=== PATIENT | female | born 1935 | race Two or more races ===

== ENCOUNTER 2017-10-30 02:15 | Inpatient (IN) | payer MEDICARE, OTHER ==
[~2017-10-30] VITALS: Ht 149.9 cm; Wt 63.5 kg
[2017-10-30] VITALS (8 sets, daily range): BP systolic 127–158; BP diastolic 55–90
[2017-10-30] MEDS ORDERED: Sodium Chloride 500ML 500 ML IV ONE (02:25)
[2017-10-30] MEDS ORDERED: Isovue-300 100ml vial INJ PRN (02:30)
[2017-10-30 02:57] LABS: BASOPHILS % (AUTO) 1.1 % (0.0-2.0); EOSINOPHILS % (AUTO) 4.3 % (0.0-3.0); HEMATOCRIT 42.8 % (37.0-47.0); HEMOGLOBIN 13.8 G/DL (12.0-16.0); LYMPHOCYTES % (AUTO) 21.2 % (20.0-45.0); MEAN CORPUSCULAR VOLUME 87 FL (80-99); MONOCYTES % (AUTO) 13.1 % (1.0-10.0); NEUTROPHILS % (AUTO) 60.3 % (45.0-75.0); PLATELET COUNT 312 K/UL (150-450); RED BLOOD COUNT 4.91 M/UL (4.20-5.40); RED CELL DISTRIBUTION WIDTH 14.6 % (11.6-14.8); WHITE BLOOD COUNT 4.4 K/UL (4.8-10.8)
[2017-10-30 03:05] LABS: BILIRUBIN, URINE NEGATIVE (NEGATIVE); COLOR,URINE PALE YELLOW; GLUCOSE, URINE (UA) NEGATIVE (NEGATIVE); KETONES,URINE NEGATIVE (NEGATIVE); LEUKOCYTE ESTERASE ,URINE 3+ (NEGATIVE); NITRITE,URINE POSITIVE (NEGATIVE); PH,URINE 6.5 (4.5-8.0); PROTEIN,URINE 1+ (NEGATIVE); UROBILINOGEN,URINE NORMAL MG/DL (0.0-1.0)
[2017-10-30 03:12] LABS: ANION GAP 9 mmol/L (5-15); BLOOD UREA NITROGEN 6 mg/dL (7-18); CALCIUM 9.4 MG/DL (8.5-10.1); CARBON DIOXIDE 27 MMOL/L (21-32); CHLORIDE 104 MMOL/L (98-107); CREATININE 0.8 MG/DL (0.55-1.30); POTASSIUM 3.1 MMOL/L (3.5-5.1); SODIUM 140 MMOL/L (136-145)
[2017-10-30 03:13] LABS: APPEARANCE,URINE CLOUDY
[2017-10-30 03:16] LABS: ALANINE AMINOTRANSFERASE 16 U/L (12-78); ALBUMIN 3.2 G/DL (3.4-5.0); ALBUMIN/GLOBULIN RATIO 0.8 (1.0-2.7); ALKALINE PHOSPHATASE 107 U/L (46-116); ASPARTATE AMINO TRANSFERASE 20 U/L (15-37); BILIRUBIN,TOTAL 0.4 MG/DL (0.2-1.0)
[2017-10-30] MEDS ORDERED: Pantoprazole Inj IVP ONE (03:45)
--- NOTE | 2017-10-30 03:48 | Emergency Room Report ---
History of Present Illness General Chief Complaint: Abdominal Pain Source: Patient Present Illness HPI 82-year-old female presents ED for evaluation of rectal bleeding. Came from home. Her daughter call 911. Patient had episode of dark stool last night. Similar episode happened the day prior. Patient complaining of lower abdominal pain, sharp, 8 out of 10, nonradiating. Denies fevers or chills. Denies chest pain or shortness of breath. Denies nausea or vomiting. No other aggravating relieving factors. Denies any other associated symptoms Allergies: Coded Allergies: PENICILLINS (Verified Allergy, Unknown, 10/30/17) Patient History Past Medical History: HTN Past Surgical History: none Pertinent Family History: none Social History: Denies: smoking, alcohol use, drug use Now: No Immunizations: UTD Reviewed Nursing Documentation: PMH: Agreed; PSxH: Agreed Nursing Documentation-PMH Past Medical History: No History, Except For Hx Hypertension: Yes Review of Systems All Other Systems: negative except mentioned in HPI Physical Exam Vital Signs Date Time Temp Pulse Resp B/P (MAP) Pulse Ox O2 Delivery O2 Flow Rate FiO2 10/30/17 02:04 99.1 59 14 152/88 97 Room Air 99.1 Sp02 EP Interpretation: reviewed, normal General Appearance: no apparent distress, alert, GCS 15, non-toxic Head: normocephalic, atraumatic Eyes: bilateral eye normal inspection, bilateral eye PERRL ENT: hearing grossly normal, normal pharynx, no angioedema, normal voice Neck: full range of motion, supple/symm/no masses Respiratory: chest non-tender, lungs clear, normal breath sounds, speaking full sentences Cardiovascular #1: regular rate, rhythm, no edema Cardiovascular #2: 2+ carotid (R), 2+ carotid (L), 2+ radial (R), 2+ radial (L) , 2+ dorsalis pedis (R), 2+ dorsalis pedis (L) Gastrointestinal: normal bowel sounds, soft, non-distended, no guarding, no rebound, tenderness Rectal: blood streaked stool, heme positive stool Genitourinary: normal inspection, no CVA tenderness Musculoskeletal: back normal, gait/station normal, normal range of motion, non- tender Neurologic: alert, oriented x3, responsive, motor strength/tone normal, sensory intact, speech normal Psychiatric: judgement/insight normal, memory normal, mood/affect normal, no suicidal/homicidal ideation Reflexes: 3+ bicep (R), 3+ bicep (L), 3+ tricep (R), 3+ tricep (L), 3+ knee (R) , 3+ knee (L) Skin: normal color, no rash, warm/dry, well hydrated Lymphatic: no adenopathy Medical Decision Making Diagnostic Impression: Primary Impression: LGI bleed Additional Impression: UTI (urinary tract infection) Qualified Codes: N39.0 - Urinary tract infection, site not specified ER Course Hospital Course 82-year-old F presents to ED with rectal bleeding Differential diagnoses include: UGIB, LGIB, hemorrhoids Clinical course Patient placed on stretcher. 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 After initial history and physical I ordered labs, IV fluids, UA Labs - no leukocytosis, Hb/Hct stable. electrolytes ok, UA + bacteria In ED patient had large passage of blood clot. Vital stable. Given Protonix IV. Patient will require admission. Given antibiotics. Case discussed with Dr. Middleton and he agreed to accept the patient to his service for further care and support I feel this is a highly complex case requiring extensive working including EKG/ Rhythm strip, Xray/CT/US, Blood/urine lab work, repeat exams while in ED, and administration of strong opiates/narcotics for pain control, admission to hospital or close patient follow up. Diagnosis - LGIB, UTI Patient admitted to telemetry in serious condition Labs Test 10/30/17 02:30 White Blood Count 4.4 K/UL (4.8-10.8) Red Blood Count 4.91 M/UL (4.20-5.40) Hemoglobin 13.8 G/DL (12.0-16.0) Hematocrit 42.8 % (37.0-47.0) Mean Corpuscular Volume 87 FL (80-99) Mean Corpuscular Hemoglobin 28.0 PG (27.0-31.0) Mean Corpuscular Hemoglobin Concent 32.2 G/DL (32.0-36.0) Red Cell Distribution Width 14.6 % (11.6-14.8) Platelet Count 312 K/UL (150-450) Mean Platelet Volume 6.1 FL (6.5-10.1) Neutrophils (%) (Auto) 60.3 % (45.0-75.0) Lymphocytes (%) (Auto) 21.2 % (20.0-45.0) Monocytes (%) (Auto) 13.1 % (1.0-10.0) Eosinophils (%) (Auto) 4.3 % (0.0-3.0) Basophils (%) (Auto) 1.1 % (0.0-2.0) Prothrombin Time 10.5 SEC (9.30-11.50) Prothromb Time International Ratio 1.0 (0.9-1.1) Activated Partial Thromboplast Time 30 SEC (23-33) Urine Color Pale yellow Urine Appearance Cloudy Urine pH 6.5 (4.5-8.0) Urine Specific [place] 1.010 (1.005-1.035) Urine Protein 1+ (NEGATIVE) Urine Glucose (UA) Negative (NEGATIVE) Urine Ketones Negative (NEGATIVE) Urine Occult Blood 5+ (NEGATIVE) Urine Nitrite Positive (NEGATIVE) Urine Bilirubin Negative (NEGATIVE) Urine Urobilinogen Normal MG/DL (0.0-1.0) Urine Leukocyte Esterase 3+ (NEGATIVE) Urine RBC 20-30 /HPF (0 - 2) Urine WBC Tntc /HPF (0 - 2) Urine Squamous Epithelial Cells Moderate /LPF (NONE/OCC) Urine Bacteria Many /HPF (NONE) Sodium Level 140 MMOL/L (136-145) Potassium Level 3.1 MMOL/L (3.5-5.1) Chloride Level 104 MMOL/L (98-107) Carbon Dioxide Level 27 MMOL/L (21-32) Anion Gap 9 mmol/L (5-15) Blood Urea Nitrogen 6 mg/dL (7-18) Creatinine 0.8 MG/DL (0.55-1.30) Estimat Glomerular Filtration Rate mL/min (>60) Glucose Level 124 MG/DL (74-106) Calcium Level 9.4 MG/DL (8.5-10.1) Total Bilirubin 0.4 MG/DL (0.2-1.0) Aspartate Amino Transf (AST/SGOT) 20 U/L (15-37) Alanine Aminotransferase (ALT/SGPT) 16 U/L (12-78) Alkaline Phosphatase 107 U/L (46-116) Total Protein 7.3 G/DL (6.4-8.2) Albumin 3.2 G/DL (3.4-5.0) Globulin 4.1 g/dL Albumin/Globulin Ratio 0.8 (1.0-2.7) Lipase 273 U/L (73-393) CT/MRI/US Diagnostic Results CT/MRI/US Diagnostic Results : Imaging Test Ordered: CT A/P Impression resulting pending (STATRAD down) Last Vital Signs Date Time Temp Pulse Resp B/P (MAP) Pulse Ox O2 Delivery O2 Flow Rate FiO2 10/30/17 02:15 99.1 78 14 155/55 97 Room Air 99.1 Status: improved Disposition: ADMITTED INPATIENT Condition: Serious Scripts Unable to Obtain Active Prescriptions or Reported Meds Referrals: NOT CHOSEN IPA/,REFERRING (PCP) Jeovany Torres MD Oct 30, 2017 03:48
[2017-10-30] MEDS: Pantoprazole 80 MG in NS 250 ML IV SCH ×2 (10:18→20:39)
[2017-10-30] MEDS: Potassium Chloride 10 MEQ in D5 1/2NS 1,000 ML IV SCH ×2 (10:18→20:40)
--- NOTE | 2017-10-30 11:05 | Diagnostic Imaging Report ---
Indication: Abdominal pain Technique: CT of the abdomen and pelvis utilizing automated exposure control with intravenous contrast. Venous scanning performed. Axial, sagittal and coronal reformats presented. CT dose: Total DLP 682.27 mGycm; CTDI vol 15.23 mGy Comparison: None Findings: Exam degraded by patient motion. Within these limitations: There is dependent atelectasis in the lung bases. Heart is enlarged. There are aortic valvular calcifications. No pericardial effusion. Patient is status post cholecystectomy. There is mild prominence of the central intrahepatic ducts and common bile duct which is likely related to post cholecystectomy state. Liver contour is smooth. No focal hepatic mass lesion appreciated on this single phase exam. Hepatic veins and portal veins appear patent. Spleen, adrenal glands and pancreas grossly unremarkable. There is a 4 cm simple appearing cysts in the lower pole of the right kidney. There is no urinary tract stone or hydronephrosis bilaterally. A Feliciano catheter decompresses the bladder, precluding its evaluation. The uterus and adnexa are atrophic. There is no free intraperitoneal air. No bowel obstruction or obvious inflammatory change in the mesentery. There is colonic diverticulosis without evidence to suggest an acute diverticulitis. Abdominal aorta is normal in caliber with scattered atherosclerotic calcifications. No pathologically enlarged lymphadenopathy appreciated. There is scoliosis and multilevel degenerative change of the spine. There is grade 1 anterolisthesis of L5 on S1. No acute osseous abnormality appreciated. IMPRESSION: * Gallbladder surgically absent. Mild prominence of intrahepatic and extrahepatic ducts likely related to postcholecystectomy state. Correlation with liver function tests recommended. * No evidence of bowel obstruction or definite inflammatory change in the mesentery. * Scattered colonic diverticula. No evidence to suggest diverticulitis. * Feliciano catheter decompresses the bladder, precluding its evaluation. * Cardiomegaly. * Osteopenia, scoliosis and multilevel degenerative change of the spine. The CT scanner at [facility] is accredited by the [place] [employer] and the scans are performed using protocols designed to limit radiation exposure to as low as reasonably achievable to attain images of sufficient resolution adequate for diagnostic evaluation.
--- NOTE | 2017-10-30 11:40 | History and Physical ---
History of Present Illness General Date patient seen: Oct 30, 2017 Reason for Hospitalization: Abdominal Pain Present Illness HPI 82-year-old female presents ED for evaluation of rectal bleeding. Pt reports having dark melanic stool over last 2 days & last night associated w/ a moderate to severe lower abdominal pain x 24 hrs (sharp, non radiating, worse w / activity and improved w/ meds in hospital). Pt afebrile and HDS in the ED, had an episode of clot passed. Initial labs relatively unremarkable w/ hypokalemia and HB wnl. Started on PPI Gtt and NPO receiving IVF. Allergies: Coded Allergies: PENICILLINS (Verified Allergy, Unknown, 10/30/17) Medication History Unable to Obtain Active Prescriptions or Reported Meds Patient History Healthcare decision maker Resuscitation status Full Code Advanced Directive on File Review of Systems Constitutional: Denies: no symptoms, see HPI, chills, sweats, fever, malaise, weakness, other Eye: Denies: no symptoms, see HPI, eye pain, blurred vision, tearing, double vision, nose pain, nose congestion, acuity changes, discharge, other ENT: Denies: no symptoms, see HPI, ear pain, ear discharge, nose pain, nose congestion, throat pain, throat swelling, mouth pain, hearing loss, nasal discharge, other Respiratory: Denies: no symptoms, see HPI, cough, orthopnea, shortness of breath, stridor, wheezing, HOLLEY, sputum, other Cardiovascular: Denies: no symptoms, see HPI, chest pain, edema, palpitations, syncope, PND, other Gastrointestinal: Reports: see HPI, abdominal pain, melena; Denies: no symptoms , constipation, diarrhea, nausea, vomiting, hematemesis, other Genitourinary: Denies: no symptoms, see HPI, discharge, dysuria, frequency, hematuria, pain, retention, incontinence, urgency, vag bleed/dc, other Musculoskeletal: Denies: no symptoms, see HPI, back pain, gout, joint pain, joint swelling, muscle pain, muscle stiffness, other Skin: Denies: no symptoms, see HPI, rash, change in color, change in hair/nails , dryness, lesions, other Psychiatric: Denies: no symptoms, see HPI, prior hx, anxiety, depressed feelings, emotional problems, SI, HI, hallucinations, other Neurological: Denies: no symptoms, see HPI, headache, numbness, paresthesia, seizure, tingling, tremors, focal weakness, syncope, dizziness, other Endocrine: Denies: no symptoms, see HPI, excessive sweating, flushing, intolerance to temperature, increased thirst, increased urine, unexplained weight loss, other Hematologic/Lymphatic: Denies: no symptoms, see HPI, anemia, blood clots, easy bleeding, easy bruising, swollen glands, diathesis, other Physical Exam General Appearance: WD/WN, no apparent distress, alert HEENT: normocephalic, atraumatic, anicteric, mucous membranes moist, PERRL Neck: supple Respiratory/Chest: chest wall non-tender, lungs clear, normal breath sounds, no respiratory distress Cardiovascular/Chest: normal peripheral pulses, normal rate, regular rhythm, regularly irregular, no gallop/murmur, no JVD Abdomen: normal bowel sounds, non tender, soft, no organomegaly, no mass Extremities: normal range of motion, non-tender, normal inspection, no calf tenderness, normal capillary refill, non-pitting 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, no motor/sensory deficits, abnormal gait , alert, oriented x 3, responsive Last 24 Hour Vital Signs Date Time Temp Pulse Resp B/P (MAP) Pulse Ox O2 Delivery O2 Flow Rate FiO2 10/30/17 09:12 Room Air 10/30/17 09:00 Room Air 10/30/17 06:10 98.7 83 20 145/65 98 Room Air 98.7 10/30/17 05:35 98.7 83 20 145/65 98 Room Air 98.7 10/30/17 04:28 98.8 76 16 148/57 98 Room Air 98.8 10/30/17 02:15 99.1 78 14 155/55 97 Room Air 99.1 10/30/17 02:04 99.1 59 14 152/88 97 Room Air 99.1 Intake and Output 10/29/17 10/30/17 19:00 07:00 Intake Total 500 ml Output Total 2975 ml Balance -2475 ml Intake IV Total 500 ml Output Urine Total 2975 ml Laboratory Tests Test 10/30/17 02:30 White Blood Count 4.4 K/UL (4.8-10.8) L Red Blood Count 4.91 M/UL (4.20-5.40) Hemoglobin 13.8 G/DL (12.0-16.0) Hematocrit 42.8 % (37.0-47.0) Mean Corpuscular Volume 87 FL (80-99) Mean Corpuscular Hemoglobin 28.0 PG (27.0-31.0) Mean Corpuscular Hemoglobin Concent 32.2 G/DL (32.0-36.0) Red Cell Distribution Width 14.6 % (11.6-14.8) Platelet Count 312 K/UL (150-450) Mean Platelet Volume 6.1 FL (6.5-10.1) L Neutrophils (%) (Auto) 60.3 % (45.0-75.0) Lymphocytes (%) (Auto) 21.2 % (20.0-45.0) Monocytes (%) (Auto) 13.1 % (1.0-10.0) H Eosinophils (%) (Auto) 4.3 % (0.0-3.0) H Basophils (%) (Auto) 1.1 % (0.0-2.0) Prothrombin Time 10.5 SEC (9.30-11.50) Prothromb Time International Ratio 1.0 (0.9-1.1) Activated Partial Thromboplast Time 30 SEC (23-33) Urine Color Pale yellow Urine Appearance Cloudy Urine pH 6.5 (4.5-8.0) Urine Specific [place] 1.010 (1.005-1.035) Urine Protein 1+ (NEGATIVE) H Urine Glucose (UA) Negative (NEGATIVE) Urine Ketones Negative (NEGATIVE) Urine Occult Blood 5+ (NEGATIVE) H Urine Nitrite Positive (NEGATIVE) H Urine Bilirubin Negative (NEGATIVE) Urine Urobilinogen Normal MG/DL (0.0-1.0) Urine Leukocyte Esterase 3+ (NEGATIVE) H Urine RBC 20-30 /HPF (0 - 2) H Urine WBC Tntc /HPF (0 - 2) H Urine Squamous Epithelial Cells Moderate /LPF (NONE/OCC) H Urine Bacteria Many /HPF (NONE) H Sodium Level 140 MMOL/L (136-145) Potassium Level 3.1 MMOL/L (3.5-5.1) L Chloride Level 104 MMOL/L (98-107) Carbon Dioxide Level 27 MMOL/L (21-32) Anion Gap 9 mmol/L (5-15) Blood Urea Nitrogen 6 mg/dL (7-18) L Creatinine 0.8 MG/DL (0.55-1.30) Estimat Glomerular Filtration Rate mL/min (>60) Glucose Level 124 MG/DL (74-106) H Calcium Level 9.4 MG/DL (8.5-10.1) Total Bilirubin 0.4 MG/DL (0.2-1.0) Aspartate Amino Transf (AST/SGOT) 20 U/L (15-37) Alanine Aminotransferase (ALT/SGPT) 16 U/L (12-78) Alkaline Phosphatase 107 U/L (46-116) Total Protein 7.3 G/DL (6.4-8.2) Albumin 3.2 G/DL (3.4-5.0) L Globulin 4.1 g/dL Albumin/Globulin Ratio 0.8 (1.0-2.7) L Lipase 273 U/L (73-393) Height (Feet): 4 Height (Inches): 11.00 Weight (Pounds): 140 Medications Current Medications Medications (Trade) Dose Ordered Sig/Violet Route PRN Reason Start Time Stop Time Status Last Admin Dose Admin Iopamidol (Isovue-300 100ml) 100 ml NOW PRN INJ Radiology Procedure 10/30/17 02:30 Pantoprazole 80 mg/Sodium Chloride 250 ml @ 25 mls/hr Q10H IV 10/30/17 10:30 11/29/17 10:29 10/30/17 10:18 Potassium Chloride 10 meq/ Dextrose/Sodium Chloride 1,005 ml @ 100 mls/hr Q10H3M IV 10/30/17 10:20 11/29/17 10:19 10/30/17 10:18 Assessment/Plan Assessment/Plan #GI Bleed #Hypokalemia #UTI - not clean catch but w/ wbc's #HTN #Shortness of breath - admit to in pt - GI consult - NPO - Protonix gtt - trend CBC - mIVF - Follow urine Cx - c/w empiric Levaquin - pulm consult - prn hyral for sbp > 160 - supportive care - dvt ppx: SCDs, early ambulation - full code anticipate pt will require in pt mgt for 2-3 days, dc home + HH vs SNF once stable for discharge I spent 70 min on this case, 48 min was dedicated to counseling and or care coordination time of this note may not reflect time of clinical encounter Francis Dunbar MD Oct 30, 2017 11:40
--- NOTE | 2017-10-30 13:57 | GI Initial Consult Note ---
History of Present Illness General Date patient seen: Oct 30, 2017 Time patient seen: 16:21 Reason for Hospitalization: Abdominal Pain Referring physician: YADY Reason for Consultation: GI BLEED Present Illness HPI 82-year-old female presents ED for evaluation of rectal bleeding. Came from home. Her daughter call 911. Patient had episode of dark stool last night. Similar episode happened the day prior. Patient complaining of lower abdominal pain, sharp, 8 out of 10, nonradiating. Denies fevers or chills. Denies chest pain or shortness of breath. Denies nausea or vomiting. No other aggravating relieving factors. Denies any other associated symptoms GI consulted for LGIB. Pt seen, awake A&Ox4 NAD with no active s/sx of N/V/D. Per patient, had an episode of hematochezia and melena x 2 nights. Her last colonoscopy was performed 2 years ago, in which the patient is states it was normal. She denies any rectal pain, denies abdominal pain at this time. Labs reviewed; no anemia, no leukocytosis. Noted with hypokalemia and hypoalbuminemia. Home Meds Unable to Obtain Active Prescriptions or Reported Meds Med list reviewed/reconciled: Yes Allergies: Coded Allergies: PENICILLINS (Verified Allergy, Unknown, 10/30/17) Patient History History Provided By: Patient, Medical Record PMH Narrative Past Medical History: HTN Past Surgical History: none Pertinent Family History: none Social History: Denies: smoking, alcohol use, drug use Now: No Immunizations: UTD Reviewed Nursing Documentation: PMH: Agreed; PSxH: Agreed Nursing Documentation-PM Past Medical History: No History, Except For Hx Hypertension: Yes Social History: Denies: smoking, alcohol use, drug use, other Review of Systems All Other Systems: negative except mentioned in HPI Physical Exam Vital Signs Date Time Temp Pulse Resp B/P (MAP) Pulse Ox O2 Delivery O2 Flow Rate FiO2 10/30/17 02:04 99.1 59 14 152/88 97 Room Air 99.1 Sp02 EP Interpretation: reviewed, normal Labs Laboratory Tests Test 10/30/17 02:30 White Blood Count 4.4 K/UL (4.8-10.8) L Red Blood Count 4.91 M/UL (4.20-5.40) Hemoglobin 13.8 G/DL (12.0-16.0) Hematocrit 42.8 % (37.0-47.0) Mean Corpuscular Volume 87 FL (80-99) Mean Corpuscular Hemoglobin 28.0 PG (27.0-31.0) Mean Corpuscular Hemoglobin Concent 32.2 G/DL (32.0-36.0) Red Cell Distribution Width 14.6 % (11.6-14.8) Platelet Count 312 K/UL (150-450) Mean Platelet Volume 6.1 FL (6.5-10.1) L Neutrophils (%) (Auto) 60.3 % (45.0-75.0) Lymphocytes (%) (Auto) 21.2 % (20.0-45.0) Monocytes (%) (Auto) 13.1 % (1.0-10.0) H Eosinophils (%) (Auto) 4.3 % (0.0-3.0) H Basophils (%) (Auto) 1.1 % (0.0-2.0) Prothrombin Time 10.5 SEC (9.30-11.50) Prothromb Time International Ratio 1.0 (0.9-1.1) Activated Partial Thromboplast Time 30 SEC (23-33) Urine Color Pale yellow Urine Appearance Cloudy Urine pH 6.5 (4.5-8.0) Urine Specific [place] 1.010 (1.005-1.035) Urine Protein 1+ (NEGATIVE) H Urine Glucose (UA) Negative (NEGATIVE) Urine Ketones Negative (NEGATIVE) Urine Occult Blood 5+ (NEGATIVE) H Urine Nitrite Positive (NEGATIVE) H Urine Bilirubin Negative (NEGATIVE) Urine Urobilinogen Normal MG/DL (0.0-1.0) Urine Leukocyte Esterase 3+ (NEGATIVE) H Urine RBC 20-30 /HPF (0 - 2) H Urine WBC Tntc /HPF (0 - 2) H Urine Squamous Epithelial Cells Moderate /LPF (NONE/OCC) H Urine Bacteria Many /HPF (NONE) H Sodium Level 140 MMOL/L (136-145) Potassium Level 3.1 MMOL/L (3.5-5.1) L Chloride Level 104 MMOL/L (98-107) Carbon Dioxide Level 27 MMOL/L (21-32) Anion Gap 9 mmol/L (5-15) Blood Urea Nitrogen 6 mg/dL (7-18) L Creatinine 0.8 MG/DL (0.55-1.30) Estimat Glomerular Filtration Rate mL/min (>60) Glucose Level 124 MG/DL (74-106) H Calcium Level 9.4 MG/DL (8.5-10.1) Total Bilirubin 0.4 MG/DL (0.2-1.0) Aspartate Amino Transf (AST/SGOT) 20 U/L (15-37) Alanine Aminotransferase (ALT/SGPT) 16 U/L (12-78) Alkaline Phosphatase 107 U/L (46-116) Total Protein 7.3 G/DL (6.4-8.2) Albumin 3.2 G/DL (3.4-5.0) L Globulin 4.1 g/dL Albumin/Globulin Ratio 0.8 (1.0-2.7) L Lipase 273 U/L (73-393) General Appearance: well appearing, no apparent distress, alert Head: normocephalic EENT: PERRL/EOMI, normal ENT inspection Neck: supple Respiratory: normal breath sounds, no respiratory distress Cardiovascular: normal rate Gastrointestinal: normal inspection, non tender, soft, normal bowel sounds, non -distended Rectal: deferred Genitourinary: no CVA tenderness Musculoskeletal: normal inspection, back normal Neurologic: normal inspection, alert, oriented x3, responsive Psychiatric: normal inspection, judgement/insight normal, memory normal Skin: normal inspection, normal color, no rash, warm/dry, palpation normal, well hydrated Lymphatic: normal inspection, no adenopathy Current Medications Current Medications Medications (Trade) Dose Ordered Sig/Violet Route PRN Reason Start Time Stop Time Status Last Admin Dose Admin Iopamidol (Isovue-300 100ml) 100 ml NOW PRN INJ Radiology Procedure 10/30/17 02:30 Pantoprazole 80 mg/Sodium Chloride 250 ml @ 25 mls/hr Q10H IV 10/30/17 10:30 11/29/17 10:29 10/30/17 10:18 Potassium Chloride 10 meq/ Dextrose/Sodium Chloride 1,005 ml @ 100 mls/hr Q10H3M IV 10/30/17 10:20 11/29/17 10:19 10/30/17 10:18 GI: Plan Problems: (1) LGI bleed Plan EGD/colonoscopy scheduled for tomorrow. - CLD, NPO @ [facility]. - hold all blood thinners. ppi prn transfusions will follow with additional recs post procedure. Discussed with Dr. Mejias. Thank you for this patient referral, we will follow. The patient was seen and examined at bedside and all new and available data was reviewed in the patients chart. I agree with the above findings, impression and plan. (Patient seen earlier today. Signature stamp does not reflect patient encounter time.). - MD Chelsie LeeUn[facility] Southeasternoi INDUSTRIAL MANAGEMENT TEACHER Oct 30, 2017 13:57
[2017-10-30] MEDS ORDERED: Magnesium Citrate Liq Btl ORAL SCH (16:00)
[2017-10-30] MEDS ORDERED: Polyethylene Glycol 238gm bottle ORAL SCH (16:00)
[2017-10-30] MEDS ORDERED: Bisacodyl EC 5mg tab ORAL SCH (16:00)
[2017-10-30 16:12] LABS: BASOPHILS % (AUTO) 0.9 % (0.0-2.0); EOSINOPHILS % (AUTO) 0.7 % (0.0-3.0); HEMATOCRIT 36.8 % (37.0-47.0); HEMOGLOBIN 12.3 G/DL (12.0-16.0); LYMPHOCYTES % (AUTO) 23.4 % (20.0-45.0); MEAN CORPUSCULAR VOLUME 86 FL (80-99); MONOCYTES % (AUTO) 10.6 % (1.0-10.0); NEUTROPHILS % (AUTO) 64.4 % (45.0-75.0); PLATELET COUNT 243 K/UL (150-450); RED CELL DISTRIBUTION WIDTH 14.5 % (11.6-14.8); WHITE BLOOD COUNT 5.3 K/UL (4.8-10.8)
[2017-10-30] MEDS ORDERED: TRAMADOL HCL50 MG ORAL (18:01)
[2017-10-30] MEDS ORDERED: PAZEO2.5 ML OP (18:01)
[2017-10-30] MEDS ORDERED: TENORMIN25 MG ORAL (18:01)
[2017-10-30] MEDS ORDERED: PATADAY2.5 ML OP (18:01)
[2017-10-30] MEDS ORDERED: ASPIRIN81 M3 PO (18:01)
[2017-10-30] MEDS ORDERED: Fleet's Enema 133ml RECTAL SCH (23:00)
[2017-10-31] VITALS (8 sets, daily range): BP systolic 109–151; BP diastolic 77–89
[2017-10-31] MEDS: Potassium Chloride 10 MEQ in D5 1/2NS 1,000 ML IV SCH ×2 (05:40→16:22)
[2017-10-31] MEDS: Pantoprazole 80 MG in NS 250 ML IV SCH ×2 (05:40→16:22)
[2017-10-31 06:47] LABS: EOSINOPHILS % (AUTO) 2.7 % (0.0-3.0); HEMATOCRIT 38.5 % (37.0-47.0); HEMOGLOBIN 12.4 G/DL (12.0-16.0); MEAN CORPUSCULAR VOLUME 88 FL (80-99); MONOCYTES % (AUTO) 13.3 % (1.0-10.0); PLATELET COUNT 260 K/UL (150-450); RED BLOOD COUNT 4.36 M/UL (4.20-5.40); RED CELL DISTRIBUTION WIDTH 14.9 % (11.6-14.8); WHITE BLOOD COUNT 4.5 K/UL (4.8-10.8)
[2017-10-31 07:00] LABS: INR 1.1 (0.9-1.1)
[2017-10-31 07:04] LABS: ANION GAP 9 mmol/L (5-15); BLOOD UREA NITROGEN 4 mg/dL (7-18); CALCIUM 8.6 MG/DL (8.5-10.1); CARBON DIOXIDE 25 MMOL/L (21-32); CHLORIDE 108 MMOL/L (98-107); CREATININE 0.7 MG/DL (0.55-1.30); POTASSIUM 3.2 MMOL/L (3.5-5.1); SODIUM 142 MMOL/L (136-145)
[2017-10-31] MEDS ORDERED: Pantoprazole Inj IVP SCH (09:00)
[2017-10-31] MEDS ORDERED: NS 275ml ONE (09:40)
--- NOTE | 2017-10-31 09:44 | Anethesia Preoperative Eval ---
Anesthesia Pre-op PMH/ROS General Date of Evaluation: Oct 31, 2017 Anesthesiologist: Dhaval ASA Score: ASA 2 Mallampati Score Class I : Soft palate, uvula, fauces, pillars visible Class II: Soft palate, uvula, fauces visible Class III: Soft palate, base of uvula visible Class IV: Only hard plate visible Mallampati Classification: Class II Surgeon: Magalie Diagnosis: GI bleed Surgical Procedure: EGD and colonoscopy Anesthesia History: none Family History: no anesthesia problems Allergies: Coded Allergies: PENICILLINS (Verified Allergy, Unknown, 10/30/17) Medications: see eMAR Past Medical History Cardiovascular: Reports: HTN; Denies: CAD, UT, valve dz, arrhythmia, other Pulmonary: Denies: asthma, COPD, JAY JAY, other Gastrointestinal/Genitourinary: Denies: GERD, CRI, ESRD, other Neurologic/Psychiatric: Denies: dementia, CVA, depression/anxiety, TIA, other Endocrine: Denies: DM, hypothyroidism, steroids, other HEENT: Denies: cataract (L), cataract (R), glaucoma, CHITINA (L), CHITINA (R), other Hematology/Immune: Reports: anemia - acute on chronic; Denies: DVT, bleeding disorder, other Musculoskeletal/Integumentary: Denies: OA, RA, DJD, DDD, edema, other PSxH Narrative: Denies Anesthesia Pre-op Phys. Exam Physician Exam Last Vital Signs Date Time Temp Pulse Resp B/P (MAP) Pulse Ox O2 Delivery O2 Flow Rate FiO2 10/31/17 04:00 97.0 75 20 143/86 (105) 95 97.0 10/30/17 21:00 Room Air Constitutional: NAD Cardiovascular: RRR Respiratory: CTA Airway Exam Mallampati Score: Class II MO: full ROM: full Anesthesia Pre-op A/P Labs Hematology Test 10/30/17 15:50 10/31/17 05:52 White Blood Count 5.3 K/UL (4.8-10.8) 4.5 K/UL (4.8-10.8) L Red Blood Count 4.30 M/UL (4.20-5.40) 4.36 M/UL (4.20-5.40) Hemoglobin 12.3 G/DL (12.0-16.0) 12.4 G/DL (12.0-16.0) Hematocrit 36.8 % (37.0-47.0) L 38.5 % (37.0-47.0) Mean Corpuscular Volume 86 FL (80-99) 88 FL (80-99) Mean Corpuscular Hemoglobin 28.6 PG (27.0-31.0) 28.4 PG (27.0-31.0) Mean Corpuscular Hemoglobin Concent 33.4 G/DL (32.0-36.0) 32.1 G/DL (32.0-36.0) Red Cell Distribution Width 14.5 % (11.6-14.8) 14.9 % (11.6-14.8) H Platelet Count 243 K/UL (150-450) 260 K/UL (150-450) Mean Platelet Volume 5.9 FL (6.5-10.1) L 6.0 FL (6.5-10.1) L Neutrophils (%) (Auto) 64.4 % (45.0-75.0) 56.0 % (45.0-75.0) Lymphocytes (%) (Auto) 23.4 % (20.0-45.0) 27.0 % (20.0-45.0) Monocytes (%) (Auto) 10.6 % (1.0-10.0) H 13.3 % (1.0-10.0) H Eosinophils (%) (Auto) 0.7 % (0.0-3.0) 2.7 % (0.0-3.0) Basophils (%) (Auto) 0.9 % (0.0-2.0) 1.0 % (0.0-2.0) Coagulation Test 10/31/17 05:52 Prothrombin Time 11.1 SEC (9.30-11.50) Prothromb Time International Ratio 1.1 (0.9-1.1) Activated Partial Thromboplast Time 32 SEC (23-33) Chemistry Test 10/31/17 05:52 Sodium Level 142 MMOL/L (136-145) Potassium Level 3.2 MMOL/L (3.5-5.1) L Chloride Level 108 MMOL/L (98-107) H Carbon Dioxide Level 25 MMOL/L (21-32) Anion Gap 9 mmol/L (5-15) Blood Urea Nitrogen 4 mg/dL (7-18) L Creatinine 0.7 MG/DL (0.55-1.30) Estimat Glomerular Filtration Rate mL/min (>60) Glucose Level 110 MG/DL (74-106) H Calcium Level 8.6 MG/DL (8.5-10.1) Magnesium Level 2.1 MG/DL (1.8-2.4) Studies Pre-op Studies: EKG - sr Risk Assessment & Plan Assessment: ASA II Plan: MAC Status Change Before Surgery: No Pre-Antibiotics Drug: N/A Fay Patel MD Oct 31, 2017 09:44
--- NOTE | 2017-10-31 10:50 | General Progress Note ---
Assessment/Plan Problem List: (1) LGI bleed ICD Codes: K92.2 - Gastrointestinal hemorrhage, unspecified SNOMED: 96929296 (2) UTI (urinary tract infection) ICD Codes: N39.0 - Urinary tract infection, site not specified SNOMED: 86918373 Qualifiers: Qualified Codes: N39.0 - Urinary tract infection, site not specified Assessment/Plan plan EGD and colonoscopy for today Subjective ROS Limited/Unobtainable: Yes Allergies: Coded Allergies: PENICILLINS (Verified Allergy, Unknown, 10/30/17) Objective Last 24 Hour Vital Signs Date Time Temp Pulse Resp B/P (MAP) Pulse Ox O2 Delivery O2 Flow Rate FiO2 10/31/17 04:00 97.0 75 20 143/86 (105) 95 97.0 10/31/17 04:00 74 10/31/17 00:00 68 10/31/17 00:00 98.0 79 20 133/82 (99) 96 98.0 10/30/17 21:00 Room Air 10/30/17 20:00 77 10/30/17 20:00 97.9 87 20 145/88 (107) 96 97.9 10/30/17 16:00 98.4 79 20 149/70 (96) 96 98.4 10/30/17 16:00 77 10/30/17 12:00 98.1 94 20 127/90 (102) 94 98.1 10/30/17 12:00 72 Intake and Output 10/30/17 10/31/17 19:00 07:00 Intake Total 1105 ml 1332.75 ml Output Total 800 ml Balance 305 ml 1332.75 ml Intake Oral 980 ml IV Total 125 ml 1332.75 ml Output Urine Total 800 ml # Voids 3 # Bowel Movements 3 Laboratory Tests 10/30/17 15:50: White Blood Count 5.3, Red Blood Count 4.30, Hemoglobin 12.3, Hematocrit 36.8L, Mean Corpuscular Volume 86, Mean Corpuscular Hemoglobin 28.6, Mean Corpuscular Hemoglobin Concent 33.4, Red Cell Distribution Width 14.5, Platelet Count 243, Mean Platelet Volume 5.9L, Neutrophils (%) (Auto) 64.4, Lymphocytes (%) (Auto) 23.4, Monocytes (%) (Auto) 10.6H, Eosinophils (%) (Auto) 0.7, Basophils (%) ( Auto) 0.9 10/31/17 05:52: White Blood Count 4.5L, Red Blood Count 4.36, Hemoglobin 12.4, Hematocrit 38.5, Mean Corpuscular Volume 88, Mean Corpuscular Hemoglobin 28.4, Mean Corpuscular Hemoglobin Concent 32.1, Red Cell Distribution Width 14.9H, Platelet Count 260, Mean Platelet Volume 6.0L, Neutrophils (%) (Auto) 56.0, Lymphocytes (%) (Auto) 27.0, Monocytes (%) (Auto) 13.3H, Eosinophils (%) (Auto) 2.7, Basophils (%) ( Auto) 1.0, Prothrombin Time 11.1, Prothromb Time International Ratio 1.1, Activated Partial Thromboplast Time 32, Sodium Level 142, Potassium Level 3.2L, Chloride Level 108H, Carbon Dioxide Level 25, Anion Gap 9, Blood Urea Nitrogen 4L, Creatinine 0.7, Estimat Glomerular Filtration Rate , Glucose Level 110H, Calcium Level 8.6, Magnesium Level 2.1 Height (Feet): 4 Height (Inches): 11.00 Weight (Pounds): 140 General Appearance: no apparent distress EENT: normal ENT inspection Neck: supple Cardiovascular: normal rate Respiratory/Chest: decreased breath sounds Abdomen: normal bowel sounds, non tender, soft Extremities: non-tender Franklyn Mejias MD Oct 31, 2017 10:50
[2017-10-31] MEDS ORDERED: LR 1000ml 1,000 ML IVLG SCH ×2 (11:05→11:58)
[2017-10-31] MEDS ORDERED: DiphenhydrAMINE 50mg/ml Inj IVP PRN ×2 (11:15→12:00)
[2017-10-31] MEDS ORDERED: Labetalol 5mg/ml 20ml vial IV PRN ×2 (11:15→12:00)
--- NOTE | 2017-10-31 11:25 | Pre-Procedure Note/Attestation ---
Pre-Procedure Note/Attestation Complete Prior to Procedure Planned Procedure: not applicable Procedure Narrative: esophagogastroduodenoscopy and colonoscopy Indications for Procedure Pre-Operative Diagnosis: GIB Attestation I attest that I discussed the nature of the procedure; its benefits; risks and complications; and alternatives (and the risks and benefits of such alternatives ), prior to the procedure, with the patient (or the patient's legal nutrition representative). I attest that, if there was a reasonable possibility of needing a blood transfusion, the patient (or the patient's legal nutrition representative) was given the [facility] standardized written summary, pursuant to the Roberth Kristi Blood Safety Act ([place] Health and Safety Code # 1645, as amended). I attest that I re-evaluated the patient just prior to the surgery and that there has been no change in the patient's H&P, except as documented below: Franklyn Mejias MD Oct 31, 2017 11:25
[2017-10-31] MEDS ORDERED: LR 1000ml ONE (11:30)
[2017-10-31] MEDS ORDERED: Propofol 200mg/20ml IV ONE (11:30)
[2017-10-31] MEDS ORDERED: Lidocaine 1% MPF 10mg/ml 5ml ONE (11:30)
[2017-10-31] MEDS ORDERED: NS 500ML IVPB ONE (11:35)
--- NOTE | 2017-10-31 11:46 | Endoscopy Procedure Note ---
Endoscopy Procedure Note General Indication for Procedure: gib Procedures Performed: EGD, colonoscopy Operative Findings/Diagnosis: gastritis, hemorrhoids Specimen: yes Pt Tolerated Procedure Well: Yes Estimated Blood Loss: none Anesthesia Anesthesiologist: floresita Anesthesia: MAC Inserted Devices Implant(s) used?: No GI Core Measures 50 yrs or older w/o bx or poly: Not Applicable 10yrs. F/U not recommended: Not Applicable Franklyn Mejias MD Oct 31, 2017 11:46
--- NOTE | 2017-10-31 12:12 | Immediate Post-Op Evaluation ---
Immediate Post-Op Evalulation Immediate Post-Op Evalulation Procedure: EGD and colonoscopy Date of Evaluation: Oct 31, 2017 Time of Evaluation: 12:10 IV Fluids: 200 Blood Products: 0 Estimated Blood Loss: 0 Urinary Output: 0 Blood Pressure Systolic: 109 Blood Pressure Diastolic: 77 Pulse Rate: 77 Respiratory Rate: 17 O2 Sat by Pulse Oximetry: 100 Temperature (Fahrenheit): 97.6 Pain Score (1-10): 0 Nausea: No Vomiting: No Complications 0 Patient Status: awake, patent, none Hydration Status: adequate Drug: N/A Fay Patel MD Oct 31, 2017 12:12
--- NOTE | 2017-10-31 12:14 | 48 Hour Post Anesthesia Eval ---
Post Anesthesia Evaluation Procedure: EGD and colonoscopy Date of Evaluation: Oct 31, 2017 Airway: patent Nausea: No Vomiting: No Pain Intensity: 0 Hydration Status: adequate Cardiopulmonary Status: at baseline Mental Status/LOC: patient returned to baseline Post-Anesthesia Complications: 0 Follow-up care needed: N/A - further care as per primary team Fay Patel MD Oct 31, 2017 12:14
--- NOTE | 2017-10-31 15:37 | General Progress Note ---
Assessment/Plan Assessment/Plan #Diverticular bleeding - hb stable #Hypokalemia - persistent #UTI - Cx growing > 100k gram neg #HTN #Shortness of breath - GI consult, s/p EGD/[place] w/ diverticular bleed - Start CLD - Protonix gtt -> IVP daily - 40meq kcl po x 1 - trend CBC - mIVF - Follow urine Cx sens - c/w empiric Levaquin - pulm consult - prn hyral for sbp > 160 - supportive care - dvt ppx: SCDs, early ambulation - full code anticipate pt will require in pt mgt for 2-3 days, dc home + HH vs SNF once stable for discharge I spent 48 min on this case, 27 min was dedicated to counseling and or care coordination time of this note may not reflect time of clinical encounter Subjective Date patient seen: Oct 31, 2017 Allergies: Coded Allergies: PENICILLINS (Verified Allergy, Unknown, 10/30/17) All Systems: reviewed and negative except above Subjective No acute events Afebrile and HDS s/p EGD/[place] diverticular bleeding noted started on CLD Objective Last 24 Hour Vital Signs Date Time Temp Pulse Resp B/P (MAP) Pulse Ox O2 Delivery O2 Flow Rate FiO2 10/31/17 12:30 98.0 73 15 145/83 100 Room Air 98.0 10/31/17 12:15 82 18 132/89 100 Room Air 10/31/17 12:12 207.7 77 17 100 10/31/17 12:10 89 14 140/80 100 Room Air 10/31/17 12:05 97.6 77 17 109/77 100 Simple Mask 6 97.6 10/31/17 09:00 Room Air 10/31/17 08:00 71 10/31/17 04:00 97.0 75 20 143/86 (105) 95 97.0 10/31/17 04:00 74 10/31/17 00:00 68 10/31/17 00:00 98.0 79 20 133/82 (99) 96 98.0 10/30/17 21:00 Room Air 10/30/17 20:00 77 10/30/17 20:00 97.9 87 20 145/88 (107) 96 97.9 10/30/17 16:00 98.4 79 20 149/70 (96) 96 98.4 10/30/17 16:00 77 Intake and Output 10/30/17 10/31/17 19:00 07:00 Intake Total 1105 ml 1332.75 ml Output Total 800 ml Balance 305 ml 1332.75 ml Intake Oral 980 ml IV Total 125 ml 1332.75 ml Output Urine Total 800 ml # Voids 3 # Bowel Movements 3 Laboratory Tests 10/30/17 15:50: White Blood Count 5.3, Red Blood Count 4.30, Hemoglobin 12.3, Hematocrit 36.8L, Mean Corpuscular Volume 86, Mean Corpuscular Hemoglobin 28.6, Mean Corpuscular Hemoglobin Concent 33.4, Red Cell Distribution Width 14.5, Platelet Count 243, Mean Platelet Volume 5.9L, Neutrophils (%) (Auto) 64.4, Lymphocytes (%) (Auto) 23.4, Monocytes (%) (Auto) 10.6H, Eosinophils (%) (Auto) 0.7, Basophils (%) ( Auto) 0.9 10/31/17 05:52: White Blood Count 4.5L, Red Blood Count 4.36, Hemoglobin 12.4, Hematocrit 38.5, Mean Corpuscular Volume 88, Mean Corpuscular Hemoglobin 28.4, Mean Corpuscular Hemoglobin Concent 32.1, Red Cell Distribution Width 14.9H, Platelet Count 260, Mean Platelet Volume 6.0L, Neutrophils (%) (Auto) 56.0, Lymphocytes (%) (Auto) 27.0, Monocytes (%) (Auto) 13.3H, Eosinophils (%) (Auto) 2.7, Basophils (%) ( Auto) 1.0, Prothrombin Time 11.1, Prothromb Time International Ratio 1.1, Activated Partial Thromboplast Time 32, Sodium Level 142, Potassium Level 3.2L, Chloride Level 108H, Carbon Dioxide Level 25, Anion Gap 9, Blood Urea Nitrogen 4L, Creatinine 0.7, Estimat Glomerular Filtration Rate , Glucose Level 110H, Calcium Level 8.6, Magnesium Level 2.1 Height (Feet): 4 Height (Inches): 11.00 Weight (Pounds): 140 Objective General Appearance: WD/WN, no apparent distress, alert HEENT: normocephalic, atraumatic, anicteric, mucous membranes moist, PERRL Neck: supple Respiratory/Chest: chest wall non-tender, lungs clear, normal breath sounds, no respiratory distress Cardiovascular/Chest: normal peripheral pulses, normal rate, regular rhythm, regularly irregular, no gallop/murmur, no JVD Abdomen: normal bowel sounds, non tender, soft, no organomegaly, no mass Extremities: normal range of motion, non-tender, normal inspection, no calf tenderness, normal capillary refill, non-pitting 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
[2017-10-31 16:17] LABS: BASOPHILS % (AUTO) 1.3 % (0.0-2.0); EOSINOPHILS % (AUTO) 1.9 % (0.0-3.0); HEMATOCRIT 34.4 % (37.0-47.0); HEMOGLOBIN 11.7 G/DL (12.0-16.0); LYMPHOCYTES % (AUTO) 19.4 % (20.0-45.0); MEAN CORPUSCULAR VOLUME 87 FL (80-99); NEUTROPHILS % (AUTO) 66.4 % (45.0-75.0); PLATELET COUNT 235 K/UL (150-450); RED BLOOD COUNT 3.97 M/UL (4.20-5.40); RED CELL DISTRIBUTION WIDTH 14.7 % (11.6-14.8); WHITE BLOOD COUNT 5.9 K/UL (4.8-10.8)
--- NOTE | 2017-10-31 20:15 | Procedure Note ---
DATE OF PROCEDURE: 10/31/2017 SURGEON: Franklyn Mejias M.D. ANESTHESIOLOGIST: Dr. Puentes. REFERRING PHYSICIAN: Dionicio Middleton M.D. PROCEDURE: Colonoscopy. ANESTHESIA: Per Dr. Puentes. INSTRUMENT: Olympus adult flexible colonoscope. INDICATION: Rectal bleeding. The procedure, risks, benefits, and possible consequences, including hemorrhage, aspiration, perforation and infection, and alternative treatments, were explained to the patient/legal guardian by Dr. Franklyn Mejias and the patient/legal guardian understood and accepted these risks. DESCRIPTION OF PROCEDURE: After informed consent was obtained and the patient was adequately sedated, first rectal exam was performed which was normal. Then, the scope was advanced from the rectum into the mid transverse colon. Given the extent of blood in the colon and clot, we could not advance beyond this point. The patient had evidence of bleeding most probably from diverticular bleed. She had multiple diverticula both in the left colon and right colon. Unfortunately, even we inflamed the colon and looked, we could not find the active bleeder. It might be even more proximal and we could not reach. At this time, slowly the scope was retrieved. On the way back, we saw a polyp in the sigmoid colon which measured roughly about 4 mm, removed with the cold biopsy forceps technique. Retroflexion of rectum showed evidence of internal hemorrhoids. SUMMARY OF FINDINGS: 1. Incomplete colonoscopy examination given the prep. 2. Active bleeding, most probably from diverticular bleed. 3. Internal hemorrhoids. 4. One colonic polyp, removed. RECOMMENDATIONS: If this is a diverticular bleed, this most likely hopefully will stop on its own in the next 24 hours. Our plan will be to keep the patient on , hydrate her, monitor her laboratories, transfuse as needed. Consider repeat colonoscopy on Friday if the patient continues to bleed with a better prep. I want to thank Dr. Middleton for this kind referral. Franklyn Mejias M.D. DR: Abram JOB#: [id number] CC: Dionicio Middleton M.D.
[2017-11-01] VITALS: BP 139/79
[2017-11-01] MEDS: Potassium Chloride 10 MEQ in D5 1/2NS 1,000 ML IV SCH ×3 (01:39→22:02)
[2017-11-01] MEDS: Pantoprazole 80 MG in NS 250 ML IV SCH ×3 (01:39→22:02)
[2017-11-01 04:00] VITALS: BP 128/66
[2017-11-01 07:38] LABS: BASOPHILS % (AUTO) 0.8 % (0.0-2.0); EOSINOPHILS % (AUTO) 6.8 % (0.0-3.0); HEMATOCRIT 36.5 % (37.0-47.0); HEMOGLOBIN 12.5 G/DL (12.0-16.0); LYMPHOCYTES % (AUTO) 26.6 % (20.0-45.0); MEAN CORPUSCULAR VOLUME 88 FL (80-99); NEUTROPHILS % (AUTO) 53.8 % (45.0-75.0); PLATELET COUNT 260 K/UL (150-450); RED BLOOD COUNT 4.15 M/UL (4.20-5.40); RED CELL DISTRIBUTION WIDTH 14.5 % (11.6-14.8); WHITE BLOOD COUNT 4.5 K/UL (4.8-10.8)
[2017-11-01 08:00] VITALS: BP 141/90
[2017-11-01 08:10] LABS: ANION GAP 6 mmol/L (5-15); BLOOD UREA NITROGEN 2 mg/dL (7-18); CALCIUM 8.4 MG/DL (8.5-10.1); CARBON DIOXIDE 27 MMOL/L (21-32); CHLORIDE 107 MMOL/L (98-107); CREATININE 0.7 MG/DL (0.55-1.30); POTASSIUM 3.3 MMOL/L (3.5-5.1); SODIUM 140 MMOL/L (136-145)
--- NOTE | 2017-11-01 09:53 | General Progress Note ---
Assessment/Plan Problem List: (1) LGI bleed ICD Codes: K92.2 - Gastrointestinal hemorrhage, unspecified SNOMED: [id number] (2) UTI (urinary tract infection) ICD Codes: N39.0 - Urinary tract infection, site not specified SNOMED: 10238479 Qualifiers: Qualified Codes: N39.0 - Urinary tract infection, site not specified Assessment/Plan s/p partial colonoscopy, with diverticular bleed stable H&H advance to full liquid diet monitor H&H Subjective ROS Limited/Unobtainable: Yes Allergies: Coded Allergies: PENICILLINS (Verified Allergy, Unknown, 10/30/17) Subjective had some bloody BM but improving Objective Last 24 Hour Vital Signs Date Time Temp Pulse Resp B/P (MAP) Pulse Ox O2 Delivery O2 Flow Rate FiO2 11/01/17 08:00 97.2 80 20 141/90 (107) 98 97.2 11/01/17 04:00 98.2 61 20 128/66 (86) 95 98.2 11/01/17 04:00 69 11/01/17 00:00 96 11/01/17 00:00 97.5 77 20 139/79 (99) 94 97.5 10/31/17 21:00 Room Air 10/31/17 20:00 98.1 89 20 151/89 (109) 96 98.1 10/31/17 20:00 91 10/31/17 16:00 97.7 70 18 136/87 (103) 97 97.7 10/31/17 16:00 75 10/31/17 12:30 98.0 73 15 145/83 100 Room Air 98.0 10/31/17 12:15 82 18 132/89 100 Room Air 10/31/17 12:12 207.7 77 17 100 10/31/17 12:10 89 14 140/80 100 Room Air 10/31/17 12:05 97.6 77 17 109/77 100 Simple Mask 6 97.6 Intake and Output 10/31/17 11/01/17 19:00 07:00 Intake Total 800 ml 1418.75 ml Output Total 1000 ml 750 ml Balance -200 ml 668.75 ml Intake Oral 475 ml IV Total 325 ml 1418.75 ml Output Urine Total 1000 ml 750 ml # Bowel Movements 3 1 Laboratory Tests 10/31/17 15:50: White Blood Count 5.9, Red Blood Count 3.97L, Hemoglobin 11.7L, Hematocrit 34.4L , Mean Corpuscular Volume 87, Mean Corpuscular Hemoglobin 29.6, Mean Corpuscular Hemoglobin Concent 34.1, Red Cell Distribution Width 14.7, Platelet Count 235, Mean Platelet Volume 5.6L, Neutrophils (%) (Auto) 66.4, Lymphocytes ( %) (Auto) 19.4L, Monocytes (%) (Auto) 11.0H, Eosinophils (%) (Auto) 1.9, Basophils (%) (Auto) 1.3 11/01/17 06:55: White Blood Count 4.5L, Red Blood Count 4.15L, Hemoglobin 12.5, Hematocrit 36.5L , Mean Corpuscular Volume 88, Mean Corpuscular Hemoglobin 30.0, Mean Corpuscular Hemoglobin Concent 34.1, Red Cell Distribution Width 14.5, Platelet Count 260, Mean Platelet Volume 6.0L, Neutrophils (%) (Auto) 53.8, Lymphocytes ( %) (Auto) 26.6, Monocytes (%) (Auto) 12.0H, Eosinophils (%) (Auto) 6.8H, Basophils (%) (Auto) 0.8, Sodium Level 140, Potassium Level 3.3L, Chloride Level 107, Carbon Dioxide Level 27, Anion Gap 6, Blood Urea Nitrogen 2L, Creatinine 0.7, Estimat Glomerular Filtration Rate , Glucose Level 98, Calcium Level 8.4L Height (Feet): 4 Height (Inches): 11.00 Weight (Pounds): 140 General Appearance: alert EENT: normal ENT inspection Neck: supple Cardiovascular: normal rate Respiratory/Chest: decreased breath sounds Abdomen: normal bowel sounds, non tender, soft Extremities: non-tender Franklyn Mejias MD Nov 01, 2017 09:53
[2017-11-01] MEDS ORDERED: NS 275ml ONE (10:53)
[2017-11-01 12:00] VITALS: BP 140/95
[2017-11-01] MEDS: Norco 5mg/325mg tab ORAL PRN (12:55)
--- NOTE | 2017-11-01 15:01 | General Progress Note ---
Assessment/Plan Status: stable Assessment/Plan #Diverticular bleeding - hb stable #Hypokalemia - persistent #UTI - Cx growing > 100k e coli, sens to CTX #HTN #Shortness of breath - GI consult, s/p EGD/[place] w/ diverticular bleed, appreciate recs - diet per GI - Protonix IVP daily - replace kcl as needed - trend CBC, CHEM - mIVF - start Ceftriaxone IVPB - prn hyral for sbp > 160 - supportive care - dvt ppx: SCDs, early ambulation - full code anticipate pt will require in pt mgt for 2-3 days, dc home + HH vs SNF once stable for discharge I spent 48 min on this case, 27 min was dedicated to counseling and or care coordination time of this note may not reflect time of clinical encounter Subjective Date patient seen: Nov 01, 2017 Allergies: Coded Allergies: PENICILLINS (Verified Allergy, Unknown, 10/30/17) All Systems: reviewed and negative except above Subjective No acute events Afebrile and HDS Diet advanced to soft Hb stable Hypokalemia persistent Objective Last 24 Hour Vital Signs Date Time Temp Pulse Resp B/P (MAP) Pulse Ox O2 Delivery O2 Flow Rate FiO2 11/01/17 12:00 97.2 95 20 140/95 (110) 96 97.2 11/01/17 12:00 92 11/01/17 09:00 Room Air 11/01/17 08:00 71 11/01/17 08:00 97.2 80 20 141/90 (107) 98 97.2 11/01/17 04:00 98.2 61 20 128/66 (86) 95 98.2 11/01/17 04:00 69 11/01/17 00:00 96 11/01/17 00:00 97.5 77 20 139/79 (99) 94 97.5 10/31/17 21:00 Room Air 10/31/17 20:00 98.1 89 20 151/89 (109) 96 98.1 10/31/17 20:00 91 10/31/17 16:00 97.7 70 18 136/87 (103) 97 97.7 10/31/17 16:00 75 Intake and Output 10/31/17 11/01/17 19:00 07:00 Intake Total 800 ml 1418.75 ml Output Total 1000 ml 750 ml Balance -200 ml 668.75 ml Intake Oral 475 ml IV Total 325 ml 1418.75 ml Output Urine Total 1000 ml 750 ml # Bowel Movements 3 1 Laboratory Tests 10/31/17 15:50: White Blood Count 5.9, Red Blood Count 3.97L, Hemoglobin 11.7L, Hematocrit 34.4L , Mean Corpuscular Volume 87, Mean Corpuscular Hemoglobin 29.6, Mean Corpuscular Hemoglobin Concent 34.1, Red Cell Distribution Width 14.7, Platelet Count 235, Mean Platelet Volume 5.6L, Neutrophils (%) (Auto) 66.4, Lymphocytes ( %) (Auto) 19.4L, Monocytes (%) (Auto) 11.0H, Eosinophils (%) (Auto) 1.9, Basophils (%) (Auto) 1.3 11/01/17 06:55: White Blood Count 4.5L, Red Blood Count 4.15L, Hemoglobin 12.5, Hematocrit 36.5L , Mean Corpuscular Volume 88, Mean Corpuscular Hemoglobin 30.0, Mean Corpuscular Hemoglobin Concent 34.1, Red Cell Distribution Width 14.5, Platelet Count 260, Mean Platelet Volume 6.0L, Neutrophils (%) (Auto) 53.8, Lymphocytes ( %) (Auto) 26.6, Monocytes (%) (Auto) 12.0H, Eosinophils (%) (Auto) 6.8H, Basophils (%) (Auto) 0.8, Sodium Level 140, Potassium Level 3.3L, Chloride Level 107, Carbon Dioxide Level 27, Anion Gap 6, Blood Urea Nitrogen 2L, Creatinine 0.7, Estimat Glomerular Filtration Rate , Glucose Level 98, Calcium Level 8.4L Height (Feet): 4 Height (Inches): 11.00 Weight (Pounds): 140 Objective General Appearance: WD/WN, no apparent distress, alert HEENT: normocephalic, atraumatic, anicteric, mucous membranes moist, PERRL Neck: supple Respiratory/Chest: chest wall non-tender, lungs clear, normal breath sounds, no respiratory distress Cardiovascular/Chest: normal peripheral pulses, normal rate, regular rhythm, regularly irregular, no gallop/murmur, no JVD Abdomen: normal bowel sounds, non tender, soft, no organomegaly, no mass Extremities: normal range of motion, non-tender, normal inspection, no calf tenderness, normal capillary refill, non-pitting 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
[2017-11-01 16:00] VITALS: BP 120/75
[2017-11-01] MEDS ORDERED: cefTRIAXone 1 GM in D5W 55 ML IVPB SCH (16:30)
[2017-11-01] MEDS ORDERED: Bactrim-DS 1 tab ORAL SCH (17:00)
[2017-11-01 20:00] VITALS: BP 149/76
[2017-11-02] VITALS (7 sets, daily range): BP systolic 102–151; BP diastolic 71–89
[2017-11-02 07:09] LABS: ANION GAP 7 mmol/L (5-15); BLOOD UREA NITROGEN 2 mg/dL (7-18); CALCIUM 8.8 MG/DL (8.5-10.1); CARBON DIOXIDE 27 MMOL/L (21-32); CHLORIDE 106 MMOL/L (98-107); CREATININE 0.7 MG/DL (0.55-1.30); POTASSIUM 3.9 MMOL/L (3.5-5.1); SODIUM 140 MMOL/L (136-145)
[2017-11-02 07:15] LABS: BASOPHILS % (AUTO) 1.3 % (0.0-2.0); HEMATOCRIT 37.4 % (37.0-47.0); HEMOGLOBIN 12.2 G/DL (12.0-16.0); LYMPHOCYTES % (AUTO) 24.2 % (20.0-45.0); MEAN CORPUSCULAR VOLUME 88 FL (80-99); MONOCYTES % (AUTO) 13.1 % (1.0-10.0); NEUTROPHILS % (AUTO) 53.4 % (45.0-75.0); PLATELET COUNT 275 K/UL (150-450); RED BLOOD COUNT 4.26 M/UL (4.20-5.40); RED CELL DISTRIBUTION WIDTH 14.5 % (11.6-14.8)
[2017-11-02] MEDS: Potassium Chloride 10 MEQ in D5 1/2NS 1,000 ML IV SCH ×4 (09:00→22:00)
[2017-11-02] MEDS: Pantoprazole 80 MG in NS 250 ML IV SCH ×3 (09:00→22:00)
[2017-11-02] MEDS: Bactrim-DS 1 tab ORAL SCH ×2 (09:11→20:55)
--- NOTE | 2017-11-02 10:59 | General Progress Note ---
Assessment/Plan Problem List: (1) LGI bleed ICD Codes: K92.2 - Gastrointestinal hemorrhage, unspecified SNOMED: 96192581 (2) UTI (urinary tract infection) ICD Codes: N39.0 - Urinary tract infection, site not specified SNOMED: 31488022 Qualifiers: Qualified Codes: N39.0 - Urinary tract infection, site not specified Assessment/Plan s/p partial colonoscopy, with diverticular bleed stable H&H advance diet monitor H&H Subjective ROS Limited/Unobtainable: Yes Allergies: Coded Allergies: PENICILLINS (Verified Allergy, Severe, HIVES AROUND NECK/THROAT/ DIFFICULTY BREATHING, 11/01/17) Subjective had some bloody BM but improving Objective Last 24 Hour Vital Signs Date Time Temp Pulse Resp B/P (MAP) Pulse Ox O2 Delivery O2 Flow Rate FiO2 11/02/17 09:00 Room Air 11/02/17 08:00 98.2 73 18 137/89 (105) 95 98.2 11/02/17 08:00 80 11/02/17 04:00 97.9 73 18 151/74 (99) 95 97.9 11/02/17 04:00 69 11/02/17 00:00 98.1 87 19 139/76 (97) 96 98.1 11/02/17 00:00 73 11/01/17 21:00 Room Air 11/01/17 20:00 82 11/01/17 20:00 97.8 90 19 149/76 (100) 98 97.8 11/01/17 16:00 82 11/01/17 16:00 97.3 87 20 120/75 (90) 98 97.3 11/01/17 12:00 97.2 95 20 140/95 (110) 96 97.2 11/01/17 12:00 92 Intake and Output 11/01/17 11/02/17 19:00 07:00 Intake Total 605 ml 1370 ml Output Total 1500 ml 1675 ml Balance -895 ml -305 ml Intake Oral 480 ml IV Total 125 ml 1370 ml Output Urine Total 1500 ml 1675 ml # Bowel Movements 2 Laboratory Tests 11/02/17 06:15: White Blood Count 5.0, Red Blood Count 4.26, Hemoglobin 12.2, Hematocrit 37.4, Mean Corpuscular Volume 88, Mean Corpuscular Hemoglobin 28.7, Mean Corpuscular Hemoglobin Concent 32.6, Red Cell Distribution Width 14.5, Platelet Count 275, Mean Platelet Volume 6.0L, Neutrophils (%) (Auto) 53.4, Lymphocytes (%) (Auto) 24.2, Monocytes (%) (Auto) 13.1H, Eosinophils (%) (Auto) 8.0H, Basophils (%) ( Auto) 1.3, Sodium Level 140, Potassium Level 3.9, Chloride Level 106, Carbon Dioxide Level 27, Anion Gap 7, Blood Urea Nitrogen 2L, Creatinine 0.7, Estimat Glomerular Filtration Rate , Glucose Level 106, Calcium Level 8.8 Height (Feet): 4 Height (Inches): 11.00 Weight (Pounds): 140 General Appearance: alert EENT: normal ENT inspection Neck: supple Cardiovascular: normal rate Respiratory/Chest: decreased breath sounds Abdomen: normal bowel sounds, non tender, soft Extremities: non-tender Franklyn Mejias MD Nov 02, 2017 10:59
[2017-11-02] MEDS: Norco 5mg/325mg tab ORAL PRN (13:33)
--- NOTE | 2017-11-02 14:26 | Cardiology Report ---
APPROVED REPORT EKG Measurement Heart [id number] AR [id number] Normal sinus rhythm with sinus arrhythmia Left axis deviation Left bundle branch block Abnormal ECG
--- NOTE | 2017-11-02 15:45 | General Progress Note ---
Assessment/Plan Status: stable Assessment/Plan #Diverticular bleeding - hb stable #Hypokalemia - resolved #UTI - Cx growing > 100k e coli, sens to CTX #HTN - GI consult, s/p EGD/[facility] w/ diverticular bleed, appreciate recs - diet per GI - advanced to reg - Protonix IVP daily - trend CBC, CHEM - mIVF - Ceftriaxone IVPB - prn hyral for sbp > 160 - supportive care - dvt ppx: SCDs, early ambulation - full code - dispo planning for tomorrow if tolerating diet and hb remains stable anticipate pt will require in pt mgt for 1 days, dc home + HH vs SNF once stable for discharge I spent 45 min on this case, 26 min was dedicated to counseling and or care coordination time of this note may not reflect time of clinical encounter Subjective Date patient seen: Nov 02, 2017 Allergies: Coded Allergies: PENICILLINS (Verified Allergy, Severe, HIVES AROUND NECK/THROAT/ DIFFICULTY BREATHING, 11/01/17) All Systems: reviewed and negative except above Subjective No acute events Afebrile and HDS Advancing diet Hb stable Objective Last 24 Hour Vital Signs Date Time Temp Pulse Resp B/P (MAP) Pulse Ox O2 Delivery O2 Flow Rate FiO2 11/02/17 12:00 77 11/02/17 12:00 97.9 85 18 139/83 (101) 95 97.9 11/02/17 09:00 Room Air 11/02/17 08:00 98.2 73 18 137/89 (105) 95 98.2 11/02/17 08:00 80 11/02/17 04:00 97.9 73 18 151/74 (99) 95 97.9 11/02/17 04:00 69 11/02/17 00:00 98.1 87 19 139/76 (97) 96 98.1 11/02/17 00:00 73 11/01/17 21:00 Room Air 11/01/17 20:00 82 11/01/17 20:00 97.8 90 19 149/76 (100) 98 97.8 11/01/17 16:00 82 11/01/17 16:00 97.3 87 20 120/75 (90) 98 97.3 Intake and Output 11/01/17 11/02/17 19:00 07:00 Intake Total 605 ml 1370 ml Output Total 1500 ml 1675 ml Balance -895 ml -305 ml Intake Oral 480 ml IV Total 125 ml 1370 ml Output Urine Total 1500 ml 1675 ml # Bowel Movements 2 Laboratory Tests 11/02/17 06:15: White Blood Count 5.0, Red Blood Count 4.26, Hemoglobin 12.2, Hematocrit 37.4, Mean Corpuscular Volume 88, Mean Corpuscular Hemoglobin 28.7, Mean Corpuscular Hemoglobin Concent 32.6, Red Cell Distribution Width 14.5, Platelet Count 275, Mean Platelet Volume 6.0L, Neutrophils (%) (Auto) 53.4, Lymphocytes (%) (Auto) 24.2, Monocytes (%) (Auto) 13.1H, Eosinophils (%) (Auto) 8.0H, Basophils (%) ( Auto) 1.3, Sodium Level 140, Potassium Level 3.9, Chloride Level 106, Carbon Dioxide Level 27, Anion Gap 7, Blood Urea Nitrogen 2L, Creatinine 0.7, Estimat Glomerular Filtration Rate , Glucose Level 106, Calcium Level 8.8 Height (Feet): 4 Height (Inches): 11.00 Weight (Pounds): 140 Objective General Appearance: WD/WN, no apparent distress, alert HEENT: normocephalic, atraumatic, anicteric, mucous membranes moist, PERRL Neck: supple Respiratory/Chest: chest wall non-tender, lungs clear, normal breath sounds, no respiratory distress Cardiovascular/Chest: normal peripheral pulses, normal rate, regular rhythm, regularly irregular, no gallop/murmur, no JVD Abdomen: normal bowel sounds, non tender, soft, no organomegaly, no mass Extremities: normal range of motion, non-tender, normal inspection, no calf tenderness, normal capillary refill, non-pitting 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
[2017-11-03] VITALS: BP 124/69
[2017-11-03] MEDS ORDERED: Norco 5mg/325mg tab ORAL PRN (00:30)
[2017-11-03] MEDS ORDERED: Isovue-300 100ml vial INJ PRN (02:30)
[2017-11-03 04:00] VITALS: BP 146/81
[2017-11-03 08:00] VITALS: BP 114/76
[2017-11-03] MEDS ORDERED: Bactrim-DS 1 tab ORAL SCH (09:00)
[2017-11-03] MEDS: Pantoprazole 80 MG in NS 250 ML IV SCH (10:00)
[2017-11-03] MEDS: Potassium Chloride 10 MEQ in D5 1/2NS 1,000 ML IV SCH (10:09)
--- NOTE | 2017-11-03 10:11 | GI Progress Note ---
Assessment/Plan Problems: (1) LGI bleed ICD Codes: K92.2 - Gastrointestinal hemorrhage, unspecified SNOMED: [id number] Status: stable Status Narrative Discussed with Dr. Mejias. Assessment/Plan s/p partial colonoscopy, with diverticular bleed okay for DC per GI standpoint stable H&H dc IVFs, advance diet PT evaluation fu labs outpatient fu Subjective Subjective denies any bloody stools ready to go home Objective Last 24 Hour Vital Signs Date Time Temp Pulse Resp B/P (MAP) Pulse Ox O2 Delivery O2 Flow Rate FiO2 11/03/17 08:00 98.2 88 20 114/76 (89) 95 98.2 11/03/17 04:00 97.7 74 19 146/81 (102) 99 97.7 11/03/17 00:00 98.1 78 18 124/69 (87) 97 98.1 11/02/17 21:50 98.3 79 18 102/81 (88) 97 98.3 11/02/17 21:00 Room Air 11/02/17 20:00 98.0 79 20 112/71 (85) 96 98.0 11/02/17 20:00 86 11/02/17 16:00 97.8 95 17 131/89 (103) 94 97.8 11/02/17 16:00 89 11/02/17 12:00 77 11/02/17 12:00 97.9 85 18 139/83 (101) 95 97.9 Intake and Output 11/02/17 11/03/17 19:00 07:00 Intake Total 250 ml 1000 ml Output Total 1000 ml 1850 ml Balance -750 ml -850 ml Intake Oral 250 ml IV Total 1000 ml Output Urine Total 1000 ml 1850 ml # Bowel Movements 1 Height (Feet): 4 Height (Inches): 11.00 Weight (Pounds): 140 General Appearance: WD/WN, no apparent distress, alert Cardiovascular: normal rate Respiratory/Chest: normal breath sounds, no respiratory distress Abdominal Exam: normal bowel sounds, non tender, soft Extremities: normal range of motion, non-tender Shruti Holguin NP Nov 03, 2017 10:11
[2017-11-03 12:00] VITALS: BP 134/91
[2017-11-03] MEDS ORDERED: BACTRIM-DS1 EA ORAL (13:24)
--- NOTE | 2017-11-03 13:25 | Discharge Instructions ---
Discharge Instructions Discharge Instructions Follow up with: Your PCP as needed Call MD/Return to Hospital if: You develop recurrent bleeding Diet: regular Resume Normal Activity?: Yes Special Instructions Finish antibotics as prescribed For Congestive Heart Failure Reminder Report to your physician any weight gain of 5 pounds or more in one week. Parish Arita M.D. Nov 03, 2017 13:25
--- NOTE | 2017-11-03 13:50 | Discharge Summary ---
Discharge Summary Hospital Course Date of Admission Oct 30, 2017 at 03:45 Date of Discharge 11/03/2017 Admitting Diagnosis GI hemorrhage Acute blood loss anemia Reason for Hospitalization: Anemia, GI bleed HPI Padmini Diane Cea is a 82 year old female who was admitted on Oct 30, 2017 at 03 :45 for Lower Gastrointestinal Bleed She presented to ED for evaluation of rectal bleeding. Pt reported having dark melanic stool over last 2 days prior to admission associated w/ a moderate to severe lower abdominal pain x 24 hrs (sharp, non radiating, worse w/ activity and improved w/ meds in hospital). Pt afebrile and HDS in the ED, had an episode of clot passed. Initial labs relatively unremarkable w/ hypokalemia and HB wnl. Started on PPI Gtt and NPO receiving IVF. Consultations Gastroenterology Procedures Colonoscopy Hospital Course Patient started on PPI drip and made NPO Received IVF. GI conslted and a partial colonoscopy performed showing iverticular bleed The patient remaine stable post procedure hemodynamically and with stable H/H Discharge Medications New Medications: Trimethoprim/Sulfamethoxazole (Bactrim Ds Tablet) 1 Each Tablet 1 TAB ORAL Q12H for 3 Days, #6 TAB Continued Medications: Atenolol (Tenormin) 25 Mg Tablet 25 MG ORAL DAILY, TAB Olopatadine HCl (Pazeo) 2.5 Ml Drops 2.5 ML OP DAILY, ML Olopatadine Hcl (Pataday) 2.5 Ml Drops 2.5 ML OP DAILY, ML Tramadol Hcl* (Ultram*) 50 Mg Tablet 50 MG ORAL TWICE A DAY PRN for For Pain, #30 TAB 0 Refills Discontinued Medications: Aspirin (Aspirin) 81 Mg Tab.chew 81 MG PO DAILY, TAB Discharge Condition Upon Discharge: improving, stable Discharge Disposition Patient was discharged to home Discharge Diagnoses: (1) GI hemorrhage (2) Acute anemia (3) Diverticul disease small and large intestine, no perforati or abscess Discharge Instructions Discharge Instructions Follow up with: Your PCP as needed Call MD/Return to Hospital if: You develop recurrent bleeding Parish Arita M.D. Nov 03, 2017 13:50
[2017-11-03 16:00] VITALS: BP 157/98
[2017-11-03] MEDS ORDERED: NS 275ml ONE (18:10)
== END 2017-11-03 18:11 | disposition home or self-care (01) | DRG 244 ==
LOC: EDBD 02:15 → EMR 03:00 → 2E 03:45 → EDBEDREQSVC 03:57 → EDBEDREQTM 03:57 → EDBEDREQ 03:59 → 4E 11-02 22:03
PROC: 0DBN8ZZ Excision of Sigmoid Colon, Via Natural or Artificial Opening Endoscopic (ICD-10-PCS; principal; 2017-10-31 11:42)
DX: K57.51 Diverticulosis of both small and large intestine without perforation or abscess with bleeding (principal); D62 Acute posthemorrhagic anemia; E88.09 Other disorders of plasma-protein metabolism, not elsewhere classified; N39.0 Urinary tract infection, site not specified; E87.6 Hypokalemia; I10 Essential (primary) hypertension; R06.02 Shortness of breath; Z88.0 Allergy status to penicillin; K63.5 Polyp of colon; K64.8 Other hemorrhoids; K29.70 Gastritis, unspecified, without bleeding
CPT/HCPCS: 36415; 74177; 80048; 80053; 81003; 83690; 83735; 85025; 85610; 85730; 87086; 87181; 93005; 94003; 94150; J8499

== ENCOUNTER 2018-05-25 10:10 | Inpatient (IN) | payer MEDICARE, OTHER ==
[~2018-05-25] VITALS: Ht 144.8 cm; Wt 57.8 kg
[~2018-05-25 10:10] MED LIST: ASPIRIN81 M3 PO; BACTRIM-DS1 EA ORAL; PATADAY2.5 ML OP; PAZEO2.5 ML OP; TENORMIN25 MG ORAL; TRAMADOL HCL50 MG ORAL
[2018-05-25] MEDS ORDERED: LORAZEPAM1 MG ORAL (10:21)
[2018-05-25] MEDS ORDERED: OYSTER SHELL 51 EAC1 PO (10:21)
[2018-05-25] MEDS ORDERED: ALLOPURINOL100 M1 ORAL (10:21)
[2018-05-25] MEDS ORDERED: FLUTICASONE PRO16 G1 NASAL (10:21)
--- NOTE | 2018-05-25 10:30 | NUR ---
ED Nurse Note: pt was brought to ER by daughter due to severe edema on BLE. Both legs edema noted +4 and both feet edema noted +3. pt aao x 2 and Kiswahili speaker. pt came in with o2 sat 78% room air and was put on non-breather mask with 10L/min and o2 sat is 100% currently. skin dry and thin but no wound and pressure ulcers noted. per daughter, pt can pivot weight when they transfer pt from bed to chair at home. labored and shortness of breathing noted. elevated head of bed due to distress of breathing. abdominal distention noted. per daughter, pt has BM daily. last BM was this morning.
--- NOTE | 2018-05-25 10:38 | Emergency Room Report ---
History of Present Illness General Chief Complaint: Edema Source: Medical Record Present Illness HPI Patient presents with complaints of leg edema Patient is here brought in by daughter The daughter reports that the patient appeared short of breath since last night However had an appointment with immigration this morning therefore went to the appointment and after that was brought into the emergency room Patient herself appears in acute distress She is tachypneic and significantly fluid overloaded clinically There was no reports of vomiting or diarrhea daughter has all of the patient's medications on a book however does not have any diuretics Allergies: Coded Allergies: PENICILLINS (Verified Allergy, Severe, HIVES AROUND NECK/THROAT/ DIFFICULTY BREATHING, 11/01/17) Patient History Limited by: medical condition Past Medical History: see triage record Pertinent Family History: unable to obtain Reviewed Nursing Documentation: PMH: Agreed; PSxH: Agreed Nursing Documentation-PMH Past Medical History: No History, Except For Hx Hypertension: Yes Hx Cancer: No Hx Gastrointestinal Problems: Yes - Cholecystectomy Hx Neurological Problems: No Review of Systems All Other Systems: limited - Other than the ones mentioned in the history of present illness all others are reviewed however they do stay limited due to the patient's mental status Physical Exam Vital Signs Date Time Temp Pulse Resp B/P (MAP) Pulse Ox O2 Delivery O2 Flow Rate FiO2 05/25/18 10:14 98.8 72 18 129/80 98 Room Air Sp02 EP Interpretation: reviewed, normal General Appearance: moderate distress - Short of breath tachypneic Head: normocephalic, atraumatic Eyes: bilateral eye PERRL, bilateral eye EOMI ENT: normal pharynx Neck: supple, thyroid normal Respiratory: crackles - And tachypneic with mild initial retractions noted Cardiovascular #1: regular rate, rhythm Gastrointestinal: non tender, soft Musculoskeletal: other - Significant edema diffusely in the upper and lower extremities including facial area Neurologic: alert, responsive - With some physical stimulation Skin: other - As above with significant edema Lymphatic: no adenopathy Procedures Critical Care Time Critical Care Time 70 minutes for multiple re-evaluations initial critical presentation was concerning for acute respiratory failure not including any procedural time Medical Decision Making Diagnostic Impression: Primary Impression: Acute CHF Additional Impression: Respiratory distress ER Course Patient presents in moderate distress Respiratory distress Patient is a fairly complex patient with multiple differential to consideration including but not limited to cardiac cardiopulmonary and vascular emergencies Given the significant edema patient also shows signs of Fluid overload initially requires a BiPAP Is doing somewhat better with this intervention also with Lasix Patient requiring further aggressive inpatient care Labs Test 05/25/18 10:40 05/25/18 19:00 05/26/18 04:55 White Blood Count 5.2 K/UL (4.8-10.8) Red Blood Count 4.88 M/UL (4.20-5.40) Hemoglobin 12.0 G/DL (12.0-16.0) Hematocrit 40.1 % (37.0-47.0) Mean Corpuscular Volume 82 FL (80-99) Mean Corpuscular Hemoglobin 24.6 PG (27.0-31.0) Mean Corpuscular Hemoglobin Concent 30.0 G/DL (32.0-36.0) Red Cell Distribution Width 16.4 % (11.6-14.8) Platelet Count 399 K/UL (150-450) Mean Platelet Volume 4.9 FL (6.5-10.1) Neutrophils (%) (Auto) % (45.0-75.0) Lymphocytes (%) (Auto) % (20.0-45.0) Monocytes (%) (Auto) % (1.0-10.0) Eosinophils (%) (Auto) % (0.0-3.0) Basophils (%) (Auto) % (0.0-2.0) Differential Total Cells Counted 100 Neutrophils % (Manual) 82 % (45-75) Lymphocytes % (Manual) 6 % (20-45) Monocytes % (Manual) 12 % (1-10) Eosinophils % (Manual) 0 % (0-3) Basophils % (Manual) 0 % (0-2) Band Neutrophils 0 % (0-8) Platelet Estimate Adequate Platelet Morphology Normal Hypochromasia 1+ Anisocytosis 1+ Sodium Level 124 MMOL/L (136-145) 130 MMOL/L (136-145) Potassium Level 3.7 MMOL/L (3.5-5.1) 3.6 MMOL/L (3.5-5.1) Chloride Level 89 MMOL/L (98-107) 95 MMOL/L (98-107) Carbon Dioxide Level 28 MMOL/L (21-32) 29 MMOL/L (21-32) Anion Gap 7 mmol/L (5-15) 6 mmol/L (5-15) Blood Urea Nitrogen 15 mg/dL (7-18) 17 mg/dL (7-18) Creatinine 0.9 MG/DL (0.55-1.30) 0.9 MG/DL (0.55-1.30) Estimat Glomerular Filtration Rate mL/min (>60) mL/min (>60) Glucose Level 179 MG/DL (74-106) 77 MG/DL (74-106) Calcium Level 8.4 MG/DL (8.5-10.1) 8.3 MG/DL (8.5-10.1) Total Bilirubin 1.1 MG/DL (0.2-1.0) Direct Bilirubin 0.3 MG/DL (0.0-0.3) Aspartate Amino Transf (AST/SGOT) 32 U/L (15-37) Alanine Aminotransferase (ALT/SGPT) 30 U/L (12-78) Alkaline Phosphatase 115 U/L (46-116) Total Creatine Kinase 122 U/L (26-308) Creatine Kinase MB 4.5 NG/ML (0.0-3.6) Creatine Kinase MB Relative Index 3.6 Troponin I 0.014 ng/mL (0.000-0.056) 0.044 ng/mL (0.000-0.056) Pro-B-Type Natriuretic Peptide 13590 pg/mL (0-125) Total Protein 6.7 G/DL (6.4-8.2) Albumin 2.7 G/DL (3.4-5.0) Globulin 4.0 g/dL Albumin/Globulin Ratio 0.7 (1.0-2.7) Lipase 118 U/L (73-393) Urine Color Pale yellow Urine Appearance Clear Urine pH 6 (4.5-8.0) Urine Specific K[place]aid 1.005 (1.005-1.035) Urine Protein Negative (NEGATIVE) Urine Glucose (UA) Negative (NEGATIVE) Urine Ketones Negative (NEGATIVE) Urine Blood 3+ (NEGATIVE) Urine Nitrite Negative (NEGATIVE) Urine Bilirubin Negative (NEGATIVE) Urine Urobilinogen Normal MG/DL (0.0-1.0) Urine Leukocyte Esterase 1+ (NEGATIVE) Urine RBC 5-10 /HPF (0 - 2) Urine WBC 2-4 /HPF (0 - 2) Urine Squamous Epithelial Cells Occasional /LPF Urine Amorphous Sediment Few /LPF (NONE) Urine Bacteria Few /HPF (NONE) Urine Osmolality 186 mOsm/kg (429-449) Urine Random Sodium 67 mmol/L (20-110) Hemoglobin A1c 6.8 % (4.3-6.0) Phosphorus Level 3.8 MG/DL (2.5-4.9) Triglycerides Level 54 MG/DL (30-150) Cholesterol Level 123 MG/DL (< 200) LDL Cholesterol 49 mg/dL (<100) HDL Cholesterol 65 MG/DL (40-60) Cholesterol/HDL Ratio 1.9 (3.3-4.4) Thyroid Stimulating Hormone (TSH) 5.727 uiU/mL (0.358-3.740) Rhythm Strip Diag. Results EP Interpretation: yes Rate: 80 Rhythm: NSR, no PVC's, no ectopy Chest X-Ray Diagnostic Results Chest X-Ray Diagnostic Results : Chest X-Ray Ordered: Yes # of Views/Limited/Complete: 1 View Indication: Shortness of Breath EP Interpretation: Yes Interpretation: no pneumothorax, other - Pulmonary congestion, bilateral effusions, cardiomegaly Impression: Other - Acute CHF, cannot rule out infiltrates Electronically Signed by: Yolis Guevara DO Last Vital Signs Date Time Temp Pulse Resp B/P (MAP) Pulse Ox O2 Delivery O2 Flow Rate FiO2 05/25/18 10:14 98.8 72 18 129/80 98 Room Air Status: improved Disposition: ADMITTED INPATIENT Condition: Critical Yolis Guevara DO May 25, 2018 10:38
[2018-05-25 10:39] VITALS: BP 127/74
[2018-05-25 10:54] LABS: HEMATOCRIT 40.1 % (37.0-47.0); MEAN CORPUSCULAR VOLUME 82 FL (80-99); PLATELET COUNT 399 K/UL (150-450); RED BLOOD COUNT 4.88 M/UL (4.20-5.40); RED CELL DISTRIBUTION WIDTH 16.4 % (11.6-14.8); WHITE BLOOD COUNT 5.2 K/UL (4.8-10.8)
[2018-05-25 11:02] LABS: ANION GAP 7 mmol/L (5-15); BLOOD UREA NITROGEN 15 mg/dL (7-18); CALCIUM 8.4 MG/DL (8.5-10.1); CARBON DIOXIDE 28 MMOL/L (21-32); CHLORIDE 89 MMOL/L (98-107); CREATININE 0.9 MG/DL (0.55-1.30); POTASSIUM 3.7 MMOL/L (3.5-5.1); SODIUM 124 MMOL/L (136-145)
[2018-05-25] MEDS ORDERED: Albuterol/Ipratropium 3ml neb HHN PRN (11:30)
[2018-05-25 11:40] LABS: ALANINE AMINOTRANSFERASE 30 U/L (12-78); ALBUMIN 2.7 G/DL (3.4-5.0); ALBUMIN/GLOBULIN RATIO 0.7 (1.0-2.7); ALKALINE PHOSPHATASE 115 U/L (46-116); ASPARTATE AMINO TRANSFERASE 32 U/L (15-37); BILIRUBIN,DIRECT 0.3 MG/DL (0.0-0.3); BILIRUBIN,TOTAL 1.1 MG/DL (0.2-1.0); CKMB 4.5 NG/ML (0.0-3.6); CREATINE KINASE 122 U/L (26-308)
[2018-05-25] MEDS ORDERED: Bactrim-DS 1 tab ORAL SCH (11:45)
[2018-05-25] MEDS ORDERED: traMADol 50mg tab ORAL PRN (11:45)
--- NOTE | 2018-05-25 11:47 | Diagnostic Imaging Report ---
Indication: Dyspnea Comparison: None A single view chest radiograph was obtained. Findings: Interstitial edema suspected with cardiomegaly. Basilar infiltrates versus atelectasis demonstrated. Aorta is moderately calcified and enlarged. Bones are osteopenic. IMPRESSION: Congestive heart failure suspected. Basilar infiltrates not excluded
--- NOTE | 2018-05-25 12:09 | NUR ---
ED Nurse Note: Dr. Lockwood stopped by and assessed pt. received verbal order not to give Bactrim until he verifies and authorizes.
--- NOTE | 2018-05-25 12:10 | Consultation ---
Consult Note Assessment/Plan Renal consult dictated # [id number] Yang Gibson MD May 25, 2018 12:10
--- NOTE | 2018-05-25 12:26 | NUR ---
ED Nurse Note: Attempted to give report and nurse was not available. will attempt in 15 minutes per request.
[2018-05-25 12:31] VITALS: BP 118/60
--- NOTE | 2018-05-25 12:40 | History and Physical ---
History of Present Illness General Date patient seen: May 25, 2018 Time patient seen: 12:15 Reason for Hospitalization: Edema Present Illness HPI 83 year old woman with HTN, history of GI bleed, history of moderate dementia who presents from home by daughter due to severe edema on BLE, progressing over 2-3 weeks. Also with fatigue, dyspnea and abdominal distension. No chest pain, fever or chills reported. In ED she was noted to have oxygenation saturation of 78% on room room air and was put on non-breather mask - she was ultimately placed on NIPPV due to respiratory distress. Initial workup suggested fluid overload, acute CHF - she was given Lasix 60mg IV, 250 ml diureses thus far. Patient is not on diuretics chronically. Social History: No alcohol or tobacco Family History:No CAD Allergies: Coded Allergies: PENICILLINS (Verified Allergy, Severe, HIVES AROUND NECK/THROAT/ DIFFICULTY BREATHING, 11/01/17) Medication History Scheduled Allopurinol* (Allopurinol*), 100 MG ORAL DAILY, (Reported) Aspirin (Aspirin), 81 MG PO DAILY, (Reported) Atenolol (Tenormin), 25 MG ORAL DAILY, (Reported) Calcium Carbonate/Vitamin D3 (Oyster Shell 500 Mg + Vit D Tb), 1 EACH PO DAILY, (Reported) Fluticasone Propionate* (Fluticasone Propionate*), 1 SPRAY NASAL DAILY, ( Reported) Lorazepam* (Lorazepam*), 1 MG ORAL THREE TIMES A DAY, (Reported) Olopatadine HCl (Pazeo), 2.5 ML OP DAILY, (Reported) Olopatadine Hcl (Pataday), 2.5 ML OP DAILY, (Reported) Trimethoprim/Sulfamethoxazole (Bactrim Ds Tablet), 1 TAB ORAL Q12H Scheduled PRN Tramadol Hcl* (Ultram*), 50 MG ORAL TWICE A DAY PRN for For Pain, (Reported) Patient History Healthcare decision maker Resuscitation status Advanced Directive on File Review of Systems Respiratory: Reports: cough, shortness of breath Cardiovascular: Reports: edema; Denies: chest pain Gastrointestinal: Denies: abdominal pain ROS Narrative Limited ROS as patient is on BiPAP Physical Exam General Appearance: no apparent distress, alert HEENT: normocephalic, atraumatic Neck: non-tender, normal alignment Respiratory/Chest: chest wall non-tender, lungs clear, normal breath sounds, no respiratory distress Cardiovascular/Chest: normal peripheral pulses, normal rate, regular rhythm Abdomen: normal bowel sounds, non tender, soft Extremities: severe edema Skin Exam: normal pigmentation, warm/dry Musculoskeletal: normal muscle bulk Last 24 Hour Vital Signs Date Time Temp Pulse Resp B/P (MAP) Pulse Ox O2 Delivery O2 Flow Rate FiO2 05/25/18 10:59 84 20 99 Facial 100 05/25/18 10:39 97.7 71 25 127/74 100 Non-Rebreather 10.0 05/25/18 10:30 73 21 Non-Rebreather 10.0 05/25/18 10:14 98.8 72 18 129/80 98 Room Air Laboratory Tests Test 05/25/18 10:40 White Blood Count 5.2 K/UL (4.8-10.8) Red Blood Count 4.88 M/UL (4.20-5.40) Hemoglobin 12.0 G/DL (12.0-16.0) Hematocrit 40.1 % (37.0-47.0) Mean Corpuscular Volume 82 FL (80-99) Mean Corpuscular Hemoglobin 24.6 PG (27.0-31.0) L Mean Corpuscular Hemoglobin Concent 30.0 G/DL (32.0-36.0) L Red Cell Distribution Width 16.4 % (11.6-14.8) H Platelet Count 399 K/UL (150-450) Mean Platelet Volume 4.9 FL (6.5-10.1) L Neutrophils (%) (Auto) % (45.0-75.0) Lymphocytes (%) (Auto) % (20.0-45.0) Monocytes (%) (Auto) % (1.0-10.0) Eosinophils (%) (Auto) % (0.0-3.0) Basophils (%) (Auto) % (0.0-2.0) Differential Total Cells Counted 100 Neutrophils % (Manual) 82 % (45-75) H Lymphocytes % (Manual) 6 % (20-45) L Monocytes % (Manual) 12 % (1-10) H Eosinophils % (Manual) 0 % (0-3) Basophils % (Manual) 0 % (0-2) Band Neutrophils 0 % (0-8) Platelet Estimate Adequate Platelet Morphology Normal Hypochromasia 1+ Anisocytosis 1+ Sodium Level 124 MMOL/L (136-145) L Potassium Level 3.7 MMOL/L (3.5-5.1) Chloride Level 89 MMOL/L (98-107) L Carbon Dioxide Level 28 MMOL/L (21-32) Anion Gap 7 mmol/L (5-15) Blood Urea Nitrogen 15 mg/dL (7-18) Creatinine 0.9 MG/DL (0.55-1.30) Estimat Glomerular Filtration Rate mL/min (>60) Glucose Level 179 MG/DL (74-106) H Calcium Level 8.4 MG/DL (8.5-10.1) L Total Bilirubin 1.1 MG/DL (0.2-1.0) H Direct Bilirubin 0.3 MG/DL (0.0-0.3) Aspartate Amino Transf (AST/SGOT) 32 U/L (15-37) Alanine Aminotransferase (ALT/SGPT) 30 U/L (12-78) Alkaline Phosphatase 115 U/L (46-116) Total Creatine Kinase 122 U/L (26-308) Creatine Kinase MB 4.5 NG/ML (0.0-3.6) H Creatine Kinase MB Relative Index 3.6 Troponin I 0.014 ng/mL (0.000-0.056) Pro-B-Type Natriuretic Peptide 45339 pg/mL (0-125) H Total Protein 6.7 G/DL (6.4-8.2) Albumin 2.7 G/DL (3.4-5.0) L Globulin 4.0 g/dL Albumin/Globulin Ratio 0.7 (1.0-2.7) L Lipase 118 U/L (73-393) Height (Feet): 4 Height (Inches): 9.00 Weight (Pounds): 150 Medications Current Medications Medications (Trade) Dose Ordered Sig/Violet Route PRN Reason Start Time Stop Time Status Last Admin Dose Admin Albuterol/ Ipratropium (Albuterol/ Ipratropium) 3 ml Q6H PRN HHN Shortness of Breath 05/25/18 11:30 05/30/18 11:29 Allopurinol (Zyloprim) 100 mg DAILY ORAL 05/26/18 09:00 06/25/18 08:59 Aspirin (ASA) 81 mg DAILY ORAL 05/26/18 09:00 06/25/18 08:59 Atenolol (Tenormin) 25 mg DAILY ORAL 05/26/18 09:00 06/25/18 08:59 Calcium Carbonate (OsCal D) 1 tab DAILY ORAL 05/26/18 09:00 06/25/18 08:59 Dextrose (Dextrose 50%) 25 ml Q30M PRN IV Hypoglycemia 05/25/18 11:30 06/24/18 11:29 Dextrose (Dextrose 50%) 50 ml Q30M PRN IV Hypoglycemia 05/25/18 11:30 06/24/18 11:29 Docusate Sodium (Colace) 100 mg EVERY 12 HOURS ORAL 05/25/18 21:00 06/24/18 20:59 Fluticasone Propionate (Flonase) 1 spray DAILY NASAL 05/26/18 09:00 06/25/18 08:59 UNV Furosemide (Lasix) 40 mg Q12HR IV 05/25/18 18:00 06/24/18 17:59 Heparin Sodium (Porcine) (Heparin 5000 units/ml) 5,000 units Q12HR SUBQ 05/25/18 21:00 06/24/18 20:59 Lorazepam (Ativan) 1 mg THREE TIMES A DAY ORAL 05/25/18 13:00 06/01/18 12:59 UNV Magnesium Hydroxide (Mom) 30 ml HSPRN PRN ORAL Constipation 05/25/18 21:00 06/24/18 20:59 Ondansetron HCl (Zofran) 4 mg Q6H PRN IVP Nausea & Vomiting 05/25/18 11:30 06/24/18 11:29 Tramadol HCl (Ultram) 50 mg BIDPRN PRN ORAL PAIN 4-10 05/25/18 11:45 06/01/18 11:44 Trimethoprim/ Sulfamethoxazole (Bactrim-DS) 1 tab Q12H ORAL 05/25/18 11:45 06/01/18 11:44 UNV Assessment/Plan Assessment/Plan #Acute on chronic CHF, unknown if systolic or diastolic at this time #Acute hypoxic respiratory failure due to acute CHF #Essential HTN -admit to [facility] -IV Lasix diuresis -monitor I&O -Daily weights -Restrict sodium intake -check TTE and serial troponin levels -Cardiology consult -Pulmonology consult #Hyponatremia -secondary to hypervolemic state -treat underlying heart failure -monitor BMP daily #Dementia -supportive care -aspiration and fall precautions VTE PPx Heparin SC Full Code I spent 70 minutes on this patient's case, and 35 minutes was dedicated to counseling and/or care coordination. Raoul Newby MD May 25, 2018 12:40
[2018-05-25 13:00] VITALS: BP 118/60
--- NOTE | 2018-05-25 13:00 | NUR ---
ED Nurse Note: pt left department with 1 quality control tech and 1 RN and 1 RT in stable condition.
--- NOTE | 2018-05-25 13:05 | NUR ---
ED Nurse Note: not being able to give report due to malfunctioning phone.
--- NOTE | 2018-05-25 13:25 | NUR ---
ED Nurse Note: Report given to RADHA Vazquez
--- NOTE | 2018-05-25 13:26 | NUR ---
NURSE NOTES: RECEIVED PATIENT FROM Darien HAMMER RN. PATIENT IS FROM ER WHEELED TO UNIT VIA GURNEY. SHE IS LYING IN BED, AWAKE, ALERT AND ROMANSH SPEAKING. HOOKED TO CLIPPER AND TURNER. LIGIA FOR STRICT I AND O'S. ORIENTED TO ROOM. THOUROUGH SKIN ASSESSMENT DONE. SKIN IS INTACT. NOTED SWOLLEN ON BLE. IV ON R AC G20, SL. CALL LIGHT WITHIN REACH. SIDE RAILS UP. BED AT LOWEST POSITION. WILL CONTINUE TO MONITOR.
[2018-05-25 13:30] VITALS: BP 115/79
[2018-05-25 16:00] VITALS: BP 117/68
--- NOTE | 2018-05-25 17:06 | NUR ---
NURSE NOTES: PATIENT KEPT CLEAN AND DRY. NO SIGNS OF DISTRESS. TOLERATED OXYGEN IN 2L. NOW ON ROOM AIR SATING 99%. REFUSED TO PUT THE CANNULA ON FOR OXYGEN. NO SIGNS OF DISTRESS. WILL CONTINUE TO MONITOR.
[2018-05-25] MEDS: LORazepam 1mg tab ORAL SCH (17:43)
--- NOTE | 2018-05-25 19:12 | NUR ---
HAND-OFF: Report given to Darien Medel RN .
--- NOTE | 2018-05-25 19:20 | NUR ---
CASE MANAGEMENT: REVIEW 83/F PRESENTED TO ED FROM HOME CC: EDEMA BOTH LOWER EXTREMITIES X3DAYS SI: CHF T 98.8 HR 72 RR 25 BP 127/74 SAT 99% BIPAP FIO2 100 NA 124 GLUCOSE 179 TROPONIN I 0.014 IS: LASIX IV X1 BACTRIM DS PO X1 PATIENT ADMITTED TO STEP DOWN UNIT 05/25/2018 DCP: PATIENT IS FROM HOME
--- NOTE | 2018-05-25 19:30 | NUR ---
NURSE NOTES: Report received from RADHA Sabillon. Observed pt sleeping on the bed, arousable by voice, Chinese speaker. No signs of pain noted. SR with cardiac rehab nurse. On NC 2L, with no signs of SOB. F/C intact and draining well. Bileteral leg edema x3 noted. IV on R AC 20G, saline lock. Bed in the lowest position. Side rails up x3. Call light within reach. Will continue to monitor.
[2018-05-25 20:07] LABS: APPEARANCE,URINE CLEAR; BILIRUBIN, URINE NEGATIVE (NEGATIVE); COLOR,URINE PALE YELLOW; GLUCOSE, URINE (UA) NEGATIVE (NEGATIVE); KETONES,URINE NEGATIVE (NEGATIVE); LEUKOCYTE ESTERASE ,URINE 1+ (NEGATIVE); NITRITE,URINE NEGATIVE (NEGATIVE); PH,URINE 6 (4.5-8.0); PROTEIN,URINE NEGATIVE (NEGATIVE); UROBILINOGEN,URINE NORMAL MG/DL (0.0-1.0)
--- NOTE | 2018-05-25 20:45 | Consultation ---
DATE OF CONSULTATION: 05/25/2018 NEPHROLOGY CONSULTATION CONSULTING PHYSICIAN: Yang Gibson M.D. REFERRING PHYSICIAN: Dionicio Middleton M.D. REASON FOR CONSULTATION: Hyponatremia. HISTORY OF PRESENT ILLNESS: This is an 83-year-old female, who was brought in by daughter apparently for increasing leg edema. The patient was also getting short of breath since last night. She was diagnosed with CHF exacerbation and fluid overload, and currently on BiPAP. She is unable to provide any history. History was obtained from the chart. I was asked to see the patient because of her hyponatremia with a serum sodium of 124. PAST MEDICAL HISTORY: There is a history of hypertension and history of cholecystectomy. MEDICATIONS: Reviewed in the EMR. SOCIAL HISTORY: Unobtainable. ALLERGIES: Reported to penicillin. REVIEW OF SYSTEMS: Unobtainable. PHYSICAL EXAMINATION: GENERAL: The patient is an elderly female, in no acute distress. VITAL SIGNS: Blood pressure 129/80, pulse 72, temperature 98.8, and respirations 18. HEENT: [place] conjunctivae. Anicteric sclerae. NECK: Supple. LUNGS: Bilateral rhonchi throughout both lung carr. HEART: S1 and S2 without murmurs or rubs. ABDOMEN: Soft and nontender. EXTREMITIES: Bilateral pedal edema. LABORATORY FINDINGS: The chemistry panel shows sodium of 124, potassium 3.7, chloride 89, CO2 28, blood sugar is 179, and calcium is 8.4. Troponin was negative. ProBNP was 27,750. Albumin is 2.7. CBC shows WBC of 5200, hematocrit is 40.1, hemoglobin is 12, and platelets is 399,000. ASSESSMENT: This is an 83-year-old female who was admitted with respiratory failure, likely from congestive heart failure. Her hyponatremia is likely related to her volume overload. Less likely, other causes such as SIADH. PLAN: The patient needs to be diuresed. for the workup, I will get urine sodium and urine osmolality. The chemistry panel will be followed closely and further recommendations will be given based on those results. Also, I will get a TSH level to make sure the patient is not hypothyroid. Thank you very much, Dr. Middleton, for this consultation. Yang Gibson M.D. DR: ERICK JOB#: [id number] CC: YOSSI
[2018-05-25] MEDS ORDERED: Milk of Magnesia 30ml Ud ORAL PRN (21:00)
[2018-05-25] MEDS: Heparin 5000 units/ml inj SUBQ SCH (21:25)
[2018-05-25] MEDS: Docusate 100mg cap ORAL SCH (21:25)
--- NOTE | 2018-05-25 22:00 | NUR ---
NURSE NOTES: Pt keeps taking off her gown, leads, and nasal canula. On room air, O2 saturation is 92-94%. Reposition and oral care done. Will continue to monitor.
[2018-05-26 07:25] LABS: ANION GAP 6 mmol/L (5-15); BLOOD UREA NITROGEN 17 mg/dL (7-18); CALCIUM 8.3 MG/DL (8.5-10.1); CARBON DIOXIDE 29 MMOL/L (21-32); CHLORIDE 95 MMOL/L (98-107); CHOLESTEROL 123 MG/DL (< 200); CREATININE 0.9 MG/DL (0.55-1.30); HDL CHOLESTEROL 65 MG/DL (40-60); POTASSIUM 3.6 MMOL/L (3.5-5.1); SODIUM 130 MMOL/L (136-145); TRIGLYCERIDES 54 MG/DL (30-150)
[2018-05-26 07:30] LABS: PHOSPHORUS 3.8 MG/DL (2.5-4.9)
--- NOTE | 2018-05-26 07:40 | NUR ---
HAND-OFF: Report given to RADHA Martinez.
[2018-05-26 08:00] VITALS: BP 128/84
--- NOTE | 2018-05-26 08:15 | NUR ---
NURSE NOTES: received pt in the bed, awake, confused, vital signs stable, no co pain, no SOB, O2 2L via nasal canula, skin warm and dry to touch, intact, Feliciano catheter with yellow urine, swallow eval done, bed in low position, call light within reach.
--- NOTE | 2018-05-26 08:43 | Consultation ---
Consult Note Consult Note PCCM CONSULTATION DATE: 05/26/18 REFERRING MD: Dr. García HPI: 83 F h/o dementia and prior diverticular bleed a/w several days of inc SOB , JAQUELIN, PND and orthopnea. W/U in the ER demonstrated ADHF and hypoNa, she was initially on BiPAP, now weaned off in the ESTEBAN, Na improving with diuresis. No F/ C/KAHN/dizziness/N/V/D/C/abd pain/urinary complaints. PMH: diverticular bleed, HTN, AR ALL: PCN Active Scripts Medications Dose Route/Sig Max Daily Dose Days Date Category Allopurinol* (Allopurinol) 100 Mg Tablet 100 Mg ORAL DAILY 05/25/18 Reported Oyster Shell 500 Mg + Vit D Tb (Calcium Carbonate/Vitamin D3) 1 Each Tablet 1 Each PO DAILY 05/25/18 Reported Lorazepam* (Lorazepam) 1 Mg Tablet 1 Mg ORAL THREE TIMES A DAY 05/25/18 Reported Fluticasone Propionate* (Fluticasone Propionate) 16 Gm [place].susp 1 [place] NASAL DAILY 05/25/18 Reported Bactrim Ds Tablet (Trimethoprim/Sulfamethoxazole) 1 Each Tablet 1 Tab ORAL Q12H 3 11/03/17 Rx [place] (Olopatadine Hcl) 2.5 Ml Drops 2.5 Ml OP DAILY 10/30/17 Reported [place] (Olopatadine HCl) 2.5 Ml Drops 2.5 Ml OP DAILY 10/30/17 Reported Aspirin 81 Mg Tab.chew 81 Mg PO DAILY 10/30/17 Reported Ultram* (Tramadol HCl) 50 Mg Tablet 50 Mg ORAL TWICE A DAY PRN 10/30/17 Reported Tenormin (Atenolol) 25 Mg Tablet 25 Mg ORAL DAILY 10/30/17 Reported SHx: No T/E/D use FHx: N/C ROS: Negative other than HPI PE: Last 24 Hour Vital Signs Date Time Temp Pulse Resp B/P (MAP) Pulse Ox O2 Delivery O2 Flow Rate FiO2 05/26/18 08:00 2.0 05/26/18 08:00 Nasal Cannula 2.0 05/26/18 04:00 Nasal Cannula 2.0 05/26/18 04:00 79 05/26/18 04:00 2.0 05/26/18 00:00 86 05/26/18 00:00 Nasal Cannula 2.0 05/25/18 20:00 78 05/25/18 20:00 Nasal Cannula 2.0 05/25/18 20:00 2.0 05/25/18 16:00 74 05/25/18 16:00 97.4 76 21 117/68 (84) 99 05/25/18 13:45 76 05/25/18 13:30 97.1 60 20 115/79 (91) 99 05/25/18 13:30 Nasal Cannula 2.0 05/25/18 13:00 97.7 52 18 106/71 100 Bi-pap 100 89 05/25/18 13:00 97.7 72 18 118/60 100 Bi-pap 10.0 100 52 05/25/18 12:32 10.0 100 05/25/18 12:31 72 18 118/60 100 Bi-pap 10.0 100 52 05/25/18 10:59 84 20 99 Facial 100 05/25/18 10:39 97.7 71 25 127/74 100 Non-Rebreather 10.0 05/25/18 10:30 73 21 Non-Rebreather 10.0 05/25/18 10:14 98.8 72 18 129/80 98 Room Air NAD, AAOX3 NC/AT, OPC c MMM Supple s LAD, 8 cm JVD CTA with BiB rales RRR S/NT/ND c NABS No C/C/E CXR: PVC Laboratory Tests Test 05/25/18 10:40 05/25/18 19:00 05/26/18 04:55 White Blood Count 5.2 K/UL (4.8-10.8) Red Blood Count 4.88 M/UL (4.20-5.40) Hemoglobin 12.0 G/DL (12.0-16.0) Hematocrit 40.1 % (37.0-47.0) Mean Corpuscular Volume 82 FL (80-99) Mean Corpuscular Hemoglobin 24.6 PG (27.0-31.0) L Mean Corpuscular Hemoglobin Concent 30.0 G/DL (32.0-36.0) L Red Cell Distribution Width 16.4 % (11.6-14.8) H Platelet Count 399 K/UL (150-450) Mean Platelet Volume 4.9 FL (6.5-10.1) L Neutrophils (%) (Auto) % (45.0-75.0) Lymphocytes (%) (Auto) % (20.0-45.0) Monocytes (%) (Auto) % (1.0-10.0) Eosinophils (%) (Auto) % (0.0-3.0) Basophils (%) (Auto) % (0.0-2.0) Differential Total Cells Counted 100 Neutrophils % (Manual) 82 % (45-75) H Lymphocytes % (Manual) 6 % (20-45) L Monocytes % (Manual) 12 % (1-10) H Eosinophils % (Manual) 0 % (0-3) Basophils % (Manual) 0 % (0-2) Band Neutrophils 0 % (0-8) Platelet Estimate Adequate Platelet Morphology Normal Hypochromasia 1+ Anisocytosis 1+ Sodium Level 124 MMOL/L (136-145) L 130 MMOL/L (136-145) L Potassium Level 3.7 MMOL/L (3.5-5.1) 3.6 MMOL/L (3.5-5.1) Chloride Level 89 MMOL/L (98-107) L 95 MMOL/L (98-107) L Carbon Dioxide Level 28 MMOL/L (21-32) 29 MMOL/L (21-32) Anion Gap 7 mmol/L (5-15) 6 mmol/L (5-15) Blood Urea Nitrogen 15 mg/dL (7-18) 17 mg/dL (7-18) Creatinine 0.9 MG/DL (0.55-1.30) 0.9 MG/DL (0.55-1.30) Estimat Glomerular Filtration Rate mL/min (>60) mL/min (>60) Glucose Level 179 MG/DL (74-106) H 77 MG/DL (74-106) # Calcium Level 8.4 MG/DL (8.5-10.1) L 8.3 MG/DL (8.5-10.1) L Total Bilirubin 1.1 MG/DL (0.2-1.0) H Direct Bilirubin 0.3 MG/DL (0.0-0.3) Aspartate Amino Transf (AST/SGOT) 32 U/L (15-37) Alanine Aminotransferase (ALT/SGPT) 30 U/L (12-78) Alkaline Phosphatase 115 U/L (46-116) Total Creatine Kinase 122 U/L (26-308) Creatine Kinase MB 4.5 NG/ML (0.0-3.6) H Creatine Kinase MB Relative Index 3.6 Troponin I 0.014 ng/mL (0.000-0.056) 0.044 ng/mL (0.000-0.056) Pro-B-Type Natriuretic Peptide 29114 pg/mL (0-125) H Total Protein 6.7 G/DL (6.4-8.2) Albumin 2.7 G/DL (3.4-5.0) L Globulin 4.0 g/dL Albumin/Globulin Ratio 0.7 (1.0-2.7) L Lipase 118 U/L (73-393) Urine Color Pale yellow Urine Appearance Clear Urine pH 6 (4.5-8.0) Urine Specific [place] 1.005 (1.005-1.035) Urine Protein Negative (NEGATIVE) Urine Glucose (UA) Negative (NEGATIVE) Urine Ketones Negative (NEGATIVE) Urine Blood 3+ (NEGATIVE) H Urine Nitrite Negative (NEGATIVE) Urine Bilirubin Negative (NEGATIVE) Urine Urobilinogen Normal MG/DL (0.0-1.0) Urine Leukocyte Esterase 1+ (NEGATIVE) H Urine RBC 5-10 /HPF (0 - 2) H Urine WBC 2-4 /HPF (0 - 2) Urine Squamous Epithelial Cells Occasional /LPF Urine Amorphous Sediment Few /LPF (NONE) H Urine Bacteria Few /HPF (NONE) Urine Osmolality 186 mOsm/kg (429-449) L Urine Random Sodium 67 mmol/L (20-110) Hemoglobin A1c 6.8 % (4.3-6.0) H Phosphorus Level 3.8 MG/DL (2.5-4.9) Triglycerides Level 54 MG/DL (30-150) Cholesterol Level 123 MG/DL (< 200) LDL Cholesterol 49 mg/dL (<100) HDL Cholesterol 65 MG/DL (40-60) H Cholesterol/HDL Ratio 1.9 (3.3-4.4) L Thyroid Stimulating Hormone (TSH) 5.727 uiU/mL (0.358-3.740) Assessment/Plan ASSESSMENT: 83 F h/o dementia, AR, prior diverticular bleed a/w respiratory failure 2/2 ADHF and hypoNa PROBLEM LIST: Respiratory failure CHF with ADHF HypoNa H/O diverticular bleed H/O dementia AR PLAN: Optimize pulmonary hygiene/mobilize as tolerated PRN BiPAP Titrate down FiO2 to keep SaO2 > 90% PRN HHN's Monitor volumes and renal function, diuresis as able F/U TTE Cardiology eval F/U renal recs, monitor NA Aspiration precautions DVT Px: Hep SQ FC Dionicio Middleton MD May 26, 2018 08:43
[2018-05-26] MEDS: LORazepam 1mg tab ORAL SCH ×2 (08:55→12:25)
[2018-05-26] MEDS: Docusate 100mg cap ORAL SCH (08:55)
[2018-05-26] MEDS: Heparin 5000 units/ml inj SUBQ SCH ×2 (08:58→20:52)
[2018-05-26] MEDS ORDERED: Aspirin Baby 81mg ORAL SCH (09:00)
[2018-05-26] MEDS ORDERED: Allopurinol 100mg Tab ORAL SCH (09:00)
[2018-05-26] MEDS ORDERED: Flonase Nasal Inhaler 16gm NASAL SCH (09:00)
[2018-05-26] MEDS ORDERED: Atenolol 25mg tab ORAL SCH (09:00)
[2018-05-26] MEDS ORDERED: Calcium Carbonate 500mg w/Vit D 200iu tab ORAL SCH (09:00)
--- NOTE | 2018-05-26 10:46 | NUR ---
*-* INSURANCE *-* ALL CLINICALS, REVIEWS AND INTERQUAL FAXED TO: [employer] P:[phone] F: [phone] Addendum: 05/26/18 at 1049 by NATHALY QUIROZ CM NCM:TAMIKA
[2018-05-26 12:00] VITALS: BP 115/68
--- NOTE | 2018-05-26 12:05 | General Progress Note ---
Assessment/Plan Assessment/Plan #Acute on chronic CHF #Acute hypoxic respiratory failure due to acute CHF #High risk for aspiration per JOURNAL ENTRY AUDIT CLERK #Essential HTN -continue on ESTEBAN -continue IV Lasix diuresis -monitor I&O -Daily weights -Restrict sodium intake -TTE pending -check modified barium -dysphagia diet -check CT Chest without -Cardiology consulted -Pulmonology consulted #Hyponatremia -secondary to hypervolemic state -improved -continue to treated acute CHF #Dementia #Acute metabolic encephalopathy, present on admission -supportive care -aspiration and fall precautions VTE PPx Heparin SC Full Code I spent 45 minutes on this patient's case, and 25 minutes was dedicated to counseling and/or care coordination. Subjective Date patient seen: May 26, 2018 Time patient seen: 12:00 ROS Limited/Unobtainable: Yes Allergies: Coded Allergies: PENICILLINS (Verified Allergy, Severe, HIVES AROUND NECK/THROAT/ DIFFICULTY BREATHING, 11/01/17) Subjective Medicine follow up for acute hypoxic respiratory failure, acute CHF, possible aspiration Patient seen by JOURNAL ENTRY AUDIT CLERK today, high risk for aspiration Patient confused and agitated, removing nasal cannula Objective Last 24 Hour Vital Signs Date Time Temp Pulse Resp B/P (MAP) Pulse Ox O2 Delivery O2 Flow Rate FiO2 05/26/18 08:56 93 128/84 05/26/18 08:00 91 05/26/18 08:00 2.0 05/26/18 08:00 97.4 93 30 128/84 (99) 94 05/26/18 08:00 Nasal Cannula 2.0 05/26/18 04:00 Nasal Cannula 2.0 05/26/18 04:00 79 05/26/18 04:00 2.0 05/26/18 00:00 86 05/26/18 00:00 Nasal Cannula 2.0 05/25/18 20:00 78 05/25/18 20:00 Nasal Cannula 2.0 05/25/18 20:00 2.0 05/25/18 16:00 74 05/25/18 16:00 97.4 76 21 117/68 (84) 99 05/25/18 13:45 76 05/25/18 13:30 97.1 60 20 115/79 (91) 99 05/25/18 13:30 Nasal Cannula 2.0 05/25/18 13:00 97.7 52 18 106/71 100 Bi-pap 100 89 05/25/18 13:00 97.7 72 18 118/60 100 Bi-pap 10.0 100 52 05/25/18 12:32 10.0 100 05/25/18 12:31 72 18 118/60 100 Bi-pap 10.0 100 52 Intake and Output 05/25/18 05/26/18 19:00 07:00 Intake Total 150 ml 120 ml Output Total 1950 ml 2000 ml Balance -1800 ml -1880 ml Intake Oral 150 ml 120 ml Output Urine Total 1950 ml 2000 ml Laboratory Tests 05/25/18 19:00: Urine Color Pale yellow, Urine Appearance Clear, Urine pH 6, Urine Specific [place] 1.005, Urine Protein Negative, Urine Glucose (UA) Negative, Urine Ketones Negative, Urine Blood 3+H, Urine Nitrite Negative, Urine Bilirubin Negative, Urine Urobilinogen Normal, Urine Leukocyte Esterase 1+H, Urine RBC 5- 10H, Urine WBC 2-4, Urine Squamous Epithelial Cells Occasional, Urine Amorphous Sediment FewH, Urine Bacteria Few, Urine Osmolality 186L, Urine Random Sodium 67 05/26/18 04:55: Sodium Level 130L, Potassium Level 3.6, Chloride Level 95L, Carbon Dioxide Level 29, Anion Gap 6, Blood Urea Nitrogen 17, Creatinine 0.9, Estimat Glomerular Filtration Rate , Glucose Level 77#, Hemoglobin A1c 6.8H, Calcium Level 8.3L, Phosphorus Level 3.8, Troponin I 0.044, Triglycerides Level 54, Cholesterol Level 123, LDL Cholesterol 49, HDL Cholesterol 65H, Cholesterol/HDL Ratio 1.9L, Thyroid Stimulating Hormone (TSH) 5.727H, Free Thyroxine 0.97 Height (Feet): 4 Height (Inches): 9.00 Weight (Pounds): 169 General Appearance: confused Neck: normal alignment, supple Cardiovascular: normal rate, regular rhythm Respiratory/Chest: lungs clear, normal breath sounds, no respiratory distress, no accessory muscle use Abdomen: non tender, soft, no organomegaly Raoul Newby MD May 26, 2018 12:05
--- NOTE | 2018-05-26 12:11 | NUR ---
SWALLOW/SPEECH THERAPY NOTE: SEE SWALLOW EVAL REPORT IN ST CARE ACTIVITY SECTION. REFERRED BY DR CONTEH ([facility]) DYSPHAGIA RISK FACTORS FOR THIS 83 Y.O. SPAN SPEAKING FEMALE: ACUTE DYSPNEA, HYPOXIC RESP FAILURE DUE TO CHF, BIPAP NEEDED, FLUID OVERLOAD, TACHYPNEIC, ABDOMINAL DISTENTION, LEG EDEMA. PER CXR ER 05/25/18 CANNOT R/O INFILTRATE, HAS PULMONARY CONGESTION, BILAT EFFUSION, CARDIOMEGALY, CRACKLES PER MD ALBUMIN LOW 2.7 RELEVANT MEDS ALBUTEROL, ZOFRAN, ATIVAN, FLONASE H/O MODERATE DEMENTIA (CONFUSED PER SOCIAL MEDIA DESIGNER), GIB, DIVERTICULOSIS, HTN, CHOLECYSTECTOMY. HOME WITH DAUGHTER ? DIET, NO POLST REGARDING TUBE FEEDINGS IF NEEDS NOW ON A LOW NA REG TEXTURE AND THIN LIQ DIET WITH 75% INTAKE, NO OVERT ASP PER SOCIAL MEDIA DESIGNER. LESS INTAKE TODAY. KEEPS TRYING TO TAKE OFF NC. NOW ON 2 LITERS 02 NC. RR 18 98 SAT ALERT BUT SOMETIMES LIKES TO CLOSE HER EYES AND WILL OPEN THEM WITH CUES IN [place]AN. SPEECH UNINTELLIGIBLE EVEN IN ANDORRAN. CONFUSED. FAMILY WANTS HER TO HAVE PO FOR QUALITY OF LIFE. INITIAL IMPRESSIONS S/S OF AT LEAST A MILD-MODERATE OROPHARYGNEAL DYSPHAGIA TONGUE-THRUST AND WILL PUSH OUT THE PUREED TSP AND KEEP BOLUS IN HER MOUTH (THIS WAS REMOVED). WHEN GIVEN THIN LIQUID CUP (FOR [place] SWALLOW PROTOCOL), PT SPIT OUT MOST OF THE BOLUS. NO OVERT S/S OF ASPIRATION WITH NECTAR THICK LIQUIDS TSP BUT HAD INCREASED OROPHARYNGEAL TRANSIT TIMES WITH MILDLY REDUCED HYOLARYNGEAL EXCURSION. WILL HOLD ON FURTHER TRIALS AT THIS TIME SINCE SHE HAS A RISK FOR SILENT ASPIRATION. REQUIRED SOME SALIVA REMOVAL FROM BACK OF THROAT (MILD AMOUNTS) MOSTLY. DISLIKES SUCTIONING. VERY POOR COUGH SPONTANEOUSLY AND TO COMMAND POOR INTAKE TODAY RECOMMENDATIONS: NEEDS MOD BARIUM SWALLOW STUDY IP OR OP IF DC.(OK PER DR PEOPLES) FOR QOL, CONTINUE WITH PO BUT DOWNGRADE TO LIQUIFIED PUREED LIKE NECTAR THICK SOUP WITH 1 TO 1 FEEDING AND POSTED ASP PRECAUTIONS. SEND HIGH SHERI SUP AND DO SHERI COUNT PER DYSPHAGIA MANAGEMENT AND TX EDYUCATED/TRAINED STAFF IN POSTED ASP PRECAUTION D/W DTR PREFERENCES FOR HER MOTHER.
--- NOTE | 2018-05-26 14:12 | NUR ---
P.T NOTE: P.T EVALUATION ATTEMPTED HOWEVER UNSUCCESSFUL. PATIENT TO LETHARGIC AND CONFUSED TO PARTICIPATE IN P.T EVALUATION. WILL REATTEMPT WHEN/ APPROPRIATE.
--- NOTE | 2018-05-26 14:51 | Cardiology Progress Note ---
Assessment/Plan Assessment/Plan chronic chf severe as dementia ams hs of recetn gi bleed his of diverticualr bleed as it stand with her altered mentation poor candidate for any invasic e cardia issue likly chronic cm diuretics will review echo [phone] Objective Last 24 Hour Vital Signs Date Time Temp Pulse Resp B/P (MAP) Pulse Ox O2 Delivery O2 Flow Rate FiO2 05/26/18 12:00 2.0 05/26/18 12:00 Nasal Cannula 2.0 05/26/18 12:00 97.5 75 25 115/68 (84) 100 05/26/18 08:56 93 128/84 05/26/18 08:00 91 05/26/18 08:00 2.0 05/26/18 08:00 97.4 93 30 128/84 (99) 94 05/26/18 08:00 Nasal Cannula 2.0 05/26/18 04:00 Nasal Cannula 2.0 05/26/18 04:00 79 05/26/18 04:00 2.0 05/26/18 00:00 86 05/26/18 00:00 Nasal Cannula 2.0 05/25/18 20:00 78 05/25/18 20:00 Nasal Cannula 2.0 05/25/18 20:00 2.0 05/25/18 16:00 74 05/25/18 16:00 97.4 76 21 117/68 (84) 99 Intake and Output 05/25/18 05/26/18 19:00 07:00 Intake Total 150 ml 120 ml Output Total 1950 ml 2000 ml Balance -1800 ml -1880 ml Intake Oral 150 ml 120 ml Output Urine Total 1950 ml 2000 ml Laboratory Tests Test 05/25/18 19:00 05/26/18 04:55 Urine Color Pale yellow Urine Appearance Clear Urine pH 6 (4.5-8.0) Urine Specific [place] 1.005 (1.005-1.035) Urine Protein Negative (NEGATIVE) Urine Glucose (UA) Negative (NEGATIVE) Urine Ketones Negative (NEGATIVE) Urine Blood 3+ (NEGATIVE) H Urine Nitrite Negative (NEGATIVE) Urine Bilirubin Negative (NEGATIVE) Urine Urobilinogen Normal MG/DL (0.0-1.0) Urine Leukocyte Esterase 1+ (NEGATIVE) H Urine RBC 5-10 /HPF (0 - 2) H Urine WBC 2-4 /HPF (0 - 2) Urine Squamous Epithelial Cells Occasional /LPF Urine Amorphous Sediment Few /LPF (NONE) H Urine Bacteria Few /HPF (NONE) Urine Osmolality 186 mOsm/kg (429-449) L Urine Random Sodium 67 mmol/L (20-110) Sodium Level 130 MMOL/L (136-145) L Potassium Level 3.6 MMOL/L (3.5-5.1) Chloride Level 95 MMOL/L (98-107) L Carbon Dioxide Level 29 MMOL/L (21-32) Anion Gap 6 mmol/L (5-15) Blood Urea Nitrogen 17 mg/dL (7-18) Creatinine 0.9 MG/DL (0.55-1.30) Estimat Glomerular Filtration Rate mL/min (>60) Glucose Level 77 MG/DL (74-106) # Hemoglobin A1c 6.8 % (4.3-6.0) H Calcium Level 8.3 MG/DL (8.5-10.1) L Phosphorus Level 3.8 MG/DL (2.5-4.9) Troponin I 0.044 ng/mL (0.000-0.056) Triglycerides Level 54 MG/DL (30-150) Cholesterol Level 123 MG/DL (< 200) LDL Cholesterol 49 mg/dL (<100) HDL Cholesterol 65 MG/DL (40-60) H Cholesterol/HDL Ratio 1.9 (3.3-4.4) L Thyroid Stimulating Hormone (TSH) 5.727 uiU/mL (0.358-3.740) Free Thyroxine 0.97 NG/DL (0.76-1.46) Bret Nichols MD May 26, 2018 14:51
[2018-05-26] MEDS ORDERED: Albuterol/Ipratropium 3ml neb HHN PRN (14:53)
--- NOTE | 2018-05-26 14:53 | NUR ---
NURSE NOTES: pt HR down to 40, dr. Nichols saw pt, pt transferred to 2E as ordered, report given to TRACEE GARCIA.
[2018-05-26] MEDS ORDERED: traMADol 50mg tab ORAL PRN (14:54)
--- NOTE | 2018-05-26 15:30 | Nephrology Progress Note ---
Assessment/Plan Problem List: (1) Hyponatremia Assessment: better (2) Acute CHF Assessment: improved (3) HTN (hypertension) Assessment: BP Ok Plan IV Lasix follow S Na Discussed with RN Subjective Subjective looks better Objective Objective Last 24 Hour Vital Signs Date Time Temp Pulse Resp B/P (MAP) Pulse Ox O2 Delivery O2 Flow Rate FiO2 05/26/18 12:00 79 05/26/18 12:00 2.0 05/26/18 12:00 Nasal Cannula 2.0 05/26/18 12:00 97.5 75 25 115/68 (84) 100 05/26/18 08:56 93 128/84 05/26/18 08:00 91 05/26/18 08:00 2.0 05/26/18 08:00 97.4 93 30 128/84 (99) 94 05/26/18 08:00 Nasal Cannula 2.0 05/26/18 04:00 Nasal Cannula 2.0 05/26/18 04:00 79 05/26/18 04:00 2.0 05/26/18 00:00 86 05/26/18 00:00 Nasal Cannula 2.0 05/25/18 20:00 78 05/25/18 20:00 Nasal Cannula 2.0 05/25/18 20:00 2.0 05/25/18 16:00 74 05/25/18 16:00 97.4 76 21 117/68 (84) 99 Intake and Output 05/25/18 05/26/18 19:00 07:00 Intake Total 150 ml 120 ml Output Total 1950 ml 2000 ml Balance -1800 ml -1880 ml Intake Oral 150 ml 120 ml Output Urine Total 1950 ml 2000 ml Laboratory Tests 05/25/18 19:00: Urine Color Pale yellow, Urine Appearance Clear, Urine pH 6, Urine Specific [place] 1.005, Urine Protein Negative, Urine Glucose (UA) Negative, Urine Ketones Negative, Urine Blood 3+H, Urine Nitrite Negative, Urine Bilirubin Negative, Urine Urobilinogen Normal, Urine Leukocyte Esterase 1+H, Urine RBC 5- 10H, Urine WBC 2-4, Urine Squamous Epithelial Cells Occasional, Urine Amorphous Sediment FewH, Urine Bacteria Few, Urine Osmolality 186L, Urine Random Sodium 67 05/26/18 04:55: Sodium Level 130L, Potassium Level 3.6, Chloride Level 95L, Carbon Dioxide Level 29, Anion Gap 6, Blood Urea Nitrogen 17, Creatinine 0.9, Estimat Glomerular Filtration Rate , Glucose Level 77#, Hemoglobin A1c 6.8H, Calcium Level 8.3L, Phosphorus Level 3.8, Troponin I 0.044, Triglycerides Level 54, Cholesterol Level 123, LDL Cholesterol 49, HDL Cholesterol 65H, Cholesterol/HDL Ratio 1.9L, Thyroid Stimulating Hormone (TSH) 5.727H, Free Thyroxine 0.97 Height (Feet): 4 Height (Inches): 9.00 Weight (Pounds): 169 Cardiovascular: normal rate Respiratory/Chest: lungs clear Extremities: other - less edema Yang Gibson MD May 26, 2018 15:30
--- NOTE | 2018-05-26 15:30 | NUR ---
NURSE NOTES: Received patient from ESTEBAN, report given by RADHA Martinez. Patient is resting in bed, sleeping. No signs of distress. Oxygen therapy 2L via Nasal Cannula. Bed in lowest position with three side rails up.Bed brakes engaged. Call light and bed side table within reach. Will continue to monitor and follow plan of care.
--- NOTE | 2018-05-26 15:46 | Diagnostic Imaging Report ---
Clinical Indication: Dyspnea Technique: Spiral acquisitions obtained through the chest. No IV contrast utilized, for referring physician Wade. Multiplanar reconstructions generated. Total dose length product 864.95 mGycm. CTDIvol(s) 25.48 mGy. Dose reduction achieved using automated exposure control Comparison: none Findings: There are small to moderate size bilateral pleural effusions there is resultant compressive atelectasis of portions of the posterior right lower lobe. There is complete atelectasis of the left lower lobe. There is ill-defined interstitial congestion in the left upper lobe. A few small cystic spaces are seen within the right upper lobe. The heart is markedly enlarged. There are aortic valvular calcifications noted. The ascending thoracic aorta is ectatic but not frankly aneurysmal, measuring 4.1 cm in diameter. The main pulmonary artery is also ectatic, measuring 3.4 cm in diameter. No mediastinal or hilar mass or adenopathy. The included portions of the thyroid appear atrophic. No axillary or chest wall mass or adenopathy. There is edema of the bilateral chest wall and upper flank soft tissues. The esophagus is unremarkable. The included upper abdominal viscera are unremarkable. The bones demonstrate degenerative spondylosis changes. There is a mild wedge compression fracture deformity of the T2 vertebral body. There is also a thoracolumbar scoliotic deformity demonstrated. Impression: Marked cardiomegaly Bilateral pleural effusions Atelectasis, presumably compressive, of the left lower lobe. There is also atelectasis of portions of the right lower lobe Mild interstitial congestion, particularly within the left upper lobe Bilateral chest wall and upper flank soft tissue edema Ectatic but not frankly aneurysmal ascending thoracic aorta Ectatic main pulmonary artery, suggestive of but not diagnostic for pulmonary arterial hypertension Small right lung cystic spaces, could indicate COPD changes or be on the basis of prior insult Thoracic scoliotic deformity. Mild T2 wedge compression fracture deformity, age indeterminate. Degenerative spondylosis The CT scanner at [facility] is accredited by the [employer] and the scans are performed using protocols designed to limit radiation exposure to as low as reasonably achievable to attain images of sufficient resolution adequate for diagnostic evaluation.
[2018-05-26 16:00] VITALS: BP 105/80
--- NOTE | 2018-05-26 17:01 | Cardiology Report ---
APPROVED REPORT EXAM: Two-dimensional and M-mode echocardiogram with Doppler and color Doppler. INDICATION Congestive Heart Failure M-Mode DIMENSIONS IVSd1.0 (0.7-1.1cm)Left Atrium (MM)3.2 (1.6-4.0cm) LVDd5.6 (3.5-5.6cm)Aortic Root3.2 (2.0-3.7cm) PWd0.7 (0.7-1.1cm)Aortic Cusp Exc.1.0 (1.5-2.0cm) IVSs0.9 cm LVDs5.2 (2.5-4.0cm) PWs0.9 cm Global left ventricular hypokinesis. Mild left ventricular enlargement . Left ventricular ejection fraction estimated to be 25-30%. Mild left ventricular hypertrophy by 2-D. Anterior Echo-free space, may be due to pericardial fat or effusion. Pleural effusion present . Mild left atrial enlargement. Right cardiac chamber sizes are within normal limits. Aortic valve calcification with decreased cusp excursion c/w aortic stenosis. Mildly thickened mitral valve leaflets with normal excursion. Mild mitral annulus and aortic root calcification. Pulmonic valve not well visualized. IVC at normal size with physiologic collapse 1.7cm. A color flow and spectral Doppler study was performed and revealed: Mild to moderate aortic insufficiency. Peak aortic valve gradient of 70 mm Hg and a mean of 44 mmHg. Aortic valve area 0.5 cm2 calculated by continuity equation. Mitral diastolic velocities suggest reduced left ventricular relaxation c/w mild LV diastolic dysfunction (Grade I ) Mild mitral regurgitation. Moderate tricuspid regurgitation. Tricuspid systolic velocities suggests peak right ventricular systolic pressure of 65 mmHg,consistent with severe pulmonary hypertension . Mild pulmonic regurgitation present .
--- NOTE | 2018-05-26 17:14 | NUR ---
INDUSTRIAL EDITORMANAGER MATERIALS MANAGEMENT SI: DYSPNEA T. 97.4 HR 61 RR 18 B/P 105/80 2L NC NA 130 IS: LASIX IV HEPARIN SUBC ALB HHN TELE STATUS
--- NOTE | 2018-05-26 17:25 | Cardiology Report ---
APPROVED REPORT EKG Measurement Heart [id number] Sinus rhythm with premature supraventricular complexes Left axis deviation Left bundle branch block Abnormal ECG
[2018-05-26] MEDS ORDERED: LORazepam 1mg tab ORAL SCH (18:00)
--- NOTE | 2018-05-26 19:31 | NUR ---
HAND-OFF: Report given to RADHA Curtis.
--- NOTE | 2018-05-26 19:35 | NUR ---
NURSE NOTES: Received patient from RADHA Tang. Patient asleep, breathing even and unlabored, on 2 L via NC. No s/sx of pain nor any discomfort at this time. SInus Rhythm with BBB at ekg monitor. F/C intact and patent with yellow-colored output for urinary retention. On bilateral soft wrist restraint d/t pt observed pulling IV and F/C, skin checked for circulation and breakdown. IV site on R FA #20 patent and intact. Bed at lowest position, call light within reach. Will continue plan of care.
--- NOTE | 2018-05-26 19:42 | Consultation ---
History of Present Illness General Chief Complaint: Edema Present Illness HPI 83-year-old female, who was brought in for increasing leg edema. the pt has hx of dementia and anxiety. The pt has been agitated and yelling. the pt has memory impairment and attempted to leave. the pt is unable to provide any history. Allergies: Coded Allergies: PENICILLINS (Verified Allergy, Severe, HIVES AROUND NECK/THROAT/ DIFFICULTY BREATHING, 11/01/17) Medication History Scheduled Allopurinol* (Allopurinol*), 100 MG ORAL DAILY, (Reported) Aspirin (Aspirin), 81 MG PO DAILY, (Reported) Atenolol (Tenormin), 25 MG ORAL DAILY, (Reported) Calcium Carbonate/Vitamin D3 (Oyster Shell 500 Mg + Vit D Tb), 1 EACH PO DAILY, (Reported) Fluticasone Propionate* (Fluticasone Propionate*), 1 SPRAY NASAL DAILY, ( Reported) Lorazepam* (Lorazepam*), 1 MG ORAL THREE TIMES A DAY, (Reported) Olopatadine HCl (Pazeo), 2.5 ML OP DAILY, (Reported) Olopatadine Hcl (Pataday), 2.5 ML OP DAILY, (Reported) Trimethoprim/Sulfamethoxazole (Bactrim Ds Tablet), 1 TAB ORAL Q12H Scheduled PRN Tramadol Hcl* (Ultram*), 50 MG ORAL TWICE A DAY PRN for For Pain, (Reported) Patient History Limited by: medical condition History Provided By: Medical Record, PMD Healthcare decision maker Resuscitation status Full Code Advanced Directive on File Past Medical/Surgical History Past Medical/Surgical History: (1) GI hemorrhage (2) Diverticul disease small and large intestine, no perforati or abscess (3) Acute anemia (4) Respiratory distress (5) Acute CHF (6) Hyponatremia (7) HTN (hypertension) (8) Dyspnea Review of Systems Psychiatric: Reports: prior hx, anxiety, depressed feelings, emotional problems , hallucinations Physical Exam General Appearance: alert, confused, severe distress, agitated Neurologic: disoriented Last 24 Hour Vital Signs Date Time Temp Pulse Resp B/P (MAP) Pulse Ox O2 Delivery O2 Flow Rate FiO2 05/26/18 16:00 61 05/26/18 16:00 97.4 61 18 105/80 (88) 98 05/26/18 16:00 Nasal Cannula 2.0 05/26/18 12:00 79 05/26/18 12:00 2.0 05/26/18 12:00 Nasal Cannula 2.0 05/26/18 12:00 97.5 75 25 115/68 (84) 100 05/26/18 08:56 93 128/84 05/26/18 08:00 91 05/26/18 08:00 2.0 05/26/18 08:00 97.4 93 30 128/84 (99) 94 05/26/18 08:00 Nasal Cannula 2.0 05/26/18 04:00 Nasal Cannula 2.0 05/26/18 04:00 79 05/26/18 04:00 2.0 05/26/18 00:00 86 05/26/18 00:00 Nasal Cannula 2.0 05/25/18 20:00 78 05/25/18 20:00 Nasal Cannula 2.0 05/25/18 20:00 2.0 Intake and Output 05/25/18 05/26/18 18:59 06:59 Intake Total 150 ml 120 ml Output Total 1950 ml 2000 ml Balance -1800 ml -1880 ml Intake Oral 150 ml 120 ml Output Urine Total 1950 ml 2000 ml Laboratory Tests Test 05/26/18 04:55 Sodium Level 130 MMOL/L (136-145) L Potassium Level 3.6 MMOL/L (3.5-5.1) Chloride Level 95 MMOL/L (98-107) L Carbon Dioxide Level 29 MMOL/L (21-32) Anion Gap 6 mmol/L (5-15) Blood Urea Nitrogen 17 mg/dL (7-18) Creatinine 0.9 MG/DL (0.55-1.30) Estimat Glomerular Filtration Rate mL/min (>60) Glucose Level 77 MG/DL (74-106) # Hemoglobin A1c 6.8 % (4.3-6.0) H Calcium Level 8.3 MG/DL (8.5-10.1) L Phosphorus Level 3.8 MG/DL (2.5-4.9) Troponin I 0.044 ng/mL (0.000-0.056) Triglycerides Level 54 MG/DL (30-150) Cholesterol Level 123 MG/DL (< 200) LDL Cholesterol 49 mg/dL (<100) HDL Cholesterol 65 MG/DL (40-60) H Cholesterol/HDL Ratio 1.9 (3.3-4.4) L Thyroid Stimulating Hormone (TSH) 5.727 uiU/mL (0.358-3.740) Free Thyroxine 0.97 NG/DL (0.76-1.46) Height (Feet): 4 Height (Inches): 9.00 Weight (Pounds): 169 Medications Current Medications Medications (Trade) Dose Ordered Sig/Violet Route PRN Reason Start Time Stop Time Status Last Admin Dose Admin Albuterol/ Ipratropium (Albuterol/ Ipratropium) 3 ml Q6H PRN HHN Shortness of Breath 05/26/18 14:53 05/30/18 14:52 Allopurinol (Zyloprim) 100 mg DAILY ORAL 05/27/18 09:00 06/25/18 08:59 Aspirin (ASA) 81 mg DAILY ORAL 05/27/18 09:00 06/25/18 08:59 Atenolol (Tenormin) 25 mg DAILY ORAL 05/27/18 09:00 06/25/18 08:59 Calcium Carbonate (OsCal D) 1 tab DAILY ORAL 05/27/18 09:00 06/25/18 08:59 Dextrose (Dextrose 50%) 25 ml Q30M PRN IV Hypoglycemia 05/26/18 15:00 06/24/18 11:29 Dextrose (Dextrose 50%) 50 ml Q30M PRN IV Hypoglycemia 05/26/18 15:00 06/24/18 11:29 Docusate Sodium (Colace) 100 mg EVERY 12 HOURS ORAL 05/26/18 21:00 06/24/18 20:59 Fluticasone Propionate (Flonase) 1 spray DAILY NASAL 05/27/18 09:00 06/25/18 08:59 Furosemide (Lasix) 40 mg Q12HR IV 05/26/18 21:00 06/24/18 17:59 Heparin Sodium (Porcine) (Heparin 5000 units/ml) 5,000 units Q12HR SUBQ 05/26/18 21:00 06/24/18 20:59 Lorazepam (Ativan) 1 mg THREE TIMES A DAY ORAL 05/26/18 18:00 06/01/18 17:59 05/26/18 18:07 Magnesium Hydroxide (Mom) 30 ml HSPRN PRN ORAL Constipation 05/26/18 21:00 06/24/18 20:59 Ondansetron HCl (Zofran) 4 mg Q6H PRN IVP Nausea & Vomiting 05/26/18 14:53 06/24/18 14:52 Tramadol HCl (Ultram) 50 mg BIDPRN PRN ORAL PAIN 4-10 05/26/18 14:54 06/02/18 14:53 Assessment/Plan Problem List: (1) Acute metabolic encephalopathy ICD Codes: G93.41 - Metabolic encephalopathy SNOMED: [id number], [id number] Assessment/Plan Zyprexa 2.5 mg po bid Haldol prn the pt received a cocktail. soft restraints. Jackie Boyd MD May 26, 2018 19:42
[2018-05-26 20:00] VITALS: BP 120/75
[2018-05-26] MEDS: Docusate 100mg/10ml Liq ORAL SCH (20:58)
[2018-05-26] MEDS ORDERED: Docusate 100mg cap ORAL SCH (21:00)
[2018-05-26] MEDS ORDERED: Milk of Magnesia 30ml Ud ORAL PRN (21:00)
--- NOTE | 2018-05-26 22:00 | Consultation ---
DATE OF CONSULTATION: 05/26/2018 CARDIOLOGY CONSULTATION CONSULTING PHYSICIAN: Bret Nichols M.D. REFERRING PHYSICIAN: Dionicio Middleton M.D. REASON FOR REFERRAL: Shortness of breath and possible congestive heart failure. HISTORY OF PRESENT ILLNESS: This is an elderly female, who is really not able to provide any meaningful history whatsoever. Information is obtained from the patient's chart and following discussion with the patient's family members over the telephone, with another family member actually translating. It appears that the patient has been short of breath for the past few days and has had some episodes of chest pain, the details of which are really unknown. She has over the past 3 or 4 days as well and she has been using 2 large pillows to sleep because of the shortness of breath. She does minimally walk around the house. Apparently, there is no report that she ever complained of any chest pain with walking. She is not a diabetic nor has she had any heart problems. No high blood pressure according to the family members. The patient's chart indicates the patient was previously hospitalized here back in October of 2017 and at that time she was diagnosed with GI bleeding secondary to lower source and she had anemia, diverticular disease of the large bowel was the diagnosis. She underwent endoscopy apparently during that hospitalization, which found diverticular bleeding as a cause of her anemia and she has not had any other medical problems according to family members. SOCIAL HISTORY: She does not smoke or drink alcoholic beverages. No drug use. She lives at home. REVIEW OF SYSTEMS: GASTROINTESTINAL: She may have some nausea. No vomiting. No diarrhea. No bloody or black stools recently. GENITOURINARY: Complains of discomfort on urination. PULMONARY: Some coughing. No wheezing. CONSTITUTIONAL: No fevers, chills, or night sweats. ALLERGIES: To penicillin. PHYSICAL EXAMINATION: GENERAL: Shows to be an elderly female, in no respiratory distress. She is somewhat confused and agitable. NECK: Supple. No jugular venous distention. LUNGS: There are bronchial breath sounds on the bases bilaterally. CARDIAC: Regular rate and rhythm. Systolic ejection murmur. No heaves or thrills noted. There may be some delayed carotid upstrokes. ABDOMEN: Soft, nontender. Positive bowel sounds. EXTREMITIES: She has her legs elevated. She does have some edema of the lower extremities, but this edema is in the dependent portion of the buttock area, now that being the dependent area. LABORATORY AND DIAGNOSTIC DATA: White count of 5.2, hemoglobin 12, and platelet count 399. Sodium is 130, potassium 3.6, chloride 95, bicarb 29, BUN 17, creatinine 0.9, glucose of 77. A1c is 6.8. Calcium is 8.3. Troponin on 2 separate occasions are negative. Triglycerides 51, total cholesterol 123, LDL of 49, HDL of 65. TSH of 5.7 with a free T4 of 0.97. Sodium at the time of admission yesterday was 124 with a chloride of 89. Her proBNP was 27,750. Her lipase was 118 yesterday. Her coags, INR is 1.1, PTT of 32. Urinalysis is positive for 5 to 10 rbc's, 2 to 4 wbc's, 1+ leukocyte esterase. No culture results are available. Chest x-ray performed showing congestive heart failure suspected. Bibasilar atelectasis is not excluded. The patient did have a CT scan of chest and abdomen in October of 2017 that showed surgically absent gallbladder. Intra and extrahepatic ducts were mildly enlarged secondary to cholecystectomy state. No evidence of obstruction. Scattered colonic diverticula was noted. Cardiomegaly was noted at that time. Osteopenia and scoliosis were also felt to be present at that time. The patient's electrocardiogram during this hospitalization shows intracardiac defibrillator consistent with left bundle-branch conduction defect, left axis deviation. EKG showed sinus rhythm with left bundle-branch conduction defect and direct comparison although not possible with prior EKG, the prior EKGs also read as being the left bundle-branch and left axis deviation back in October of 2017 indicating this is a chronic problem. An echocardiogram has been performed. The preliminary report of the echocardiogram, which needs to be reviewed shows global hypokinesis, ejection fraction 20% with aortic stenosis with a peak gradient of 70, mean gradient of 44, and aortic valve area of 0.52. Mild diastolic relaxation abnormality. Tricuspid regurgitation. Pulmonary systolic pressure of 65 mmHg. IVC size was 1.7 with physiological collapse as the preliminary report. ASSESSMENT AND PLAN: 1. Cardiomyopathy, likely chronic. 2. Left bundle-branch conduction defect. 3. Severe aortic stenosis. 4. Pulmonary hypertension. 5. Dementia. 6. History of GI bleed back in October of 2016. 7. History of diverticular bleed. Dr. Middleton, this patient was seen in cardiac consultation. The patient has signs of congestive heart failure likely secondary to a combination of cardiomyopathy as well as aortic stenosis. The etiology of cardiomyopathy may be secondary to severe chronic aortic stenosis. Unfortunately, she is quite altered in her mentation and I am not sure how functional this patient is to allow for the treatment of aortic valve. Either case, I think the medical management at the present time with the use of diuretics as the patient's blood pressure does allow will be in order and she is in need for an ischemia evaluation at some point once her congestive heart failure is improved; however, at the present time with her mentation being the way it is, I doubt that she will be a candidate for any kind of invasive therapy for her aortic stenosis. We will follow the patient along with you. Avoid any antihypertensive agents if possible and allow room for diureses as possible. Monitor the patient's blood pressure response in response to diuretics to avoid significant hypotension in the setting of likely severe aortic stenosis. Bret Nichols M.D. DR: KELLI JOB#: [id number] CC:
[2018-05-27] VITALS: BP 116/77
--- NOTE | 2018-05-27 03:23 | NUR ---
NURSE NOTES: Patient asleep, breathing even and unlabored, no s/sx of pain nor any discomfort at this time. Bed at lowest position, call light within reach. Will continue to monitor.
[2018-05-27 04:00] VITALS: BP 119/68
--- NOTE | 2018-05-27 06:32 | NUR ---
CASE MANAGEMENT:REVIEW 05/27/18 SI: DYSPNEA. CARDIOMYOPATHY SEVERE AORTIC STENOSIS. CHF 97.3 87 20 119/68 98% ON 2L/NC IS: ASA PO QD ATENOLOL PO QD FLONASE QD ZYPREXA PO BID IV LASIX Q12 HEPARIN SQ Q12 : FROM STEP DOWN UNIT TO TELEMETRY DCP: FROM HOME
--- NOTE | 2018-05-27 07:19 | NUR ---
HAND-OFF: Report given to RADHA Casanova. Endorsed plan of care.
--- NOTE | 2018-05-27 07:52 | NUR ---
NURSE NOTES: Received report from RADHA Curtis. Patient in bed resting, no active s/s cardiac, respiratory distress noticed at this time, Denies pain at this time. Patient on 2L oxygen via NC. Patient on soft wrist restraints, cap refill <3 sec, able to move, no c/o pain, Addendum: 05/27/18 at 0756 by RACHANA FREEDMAN RN IV site on right FA 20G asymptomatic, patent, intact. Feliciano catheter draining well to gravity. SR with BBB HR 87. Bed in lowest position, side rails upx3, call light within reach. Will continue to monitor.
[2018-05-27 08:00] VITALS: BP 118/64
[2018-05-27 08:15] LABS: BASOPHILS % (AUTO) 0.8 % (0.0-2.0); EOSINOPHILS % (AUTO) 1.4 % (0.0-3.0); HEMATOCRIT 34.7 % (37.0-47.0); HEMOGLOBIN 10.5 G/DL (12.0-16.0); LYMPHOCYTES % (AUTO) 12.6 % (20.0-45.0); MEAN CORPUSCULAR VOLUME 82 FL (80-99); MONOCYTES % (AUTO) 10.2 % (1.0-10.0); PLATELET COUNT 336 K/UL (150-450); RED BLOOD COUNT 4.23 M/UL (4.20-5.40); RED CELL DISTRIBUTION WIDTH 16.7 % (11.6-14.8); WHITE BLOOD COUNT 4.6 K/UL (4.8-10.8)
[2018-05-27] MEDS: Aspirin Baby 81mg ORAL SCH (08:19)
[2018-05-27] MEDS: Docusate 100mg/10ml Liq ORAL SCH ×2 (08:19→20:25)
[2018-05-27] MEDS: Calcium Carbonate 500mg w/Vit D 200iu tab ORAL SCH (08:20)
[2018-05-27] MEDS: OLANZapine 2.5mg tab ORAL SCH ×2 (08:20→17:43)
[2018-05-27] MEDS: Allopurinol 100mg Tab ORAL SCH (08:20)
[2018-05-27] MEDS: Heparin 5000 units/ml inj SUBQ SCH ×2 (08:26→20:24)
--- NOTE | 2018-05-27 08:30 | NUR ---
REHAB MED PT NOTE ATTEMPT TO SEE, PATIENT LETHARGIC DECREASED AROUSAL, WILL REATTEMPT ABLE.
[2018-05-27 08:41] LABS: ANION GAP 4 mmol/L (5-15); BLOOD UREA NITROGEN 14 mg/dL (7-18); CALCIUM 8.2 MG/DL (8.5-10.1); CARBON DIOXIDE 35 MMOL/L (21-32); CHLORIDE 96 MMOL/L (98-107); CREATININE 0.8 MG/DL (0.55-1.30); POTASSIUM 3.2 MMOL/L (3.5-5.1); SODIUM 135 MMOL/L (136-145)
--- NOTE | 2018-05-27 08:57 | General Progress Note ---
Assessment/Plan Assessment/Plan #Acute on chronic systolic CHF - TTE shows EF 25-30% #Severe aortic stenosis #Acute hypoxic respiratory failure due to acute CHF #High risk for aspiration per PROCESS DESCRIPTION WRITER #Essential HTN -continue IV Lasix diuresis -change atenolol to Coreg -start lisinopril -monitor I&O -Daily weights -Restrict sodium intake -TTE results reviewed -check modified barium -dysphagia diet -CT chest results reviewed -Cardiology following -Pulmonology following #Hyponatremia -secondary to hypervolemic state -resolving -continue to treated acute CHF #Hypokalemia -replace with IV KCl -repeat BMP in AM #Dementia #Acute metabolic encephalopathy, present on admission #Severe agitation -supportive care -aspiration and fall precautions -consult psychiatry VTE PPx Heparin SC Full Code I spent 45 minutes on this patient's case, and 25 minutes was dedicated to counseling and/or care coordination. Subjective Date patient seen: May 27, 2018 Time patient seen: 08:45 ROS Limited/Unobtainable: Yes Allergies: Coded Allergies: PENICILLINS (Verified Allergy, Severe, HIVES AROUND NECK/THROAT/ DIFFICULTY BREATHING, 11/01/17) Subjective Medicine follow up for acute hypoxic respiratory failure, acute CHF, possible aspiration Patient severely agitated overnight, had to be placed on behavioral restraints. Objective Last 24 Hour Vital Signs Date Time Temp Pulse Resp B/P (MAP) Pulse Ox O2 Delivery O2 Flow Rate FiO2 05/27/18 08:23 75 118/64 05/27/18 04:00 97.3 87 20 119/68 (85) 98 05/27/18 04:00 87 05/27/18 00:00 85 05/27/18 00:00 97.9 85 20 116/77 (90) 99 05/26/18 21:00 Nasal Cannula 2.0 05/26/18 20:00 97.7 79 20 120/75 (90) 98 05/26/18 20:00 79 05/26/18 16:00 61 05/26/18 16:00 97.4 61 18 105/80 (88) 98 05/26/18 16:00 Nasal Cannula 2.0 05/26/18 12:00 79 05/26/18 12:00 2.0 05/26/18 12:00 Nasal Cannula 2.0 05/26/18 12:00 97.5 75 25 115/68 (84) 100 05/26/18 08:56 93 128/84 Intake and Output 05/26/18 05/27/18 19:00 07:00 Intake Total 60 ml Output Total 1800 ml 1400 ml Balance -1800 ml -1340 ml Intake Oral 60 ml Output Urine Total 1800 ml 1400 ml Laboratory Tests 05/27/18 05:44: White Blood Count 4.6L, Red Blood Count 4.23, Hemoglobin 10.5L, Hematocrit 34.7L , Mean Corpuscular Volume 82, Mean Corpuscular Hemoglobin 24.8L, Mean Corpuscular Hemoglobin Concent 30.3L, Red Cell Distribution Width 16.7H, Platelet Count 336, Mean Platelet Volume 5.1L, Neutrophils (%) (Auto) 75.0, Lymphocytes (%) (Auto) 12.6L, Monocytes (%) (Auto) 10.2H, Eosinophils (%) (Auto ) 1.4, Basophils (%) (Auto) 0.8, Sodium Level 135L, Potassium Level 3.2L, Chloride Level 96L, Carbon Dioxide Level 35H, Anion Gap 4L, Blood Urea Nitrogen 14, Creatinine 0.8, Estimat Glomerular Filtration Rate , Glucose Level 58L, Calcium Level 8.2L, Troponin I [Pending] Height (Feet): 4 Height (Inches): 9.00 Weight (Pounds): 140 General Appearance: confused Neck: normal alignment Cardiovascular: normal rate, regular rhythm, other - 2+ bilat ankle edema Respiratory/Chest: lungs clear, no respiratory distress Abdomen: non tender, soft, no organomegaly Raoul Newby MD May 27, 2018 08:57
[2018-05-27] MEDS ORDERED: Atenolol 25mg tab ORAL SCH (09:00)
--- NOTE | 2018-05-27 09:57 | Pulmonology Progress Note ---
Assessment/Plan Problems: (1) Acute CHF (2) Respiratory distress (3) Dyspnea Assessment/Plan ASSESSMENT: 83 F h/o dementia, AR, prior diverticular bleed a/w respiratory failure 2/2 ADHF and hypoNa PROBLEM LIST: Respiratory failure CHF with ADHF HypoNa H/O diverticular bleed H/O dementia AR PLAN: Optimize pulmonary hygiene/mobilize as tolerated PRN BiPAP Titrate down FiO2 to keep SaO2 > 90% PRN HHN's Monitor volumes and renal function, diuresis as able Cardiology recs F/U renal recs, monitor NA Aspiration precautions, MANAGER STAR recs DVT Px: Hep SQ FC Subjective Allergies: Coded Allergies: PENICILLINS (Verified Allergy, Severe, HIVES AROUND NECK/THROAT/ DIFFICULTY BREATHING, 11/01/17) Subjective AFVSS on 2L -3.[address] chest reviewed No distress, no cough + SOB no FC Objective Last 24 Hour Vital Signs Date Time Temp Pulse Resp B/P (MAP) Pulse Ox O2 Delivery O2 Flow Rate FiO2 05/27/18 08:23 75 118/64 05/27/18 04:00 97.3 87 20 119/68 (85) 98 05/27/18 04:00 87 05/27/18 00:00 85 05/27/18 00:00 97.9 85 20 116/77 (90) 99 05/26/18 21:00 Nasal Cannula 2.0 05/26/18 20:00 97.7 79 20 120/75 (90) 98 05/26/18 20:00 79 05/26/18 16:00 61 05/26/18 16:00 97.4 61 18 105/80 (88) 98 05/26/18 16:00 Nasal Cannula 2.0 05/26/18 12:00 79 05/26/18 12:00 2.0 05/26/18 12:00 Nasal Cannula 2.0 05/26/18 12:00 97.5 75 25 115/68 (84) 100 Intake and Output 05/26/18 05/27/18 19:00 07:00 Intake Total 60 ml Output Total 1800 ml 1400 ml Balance -1800 ml -1340 ml Intake Oral 60 ml Output Urine Total 1800 ml 1400 ml General Appearance: no acute distress, other - confused HEENT: normocephalic, atraumatic, anicteric, mucous membranes moist Respiratory/Chest: crackles/rales Cardiovascular: normal peripheral pulses, normal rate, regular rhythm Abdomen: normal bowel sounds, soft, non tender, no organomegaly, non distended , no mass Extremities: no cyanosis, no clubbing, other - trace edema Laboratory Tests 05/27/18 05:44: White Blood Count 4.6L, Red Blood Count 4.23, Hemoglobin 10.5L, Hematocrit 34.7L , Mean Corpuscular Volume 82, Mean Corpuscular Hemoglobin 24.8L, Mean Corpuscular Hemoglobin Concent 30.3L, Red Cell Distribution Width 16.7H, Platelet Count 336, Mean Platelet Volume 5.1L, Neutrophils (%) (Auto) 75.0, Lymphocytes (%) (Auto) 12.6L, Monocytes (%) (Auto) 10.2H, Eosinophils (%) (Auto ) 1.4, Basophils (%) (Auto) 0.8, Sodium Level 135L, Potassium Level 3.2L, Chloride Level 96L, Carbon Dioxide Level 35H, Anion Gap 4L, Blood Urea Nitrogen 14, Creatinine 0.8, Estimat Glomerular Filtration Rate , Glucose Level 58L, Calcium Level 8.2L, Troponin I 0.041 Current Medications Medications (Trade) Dose Ordered Sig/Violet Route PRN Reason Start Time Stop Time Status Last Admin Dose Admin Albuterol/ Ipratropium (Albuterol/ Ipratropium) 3 ml Q6H PRN HHN Shortness of Breath 05/26/18 14:53 05/30/18 14:52 Allopurinol (Zyloprim) 100 mg DAILY ORAL 05/27/18 09:00 06/25/18 08:59 05/27/18 08:20 Aspirin (ASA) 81 mg DAILY ORAL 05/27/18 09:00 06/25/18 08:59 05/27/18 08:19 Calcium Carbonate (OsCal D) 1 tab DAILY ORAL 05/27/18 09:00 06/25/18 08:59 05/27/18 08:20 Carvedilol (Coreg) 3.125 mg EVERY 12 HOURS ORAL 05/27/18 09:00 06/26/18 08:59 UNV Dextrose (Dextrose 50%) 25 ml Q30M PRN IV Hypoglycemia 05/26/18 15:00 06/24/18 11:29 Dextrose (Dextrose 50%) 50 ml Q30M PRN IV Hypoglycemia 05/26/18 15:00 06/24/18 11:29 Docusate Sodium (Colace) 100 mg EVERY 12 HOURS ORAL 05/26/18 21:00 06/24/18 20:59 05/27/18 08:19 Fluticasone Propionate (Flonase) 1 spray DAILY NASAL 05/27/18 09:00 06/25/18 08:59 Furosemide (Lasix) 40 mg Q12HR IV 05/26/18 21:00 06/24/18 17:59 05/27/18 08:24 Haloperidol Lactate (Haldol) 5 mg Q6H PRN IM Agitation 05/26/18 19:45 06/25/18 19:44 Heparin Sodium (Porcine) (Heparin 5000 units/ml) 5,000 units Q12HR SUBQ 05/26/18 21:00 06/24/18 20:59 05/27/18 08:26 Lisinopril (Zestril) 2.5 mg DAILY ORAL 05/27/18 09:00 06/26/18 08:59 Magnesium Hydroxide (Mom) 30 ml HSPRN PRN ORAL Constipation 05/26/18 21:00 06/24/18 20:59 Olanzapine (ZyPREXA) 2.5 mg BID ORAL 05/27/18 09:00 06/26/18 08:59 05/27/18 08:20 Ondansetron HCl (Zofran) 4 mg Q6H PRN IVP Nausea & Vomiting 05/26/18 14:53 06/24/18 14:52 Potassium Chloride 100 ml @ 100 mls/hr Q1HR IVPB 05/27/18 09:00 05/27/18 12:59 Tramadol HCl (Ultram) 50 mg BIDPRN PRN ORAL PAIN 4-10 05/26/18 14:54 06/02/18 14:53 Dionicio Middleton MD May 27, 2018 09:57
--- NOTE | 2018-05-27 10:00 | NUR ---
NURSE NOTES: Blanchable redness on bilateral heels noticed, heel floater applied off the pressure. Bilateral lower extremities elevated.
[2018-05-27] MEDS: Lisinopril 2.5mg tab ORAL SCH (10:49)
[2018-05-27] MEDS: Flonase Nasal Inhaler 16gm NASAL SCH (10:49)
--- NOTE | 2018-05-27 10:55 | NUR ---
*-* INSURANCE *-* UPDATED CLINICALS, REVIEWS FAXED TO: TYRON GILBERT: ZAINAB P:[phone] F: [phone]
--- NOTE | 2018-05-27 11:23 | NUR ---
RD ASSESSMENT & RECOMMENDATIONS SEE CARE ACTIVITY FOR COMPLETE ASSESSMENT DAILY ESTIMATED NEEDS: Needs based on Cardiac, 47.7 kg abw 25-30 kcals/kg 1856-3983 total kcals 1-1.3 g protein/kg 48-62 g total protein 20-22 mL/kg 954-1049 total fluid mLs NUTRITION DIAGNOSIS: * Swallowing difficulty R/T dysphagia as evidenced by QUALITY ASSURANCE ASSISTANT recommends liquify pureed, NTL. * Altered nutrition related lab values R/T diabetes as evidenced by A1C of 6.8, episodes of hyperglycemia and hypoglycemia (58) CURRENT DIET:LOW NA, liquify pureed NTL PO DIET RECOMMENDATIONS: Low Na, CCHO Low/ Texture per QUALITY ASSURANCE ASSISTANT ADDITIONAL RECOMMENDATIONS: * Calibrated bedscale wt for accurate CBW -> daily wts as per policy: CHF dx * Accucheck w/ SSI : A1C=6.8 * Monitor for hypoglycemia, add HS snack * Glucerna 1 tetra cecy TID * Monitor lytes daily w/ lasix, replete as needed * MVI x 1 as supplement
--- NOTE | 2018-05-27 11:34 | General Progress Note ---
Assessment/Plan Problem List: (1) Acute metabolic encephalopathy ICD Codes: G93.41 - Metabolic encephalopathy SNOMED: 61435641, 603909211 (2) Dementia with behavioral disturbance ICD Codes: F03.91 - Unspecified dementia with behavioral disturbance SNOMED: 0034911750076 Assessment/Plan Zyprexa 2.5 mg po bid Haldol prn the pt received a cocktail. soft restraints. Subjective Neurologic/Psychiatric: Reports: anxiety, emotional problems Allergies: Coded Allergies: PENICILLINS (Verified Allergy, Severe, HIVES AROUND NECK/THROAT/ DIFFICULTY BREATHING, 11/01/17) Subjective the pt is more manageable on Zyprexa. the pt is in soft restraints. the pt cont to be agitated Objective Last 24 Hour Vital Signs Date Time Temp Pulse Resp B/P (MAP) Pulse Ox O2 Delivery O2 Flow Rate FiO2 05/27/18 10:49 116/65 05/27/18 08:23 75 118/64 05/27/18 04:00 97.3 87 20 119/68 (85) 98 05/27/18 04:00 87 05/27/18 00:00 85 05/27/18 00:00 97.9 85 20 116/77 (90) 99 05/26/18 21:00 Nasal Cannula 2.0 05/26/18 20:00 97.7 79 20 120/75 (90) 98 05/26/18 20:00 79 05/26/18 16:00 61 05/26/18 16:00 97.4 61 18 105/80 (88) 98 05/26/18 16:00 Nasal Cannula 2.0 05/26/18 12:00 79 05/26/18 12:00 2.0 05/26/18 12:00 Nasal Cannula 2.0 05/26/18 12:00 97.5 75 25 115/68 (84) 100 Intake and Output 05/26/18 05/27/18 19:00 07:00 Intake Total 60 ml Output Total 1800 ml 1400 ml Balance -1800 ml -1340 ml Intake Oral 60 ml Output Urine Total 1800 ml 1400 ml Laboratory Tests 05/27/18 05:44: White Blood Count 4.6L, Red Blood Count 4.23, Hemoglobin 10.5L, Hematocrit 34.7L , Mean Corpuscular Volume 82, Mean Corpuscular Hemoglobin 24.8L, Mean Corpuscular Hemoglobin Concent 30.3L, Red Cell Distribution Width 16.7H, Platelet Count 336, Mean Platelet Volume 5.1L, Neutrophils (%) (Auto) 75.0, Lymphocytes (%) (Auto) 12.6L, Monocytes (%) (Auto) 10.2H, Eosinophils (%) (Auto ) 1.4, Basophils (%) (Auto) 0.8, Sodium Level 135L, Potassium Level 3.2L, Chloride Level 96L, Carbon Dioxide Level 35H, Anion Gap 4L, Blood Urea Nitrogen 14, Creatinine 0.8, Estimat Glomerular Filtration Rate , Glucose Level 58L, Calcium Level 8.2L, Troponin I 0.041 Height (Feet): 4 Height (Inches): 9.00 Weight (Pounds): 140 General Appearance: alert, confused, moderate distress Jackie Boyd MD May 27, 2018 11:34
[2018-05-27 12:00] VITALS: BP 129/56
--- NOTE | 2018-05-27 13:37 | NUR ---
NURSE NOTES: Dr. Borrego was at the nursing station, per Dr. Salima fowler to renew soft wrist restraints due to patient was trying to pulling out Feliciano catheter and IV. Order noted, entered, carried out.
[2018-05-27 16:00] VITALS: BP 134/58
--- NOTE | 2018-05-27 19:09 | Nephrology Progress Note ---
Assessment/Plan Problem List: (1) Hyponatremia Assessment: better (2) Acute CHF Assessment: improved (3) HTN (hypertension) Assessment: BP Ok (4) Hypokalemia Plan IV Lasix replete K follow S Na and K and Mag Discussed with RN Subjective Subjective looks better Objective Objective Last 24 Hour Vital Signs Date Time Temp Pulse Resp B/P (MAP) Pulse Ox O2 Delivery O2 Flow Rate FiO2 05/27/18 16:00 87 05/27/18 16:00 Nasal Cannula 2.0 05/27/18 16:00 97.5 85 20 134/58 (83) 98 05/27/18 12:00 Nasal Cannula 2.0 05/27/18 12:00 83 05/27/18 12:00 97.9 82 18 129/56 (80) 97 05/27/18 10:49 116/65 05/27/18 08:23 75 118/64 05/27/18 08:00 97.7 87 20 118/64 (82) 97 05/27/18 08:00 76 05/27/18 04:00 97.3 87 20 119/68 (85) 98 05/27/18 04:00 87 05/27/18 00:00 85 05/27/18 00:00 97.9 85 20 116/77 (90) 99 05/26/18 21:00 Nasal Cannula 2.0 05/26/18 20:00 97.7 79 20 120/75 (90) 98 05/26/18 20:00 79 Intake and Output 05/26/18 05/27/18 18:59 06:59 Intake Total 60 ml Output Total 1800 ml 1400 ml Balance -1800 ml -1340 ml Intake Oral 60 ml Output Urine Total 1800 ml 1400 ml Laboratory Tests 05/27/18 05:44: White Blood Count 4.6L, Red Blood Count 4.23, Hemoglobin 10.5L, Hematocrit 34.7L , Mean Corpuscular Volume 82, Mean Corpuscular Hemoglobin 24.8L, Mean Corpuscular Hemoglobin Concent 30.3L, Red Cell Distribution Width 16.7H, Platelet Count 336, Mean Platelet Volume 5.1L, Neutrophils (%) (Auto) 75.0, Lymphocytes (%) (Auto) 12.6L, Monocytes (%) (Auto) 10.2H, Eosinophils (%) (Auto ) 1.4, Basophils (%) (Auto) 0.8, Sodium Level 135L, Potassium Level 3.2L, Chloride Level 96L, Carbon Dioxide Level 35H, Anion Gap 4L, Blood Urea Nitrogen 14, Creatinine 0.8, Estimat Glomerular Filtration Rate , Glucose Level 58L, Calcium Level 8.2L, Troponin I 0.041 Height (Feet): 4 Height (Inches): 9.00 Weight (Pounds): 140 Cardiovascular: normal rate Respiratory/Chest: lungs clear Extremities: other - less edema Yang Gibson MD May 27, 2018 19:09
--- NOTE | 2018-05-27 19:50 | NUR ---
HAND-OFF: Report given to RADHA Ravi.
--- NOTE | 2018-05-27 19:51 | NUR ---
NURSE NOTES: Received pt from RADHA Casanova. Pt awake, alert, and conversing with family. Bed in lowest position. Soft restraints on BUE. Call light within reach. Will continue to monitor.
--- NOTE | 2018-05-27 19:53 | Cardiology Progress Note ---
Assessment/Plan Assessment/Plan 1. Cardiomyopathy, likely chronic. 2. Left bundle-branch conduction defect. 3. Severe aortic stenosis. 4. Pulmonary hypertension. 5. Dementia. 6. History of GI bleed back in October of 2016. 7. History of diverticular bleed more communicative and awake keep on diuretic would limit use of anti hypertensive to allow room for diuretic first in the setting of sever seems more awake will see how she changes mentally and assess how funciton she will be before considering option for eval and treatment which will nto be possible at this hospital Subjective Cardiovascular: Denies: chest pain Respiratory: Denies: shortness of breath Gastrointestinal/Abdominal: Denies: abdomen distended Subjective hurts all over Objective Last 24 Hour Vital Signs Date Time Temp Pulse Resp B/P (MAP) Pulse Ox O2 Delivery O2 Flow Rate FiO2 05/27/18 16:00 87 05/27/18 16:00 Nasal Cannula 2.0 05/27/18 16:00 97.5 85 20 134/58 (83) 98 05/27/18 12:00 Nasal Cannula 2.0 05/27/18 12:00 83 05/27/18 12:00 97.9 82 18 129/56 (80) 97 05/27/18 10:49 116/65 05/27/18 08:23 75 118/64 05/27/18 08:00 97.7 87 20 118/64 (82) 97 05/27/18 08:00 76 05/27/18 04:00 97.3 87 20 119/68 (85) 98 05/27/18 04:00 87 05/27/18 00:00 85 05/27/18 00:00 97.9 85 20 116/77 (90) 99 05/26/18 21:00 Nasal Cannula 2.0 05/26/18 20:00 97.7 79 20 120/75 (90) 98 05/26/18 20:00 79 General Appearance: no apparent distress, alert Cardiovascular: normal rate, systolic murmur Respiratory/Chest: crackles/rales Abdomen: normal bowel sounds, non tender, soft Extremities: no swelling Intake and Output 05/26/18 05/27/18 19:00 07:00 Intake Total 60 ml Output Total 1800 ml 1400 ml Balance -1800 ml -1340 ml Intake Oral 60 ml Output Urine Total 1800 ml 1400 ml Laboratory Tests Test 05/27/18 05:44 White Blood Count 4.6 K/UL (4.8-10.8) L Red Blood Count 4.23 M/UL (4.20-5.40) Hemoglobin 10.5 G/DL (12.0-16.0) L Hematocrit 34.7 % (37.0-47.0) L Mean Corpuscular Volume 82 FL (80-99) Mean Corpuscular Hemoglobin 24.8 PG (27.0-31.0) L Mean Corpuscular Hemoglobin Concent 30.3 G/DL (32.0-36.0) L Red Cell Distribution Width 16.7 % (11.6-14.8) H Platelet Count 336 K/UL (150-450) Mean Platelet Volume 5.1 FL (6.5-10.1) L Neutrophils (%) (Auto) 75.0 % (45.0-75.0) Lymphocytes (%) (Auto) 12.6 % (20.0-45.0) L Monocytes (%) (Auto) 10.2 % (1.0-10.0) H Eosinophils (%) (Auto) 1.4 % (0.0-3.0) Basophils (%) (Auto) 0.8 % (0.0-2.0) Sodium Level 135 MMOL/L (136-145) L Potassium Level 3.2 MMOL/L (3.5-5.1) L Chloride Level 96 MMOL/L (98-107) L Carbon Dioxide Level 35 MMOL/L (21-32) H Anion Gap 4 mmol/L (5-15) L Blood Urea Nitrogen 14 mg/dL (7-18) Creatinine 0.8 MG/DL (0.55-1.30) Estimat Glomerular Filtration Rate mL/min (>60) Glucose Level 58 MG/DL (74-106) L Calcium Level 8.2 MG/DL (8.5-10.1) L Troponin I 0.041 ng/mL (0.000-0.056) Bret Nichols MD May 27, 2018 19:53
[2018-05-27 20:00] VITALS: BP 134/78
[2018-05-28] VITALS: BP 131/74
[2018-05-28 04:00] VITALS: BP 125/85
[2018-05-28 07:04] LABS: ANION GAP 7 mmol/L (5-15); BLOOD UREA NITROGEN 15 mg/dL (7-18); CALCIUM 8.7 MG/DL (8.5-10.1); CARBON DIOXIDE 34 MMOL/L (21-32); CHLORIDE 96 MMOL/L (98-107); CREATININE 0.9 MG/DL (0.55-1.30); POTASSIUM 3.6 MMOL/L (3.5-5.1); SODIUM 137 MMOL/L (136-145)
--- NOTE | 2018-05-28 07:10 | NUR ---
HAND-OFF: Report given to RADHA Casanova. Pt pulled out royal at change of shift. Called and left a message with Dr. Lockwood regarding if he wants me to put the royal back or not. Endorsed to the day nurse.
--- NOTE | 2018-05-28 07:22 | NUR ---
NURSE NOTES: Received report from RADHA Ravi. Patient in bed resting, no active s/s cardiac, respiratory distress noticed at this time, patient opens eye when being called, bilateral soft wrist restraints on, cap refill <3 sec, able to move, warm to touch. Patient on oxygen 2L via NC. IV site on Right FA 20G, asymptomatic, patent, intact. Patient pulled out Feliciano catheter and endorsed no need of put Feliciano back per doctor. Bed in lowest position, side rails upx3, call light within reach. Will continue to monitor.
--- NOTE | 2018-05-28 07:36 | NUR ---
NURSE NOTES: Dr. mullins called back saying not to put royal back in.
[2018-05-28 08:00] VITALS: BP 138/67
[2018-05-28] MEDS: Docusate 100mg/10ml Liq ORAL SCH ×2 (08:12→21:47)
[2018-05-28] MEDS: Aspirin Baby 81mg ORAL SCH (08:13)
[2018-05-28] MEDS: Lisinopril 2.5mg tab ORAL SCH (08:13)
[2018-05-28] MEDS: OLANZapine 2.5mg tab ORAL SCH ×2 (08:13→18:13)
[2018-05-28] MEDS: Allopurinol 100mg Tab ORAL SCH (08:13)
[2018-05-28] MEDS: Calcium Carbonate 500mg w/Vit D 200iu tab ORAL SCH (08:13)
[2018-05-28] MEDS: Heparin 5000 units/ml inj SUBQ SCH ×2 (08:14→21:48)
[2018-05-28] MEDS: Flonase Nasal Inhaler 16gm NASAL SCH (08:15)
--- NOTE | 2018-05-28 09:20 | NUR ---
CASE MANAGEMENT:REVIEW 05/28/18 SI: DYSPNEA. CARDIOMYOPATHY SEVERE AORTIC STENOSIS. CHF 97.9 74 18 138/67 100% ON 2L CO+34 MAG-1.4 IS: COREG PO Q12 ASA PO QD FLONASE QD ZYPREXA PO BID LISINOPRIL PO QD IV LASIX Q12 HEPARIN SQ Q12 : TELEMETRY STATUS DCP: FROM HOME
--- NOTE | 2018-05-28 11:36 | General Progress Note ---
Assessment/Plan Problem List: (1) Acute metabolic encephalopathy ICD Codes: G93.41 - Metabolic encephalopathy SNOMED: 08936103, 243338057 (2) Dementia with behavioral disturbance ICD Codes: F03.91 - Unspecified dementia with behavioral disturbance SNOMED: 9846001929541 Status: stable Assessment/Plan Zyprexa 2.5 mg po bid Haldol prn the pt received a cocktail. soft restraints. Subjective Allergies: Coded Allergies: PENICILLINS (Verified Allergy, Severe, HIVES AROUND NECK/THROAT/ DIFFICULTY BREATHING, 11/01/17) Subjective the pt is more manageable on Zyprexa. Objective Last 24 Hour Vital Signs Date Time Temp Pulse Resp B/P (MAP) Pulse Ox O2 Delivery O2 Flow Rate FiO2 05/28/18 09:00 Nasal Cannula 2.0 05/28/18 08:13 74 138/67 05/28/18 08:13 138/67 05/28/18 08:00 86 05/28/18 08:00 97.9 74 18 138/67 (90) 100 05/28/18 07:35 76 16 Nasal Cannula 2.0 28 05/28/18 04:00 91 05/28/18 04:00 98.2 99 19 125/85 (98) 97 05/28/18 00:00 88 05/28/18 00:00 98.0 88 17 131/74 (93) 95 05/27/18 20:25 92 134/78 05/27/18 20:00 91 05/27/18 20:00 Nasal Cannula 2.0 05/27/18 20:00 97.8 92 18 134/78 (96) 95 05/27/18 16:00 87 05/27/18 16:00 Nasal Cannula 2.0 05/27/18 16:00 97.5 85 20 134/58 (83) 98 05/27/18 12:00 Nasal Cannula 2.0 05/27/18 12:00 83 05/27/18 12:00 97.9 82 18 129/56 (80) 97 Intake and Output 05/27/18 05/28/18 19:00 07:00 Output Total 300 ml 450 ml Balance -300 ml -450 ml Output Urine Total 300 ml 450 ml # Voids 1 Laboratory Tests 05/28/18 04:45: Sodium Level 137, Potassium Level 3.6, Chloride Level 96L, Carbon Dioxide Level 34H, Anion Gap 7, Blood Urea Nitrogen 15, Creatinine 0.9, Estimat Glomerular Filtration Rate , Glucose Level 60L, Calcium Level 8.7, Magnesium Level 1.4L Height (Feet): 4 Height (Inches): 9.00 Weight (Pounds): 129 General Appearance: WD/WN, no apparent distress, alert, confused, agitated Jackie Boyd MD May 28, 2018 11:36
[2018-05-28 12:00] VITALS: BP 134/80
--- NOTE | 2018-05-28 12:31 | Nephrology Progress Note ---
Assessment/Plan Problem List: (1) Hyponatremia Assessment: better (2) Acute CHF Assessment: improved (3) HTN (hypertension) Assessment: BP Ok (4) Hypokalemia (5) Hypomagnesemia Plan IV Lasix replete K and Mag follow labs Subjective Subjective confused Objective Objective Last 24 Hour Vital Signs Date Time Temp Pulse Resp B/P (MAP) Pulse Ox O2 Delivery O2 Flow Rate FiO2 05/28/18 09:00 Nasal Cannula 2.0 05/28/18 08:13 74 138/67 05/28/18 08:13 138/67 05/28/18 08:00 86 05/28/18 08:00 97.9 74 18 138/67 (90) 100 05/28/18 07:35 76 16 Nasal Cannula 2.0 05/28/18 04:00 91 05/28/18 04:00 98.2 99 19 125/85 (98) 97 05/28/18 00:00 88 05/28/18 00:00 98.0 88 17 131/74 (93) 95 05/27/18 20:25 92 134/78 05/27/18 20:00 91 05/27/18 20:00 Nasal Cannula 2.0 05/27/18 20:00 97.8 92 18 134/78 (96) 95 05/27/18 16:00 87 05/27/18 16:00 Nasal Cannula 2.0 05/27/18 16:00 97.5 85 20 134/58 (83) 98 Intake and Output 05/27/18 05/28/18 19:00 07:00 Output Total 300 ml 450 ml Balance -300 ml -450 ml Output Urine Total 300 ml 450 ml # Voids 1 Laboratory Tests 05/28/18 04:45: Sodium Level 137, Potassium Level 3.6, Chloride Level 96L, Carbon Dioxide Level 34H, Anion Gap 7, Blood Urea Nitrogen 15, Creatinine 0.9, Estimat Glomerular Filtration Rate , Glucose Level 60L, Calcium Level 8.7, Magnesium Level 1.4L Height (Feet): 4 Height (Inches): 9.00 Weight (Pounds): 129 Cardiovascular: normal rate Respiratory/Chest: lungs clear Extremities: trace edema Yang Gibson MD May 28, 2018 12:31
--- NOTE | 2018-05-28 12:41 | Pulmonology Progress Note ---
Assessment/Plan Problems: (1) Acute CHF (2) Respiratory distress (3) Dyspnea Assessment/Plan ASSESSMENT: 83 F h/o dementia, AR, prior diverticular bleed a/w respiratory failure 2/2 ADHF and hypoNa PROBLEM LIST: Respiratory failure CHF with ADHF HypoNa H/O diverticular bleed H/O dementia AR PLAN: Optimize pulmonary hygiene/mobilize as tolerated PRN BiPAP Titrate down FiO2 to keep SaO2 > 90% PRN HHN's Monitor volumes and renal function, diuresis as able Cardiology recs F/U renal recs, monitor NA Aspiration precautions, [employer]LL[employer] INS[employer]OR recs DVT Px: Hep SQ FC Subjective Allergies: Coded Allergies: PENICILLINS (Verified Allergy, Severe, HIVES AROUND NECK/THROAT/ DIFFICULTY BREATHING, 11/01/17) Subjective AFVSS on 2L -diuresing confused No distress, no cough + SOB no FC Objective Last 24 Hour Vital Signs Date Time Temp Pulse Resp B/P (MAP) Pulse Ox O2 Delivery O2 Flow Rate FiO2 05/28/18 09:00 Nasal Cannula 2.0 05/28/18 08:13 74 138/67 05/28/18 08:13 138/67 05/28/18 08:00 86 05/28/18 08:00 97.9 74 18 138/67 (90) 100 05/28/18 07:35 76 16 Nasal Cannula 2.0 28 05/28/18 04:00 91 05/28/18 04:00 98.2 99 19 125/85 (98) 97 05/28/18 00:00 88 05/28/18 00:00 98.0 88 17 131/74 (93) 95 05/27/18 20:25 92 134/78 05/27/18 20:00 91 05/27/18 20:00 Nasal Cannula 2.0 05/27/18 20:00 97.8 92 18 134/78 (96) 95 05/27/18 16:00 87 05/27/18 16:00 Nasal Cannula 2.0 05/27/18 16:00 97.5 85 20 134/58 (83) 98 Intake and Output 05/27/18 05/28/18 19:00 07:00 Output Total 300 ml 450 ml Balance -300 ml -450 ml Output Urine Total 300 ml 450 ml # Voids 1 General Appearance: no acute distress, cachetic HEENT: normocephalic, atraumatic, anicteric, mucous membranes moist Respiratory/Chest: chest wall non-tender, crackles/rales Cardiovascular: normal peripheral pulses, normal rate, regular rhythm Abdomen: normal bowel sounds, soft, non tender, no organomegaly, non distended , no mass Extremities: no cyanosis, no clubbing, no edema Laboratory Tests 05/28/18 04:45: Sodium Level 137, Potassium Level 3.6, Chloride Level 96L, Carbon Dioxide Level 34H, Anion Gap 7, Blood Urea Nitrogen 15, Creatinine 0.9, Estimat Glomerular Filtration Rate , Glucose Level 60L, Calcium Level 8.7, Magnesium Level 1.4L Current Medications Medications (Trade) Dose Ordered Sig/Violet Route PRN Reason Start Time Stop Time Status Last Admin Dose Admin Albuterol/ Ipratropium (Albuterol/ Ipratropium) 3 ml Q6H PRN HHN Shortness of Breath 05/26/18 14:53 05/30/18 14:52 Allopurinol (Zyloprim) 100 mg DAILY ORAL 05/27/18 09:00 06/25/18 08:59 05/28/18 08:13 Aspirin (ASA) 81 mg DAILY ORAL 05/27/18 09:00 06/25/18 08:59 05/28/18 08:13 Calcium Carbonate (OsCal D) 1 tab DAILY ORAL 05/27/18 09:00 06/25/18 08:59 05/28/18 08:13 Carvedilol (Coreg) 3.125 mg EVERY 12 HOURS ORAL 05/27/18 21:00 06/26/18 20:59 05/28/18 08:13 Dextrose (Dextrose 50%) 25 ml Q30M PRN IV Hypoglycemia 05/26/18 15:00 06/24/18 11:29 Dextrose (Dextrose 50%) 50 ml Q30M PRN IV Hypoglycemia 05/26/18 15:00 06/24/18 11:29 Docusate Sodium (Colace) 100 mg EVERY 12 HOURS ORAL 05/26/18 21:00 06/24/18 20:59 05/28/18 08:12 Fluticasone Propionate (Flonase) 1 spray DAILY NASAL 05/27/18 09:00 06/25/18 08:59 05/28/18 08:15 Furosemide (Lasix) 40 mg Q12HR IV 05/26/18 21:00 06/24/18 17:59 05/28/18 08:12 Haloperidol Lactate (Haldol) 5 mg Q6H PRN IM Agitation 05/26/18 19:45 06/25/18 19:44 Heparin Sodium (Porcine) (Heparin 5000 units/ml) 5,000 units Q12HR SUBQ 05/26/18 21:00 06/24/18 20:59 05/28/18 08:14 Lisinopril (Zestril) 2.5 mg DAILY ORAL 05/27/18 09:00 06/26/18 08:59 05/28/18 08:13 Magnesium Hydroxide (Mom) 30 ml HSPRN PRN ORAL Constipation 05/26/18 21:00 06/24/18 20:59 Magnesium Sulfate 100 ml @ 100 mls/hr Q1H IVPB 05/28/18 12:30 05/28/18 16:29 05/28/18 12:34 Olanzapine (ZyPREXA) 2.5 mg BID ORAL 05/27/18 09:00 06/26/18 08:59 05/28/18 08:13 Ondansetron HCl (Zofran) 4 mg Q6H PRN IVP Nausea & Vomiting 05/26/18 14:53 06/24/18 14:52 Tramadol HCl (Ultram) 50 mg BIDPRN PRN ORAL PAIN 4-10 05/26/18 14:54 06/02/18 14:53 Dionicio Middleton MD May 28, 2018 12:41
--- NOTE | 2018-05-28 14:02 | NUR ---
REHAB MED PT NOTE CONSULT RECEIVED, EVAL COMPLETED, PATIENT WILL BENEFIT FROM SKILLED PT DURING STAY FOR RETURN TO [facility]. PATIENT LIMITED BY WEAKNESS. WILL BE SEEN ON 2-3 DAY TRIAL PENDING COGNITIVE FUNCTION AND PARTICIPATION. PLAN OF CARE INITIATED. SREEDHAR AGUIRRE PT DPT Addendum: 05/28/18 at 1403 by SREEDHAR AGUIRRE PT Amended: Links added.
--- NOTE | 2018-05-28 14:56 | General Progress Note ---
Assessment/Plan Assessment/Plan #Acute on chronic systolic CHF - TTE shows EF 25-30% #Severe aortic stenosis #Acute hypoxic respiratory failure due to acute CHF #High risk for aspiration per SUPPLIER QUALITY SPECIALIST #Essential HTN -continue IV Lasix diuresis -continue Coreg and lisinopril -monitor I&O -Daily weights -Restrict sodium intake -TTE results reviewed -check modified barium -dysphagia diet -CT chest results reviewed -Cardiology following -Pulmonology following #Hyponatremia -secondary to hypervolemic state -resolved -continue to treated acute CHF #Hypokalemia -improved -continue to monitor #Dementia #Acute metabolic encephalopathy, present on admission #Severe agitation -supportive care -aspiration and fall precautions -improved with Zyprexa -psychiatry following VTE PPx Heparin SC Full Code I spent 45 minutes on this patient's case, and 25 minutes was dedicated to counseling and/or care coordination. Subjective Date patient seen: May 28, 2018 Time patient seen: 08:00 ROS Limited/Unobtainable: Yes Allergies: Coded Allergies: PENICILLINS (Verified Allergy, Severe, HIVES AROUND NECK/THROAT/ DIFFICULTY BREATHING, 11/01/17) Subjective Medicine follow up for acute hypoxic respiratory failure, acute CHF, possible aspiration Less agitation overnight Pulled out Feliciano catheter Objective Last 24 Hour Vital Signs Date Time Temp Pulse Resp B/P (MAP) Pulse Ox O2 Delivery O2 Flow Rate FiO2 05/28/18 12:00 97.2 74 18 134/80 (98) 97 05/28/18 09:00 Nasal Cannula 2.0 05/28/18 08:13 74 138/67 05/28/18 08:13 138/67 05/28/18 08:00 86 05/28/18 08:00 97.9 74 18 138/67 (90) 100 05/28/18 07:35 76 16 Nasal Cannula 2.0 28 05/28/18 04:00 91 05/28/18 04:00 98.2 99 19 125/85 (98) 97 05/28/18 00:00 88 05/28/18 00:00 98.0 88 17 131/74 (93) 95 05/27/18 20:25 92 134/78 05/27/18 20:00 91 05/27/18 20:00 Nasal Cannula 2.0 05/27/18 20:00 97.8 92 18 134/78 (96) 95 05/27/18 16:00 87 05/27/18 16:00 Nasal Cannula 2.0 05/27/18 16:00 97.5 85 20 134/58 (83) 98 Intake and Output 05/27/18 05/28/18 19:00 07:00 Output Total 300 ml 450 ml Balance -300 ml -450 ml Output Urine Total 300 ml 450 ml # Voids 1 Laboratory Tests 05/28/18 04:45: Sodium Level 137, Potassium Level 3.6, Chloride Level 96L, Carbon Dioxide Level 34H, Anion Gap 7, Blood Urea Nitrogen 15, Creatinine 0.9, Estimat Glomerular Filtration Rate , Glucose Level 60L, Calcium Level 8.7, Magnesium Level 1.4L Height (Feet): 4 Height (Inches): 9.00 Weight (Pounds): 129 General Appearance: alert, confused Neck: normal alignment, supple Cardiovascular: normal rate, regular rhythm Respiratory/Chest: lungs clear, normal breath sounds Abdomen: non tender, soft Neurologic: alert Raoul Newby MD May 28, 2018 14:56
--- NOTE | 2018-05-28 15:54 | NUR ---
NURSE NOTES: Dr. Nichols made aware patient heart rate at 1500 when patient asleep. No order given yet. Will continue to monitor.
[2018-05-28 16:00] VITALS: BP 149/78
--- NOTE | 2018-05-28 19:33 | NUR ---
HAND-OFF: Report given to RADHA De La Torre.
--- NOTE | 2018-05-28 19:42 | NUR ---
NURSE NOTES: Spoke with Dr. Morales about pt's heart rhythm. He said he is on her way to the hospital to see her now. No new orders given. Addendum: 05/28/18 at 1943 by FAYE VOGEL RN WRONG PATIENT
--- NOTE | 2018-05-28 19:45 | Cardiology Progress Note ---
Assessment/Plan Assessment/Plan 1. Cardiomyopathy, likely chronic. 2. Left bundle-branch conduction defect. 3. Severe aortic stenosis. 4. Pulmonary hypertension. 5. Dementia. 6. History of GI bleed back in October of 2016. 7. History of diverticular bleed more communicative and awake keep on diuretic would limit use of anti hypertensive to allow room for diuretic first in the setting of sever seems more awake will see how she changes mentally and assess how funciton she will be before considering option for eval and treatment which will nto be possible at this hospital looks better cxr in am keep on diureitcs hope to switch to po in bal next 48 hours Subjective ROS Limited/Unobtainable: Yes Subjective hurts all over Objective Last 24 Hour Vital Signs Date Time Temp Pulse Resp B/P (MAP) Pulse Ox O2 Delivery O2 Flow Rate FiO2 05/28/18 16:00 70 05/28/18 16:00 98.1 91 20 149/78 (101) 95 05/28/18 12:00 86 05/28/18 12:00 97.2 74 18 134/80 (98) 97 05/28/18 09:00 Nasal Cannula 2.0 05/28/18 08:13 74 138/67 05/28/18 08:13 138/67 05/28/18 08:00 86 05/28/18 08:00 97.9 74 18 138/67 (90) 100 05/28/18 07:35 76 16 Nasal Cannula 2.0 28 05/28/18 04:00 91 05/28/18 04:00 98.2 99 19 125/85 (98) 97 05/28/18 00:00 88 05/28/18 00:00 98.0 88 17 131/74 (93) 95 05/27/18 20:25 92 134/78 05/27/18 20:00 91 05/27/18 20:00 Nasal Cannula 2.0 05/27/18 20:00 97.8 92 18 134/78 (96) 95 General Appearance: no apparent distress, alert Neck: supple Cardiovascular: normal rate Respiratory/Chest: lungs clear - upper , decreased breath sounds - basese Abdomen: normal bowel sounds, non tender, soft Extremities: trace edema Intake and Output 05/27/18 05/28/18 19:00 07:00 Output Total 300 ml 450 ml Balance -300 ml -450 ml Output Urine Total 300 ml 450 ml # Voids 1 Laboratory Tests Test 05/28/18 04:45 Sodium Level 137 MMOL/L (136-145) Potassium Level 3.6 MMOL/L (3.5-5.1) Chloride Level 96 MMOL/L (98-107) L Carbon Dioxide Level 34 MMOL/L (21-32) H Anion Gap 7 mmol/L (5-15) Blood Urea Nitrogen 15 mg/dL (7-18) Creatinine 0.9 MG/DL (0.55-1.30) Estimat Glomerular Filtration Rate mL/min (>60) Glucose Level 60 MG/DL (74-106) L Calcium Level 8.7 MG/DL (8.5-10.1) Magnesium Level 1.4 MG/DL (1.8-2.4) L Bret Nichols MD May 28, 2018 19:45
--- NOTE | 2018-05-28 19:47 | NUR ---
NURSE NOTES: Received report from RADHA Casanova. Pt is lying comfortably in semi-fowlers with no sign of distress. Pt is A+Ox2 and denies pain/SOB. Respirations are even and unlabored on room air. IV site is patent, intact, and saline locked. Bed is at lowest position, brakes engaged, siderails x2, bed alarm on, and call light within reach. Pt is in stable condition at this time; will continue to monitor.
[2018-05-28 20:00] VITALS: BP 133/77
[2018-05-29] VITALS: BP 108/62
[2018-05-29 04:00] VITALS: BP 147/93
[2018-05-29 07:20] LABS: CALCIUM 8.3 MG/DL (8.5-10.1)
--- NOTE | 2018-05-29 07:26 | NUR ---
HAND-OFF: Report given to RADHA Rendon. Pt is in stable condition; plan of care endorsed.
--- NOTE | 2018-05-29 07:27 | NUR ---
NURSE NOTES: Received report from RADHA Guerin. Pt is sleeping in bed. No distress noted. bed is in lowest position, side rails up X2, and call light is within reach. Will continue to monitor.
[2018-05-29 08:00] VITALS: BP 138/75
[2018-05-29 08:29] LABS: ANION GAP 6 mmol/L (5-15); BLOOD UREA NITROGEN 12 mg/dL (7-18); CARBON DIOXIDE 40 MMOL/L (21-32); CHLORIDE 95 MMOL/L (98-107); CREATININE 0.8 MG/DL (0.55-1.30); SODIUM 139 MMOL/L (136-145)
[2018-05-29 08:54] LABS: POTASSIUM 2.5 MMOL/L (3.5-5.1)
--- NOTE | 2018-05-29 08:56 | NUR ---
NURSE NOTES: Received call from [facility] from Lab. Pts potassium is 2.5 and CO2 is 40. Dr. Borrego made aware.
[2018-05-29] MEDS: Flonase Nasal Inhaler 16gm NASAL SCH (09:00)
--- NOTE | 2018-05-29 09:34 | NUR ---
REHAB MED PT NOTE PATIENT AT BASELINE LEVEL OF FUNCTION, NO SKILLED NEEDS, LIMITED BY COGNITIVE LIMITATIONS, DC PT ORDER, PLEASE RECONSULT IF CHANGE IN FUNCTIONAL MOBILITY AND COGNITION
[2018-05-29] MEDS: Lisinopril 2.5mg tab ORAL SCH (09:58)
[2018-05-29] MEDS: Allopurinol 100mg Tab ORAL SCH (09:58)
[2018-05-29] MEDS: Aspirin Baby 81mg ORAL SCH (09:58)
[2018-05-29] MEDS: Calcium Carbonate 500mg w/Vit D 200iu tab ORAL SCH (09:58)
[2018-05-29] MEDS: OLANZapine 2.5mg tab ORAL SCH ×2 (09:58→17:56)
[2018-05-29] MEDS: Docusate 100mg/10ml Liq ORAL SCH ×2 (09:59→21:00)
[2018-05-29] MEDS: Heparin 5000 units/ml inj SUBQ SCH ×2 (10:02→21:02)
--- NOTE | 2018-05-29 10:25 | General Progress Note ---
Assessment/Plan Assessment/Plan #Acute on chronic systolic CHF - TTE shows EF 25-30% #Severe aortic stenosis #Acute hypoxic respiratory failure due to acute CHF #High risk for aspiration per LICENSED AUDIOLOGIST #Essential HTN #Metabolic alkalosis -hold Lasix due to contraction alkalosis -continue Coreg and lisinopril -monitor I&O -Daily weights -Restrict sodium intake -TTE results reviewed -dysphagia diet -aspiration precautions -CT chest results reviewed -Cardiology following -Pulmonology following #Hypokalemia #Hypomagnesemia -replace intravenously -repeat labs tonight and in AM #Hyponatremia -secondary to hypervolemic state -resolved -continue to treated acute CHF #Hypokalemia -improved -continue to monitor #Dementia #Acute metabolic encephalopathy, present on admission #Severe agitation -supportive care -aspiration and fall precautions -continue Zyprexa -psychiatry following VTE PPx Heparin SC Full Code I spent 45 minutes on this patient's case, and 26 minutes was dedicated to counseling and/or care coordination. Subjective Date patient seen: May 29, 2018 Time patient seen: 08:45 ROS Limited/Unobtainable: Yes Allergies: Coded Allergies: PENICILLINS (Verified Allergy, Severe, HIVES AROUND NECK/THROAT/ DIFFICULTY BREATHING, 11/01/17) Subjective Medicine follow up for acute hypoxic respiratory failure, acute CHF, possible aspiration No acute issues overnight. Objective Last 24 Hour Vital Signs Date Time Temp Pulse Resp B/P (MAP) Pulse Ox O2 Delivery O2 Flow Rate FiO2 05/29/18 09:59 60 138/75 05/29/18 09:58 138/75 05/29/18 08:03 Nasal Cannula 3.0 32 05/29/18 08:03 100 Nasal Cannula 3.0 32 05/29/18 08:03 62 21 Nasal Cannula 3.0 32 05/29/18 04:00 104 05/29/18 04:00 98.2 87 19 147/93 (111) 97 05/29/18 00:00 98.0 90 20 108/62 (77) 97 05/29/18 00:00 79 05/28/18 23:56 100 20 Nasal Cannula 2.0 28 05/28/18 21:49 89 133/77 05/28/18 21:00 Nasal Cannula 2.0 05/28/18 20:00 97.5 89 20 133/77 (95) 98 05/28/18 20:00 89 05/28/18 16:00 70 05/28/18 16:00 98.1 91 20 149/78 (101) 95 05/28/18 12:00 86 05/28/18 12:00 97.2 74 18 134/80 (98) 97 Intake and Output 05/28/18 05/29/18 19:00 07:00 Output Total 1700 ml 1000 ml Balance -1700 ml -1000 ml Output Urine Total 1700 ml 1000 ml Laboratory Tests 05/29/18 04:45: Sodium Level 139, Potassium Level 2.5*L, Chloride Level 95L, Carbon Dioxide Level 40H, Anion Gap 6, Blood Urea Nitrogen 12, Creatinine 0.8, Estimat Glomerular Filtration Rate , Glucose Level 87, Calcium Level 8.3L, Magnesium Level 2.1 Height (Feet): 4 Height (Inches): 9.00 Weight (Pounds): 126 General Appearance: alert, confused Neck: normal alignment, supple Cardiovascular: normal peripheral pulses, normal rate, regular rhythm Respiratory/Chest: lungs clear, normal breath sounds, no respiratory distress Abdomen: non tender, soft Edema: trace edema Neurologic: design analyst II-XII grossly normal, no motor/sensory deficits Raoul Newby MD May 29, 2018 10:25
--- NOTE | 2018-05-29 11:18 | NUR ---
CASE MANAGEMENT:REVIEW 05/29/18 SI: AC/CHR CHF W/EF25%. SEVERE AORTIC STENOSIS RESPIRATORY FAILURE 98.0 60 19 138/75 97% ON 3L/NC K-2.5 IS: IV KCL Q1HRS X5 COREG PO Q12 ASA PO QD FLONASE QD ZYPREXA PO BID LISINOPRIL PO QD HEPARIN SQ Q12 : TELEMETRY STATUS DCP: FROM HOME PLAN: RESTRICT SODIUM DYSPHAGIA DIET REPEAT LABS IN AM DC LASIX
--- NOTE | 2018-05-29 11:22 | General Progress Note ---
Assessment/Plan Problem List: (1) Acute metabolic encephalopathy ICD Codes: G93.41 - Metabolic encephalopathy SNOMED: 94330823, [id number] (2) Dementia with behavioral disturbance ICD Codes: F03.91 - Unspecified dementia with behavioral disturbance SNOMED: 4660791961585 Status: stable Assessment/Plan Zyprexa 2.5 mg po bid Haldol prn the pt received a cocktail. soft restraints. Subjective Allergies: Coded Allergies: PENICILLINS (Verified Allergy, Severe, HIVES AROUND NECK/THROAT/ DIFFICULTY BREATHING, 11/01/17) Subjective the pt is more manageable on Zyprexa. calm Objective Last 24 Hour Vital Signs Date Time Temp Pulse Resp B/P (MAP) Pulse Ox O2 Delivery O2 Flow Rate FiO2 05/29/18 09:59 60 138/75 05/29/18 09:58 138/75 05/29/18 08:03 Nasal Cannula 3.0 32 05/29/18 08:03 100 Nasal Cannula 3.0 32 05/29/18 08:03 62 21 Nasal Cannula 3.0 32 05/29/18 08:00 98.0 60 19 138/75 (96) 97 05/29/18 04:00 104 05/29/18 04:00 98.2 87 19 147/93 (111) 97 05/29/18 00:00 98.0 90 20 108/62 (77) 97 05/29/18 00:00 79 05/28/18 23:56 100 20 Nasal Cannula 2.0 28 05/28/18 21:49 89 133/77 05/28/18 21:00 Nasal Cannula 2.0 05/28/18 20:00 97.5 89 20 133/77 (95) 98 05/28/18 20:00 89 05/28/18 16:00 70 05/28/18 16:00 98.1 91 20 149/78 (101) 95 05/28/18 12:00 86 05/28/18 12:00 97.2 74 18 134/80 (98) 97 Intake and Output 05/28/18 05/29/18 19:00 07:00 Output Total 1700 ml 1000 ml Balance -1700 ml -1000 ml Output Urine Total 1700 ml 1000 ml Laboratory Tests 05/29/18 04:45: Sodium Level 139, Potassium Level 2.5*L, Chloride Level 95L, Carbon Dioxide Level 40H, Anion Gap 6, Blood Urea Nitrogen 12, Creatinine 0.8, Estimat Glomerular Filtration Rate , Glucose Level 87, Calcium Level 8.3L, Magnesium Level 2.1 Height (Feet): 4 Height (Inches): 9.00 Weight (Pounds): 126 General Appearance: no apparent distress, lethargic Jackie Boyd MD May 29, 2018 11:22
[2018-05-29 12:00] VITALS: BP 127/73
--- NOTE | 2018-05-29 15:00 | Pulmonology Progress Note ---
Assessment/Plan Problems: (1) Acute CHF (2) Respiratory distress (3) Dyspnea (4) Sick-euthyroid syndrome (5) Altered mental state (6) Dementia with behavioral disturbance Assessment/Plan ASSESSMENT: 83 F h/o dementia, AR, prior diverticular bleed a/w respiratory failure 2/2 ADHF and hypoNa PROBLEM LIST: Respiratory failure CHF with ADHF HypoNa H/O diverticular bleed H/O dementia AR AMS PLAN: CXR ABG Optimize pulmonary hygiene/mobilize as tolerated PRN BiPAP Titrate down FiO2 to keep SaO2 > 90% PRN HHN's Monitor volumes and renal function --> diuretics held 2/2 contraction alkalosis Cardiology recs F/U renal recs, monitor NA Aspiration precautions, CERTIFIED BREASTFEEDING EDUCATOR recs Monitor MS, F/U psych recs, CT head, RPR, folate, B12 and ammonia ordered DVT Px: Hep SQ FC Subjective Allergies: Coded Allergies: PENICILLINS (Verified Allergy, Severe, HIVES AROUND NECK/THROAT/ DIFFICULTY BREATHING, 11/01/17) Subjective AFVSS on 2L confused No distress, no cough + SOB no FC Objective Last 24 Hour Vital Signs Date Time Temp Pulse Resp B/P (MAP) Pulse Ox O2 Delivery O2 Flow Rate FiO2 05/29/18 12:00 96.9 80 18 127/73 (91) 98 05/29/18 12:00 80 05/29/18 09:59 60 138/75 05/29/18 09:58 138/75 05/29/18 09:00 Nasal Cannula 2.0 05/29/18 08:03 Nasal Cannula 3.0 32 05/29/18 08:03 100 Nasal Cannula 3.0 32 05/29/18 08:03 62 21 Nasal Cannula 3.0 32 05/29/18 08:00 56 05/29/18 08:00 98.0 60 19 138/75 (96) 97 05/29/18 04:00 104 05/29/18 04:00 98.2 87 19 147/93 (111) 97 05/29/18 00:00 98.0 90 20 108/62 (77) 97 05/29/18 00:00 79 05/28/18 23:56 100 20 Nasal Cannula 2.0 28 05/28/18 21:49 89 133/77 05/28/18 21:00 Nasal Cannula 2.0 05/28/18 20:00 97.5 89 20 133/77 (95) 98 05/28/18 20:00 89 05/28/18 16:00 70 05/28/18 16:00 98.1 91 20 149/78 (101) 95 Intake and Output 05/28/18 05/29/18 19:00 07:00 Output Total 1700 ml 1000 ml Balance -1700 ml -1000 ml Output Urine Total 1700 ml 1000 ml General Appearance: no acute distress, cachetic HEENT: normocephalic, atraumatic, anicteric, mucous membranes moist Respiratory/Chest: chest wall non-tender, lungs clear, normal breath sounds, no respiratory distress, no accessory muscle use Cardiovascular: normal peripheral pulses, normal rate, regular rhythm Abdomen: normal bowel sounds, soft, non tender, no organomegaly, non distended , no mass Extremities: no cyanosis, no clubbing, no edema Laboratory Tests 05/29/18 04:45: Sodium Level 139, Potassium Level 2.5*L, Chloride Level 95L, Carbon Dioxide Level 40H, Anion Gap 6, Blood Urea Nitrogen 12, Creatinine 0.8, Estimat Glomerular Filtration Rate , Glucose Level 87, Calcium Level 8.3L, Magnesium Level 2.1 Current Medications Medications (Trade) Dose Ordered Sig/Violet Route PRN Reason Start Time Stop Time Status Last Admin Dose Admin Albuterol/ Ipratropium (Albuterol/ Ipratropium) 3 ml Q6H PRN HHN Shortness of Breath 05/26/18 14:53 05/30/18 14:52 Allopurinol (Zyloprim) 100 mg DAILY ORAL 05/27/18 09:00 06/25/18 08:59 05/29/18 09:58 Aspirin (ASA) 81 mg DAILY ORAL 05/27/18 09:00 06/25/18 08:59 05/29/18 09:58 Calcium Carbonate (OsCal D) 1 tab DAILY ORAL 05/27/18 09:00 06/25/18 08:59 05/29/18 09:58 Carvedilol (Coreg) 3.125 mg EVERY 12 HOURS ORAL 05/27/18 21:00 06/26/18 20:59 05/29/18 09:59 Dextrose (Dextrose 50%) 25 ml Q30M PRN IV Hypoglycemia 05/26/18 15:00 06/24/18 11:29 Dextrose (Dextrose 50%) 50 ml Q30M PRN IV Hypoglycemia 05/26/18 15:00 06/24/18 11:29 Docusate Sodium (Colace) 100 mg EVERY 12 HOURS ORAL 05/26/18 21:00 06/24/18 20:59 05/29/18 09:59 Fluticasone Propionate (Flonase) 1 spray DAILY NASAL 05/27/18 09:00 06/25/18 08:59 05/29/18 09:00 Haloperidol Lactate (Haldol) 5 mg Q6H PRN IM Agitation 05/26/18 19:45 06/25/18 19:44 Heparin Sodium (Porcine) (Heparin 5000 units/ml) 5,000 units Q12HR SUBQ 05/26/18 21:00 06/24/18 20:59 05/29/18 10:02 Lisinopril (Zestril) 2.5 mg DAILY ORAL 05/27/18 09:00 06/26/18 08:59 05/29/18 09:58 Magnesium Hydroxide (Mom) 30 ml HSPRN PRN ORAL Constipation 05/26/18 21:00 06/24/18 20:59 Olanzapine (ZyPREXA) 2.5 mg BID ORAL 05/27/18 09:00 06/26/18 08:59 05/29/18 09:58 Ondansetron HCl (Zofran) 4 mg Q6H PRN IVP Nausea & Vomiting 05/26/18 14:53 06/24/18 14:52 Potassium Chloride 100 ml @ 100 mls/hr Q1HR IVPB 05/29/18 10:00 05/29/18 14:59 05/29/18 14:00 Tramadol HCl (Ultram) 50 mg BIDPRN PRN ORAL PAIN 4-10 05/26/18 14:54 06/02/18 14:53 Dionicio Middleton MD May 29, 2018 15:00
--- NOTE | 2018-05-29 15:09 | NUR ---
ST NOTE: SWALLOW/SPEECH/COGNITIONS STATUS FOLLOWED PT'S CONDITIONS. PT WAS LETHARGIC IN AM. PT SEEN AT BEDSIDE IN PM. PT'S FRIEND AT BEDSIDE. PT WITH NC(2L). PT VERBAL BUT CONFUSED. GIVEN PO TRAILS: NECTAR THICK(TSP/STRAW). MILDLY TO MODERATELY INCREASED ORAL TRANSIT TIME AND OROPHARYNGEAL TRANSIT TIME, FAIR LARYNGEAL ELEVATION, THROAT CLEAR X 1 WAS NOTED. TRAINED PT TO USE SWALLOW X 2 TIMES AND EFFORTFUL SWALLOW. PT ONLY CONSUMED 10% OF THE MEAL. DISCUSSED RNJULISSA RE:PT'S CONDITIONS. PER RN, PT'S PO INTAKE IS POOR. DISCUSSED WITH DR. SHELTON DWYER RE:PT'S CONDITIONS AND RE: POOR PO INTAKE. IF PT'S PO IS SUBOPTIMAL, NGT SHOULD BE CONSIDERED TO MEET NUTRITION AND HYDRATION NEEDS. PER MD, WILL ORDER IT. RN NOTIFIED.
[2018-05-29 16:00] VITALS: BP 122/74
--- NOTE | 2018-05-29 16:22 | Nephrology Progress Note ---
Assessment/Plan Problem List: (1) Hyponatremia Assessment: resolved (2) Acute CHF Assessment: improved (3) HTN (hypertension) Assessment: BP Ok (4) Hypokalemia Assessment: worse (5) Hypomagnesemia Assessment: ok today Plan off Lasix replete K would need an NG. unable to take pills. Would need more KCL. also for feeding. Discussed with RN follow labs Subjective Subjective being fed by family Objective Objective Last 24 Hour Vital Signs Date Time Temp Pulse Resp B/P (MAP) Pulse Ox O2 Delivery O2 Flow Rate FiO2 05/29/18 12:00 96.9 80 18 127/73 (91) 98 05/29/18 12:00 80 05/29/18 09:59 60 138/75 05/29/18 09:58 138/75 05/29/18 09:00 Nasal Cannula 2.0 05/29/18 08:03 Nasal Cannula 3.0 32 05/29/18 08:03 100 Nasal Cannula 3.0 32 05/29/18 08:03 62 21 Nasal Cannula 3.0 32 05/29/18 08:00 56 05/29/18 08:00 98.0 60 19 138/75 (96) 97 05/29/18 04:00 104 05/29/18 04:00 98.2 87 19 147/93 (111) 97 05/29/18 00:00 98.0 90 20 108/62 (77) 97 05/29/18 00:00 79 05/28/18 23:56 100 20 Nasal Cannula 2.0 28 05/28/18 21:49 89 133/77 05/28/18 21:00 Nasal Cannula 2.0 05/28/18 20:00 97.5 89 20 133/77 (95) 98 05/28/18 20:00 89 Intake and Output 05/28/18 05/29/18 19:00 07:00 Output Total 1700 ml 1000 ml Balance -1700 ml -1000 ml Output Urine Total 1700 ml 1000 ml Laboratory Tests 05/29/18 04:45: Sodium Level 139, Potassium Level 2.5*L, Chloride Level 95L, Carbon Dioxide Level 40H, Anion Gap 6, Blood Urea Nitrogen 12, Creatinine 0.8, Estimat Glomerular Filtration Rate , Glucose Level 87, Calcium Level 8.3L, Magnesium Level 2.1 Height (Feet): 4 Height (Inches): 9.00 Weight (Pounds): 126 Cardiovascular: normal rate Respiratory/Chest: lungs clear Extremities: other - no edema Yang Gibson MD May 29, 2018 16:22
[2018-05-29] MEDS ORDERED: Tubing IV Secondary IV ONE (17:06)
[2018-05-29] MEDS ORDERED: NS 275ml ONE (17:06)
[2018-05-29] MEDS ORDERED: NS 500ML ONE (17:06)
--- NOTE | 2018-05-29 18:28 | Diagnostic Imaging Report ---
EXAM: CT Head Without Intravenous Contrast CLINICAL HISTORY: AMS TECHNIQUE: Axial computed tomography images of the head/brain without intravenous contrast. CTDI is 70 mGy and DLP is 2945 mGy-cm. One or more of the following dose reduction techniques were used: automated exposure control, adjustment of the mA and/or kV according to patient size, use of iterative reconstruction technique. COMPARISON: No relevant prior studies available. FINDINGS: Limitations: Severely limited due to motion. Brain: No definite large acute intracranial hemorrhage visualized. Cannot exclude small intracranial hemorrhage due to motion. Cannot evaluate for acute ischemia due to motion. Chronic small vessel ischemic changes. Ventricles: Unremarkable. No ventriculomegaly. Bones/joints: Unremarkable. No acute fracture. Soft tissues: Unremarkable. Sinuses: Unremarkable as visualized. Mastoid air cells: Unremarkable as visualized. IMPRESSION: 1. Severely limited due to motion. 2. No definite large acute intracranial hemorrhage visualized. Cannot exclude small intracranial hemorrhage due to motion. 3. Cannot evaluate for acute ischemia due to motion. Chronic small vessel ischemic changes.
--- NOTE | 2018-05-29 18:29 | Diagnostic Imaging Report ---
EXAM: XR Chest, 1 View CLINICAL HISTORY: AMS TECHNIQUE: Frontal view of the chest. COMPARISON: 05/25/2018. FINDINGS: Lungs: Stable bilateral pulmonary edema/infiltrates. Pleural space: Stable bilateral pleural effusions. No pneumothorax. Heart: Stable cardiomegaly. Mediastinum: Stable. Bones/joints: Stable. IMPRESSION: 1. Stable bilateral pulmonary edema/infiltrates. 2. Stable bilateral pleural effusions.
--- NOTE | 2018-05-29 19:09 | Cardiology Progress Note ---
Assessment/Plan Assessment/Plan 1. Cardiomyopathy, likely chronic. 2. Left bundle-branch conduction defect. 3. Severe aortic stenosis. 4. Pulmonary hypertension. 5. Dementia. 6. History of GI bleed back in October of 2016. 7. History of diverticular bleed more communicative and awake agree with holding diuretic switch to po we restart on friday will see how she changes mentally and assess how funciton she will be before considering option for eval and treatment which will nto be possible at this hospital looks better cxr noted may be lagging diamox once tonite Subjective Cardiovascular: Reports: lightheadedness; Denies: chest pain Respiratory: Denies: shortness of breath Gastrointestinal/Abdominal: Denies: abdominal pain Genitourinary: Denies: burning Objective Last 24 Hour Vital Signs Date Time Temp Pulse Resp B/P (MAP) Pulse Ox O2 Delivery O2 Flow Rate FiO2 05/29/18 16:00 97.7 87 18 122/74 (90) 98 05/29/18 16:00 87 05/29/18 12:00 96.9 80 18 127/73 (91) 98 05/29/18 12:00 80 05/29/18 09:59 60 138/75 05/29/18 09:58 138/75 05/29/18 09:00 Nasal Cannula 2.0 05/29/18 08:03 Nasal Cannula 3.0 32 05/29/18 08:03 100 Nasal Cannula 3.0 32 05/29/18 08:03 62 21 Nasal Cannula 3.0 32 05/29/18 08:00 56 05/29/18 08:00 98.0 60 19 138/75 (96) 97 05/29/18 04:00 104 05/29/18 04:00 98.2 87 19 147/93 (111) 97 05/29/18 00:00 98.0 90 20 108/62 (77) 97 05/29/18 00:00 79 05/28/18 23:56 100 20 Nasal Cannula 2.0 28 05/28/18 21:49 89 133/77 05/28/18 21:00 Nasal Cannula 2.0 05/28/18 20:00 97.5 89 20 133/77 (95) 98 05/28/18 20:00 89 General Appearance: no apparent distress, alert Neck: supple Cardiovascular: normal rate, systolic murmur Respiratory/Chest: lungs clear Abdomen: non tender, soft Extremities: no swelling Intake and Output 05/28/18 05/29/18 19:00 07:00 Output Total 1700 ml 1000 ml Balance -1700 ml -1000 ml Output Urine Total 1700 ml 1000 ml Laboratory Tests Test 05/29/18 04:45 05/29/18 16:00 05/29/18 16:30 05/29/18 18:30 Sodium Level 139 MMOL/L (136-145) Potassium Level 2.5 MMOL/L (3.5-5.1) *L Chloride Level 95 MMOL/L (98-107) L Carbon Dioxide Level 40 MMOL/L (21-32) H Anion Gap 6 mmol/L (5-15) Blood Urea Nitrogen 12 mg/dL (7-18) Creatinine 0.8 MG/DL (0.55-1.30) Estimat Glomerular Filtration Rate mL/min (>60) Glucose Level 87 MG/DL (74-106) Calcium Level 8.3 MG/DL (8.5-10.1) L Magnesium Level 2.1 MG/DL (1.8-2.4) Ammonia 42 umol/L (11-32) H Vitamin B12 Level 1837 PG/ML (193-986) H Folate 22.0 NG/ML (8.6-58.9) Rapid Plasma Reagin Pending Arterial Blood pH 7.479 (7.350-7.450) Arterial Blood Partial Pressure CO2 54.0 mmHg (35.0-45.0) H Arterial Blood Partial Pressure O2 79.8 mmHg (75.0-100.0) Arterial Blood HCO3 39.2 mmol/L (22.0-26.0) H Arterial Blood Oxygen Saturation 95.8 % (95-100) Arterial Blood Base Excess 13.5 (-2-2) *H Orville Test Positive Bret Nichols MD May 29, 2018 19:09
--- NOTE | 2018-05-29 19:46 | NUR ---
HAND-OFF: Report given to RADHA Farris. Plan of care endorsed.
[2018-05-29 20:00] VITALS: BP 103/65
[2018-05-29] MEDS ORDERED: acetaZOLAMIDE 125mg tab ORAL SCH (20:00)
--- NOTE | 2018-05-29 20:16 | NUR ---
NURSE NOTES: Received pt from RADHA licea.
[2018-05-29 21:13] LABS: ANION GAP 3 mmol/L (5-15); BLOOD UREA NITROGEN 12 mg/dL (7-18); CALCIUM 8.2 MG/DL (8.5-10.1); CARBON DIOXIDE 40 MMOL/L (21-32); CHLORIDE 94 MMOL/L (98-107); CREATININE 0.7 MG/DL (0.55-1.30); POTASSIUM 3.9 MMOL/L (3.5-5.1); SODIUM 137 MMOL/L (136-145)
[2018-05-30] VITALS: BP 115/74
[2018-05-30] MEDS: Haloperidol 5mg/ml Inj IM PRN (00:27)
[2018-05-30 04:00] VITALS: BP 96/52
--- NOTE | 2018-05-30 07:30 | NUR ---
HAND-OFF: Report given to RADHA La.
--- NOTE | 2018-05-30 07:48 | NUR ---
NURSE NOTES: Received report from RADHA Farris. Pt is sleeping in bed. No distress noted. Breathing is even and unlabored. Heart monitor is on. Bed is in lowest position, side rails up X2, and call light is within reach. Will continue to monitor.
[2018-05-30 08:00] VITALS: BP 146/55
[2018-05-30] MEDS: Docusate 100mg/10ml Liq ORAL SCH ×2 (09:00→21:27)
[2018-05-30] MEDS: Calcium Carbonate 500mg w/Vit D 200iu tab ORAL SCH (09:00)
[2018-05-30] MEDS: Flonase Nasal Inhaler 16gm NASAL SCH (09:00)
[2018-05-30] MEDS: Aspirin Baby 81mg ORAL SCH (09:00)
[2018-05-30] MEDS: Lisinopril 2.5mg tab ORAL SCH (09:00)
[2018-05-30] MEDS: OLANZapine 2.5mg tab ORAL SCH ×2 (09:00→18:33)
[2018-05-30] MEDS: Heparin 5000 units/ml inj SUBQ SCH ×2 (09:00→21:32)
[2018-05-30] MEDS: Allopurinol 100mg Tab ORAL SCH (09:00)
--- NOTE | 2018-05-30 09:31 | NUR ---
NURSE NOTES: Spoke to Dr. Boyd about patient being drowsy and lethargic and unable to take morning medications. Was notified this was a trend for the patient after patient receiving Haldol. Dr. Boyd is aware. Will keep hob 30 degree elevated and continue neuro checks.
--- NOTE | 2018-05-30 11:00 | NUR ---
NURSE NOTES: 10:30am: Was made aware from surveillance monitor about PSVT for 15 seconds at 8:38am. Called Dr. Nichols at 10:57am regarding rhythm strip and patient condition of sleeping, breathing even and unlabored, and vital signs. Awaiting orders and/or call back.
--- NOTE | 2018-05-30 11:17 | Pulmonology Progress Note ---
Assessment/Plan Problems: (1) Respiratory distress (2) Acute CHF (3) Hyponatremia (4) HTN (hypertension) (5) Dyspnea (6) GI hemorrhage Assessment/Plan ASSESSMENT: 83 F h/o dementia, AR, prior diverticular bleed a/w respiratory failure 2/2 ADHF and hypoNa PROBLEM LIST: Respiratory failure CHF with ADHF HypoNa H/O diverticular bleed H/O dementia AR AMS PLAN: Optimize pulmonary hygiene/mobilize as tolerated PRN BiPAP Titrate down FiO2 to keep SaO2 > 90% PRN HHN's Monitor volumes and renal function --> diuretics per cardiology Cardiology recs F/U renal recs, monitor NA Aspiration precautions, STOVE POLISHER recs Monitor MS DVT Px: Hep SQ FC Subjective ROS Limited/Unobtainable: Yes Interval Events: no acute events. Remains on oxygen. Poorly arousable Allergies: Coded Allergies: PENICILLINS (Verified Allergy, Severe, HIVES AROUND NECK/THROAT/ DIFFICULTY BREATHING, 11/01/17) Objective Last 24 Hour Vital Signs Date Time Temp Pulse Resp B/P (MAP) Pulse Ox O2 Delivery O2 Flow Rate FiO2 05/30/18 09:00 Nasal Cannula 2.0 05/30/18 08:00 96.8 72 18 146/55 (85) 98 05/30/18 07:56 66 05/30/18 04:00 59 05/30/18 04:00 96.1 59 18 96/52 (67) 100 05/30/18 00:00 98.2 95 18 115/74 (88) 99 05/30/18 00:00 95 05/29/18 21:00 Nasal Cannula 2.0 05/29/18 20:59 98 103/65 05/29/18 20:00 97.3 106 20 103/65 (78) 98 05/29/18 19:45 97 Nasal Cannula 4.0 36 05/29/18 19:45 Nasal Cannula 4.0 36 05/29/18 19:45 81 21 Nasal Cannula 4.0 36 05/29/18 16:00 97.7 87 18 122/74 (90) 98 05/29/18 16:00 87 05/29/18 12:00 96.9 80 18 127/73 (91) 98 05/29/18 12:00 80 Intake and Output 05/29/18 05/30/18 19:00 07:00 Intake Total 250 ml 240 ml Output Total 800 ml Balance 250 ml -560 ml Intake Oral 250 ml 240 ml Output Urine Total 800 ml # Voids 5 # Bowel Movements 1 General Appearance: WD/WN, no acute distress HEENT: normocephalic, atraumatic Respiratory/Chest: rhonchi, other Cardiovascular: regular rhythm Abdomen: soft, non tender Extremities: no edema Laboratory Tests 05/29/18 16:00: Ammonia 42H, Vitamin B12 Level 1837H, Folate 22.0 05/29/18 16:30: Rapid Plasma Reagin Non reactive 05/29/18 18:30: Arterial Blood pH 7.479H, Arterial Blood Partial Pressure CO2 54.0H, Arterial Blood Partial Pressure O2 79.8, Arterial Blood HCO3 39.2H, Arterial Blood Oxygen Saturation 95.8, Arterial Blood Base Excess 13.5*H, Orville Test Positive 05/29/18 20:25: Sodium Level 137, Potassium Level 3.9#, Chloride Level 94L, Carbon Dioxide Level 40H, Anion Gap 3L, Blood Urea Nitrogen 12, Creatinine 0.7, Estimat Glomerular Filtration Rate , Glucose Level 115H, Calcium Level 8.2L Current Medications Medications (Trade) Dose Ordered Sig/Violet Route PRN Reason Start Time Stop Time Status Last Admin Dose Admin Albuterol/ Ipratropium (Albuterol/ Ipratropium) 3 ml Q6H PRN HHN Shortness of Breath 05/26/18 14:53 05/30/18 14:52 Allopurinol (Zyloprim) 100 mg DAILY ORAL 05/27/18 09:00 06/25/18 08:59 05/29/18 09:58 Aspirin (ASA) 81 mg DAILY ORAL 05/27/18 09:00 06/25/18 08:59 05/29/18 09:58 Calcium Carbonate (OsCal D) 1 tab DAILY ORAL 05/27/18 09:00 06/25/18 08:59 05/29/18 09:58 Carvedilol (Coreg) 3.125 mg EVERY 12 HOURS ORAL 05/27/18 21:00 06/26/18 20:59 05/29/18 20:59 Dextrose (Dextrose 50%) 25 ml Q30M PRN IV Hypoglycemia 05/26/18 15:00 06/24/18 11:29 Dextrose (Dextrose 50%) 50 ml Q30M PRN IV Hypoglycemia 05/26/18 15:00 06/24/18 11:29 Docusate Sodium (Colace) 100 mg EVERY 12 HOURS ORAL 05/26/18 21:00 06/24/18 20:59 05/29/18 21:00 Fluticasone Propionate (Flonase) 1 spray DAILY NASAL 05/27/18 09:00 06/25/18 08:59 05/29/18 09:00 Haloperidol Lactate (Haldol) 5 mg Q6H PRN IM Agitation 05/26/18 19:45 06/25/18 19:44 05/30/18 00:27 Heparin Sodium (Porcine) (Heparin 5000 units/ml) 5,000 units Q12HR SUBQ 05/26/18 21:00 06/24/18 20:59 05/29/18 21:02 Lisinopril (Zestril) 2.5 mg DAILY ORAL 05/27/18 09:00 06/26/18 08:59 05/29/18 09:58 Magnesium Hydroxide (Mom) 30 ml HSPRN PRN ORAL Constipation 05/26/18 21:00 06/24/18 20:59 Olanzapine (ZyPREXA) 2.5 mg BID ORAL 05/27/18 09:00 06/26/18 08:59 05/29/18 17:56 Ondansetron HCl (Zofran) 4 mg Q6H PRN IVP Nausea & Vomiting 05/26/18 14:53 06/24/18 14:52 Tramadol HCl (Ultram) 50 mg BIDPRN PRN ORAL PAIN 4-10 05/26/18 14:54 06/02/18 14:53 Kevin Lua MD May 30, 2018 11:17
--- NOTE | 2018-05-30 11:31 | NUR ---
NURSE NOTES: Spoke to RT Geovani about need of ABG draw.
[2018-05-30 12:00] VITALS: BP 114/90
--- NOTE | 2018-05-30 12:32 | NUR ---
Made call to Dr. Lua about abg results. Awaiting call back. Addendum: 05/30/18 at 1429 by Abhinav Snow RN @[phone]: Spoke to Dr. Lua about abg results. Received order.
--- NOTE | 2018-05-30 14:43 | Nephrology Progress Note ---
Assessment/Plan Problem List: (1) Hyponatremia Assessment: resolved (2) Acute CHF Assessment: improved (3) HTN (hypertension) Assessment: BP Ok (4) Hypokalemia Assessment: ok (5) Hypomagnesemia Assessment: ok toda Plan would need an NG. Discussed with RN follow labs Subjective Subjective In NAD Objective Objective Last 24 Hour Vital Signs Date Time Temp Pulse Resp B/P (MAP) Pulse Ox O2 Delivery O2 Flow Rate FiO2 05/30/18 12:00 96.4 69 18 114/90 (98) 95 05/30/18 09:00 Nasal Cannula 2.0 05/30/18 08:00 96.8 72 18 146/55 (85) 98 05/30/18 07:56 66 05/30/18 04:00 59 05/30/18 04:00 96.1 59 18 96/52 (67) 100 05/30/18 00:00 98.2 95 18 115/74 (88) 99 05/30/18 00:00 95 05/29/18 21:00 Nasal Cannula 2.0 05/29/18 20:59 98 103/65 05/29/18 20:00 97.3 106 20 103/65 (78) 98 05/29/18 19:45 97 Nasal Cannula 4.0 36 05/29/18 19:45 Nasal Cannula 4.0 36 05/29/18 19:45 81 21 Nasal Cannula 4.0 36 05/29/18 16:00 97.7 87 18 122/74 (90) 98 05/29/18 16:00 87 Intake and Output 05/29/18 05/30/18 19:00 07:00 Intake Total 250 ml 240 ml Output Total 800 ml Balance 250 ml -560 ml Intake Oral 250 ml 240 ml Output Urine Total 800 ml # Voids 5 # Bowel Movements 1 Laboratory Tests 05/29/18 16:00: Ammonia 42H, Vitamin B12 Level 1837H, Folate 22.0 05/29/18 16:30: Rapid Plasma Reagin Non reactive 05/29/18 18:30: Arterial Blood pH 7.479H, Arterial Blood Partial Pressure CO2 54.0H, Arterial Blood Partial Pressure O2 79.8, Arterial Blood HCO3 39.2H, Arterial Blood Oxygen Saturation 95.8, Arterial Blood Base Excess 13.5*H, [place]ville Test Positive 05/29/18 20:25: Sodium Level 137, Potassium Level 3.9#, Chloride Level 94L, Carbon Dioxide Level 40H, Anion Gap 3L, Blood Urea Nitrogen 12, Creatinine 0.7, Estimat Glomerular Filtration Rate , Glucose Level 115H, Calcium Level 8.2L 05/30/18 11:50: Arterial Blood pH 7.400, Arterial Blood Partial Pressure CO2 68.2*H, Arterial Blood Partial Pressure O2 106.2H, Arterial Blood HCO3 41.3*H, Arterial Blood Oxygen Saturation 97.7, Arterial Blood Base Excess 13.5*H, [place]ville Test Positive Height (Feet): 4 Height (Inches): 9.00 Weight (Pounds): 117 Cardiovascular: normal rate Respiratory/Chest: lungs clear Extremities: other - no edema Yang Gibson MD May 30, 2018 14:43
--- NOTE | 2018-05-30 15:18 | Cardiology Progress Note ---
Assessment/Plan Problem List: (1) Sinus bradycardia (2) SVT (supraventricular tachycardia) (3) Acute CHF (4) HTN (hypertension) Status: stable, progressing Status Narrative Pt adm w/ decompensated systolic HF. EF 25-30% by echo She appears improved w/ medical therapy. She has intermittent SVT, rates 120s and SB to 40s on telemetry - no sx Assessment/Plan Continue diamox ( met alkalosis), lisinorpil. Continue low dose coreg - unable to titrate as has periods of sinus figueroa to 40s. Continue telemetry monitoring. Subjective ROS Limited/Unobtainable: Yes Subjective Cardiology for Dr. Nichols Pt sedated, no resp distress Objective Last 24 Hour Vital Signs Date Time Temp Pulse Resp B/P (MAP) Pulse Ox O2 Delivery O2 Flow Rate FiO2 05/30/18 12:00 96.4 69 18 114/90 (98) 95 05/30/18 09:00 Nasal Cannula 2.0 05/30/18 08:00 96.8 72 18 146/55 (85) 98 05/30/18 07:56 66 05/30/18 04:00 59 05/30/18 04:00 96.1 59 18 96/52 (67) 100 05/30/18 00:00 98.2 95 18 115/74 (88) 99 05/30/18 00:00 95 05/29/18 21:00 Nasal Cannula 2.0 05/29/18 20:59 98 103/65 05/29/18 20:00 97.3 106 20 103/65 (78) 98 05/29/18 19:45 97 Nasal Cannula 4.0 36 05/29/18 19:45 Nasal Cannula 4.0 36 05/29/18 19:45 81 21 Nasal Cannula 4.0 36 05/29/18 16:00 97.7 87 18 122/74 (90) 98 05/29/18 16:00 87 General Appearance: WD/WN, no apparent distress, obese EENT: PERRL/EOMI Neck: no JVD Rhythm: NSR, SVT Cardiovascular: normal peripheral pulses, normal rate, regular rhythm, no gallop/murmur Respiratory/Chest: lungs clear, other - clear anteriorly Abdomen: normal bowel sounds, soft Intake and Output 05/29/18 05/30/18 19:00 07:00 Intake Total 250 ml 240 ml Output Total 800 ml Balance 250 ml -560 ml Intake Oral 250 ml 240 ml Output Urine Total 800 ml # Voids 5 # Bowel Movements 1 Laboratory Tests Test 05/29/18 16:00 05/29/18 16:30 05/29/18 18:30 05/29/18 20:25 Ammonia 42 umol/L (11-32) H Vitamin B12 Level 1837 PG/ML (193-986) H Folate 22.0 NG/ML (8.6-58.9) Rapid Plasma Reagin Non reactive (Non Reactive) Arterial Blood pH 7.479 (7.350-7.450) Arterial Blood Partial Pressure CO2 54.0 mmHg (35.0-45.0) H Arterial Blood Partial Pressure O2 79.8 mmHg (75.0-100.0) Arterial Blood HCO3 39.2 mmol/L (22.0-26.0) H Arterial Blood Oxygen Saturation 95.8 % (95-100) Arterial Blood Base Excess 13.5 (-2-2) *H Orville Test Positive Sodium Level 137 MMOL/L (136-145) Potassium Level 3.9 MMOL/L (3.5-5.1) # Chloride Level 94 MMOL/L (98-107) L Carbon Dioxide Level 40 MMOL/L (21-32) H Anion Gap 3 mmol/L (5-15) L Blood Urea Nitrogen 12 mg/dL (7-18) Creatinine 0.7 MG/DL (0.55-1.30) Estimat Glomerular Filtration Rate mL/min (>60) Glucose Level 115 MG/DL (74-106) H Calcium Level 8.2 MG/DL (8.5-10.1) L Test 05/30/18 11:50 Arterial Blood pH 7.400 (7.350-7.450) Arterial Blood Partial Pressure CO2 68.2 mmHg (35.0-45.0) *H Arterial Blood Partial Pressure O2 106.2 mmHg (75.0-100.0) H Arterial Blood HCO3 41.3 mmol/L (22.0-26.0) *H Arterial Blood Oxygen Saturation 97.7 % (95-100) Arterial Blood Base Excess 13.5 (-2-2) *H [place]ville Test Positive Sarah Nazario MD May 30, 2018 15:17
[2018-05-30 16:00] VITALS: BP 110/62
--- NOTE | 2018-05-30 16:37 | General Progress Note ---
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 for aspiration per LOG FEEDER #Essential HTN #Metabolic alkalosis -hold Lasix due to contraction alkalosis -continue Coreg and lisinopril -monitor I&O -Daily weights -Restrict sodium intake -TTE results reviewed -dysphagia diet -aspiration precautions -CT chest results reviewed -Cardiology following -Pulmonology following #Hypokalemia #Hypomagnesemia -replace intravenously #Hyponatremia -secondary to hypervolemic state -resolved -continue to treated acute CHF #Hypokalemia -improved -continue to monitor #Dementia #Acute metabolic encephalopathy, present on admission #Severe agitation -supportive care -aspiration and fall precautions -continue Zyprexa -psychiatry following VTE PPx Heparin SC Full Code I spent 45 minutes on this patient's case, and 26 minutes was dedicated to counseling and/or care coordination. Subjective Date patient seen: May 30, 2018 Time patient seen: 09:30 ROS Limited/Unobtainable: No Allergies: Coded Allergies: PENICILLINS (Verified Allergy, Severe, HIVES AROUND NECK/THROAT/ DIFFICULTY BREATHING, 11/01/17) Subjective No acute overnight events, no new complaints. Objective Last 24 Hour Vital Signs Date Time Temp Pulse Resp B/P (MAP) Pulse Ox O2 Delivery O2 Flow Rate FiO2 05/30/18 12:00 96.4 69 18 114/90 (98) 95 05/30/18 11:51 69 05/30/18 09:00 Nasal Cannula 2.0 05/30/18 08:00 96.8 72 18 146/55 (85) 98 05/30/18 07:56 66 05/30/18 04:00 59 05/30/18 04:00 96.1 59 18 96/52 (67) 100 05/30/18 00:00 98.2 95 18 115/74 (88) 99 05/30/18 00:00 95 05/29/18 21:00 Nasal Cannula 2.0 05/29/18 20:59 98 103/65 05/29/18 20:00 97.3 106 20 103/65 (78) 98 05/29/18 19:45 97 Nasal Cannula 4.0 36 05/29/18 19:45 Nasal Cannula 4.0 36 05/29/18 19:45 81 21 Nasal Cannula 4.0 36 Intake and Output 05/29/18 05/30/18 19:00 07:00 Intake Total 250 ml 240 ml Output Total 800 ml Balance 250 ml -560 ml Intake Oral 250 ml 240 ml Output Urine Total 800 ml # Voids 5 # Bowel Movements 1 Laboratory Tests 05/29/18 18:30: Arterial Blood pH 7.479H, Arterial Blood Partial Pressure CO2 54.0H, Arterial Blood Partial Pressure O2 79.8, Arterial Blood HCO3 39.2H, Arterial Blood Oxygen Saturation 95.8, Arterial Blood Base Excess 13.5*H, [place] Test Positive 05/29/18 20:25: Sodium Level 137, Potassium Level 3.9#, Chloride Level 94L, Carbon Dioxide Level 40H, Anion Gap 3L, Blood Urea Nitrogen 12, Creatinine 0.7, Estimat Glomerular Filtration Rate , Glucose Level 115H, Calcium Level 8.2L 05/30/18 11:50: Arterial Blood pH 7.400, Arterial Blood Partial Pressure CO2 68.2*H, Arterial Blood Partial Pressure O2 106.2H, Arterial Blood HCO3 41.3*H, Arterial Blood Oxygen Saturation 97.7, Arterial Blood Base Excess 13.5*H, [place] Test Positive Height (Feet): 4 Height (Inches): 9.00 Weight (Pounds): 117 Objective General: alert, cooperative, no distress, appears stated age Head: normocephalic, without obvious abnormality, atraumatic Eyes: conjunctivae/corneas clear. PERRL, EOM's intact Throat: lips, mucosa, and tongue normal. MMM Neck: supple, symmetrical, trachea midline, and no JVD Lungs: clear to auscultation bilaterally Heart: regular rate and rhythm, S1, S2 normal, no murmur, click, rub or gallop Abdomen: soft, non-tender, non-distended, bowel sounds normal; no masses or organomegaly Extremities: extremities normal, atraumatic, no cyanosis or edema Pulses: 2+ and symmetric Skin: skin color, texture, turgor normal; no rashes or lesions Neurologic: grossly normal, no focal deficits Megan Lockwood MD May 30, 2018 16:37
--- NOTE | 2018-05-30 17:00 | NUR ---
NURSE NOTES: Made attempt to paged Dr. Holbrook about patient unable to tolerated food and medications. In addition, poor appetite and drowsy.
--- NOTE | 2018-05-30 19:45 | NUR ---
NURSE NOTES: Received report from RADHA La. Pt is resting in bed. In no acute distress. IV line intact and patent. Family at bedside. Bed in lowest position, call light within reach. Will continue plan of care.
[2018-05-30 20:00] VITALS: BP 121/68
--- NOTE | 2018-05-30 20:05 | NUR ---
HAND-OFF: Report given to Stephy Farris. Will follow up with Bipap order by Dr. Lua. Patient is drowsy/sleepy and resting at bed. Family is at bedside. Had poor appetite today.
--- NOTE | 2018-05-30 20:06 | NUR ---
Received pt from RADHA La.
[2018-05-31] VITALS: BP 107/73
[2018-05-31 04:00] VITALS: BP 109/60
--- NOTE | 2018-05-31 07:40 | NUR ---
NURSE NOTES: Received report from Brenton GARCIA. Pt is asleep in bed, opens eyes to voice/touch, however is drowsy/lethargic. Per report pt is [place]ian speaking. No signs/symptoms of pain/discomfort noted; on 2L of oxygen via nasal cannula at sP02 98%. Skin has rash/blister and skin tear on buttocks, will cover with optifoam dressing after perineal care. IV access on right wrist #22G, saline lock, patent/intact. External catheter in place, draining clear/yellow urine. Pt is placed on fall and aspiration precautions, head of bed at 30 degrees, height of bed in lowest position, three side rails up, brakes engaged, alarm on, call light within easy reach. Will continue to monitor pt and follow plan of care per MD orders and protocol.
--- NOTE | 2018-05-31 07:52 | NUR ---
HAND-OFF: Report given to RADHA Salvador.
[2018-05-31 08:00] VITALS: BP 111/69
--- NOTE | 2018-05-31 08:07 | NUR ---
CASE MANAGEMENT:REVIEW 05/31/2018 SI: AC/CHR CHF W/EF25%. SEVERE AORTIC STENOSIS RESPIRATORY FAILURE T 98.4 HR 78 RR 20 B/P 109/60 SATS 98% ON FACIAL FiO2 35 NO LABS TODAY IS: COREG PO Q12H ASA PO QD FLONASE QD ZYPREXA PO BID LISINOPRIL PO QD HEPARIN SUBQ Q12H : TELEMETRY STATUS DCP: FROM HOME PLAN: CXR RESTRICT SODIUM DYSPHAGIA DIET HOLD LASIX
[2018-05-31] MEDS: Lisinopril 2.5mg tab ORAL SCH ×2 (09:00→10:10)
[2018-05-31] MEDS: OLANZapine 2.5mg tab ORAL SCH ×3 (09:00→17:27)
[2018-05-31] MEDS: Calcium Carbonate 500mg w/Vit D 200iu tab ORAL SCH ×2 (09:00→10:10)
[2018-05-31] MEDS: Docusate 100mg/10ml Liq ORAL SCH ×3 (09:00→21:39)
[2018-05-31] MEDS: Allopurinol 100mg Tab ORAL SCH ×2 (09:00→10:09)
[2018-05-31] MEDS: Flonase Nasal Inhaler 16gm NASAL SCH (09:00)
[2018-05-31] MEDS: Aspirin Baby 81mg ORAL SCH ×2 (09:00→10:07)
--- NOTE | 2018-05-31 09:59 | Diagnostic Imaging Report ---
EXAM: XR Chest, 1 View CLINICAL HISTORY: DYSPNEA TECHNIQUE: Frontal view of the chest. COMPARISON: Chest x-rays dated 05/29/18 FINDINGS: Lungs: No significant change in diffusely increased interstitial markings likely representing pulmonary vascular congestion versus pulmonary edema. Pleural space: Small bilateral pleural effusions, unchanged. Heart: Cardiomegaly. Mediastinum: Unremarkable. Bones/joints: S-shaped thoracolumbar scoliotic curvature with mild degenerative changes. Vasculature: Atherosclerotic calcifications are noted within the aortic arch. Tubes, lines and devices: Telemetry leads overlie the thorax. IMPRESSION: 1. No significant change in diffusely increased interstitial markings likely representing pulmonary vascular congestion versus pulmonary edema. 2. Small bilateral pleural effusions, unchanged. 3. Cardiomegaly.
[2018-05-31] MEDS: Heparin 5000 units/ml inj SUBQ SCH ×2 (10:06→21:40)
[2018-05-31 12:00] VITALS: BP 111/79
--- NOTE | 2018-05-31 12:05 | Nephrology Progress Note ---
Assessment/Plan Problem List: (1) Hyponatremia Assessment: resolved (2) Acute CHF Assessment: improved (3) HTN (hypertension) Assessment: BP Ok (4) Hypokalemia Assessment: ok (5) Hypomagnesemia (6) Metabolic alkalosis with respiratory acidosis Plan BMP in AM Add Diamox Discussed with dr Lua Subjective Subjective In NAD Objective Objective Last 24 Hour Vital Signs Date Time Temp Pulse Resp B/P (MAP) Pulse Ox O2 Delivery O2 Flow Rate FiO2 05/31/18 08:00 97.9 79 18 111/69 (83) 99 05/31/18 08:00 83 05/31/18 06:49 Nasal Cannula 3.0 32 05/31/18 06:49 80 16 Nasal Cannula 3.0 32 05/31/18 06:49 97 Nasal Cannula 3.0 32 05/31/18 05:48 79 24 99 Facial 35 05/31/18 04:00 98.4 78 20 109/60 (76) 98 05/31/18 04:00 35 05/31/18 04:00 78 05/31/18 03:46 84 20 98 Facial 35 05/31/18 01:42 84 21 99 Facial 35 05/31/18 00:00 35 05/31/18 00:00 98.4 81 20 107/73 (84) 98 05/31/18 00:00 81 05/30/18 23:21 82 18 99 Facial 35 05/30/18 22:00 35 05/30/18 21:35 99 18 99 Facial 35 05/30/18 21:35 Bi-pap 35 05/30/18 21:35 99 Bi-pap 35 05/30/18 21:35 99 18 Bi-pap 35 05/30/18 21:31 86 112/62 05/30/18 21:00 Nasal Cannula 2.0 05/30/18 20:00 73 05/30/18 20:00 98.6 73 20 121/68 (85) 99 05/30/18 16:21 85 05/30/18 16:00 96.4 86 18 110/62 (78) 96 05/30/18 12:00 96.4 69 18 114/90 (98) 95 05/30/18 11:51 69 Intake and Output 05/30/18 05/31/18 18:59 06:59 Intake Total 50 ml Output Total 800 ml Balance -750 ml Intake Oral 50 ml Output Urine Total 800 ml # Voids 2 Laboratory Tests 05/31/18 08:55: Arterial Blood pH 7.389, Arterial Blood Partial Pressure CO2 63.7*H, Arterial Blood Partial Pressure O2 79.0, Arterial Blood HCO3 37.6H, Arterial Blood Oxygen Saturation 94.9L, Arterial Blood Base Excess 10.3*H, [place] Test Positive Height (Feet): 4 Height (Inches): 9.00 Weight (Pounds): 115 Cardiovascular: normal rate Respiratory/Chest: lungs clear Extremities: other - no edema Yang Gibson MD May 31, 2018 12:05
--- NOTE | 2018-05-31 12:39 | Pulmonology Progress Note ---
Assessment/Plan Problems: (1) Respiratory distress (2) Acute CHF (3) Hyponatremia (4) HTN (hypertension) (5) Dyspnea (6) GI hemorrhage Assessment/Plan ASSESSMENT: 83 F h/o dementia, AR, prior diverticular bleed a/w respiratory failure 2/2 ADHF and hypoNa PROBLEM LIST: Respiratory failure CHF with ADHF HypoNa H/O diverticular bleed H/O dementia AR AMS PLAN: Optimize pulmonary hygiene/mobilize as tolerated qhs and prn BiPAP 15/5, especially while getting diamox Diamox per renal. Monitor for uncompensated respiratory acidosis Titrate down FiO2 to keep SaO2 > 90% PRN HHN's Monitor volumes and renal function --> diuretics per cardiology Cardiology recs F/U renal recs, monitor NA Aspiration precautions, HELICOPTER DISPATCHER recs Monitor MS DVT Px: Hep SQ FC Subjective ROS Limited/Unobtainable: Yes Interval Events: unclear level of BiPAP use. More diamox ordered. No chem panel Allergies: Coded Allergies: PENICILLINS (Verified Allergy, Severe, HIVES AROUND NECK/THROAT/ DIFFICULTY BREATHING, 11/01/17) Objective Last 24 Hour Vital Signs Date Time Temp Pulse Resp B/P (MAP) Pulse Ox O2 Delivery O2 Flow Rate FiO2 05/31/18 08:00 97.9 79 18 111/69 (83) 99 05/31/18 08:00 83 05/31/18 06:49 Nasal Cannula 3.0 32 05/31/18 06:49 80 16 Nasal Cannula 3.0 32 05/31/18 06:49 97 Nasal Cannula 3.0 32 05/31/18 05:48 79 24 99 Facial 35 05/31/18 04:00 98.4 78 20 109/60 (76) 98 05/31/18 04:00 35 05/31/18 04:00 78 05/31/18 03:46 84 20 98 Facial 35 05/31/18 01:42 84 21 99 Facial 35 05/31/18 00:00 35 05/31/18 00:00 98.4 81 20 107/73 (84) 98 05/31/18 00:00 81 05/30/18 23:21 82 18 99 Facial 35 05/30/18 22:00 35 05/30/18 21:35 99 18 99 Facial 35 05/30/18 21:35 Bi-pap 35 05/30/18 21:35 99 Bi-pap 35 05/30/18 21:35 99 18 Bi-pap 35 05/30/18 21:31 86 112/62 05/30/18 21:00 Nasal Cannula 2.0 05/30/18 20:00 73 05/30/18 20:00 98.6 73 20 121/68 (85) 99 05/30/18 16:21 85 05/30/18 16:00 96.4 86 18 110/62 (78) 96 Intake and Output 05/30/18 05/31/18 19:00 07:00 Intake Total 50 ml Output Total 800 ml Balance -750 ml Intake Oral 50 ml Output Urine Total 800 ml # Voids 2 General Appearance: no acute distress HEENT: atraumatic, anicteric, mucous membranes moist Respiratory/Chest: crackles/rales Cardiovascular: normal rate, regular rhythm Abdomen: soft, non tender Extremities: no edema Laboratory Tests 05/31/18 08:55: Arterial Blood pH 7.389, Arterial Blood Partial Pressure CO2 63.7*H, Arterial Blood Partial Pressure O2 79.0, Arterial Blood HCO3 37.6H, Arterial Blood Oxygen Saturation 94.9L, Arterial Blood Base Excess 10.3*H, [place]ville Test Positive Current Medications Medications (Trade) Dose Ordered Sig/Violet Route PRN Reason Start Time Stop Time Status Last Admin Dose Admin Acetazolamide (Diamox 500mg Inj) 250 mg EVERY 12 HOURS IVP 05/31/18 13:30 06/30/18 13:29 Allopurinol (Zyloprim) 100 mg DAILY ORAL 05/27/18 09:00 06/25/18 08:59 05/29/18 09:58 Aspirin (ASA) 81 mg DAILY ORAL 05/27/18 09:00 06/25/18 08:59 05/29/18 09:58 Calcium Carbonate (OsCal D) 1 tab DAILY ORAL 05/27/18 09:00 06/25/18 08:59 05/29/18 09:58 Carvedilol (Coreg) 3.125 mg EVERY 12 HOURS ORAL 05/27/18 21:00 06/26/18 20:59 05/30/18 21:31 Dextrose (Dextrose 50%) 25 ml Q30M PRN IV Hypoglycemia 05/26/18 15:00 06/24/18 11:29 Dextrose (Dextrose 50%) 50 ml Q30M PRN IV Hypoglycemia 05/26/18 15:00 06/24/18 11:29 Docusate Sodium (Colace) 100 mg EVERY 12 HOURS ORAL 05/26/18 21:00 06/24/18 20:59 05/30/18 21:27 Fluticasone Propionate (Flonase) 1 spray DAILY NASAL 05/27/18 09:00 06/25/18 08:59 05/31/18 09:00 Haloperidol Lactate (Haldol) 5 mg Q6H PRN IM Agitation 05/26/18 19:45 06/25/18 19:44 05/30/18 00:27 Heparin Sodium (Porcine) (Heparin 5000 units/ml) 5,000 units Q12HR SUBQ 05/26/18 21:00 06/24/18 20:59 05/31/18 10:06 Lisinopril (Zestril) 2.5 mg DAILY ORAL 05/27/18 09:00 06/26/18 08:59 05/29/18 09:58 Magnesium Hydroxide (Mom) 30 ml HSPRN PRN ORAL Constipation 05/26/18 21:00 06/24/18 20:59 Olanzapine (ZyPREXA) 2.5 mg BID ORAL 05/27/18 09:00 06/26/18 08:59 05/30/18 18:33 Ondansetron HCl (Zofran) 4 mg Q6H PRN IVP Nausea & Vomiting 05/26/18 14:53 06/24/18 14:52 Tramadol HCl (Ultram) 50 mg BIDPRN PRN ORAL PAIN 4-10 05/26/18 14:54 06/02/18 14:53 Kevin Lua MD May 31, 2018 12:39
--- NOTE | 2018-05-31 13:42 | General Progress Note ---
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 #Essential HTN #Metabolic alkalosis -hold Lasix due to contraction alkalosis -continue Coreg and lisinopril -monitor I&O -Daily weights -Restrict sodium intake -TTE results reviewed -dysphagia diet -aspiration precautions -CT chest results reviewed -Cardiology following -Pulmonology following #Hypokalemia #Hypomagnesemia -replace intravenously #Hyponatremia -secondary to hypervolemic state -resolved -continue to treated acute CHF #Hypokalemia -improved -continue to monitor #Dementia #Acute metabolic encephalopathy, present on admission #Severe agitation -supportive care -aspiration and fall precautions -continue Zyprexa -psychiatry following VTE PPx Heparin SC Full Code I spent 45 minutes on this patient's case, and 26 minutes was dedicated to counseling and/or care coordination. Subjective Date patient seen: May 31, 2018 Time patient seen: 13:41 ROS Limited/Unobtainable: No Allergies: Coded Allergies: PENICILLINS (Verified Allergy, Severe, HIVES AROUND NECK/THROAT/ DIFFICULTY BREATHING, 11/01/17) Subjective No acute overnight events, no new complaints. Objective Last 24 Hour Vital Signs Date Time Temp Pulse Resp B/P (MAP) Pulse Ox O2 Delivery O2 Flow Rate FiO2 05/31/18 08:00 97.9 79 18 111/69 (83) 99 05/31/18 08:00 83 05/31/18 06:49 Nasal Cannula 3.0 32 05/31/18 06:49 80 16 Nasal Cannula 3.0 32 05/31/18 06:49 97 Nasal Cannula 3.0 32 05/31/18 05:48 79 24 99 Facial 35 05/31/18 04:00 98.4 78 20 109/60 (76) 98 05/31/18 04:00 35 05/31/18 04:00 78 05/31/18 03:46 84 20 98 Facial 35 05/31/18 01:42 84 21 99 Facial 35 05/31/18 00:00 35 05/31/18 00:00 98.4 81 20 107/73 (84) 98 05/31/18 00:00 81 05/30/18 23:21 82 18 99 Facial 35 05/30/18 22:00 35 05/30/18 21:35 99 18 99 Facial 35 05/30/18 21:35 Bi-pap 35 05/30/18 21:35 99 Bi-pap 35 05/30/18 21:35 99 18 Bi-pap 35 05/30/18 21:31 86 112/62 05/30/18 21:00 Nasal Cannula 2.0 05/30/18 20:00 73 05/30/18 20:00 98.6 73 20 121/68 (85) 99 05/30/18 16:21 85 05/30/18 16:00 96.4 86 18 110/62 (78) 96 Intake and Output 05/30/18 05/31/18 19:00 07:00 Intake Total 50 ml Output Total 800 ml Balance -750 ml Intake Oral 50 ml Output Urine Total 800 ml # Voids 2 Laboratory Tests 05/31/18 08:55: Arterial Blood pH 7.389, Arterial Blood Partial Pressure CO2 63.7*H, Arterial Blood Partial Pressure O2 79.0, Arterial Blood HCO3 37.6H, Arterial Blood Oxygen Saturation 94.9L, Arterial Blood Base Excess 10.3*H, [place]ville Test Positive Height (Feet): 4 Height (Inches): 9.00 Weight (Pounds): 115 Objective General: alert, cooperative, no distress, appears stated age Head: normocephalic, without obvious abnormality, atraumatic Eyes: conjunctivae/corneas clear. PERRL, EOM's intact Throat: lips, mucosa, and tongue normal. MMM Neck: supple, symmetrical, trachea midline, and no JVD Lungs: clear to auscultation bilaterally Heart: regular rate and rhythm, S1, S2 normal, no murmur, click, rub or gallop Abdomen: soft, non-tender, non-distended, bowel sounds normal; no masses or organomegaly Extremities: extremities normal, atraumatic, no cyanosis or edema Pulses: 2+ and symmetric Skin: skin color, texture, turgor normal; no rashes or lesions Neurologic: grossly normal, no focal deficits Megan Lockwood MD May 31, 2018 13:42
--- NOTE | 2018-05-31 14:42 | Cardiology Progress Note ---
Assessment/Plan Problem List: (1) Sinus bradycardia (2) SVT (supraventricular tachycardia) (3) Acute CHF (4) HTN (hypertension) Status: stable, unchanged Status Narrative Pt adm w/ decompensated systolic HF. EF 25-30% by echo She has intermittent SB, to 30s, ? during sleep Assessment/Plan Continue diamox ( met alkalosis), lisinopril, coreg Continue telemetry monitoring - SB, possibly due to inc vagal tone. No symtomatic bradycardia Subjective ROS Limited/Unobtainable: Yes Subjective Cardiology for Dr. Nichols Pt remains sedated. Events noted. Objective Last 24 Hour Vital Signs Date Time Temp Pulse Resp B/P (MAP) Pulse Ox O2 Delivery O2 Flow Rate FiO2 05/31/18 08:00 97.9 79 18 111/69 (83) 99 05/31/18 08:00 83 05/31/18 06:49 Nasal Cannula 3.0 32 05/31/18 06:49 80 16 Nasal Cannula 3.0 32 05/31/18 06:49 97 Nasal Cannula 3.0 32 05/31/18 05:48 79 24 99 Facial 35 05/31/18 04:00 98.4 78 20 109/60 (76) 98 05/31/18 04:00 35 05/31/18 04:00 78 05/31/18 03:46 84 20 98 Facial 35 05/31/18 01:42 84 21 99 Facial 35 05/31/18 00:00 35 05/31/18 00:00 98.4 81 20 107/73 (84) 98 05/31/18 00:00 81 05/30/18 23:21 82 18 99 Facial 35 05/30/18 22:00 35 05/30/18 21:35 99 18 99 Facial 35 05/30/18 21:35 Bi-pap 35 05/30/18 21:35 99 Bi-pap 35 05/30/18 21:35 99 18 Bi-pap 35 05/30/18 21:31 86 112/62 05/30/18 21:00 Nasal Cannula 2.0 05/30/18 20:00 73 05/30/18 20:00 98.6 73 20 121/68 (85) 99 05/30/18 16:21 85 05/30/18 16:00 96.4 86 18 110/62 (78) 96 General Appearance: WD/WN, lethargic, obese EENT: PERRL/EOMI Neck: supple, no JVD Cardiovascular: normal rate, regular rhythm, no gallop/murmur Respiratory/Chest: other - shallow respirations. clear Abdomen: normal bowel sounds, non tender, soft Extremities: no swelling Intake and Output 05/30/18 05/31/18 19:00 07:00 Intake Total 50 ml Output Total 800 ml Balance -750 ml Intake Oral 50 ml Output Urine Total 800 ml # Voids 2 Laboratory Tests Test 05/31/18 08:55 Arterial Blood pH 7.389 (7.350-7.450) Arterial Blood Partial Pressure CO2 63.7 mmHg (35.0-45.0) *H Arterial Blood Partial Pressure O2 79.0 mmHg (75.0-100.0) Arterial Blood HCO3 37.6 mmol/L (22.0-26.0) H Arterial Blood Oxygen Saturation 94.9 % (95-100) L Arterial Blood Base Excess 10.3 (-2-2) *H Orville Test Positive Sarah Nazario MD May 31, 2018 14:42
[2018-05-31] MEDS: acetaZOLAMIDE 500mg Inj IVP SCH ×2 (14:55→21:39)
[2018-05-31 16:00] VITALS: BP 125/77
--- NOTE | 2018-05-31 16:21 | Consultation ---
History of Present Illness General Chief Complaint: Edema Present Illness Allergies: Coded Allergies: PENICILLINS (Verified Allergy, Severe, HIVES AROUND NECK/THROAT/ DIFFICULTY BREATHING, 11/01/17) Medication History Scheduled Allopurinol* (Allopurinol*), 100 MG ORAL DAILY, (Reported) Aspirin (Aspirin), 81 MG PO DAILY, (Reported) Atenolol (Tenormin), 25 MG ORAL DAILY, (Reported) Calcium Carbonate/Vitamin D3 (Oyster Shell 500 Mg + Vit D Tb), 1 EACH PO DAILY, (Reported) Fluticasone Propionate* (Fluticasone Propionate*), 1 SPRAY NASAL DAILY, ( Reported) Lorazepam* (Lorazepam*), 1 MG ORAL THREE TIMES A DAY, (Reported) Olopatadine HCl (Pazeo), 2.5 ML OP DAILY, (Reported) Olopatadine Hcl (Pataday), 2.5 ML OP DAILY, (Reported) Trimethoprim/Sulfamethoxazole (Bactrim Ds Tablet), 1 TAB ORAL Q12H Scheduled PRN Tramadol Hcl* (Ultram*), 50 MG ORAL TWICE A DAY PRN for For Pain, (Reported) Patient History Healthcare decision maker Resuscitation status Full Code Advanced Directive on File Physical Exam Last 24 Hour Vital Signs Date Time Temp Pulse Resp B/P (MAP) Pulse Ox O2 Delivery O2 Flow Rate FiO2 05/31/18 08:00 97.9 79 18 111/69 (83) 99 05/31/18 08:00 83 05/31/18 06:49 Nasal Cannula 3.0 32 05/31/18 06:49 80 16 Nasal Cannula 3.0 32 05/31/18 06:49 97 Nasal Cannula 3.0 32 05/31/18 05:48 79 24 99 Facial 35 05/31/18 04:00 98.4 78 20 109/60 (76) 98 05/31/18 04:00 35 05/31/18 04:00 78 05/31/18 03:46 84 20 98 Facial 35 05/31/18 01:42 84 21 99 Facial 35 05/31/18 00:00 35 05/31/18 00:00 98.4 81 20 107/73 (84) 98 05/31/18 00:00 81 05/30/18 23:21 82 18 99 Facial 35 05/30/18 22:00 35 05/30/18 21:35 99 18 99 Facial 35 05/30/18 21:35 Bi-pap 35 05/30/18 21:35 99 Bi-pap 35 05/30/18 21:35 99 18 Bi-pap 35 05/30/18 21:31 86 112/62 05/30/18 21:00 Nasal Cannula 2.0 05/30/18 20:00 73 05/30/18 20:00 98.6 73 20 121/68 (85) 99 05/30/18 16:21 85 Intake and Output 05/30/18 05/31/18 19:00 07:00 Intake Total 50 ml Output Total 800 ml Balance -750 ml Intake Oral 50 ml Output Urine Total 800 ml # Voids 2 Laboratory Tests Test 05/31/18 08:55 Arterial Blood pH 7.389 (7.350-7.450) Arterial Blood Partial Pressure CO2 63.7 mmHg (35.0-45.0) *H Arterial Blood Partial Pressure O2 79.0 mmHg (75.0-100.0) Arterial Blood HCO3 37.6 mmol/L (22.0-26.0) H Arterial Blood Oxygen Saturation 94.9 % (95-100) L Arterial Blood Base Excess 10.3 (-2-2) *H Orville Test Positive Height (Feet): 4 Height (Inches): 9.00 Weight (Pounds): 115 Medications Current Medications Medications (Trade) Dose Ordered Sig/Violet Route PRN Reason Start Time Stop Time Status Last Admin Dose Admin Acetazolamide (Diamox 500mg Inj) 250 mg EVERY 12 HOURS IVP 05/31/18 13:30 06/30/18 13:29 05/31/18 14:55 Allopurinol (Zyloprim) 100 mg DAILY ORAL 05/27/18 09:00 06/25/18 08:59 05/29/18 09:58 Aspirin (ASA) 81 mg DAILY ORAL 05/27/18 09:00 06/25/18 08:59 05/29/18 09:58 Calcium Carbonate (OsCal D) 1 tab DAILY ORAL 05/27/18 09:00 06/25/18 08:59 05/29/18 09:58 Carvedilol (Coreg) 3.125 mg EVERY 12 HOURS ORAL 05/27/18 21:00 06/26/18 20:59 05/30/18 21:31 Dextrose (Dextrose 50%) 25 ml Q30M PRN IV Hypoglycemia 05/26/18 15:00 06/24/18 11:29 Dextrose (Dextrose 50%) 50 ml Q30M PRN IV Hypoglycemia 05/26/18 15:00 06/24/18 11:29 Docusate Sodium (Colace) 100 mg EVERY 12 HOURS ORAL 05/26/18 21:00 06/24/18 20:59 05/30/18 21:27 Fluticasone Propionate (Flonase) 1 spray DAILY NASAL 05/27/18 09:00 06/25/18 08:59 05/31/18 09:00 Haloperidol Lactate (Haldol) 5 mg Q6H PRN IM Agitation 05/26/18 19:45 06/25/18 19:44 05/30/18 00:27 Heparin Sodium (Porcine) (Heparin 5000 units/ml) 5,000 units Q12HR SUBQ 05/26/18 21:00 06/24/18 20:59 05/31/18 10:06 Lisinopril (Zestril) 2.5 mg DAILY ORAL 05/27/18 09:00 06/26/18 08:59 05/29/18 09:58 Magnesium Hydroxide (Mom) 30 ml HSPRN PRN ORAL Constipation 05/26/18 21:00 06/24/18 20:59 Olanzapine (ZyPREXA) 2.5 mg BID ORAL 05/27/18 09:00 06/26/18 08:59 05/30/18 18:33 Ondansetron HCl (Zofran) 4 mg Q6H PRN IVP Nausea & Vomiting 05/26/18 14:53 06/24/18 14:52 Tramadol HCl (Ultram) 50 mg BIDPRN PRN ORAL PAIN 4-10 05/26/18 14:54 06/02/18 14:53 Assessment/Plan Assessment/Plan Hematology Consult Date seen: 05/31/18 Time patient seen: 12:15 Reason for Hospitalization: Edema REQ : Fabián RFC: Anemia and leukopenia HPI 83 year old woman with HTN, history of GI bleed, history of moderate dementia who presents from home by daughter due to severe edema on BLE, progressing over 2-3 weeks. Also with fatigue, dyspnea and abdominal distension. No chest pain, fever or chills reported. In ED she was noted to have oxygenation saturation of 78% on room room air and was put on non-breather mask - she was ultimately placed on NIPPV due to respiratory distress. Initial workup suggested fluid overload, acute CHF - she was given Lasix 60mg IV, 250 ml diureses thus far. Patient is not on diuretics chronically. Noticed to have developed low wbc and anemia and heme consulted Social History: No alcohol or tobacco Family History:No CAD Allergies: Coded Allergies: PENICILLINS (Verified Allergy, Severe, HIVES AROUND NECK/THROAT/ DIFFICULTY BREATHING, 11/01/17) Medication History Scheduled Allopurinol* (Allopurinol*), 100 MG ORAL DAILY, (Reported) Aspirin (Aspirin), 81 MG PO DAILY, (Reported) Atenolol (Tenormin), 25 MG ORAL DAILY, (Reported) Calcium Carbonate/Vitamin D3 (Oyster Shell 500 Mg + Vit D Tb), 1 EACH PO DAILY, (Reported) Fluticasone Propionate* (Fluticasone Propionate*), 1 SPRAY NASAL DAILY, ( Reported) Lorazepam* (Lorazepam*), 1 MG ORAL THREE TIMES A DAY, (Reported) Olopatadine HCl (Pazeo), 2.5 ML OP DAILY, (Reported) Olopatadine Hcl (Pataday), 2.5 ML OP DAILY, (Reported) Trimethoprim/Sulfamethoxazole (Bactrim Ds Tablet), 1 TAB ORAL Q12H Scheduled PRN Tramadol Hcl* (Ultram*), 50 MG ORAL TWICE A DAY PRN for For Pain, (Reported) Patient History Healthcare decision maker Resuscitation status Advanced Directive on File ROS Review of Systems Respiratory: Reports: cough, shortness of breath Cardiovascular: Reports: edema; Denies: chest pain Gastrointestinal: Denies: abdominal pain ROS Narrative Limited ROS as patient is on BiPAP Physical Exam Physical Exam General Appearance: no apparent distress, alert HEENT: normocephalic, atraumatic Neck: non-tender, normal alignment Respiratory/Chest: chest wall non-tender, lungs clear Cardiovascular/Chest: normal peripheral pulses, normal rate, regular rhythm Abdomen: normal bowel sounds, non tender, soft Extremities: severe edema Skin Exam: normal pigmentation, warm/dry Musculoskeletal: normal muscle bulk Active Scripts Medications Dose Route/Sig Max Daily Dose Days Date Category Allopurinol* (Allopurinol) 100 Mg Tablet 100 Mg ORAL DAILY 05/25/18 Reported Oyster Shell 500 Mg + Vit D Tb (Calcium Carbonate/Vitamin D3) 1 Each Tablet 1 Each PO DAILY 05/25/18 Reported Lorazepam* (Lorazepam) 1 Mg Tablet 1 Mg ORAL THREE TIMES A DAY 05/25/18 Reported Fluticasone Propionate* (Fluticasone Propionate) 16 Gm Marbury.susp 1 [place] NASAL DAILY 05/25/18 Reported Bactrim Ds Tablet (Trimethoprim/Sulfamethoxazole) 1 Each Tablet 1 Tab ORAL Q12H 3 11/03/17 Rx Pataday (Olopatadine Hcl) 2.5 Ml Drops 2.5 Ml OP DAILY 10/30/17 Reported Pazeo (Olopatadine HCl) 2.5 Ml Drops 2.5 Ml OP DAILY 10/30/17 Reported Aspirin 81 Mg Tab.chew 81 Mg PO DAILY 10/30/17 Reported Ultram* (Tramadol HCl) 50 Mg Tablet 50 Mg ORAL TWICE A DAY PRN 10/30/17 Reported Tenormin (Atenolol) 25 Mg Tablet 25 Mg ORAL DAILY 10/30/17 Reported Laboratory Tests Test 05/31/18 08:55 Arterial Blood pH 7.389 (7.350-7.450) Arterial Blood Partial Pressure CO2 63.7 mmHg (35.0-45.0) *H Arterial Blood Partial Pressure O2 79.0 mmHg (75.0-100.0) Arterial Blood HCO3 37.6 mmol/L (22.0-26.0) H Arterial Blood Oxygen Saturation 94.9 % (95-100) L Arterial Blood Base Excess 10.3 (-2-2) *H Orville Test Positive Assessment/Plan: # Anemia of chronic disease (or of iron deficiency) due to underlying chronic medical issues, multifactorial --> Anemia workup has been ordered --> No evidence of hemolysis is noted, peripheral smear has been reviewed. --> Hgb goal >7. Transfuse prn. --> Epogen or iron at this time is not particularly indicated --> Medications have been reviewed # Leukopenia - multifactorial, could be medication related r/o underlying infection --> if the total ANC is less than 2000, consider neupogen --> continue antibiotics with ID service, appreciate recs --> medications have been reviewed --> hepatitis and hiv have been ordered # Acute on chronic CHF, unknown if systolic or diastolic at this time --> EF of 25%, seen by cards, appreciate recs # Acute hypoxic respiratory failure due to acute CHF # Essential HTN --> IV Lasix diuresis prn --> monitor I&O --> Daily weights # Hyponatremia # Dementia The timing of this note does not necessarily reflect the time of the patient was seen. Greatly appreciate consultation! Pepe Wilcox MD May 31, 2018 16:21
[2018-05-31 17:36] LABS: BASOPHILS % (AUTO) 0.6 % (0.0-2.0); EOSINOPHILS % (AUTO) 0.4 % (0.0-3.0); HEMATOCRIT 38.2 % (37.0-47.0); HEMOGLOBIN 11.5 G/DL (12.0-16.0); LYMPHOCYTES % (AUTO) 13.8 % (20.0-45.0); MEAN CORPUSCULAR VOLUME 83 FL (80-99); MONOCYTES % (AUTO) 9.2 % (1.0-10.0); PLATELET COUNT 303 K/UL (150-450); RED BLOOD COUNT 4.63 M/UL (4.20-5.40); RED CELL DISTRIBUTION WIDTH 17.1 % (11.6-14.8)
[2018-05-31 17:59] LABS: FERRITIN 78 NG/ML (8-388)
[2018-05-31 18:42] LABS: % IRON SATURATION 13 % (15-50); IRON 38 ug/dL (50-175); TOTAL IRON BINDING CAPACITY 293 ug/dL (250-450)
--- NOTE | 2018-05-31 19:30 | NUR ---
NURSE NOTES: Received pt from RADHA Salvador. Patient awake and resting in bed. IV line intact and patent. Bed in lowest position, call light within reach. Will continue with plan of care.
[2018-05-31 20:00] VITALS: BP 103/68
--- NOTE | 2018-05-31 20:12 | NUR ---
HAND-OFF: Report given to Brenton GARCIA. Pt is resting in bed in stable condition. Endorsed plan of care.
--- NOTE | 2018-05-31 23:47 | NUR ---
RESPIRATORY NOTE: Pt was placed from NC 3L/m to Bipap settings of IPAP 15, EPAP 5, FiO2 35%, back up rate of 16. pt tolerating no s/s of respiratory distress noted. RN is aware. pt has facial mask with tape to protect from skin breakdown. will continue to monitor pt. bipap is plugged into red outlet, alarms are on and audible. Addendum: 05/31/18 at 2359 by PAU BE, RT RT per order.
[2018-06-01] VITALS: BP 121/71
[2018-06-01] MEDS: Haloperidol 5mg/ml Inj IM PRN (02:45)
[2018-06-01 04:00] VITALS: BP 101/62
--- NOTE | 2018-06-01 05:45 | NUR ---
RESPIRATORY NOTE: RT took off bipap and placed pt on NC 3 L/m. O2 saturation 99%, no s/s of respiratory distress noted. RADHA ceja.
[2018-06-01 07:22] LABS: BASOPHILS % (AUTO) 0.4 % (0.0-2.0); EOSINOPHILS % (AUTO) 0.7 % (0.0-3.0); HEMATOCRIT 41.2 % (37.0-47.0); HEMOGLOBIN 12.5 G/DL (12.0-16.0); LYMPHOCYTES % (AUTO) 16.6 % (20.0-45.0); MEAN CORPUSCULAR VOLUME 82 FL (80-99); MONOCYTES % (AUTO) 9.8 % (1.0-10.0); NEUTROPHILS % (AUTO) 72.5 % (45.0-75.0); PLATELET COUNT 339 K/UL (150-450); RED BLOOD COUNT 5.02 M/UL (4.20-5.40); RED CELL DISTRIBUTION WIDTH 17.6 % (11.6-14.8); WHITE BLOOD COUNT 4.9 K/UL (4.8-10.8)
--- NOTE | 2018-06-01 07:30 | NUR ---
NURSE NOTES: Received report from Brenton GARCIA. Pt is asleep in bed, awakens to name/voice. On 3L of oxygen via nasal cannula, sP02 99%. No signs/symptoms of pain or any other discomfort noted. IV access on right wrist #[id number], saline lock, patent/intact. Skin has dressing in place on buttocks, dry/intact, will reassess and change as needed during my shift. Pt is on bedrest, call light is within easy reach, bed in lowest position, three side rails up, brakes engaged, alarm on. Addendum: 06/01/18 at 1834 by DEYVI MCINTYRE RN Pt was NPO since midnight previous shift pending abdominal ultrasound. Pt then refused lunch after the abdominal ultrasound, however consumed 100% of dinner.
--- NOTE | 2018-06-01 07:30 | NUR ---
HAND-OFF: Report given to RADHA Salvador.
--- NOTE | 2018-06-01 07:40 | NUR ---
CASE MANAGEMENT:REVIEW 06/01/18 SI: ACUTE RESPIRATORY FAILURE AC/CHR CHF W/EF 25%. SEVERE AORTIC STENOSIS 98.0 51 20 101/62 98% ON BIPAP PCO2+63.7 IS: IV DIAMOX Q12 COREG PO Q12 ASA PO QD LISINOPRIL PO QD HEPARIN SQ Q12 : TELEMETRY STATUS DCP: PATIENT CAME TO US FROM HOME
[2018-06-01 07:44] LABS: ANION GAP 6 mmol/L (5-15); BLOOD UREA NITROGEN 15 mg/dL (7-18); CARBON DIOXIDE 32 MMOL/L (21-32); CHLORIDE 100 MMOL/L (98-107); CREATININE 0.7 MG/DL (0.55-1.30); POTASSIUM 3.1 MMOL/L (3.5-5.1); SODIUM 138 MMOL/L (136-145)
[2018-06-01 08:00] VITALS: BP 118/76
--- NOTE | 2018-06-01 08:04 | NUR ---
NURSE NOTES:WOUND CARE NOTES:Pt presented daquan non-blanchable erythema without induration R and L gluteal clefts. Per primary nurse previously noted serous blister to L buttocks .Blister now reabsorbed and dry with non-blanchable erythema. Bilat heels boggy with non-blanchable erythema. All preventive protocols to prevent further skin breakdown initiated.Pt placed on APM /YANNICK mattress. Moisture Barrier paste applied to R and L buttocks . Cavilon Applied to heels ad each heel covered with Optifoam drsgs and off-loaded with pillow.Cavilon applied to both hips and covered with Optifoam drsgs as prevention. Tx.Plan:Apply Moisture Barrier to R and L buttocks .Cover with Optifoam drsg. Change every 3 days and prn. Apply Cavilon Skin Barrier to both hips. Cover each hip with Optifoam drsg.Change every 7 days and prn. Apply Cavilon Skin Barrier to both heels. Cover with Optifoam drsgs. Change every 7 days and prn. APM/YANNICK mattress. Reposition at least every 2hours or as tolerated. Off-load heels with pillow.
[2018-06-01] MEDS: OLANZapine 2.5mg tab ORAL SCH (09:00)
[2018-06-01] MEDS: Docusate 100mg/10ml Liq ORAL SCH ×2 (09:00→20:59)
[2018-06-01] MEDS: Heparin 5000 units/ml inj SUBQ SCH ×2 (09:11→21:01)
[2018-06-01] MEDS: Calcium Carbonate 500mg w/Vit D 200iu tab ORAL SCH (09:12)
[2018-06-01] MEDS: Aspirin Baby 81mg ORAL SCH (09:12)
[2018-06-01] MEDS: Allopurinol 100mg Tab ORAL SCH (09:12)
[2018-06-01] MEDS: Lisinopril 2.5mg tab ORAL SCH (09:12)
[2018-06-01] MEDS: acetaZOLAMIDE 500mg Inj IVP SCH (09:14)
[2018-06-01] MEDS: Flonase Nasal Inhaler 16gm NASAL SCH (09:15)
--- NOTE | 2018-06-01 10:54 | General Progress Note ---
Assessment/Plan Problem List: (1) Acute metabolic encephalopathy ICD Codes: G93.41 - Metabolic encephalopathy SNOMED: 19908193, 151716905 (2) Dementia with behavioral disturbance ICD Codes: F03.91 - Unspecified dementia with behavioral disturbance SNOMED: 1895304810568 Status: unchanged Assessment/Plan dc Zyprexa 2.5 mg Haldol prn the pt received a cocktail. soft restraints as needed Subjective Neurologic/Psychiatric: Reports: anxiety Allergies: Coded Allergies: PENICILLINS (Verified Allergy, Severe, HIVES AROUND NECK/THROAT/ DIFFICULTY BREATHING, 11/01/17) Subjective the pt has not been getting psychotropic the lethargy is due to abnormal ABG Objective Last 24 Hour Vital Signs Date Time Temp Pulse Resp B/P (MAP) Pulse Ox O2 Delivery O2 Flow Rate FiO2 06/01/18 09:12 95 118/76 06/01/18 09:12 118/76 06/01/18 09:00 Nasal Cannula 2.0 06/01/18 08:00 96.6 95 18 118/76 (90) 96 06/01/18 05:02 68 24 98 Facial 35 06/01/18 04:00 98.0 51 20 101/62 (75) 99 06/01/18 04:00 35 06/01/18 04:00 51 06/01/18 02:56 70 23 96 Facial 35 06/01/18 01:08 67 23 99 Facial 35 06/01/18 00:00 35 06/01/18 00:00 97.0 96 20 121/71 (88) 96 06/01/18 00:00 96 05/31/18 21:39 85 134/77 05/31/18 21:00 Nasal Cannula 2.0 05/31/18 20:47 95 Nasal Cannula 2.0 28 05/31/18 20:47 Nasal Cannula 2.0 28 05/31/18 20:47 78 20 Nasal Cannula 2.0 28 05/31/18 20:47 91 23 99 Facial 35 05/31/18 20:00 97.4 108 20 103/68 (80) 96 05/31/18 20:00 108 05/31/18 16:00 97.3 91 20 125/77 (93) 100 05/31/18 16:00 82 05/31/18 12:00 78 05/31/18 12:00 97.3 72 18 111/79 (90) 98 Intake and Output 05/31/18 06/01/18 18:59 06:59 Intake Total 50 ml 120 ml Balance 50 ml 120 ml Intake Oral 50 ml 120 ml # Voids 2 4 # Bowel Movements 2 Laboratory Tests 05/31/18 16:50: White Blood Count 5.0, Red Blood Count 4.63, Hemoglobin 11.5L, Hematocrit 38.2, Mean Corpuscular Volume 83, Mean Corpuscular Hemoglobin 24.9L, Mean Corpuscular Hemoglobin Concent 30.2L, Red Cell Distribution Width 17.1H, Platelet Count 303 , Mean Platelet Volume 4.6L, Neutrophils (%) (Auto) 76.0H, Lymphocytes (%) (Auto ) 13.8L, Monocytes (%) (Auto) 9.2, Eosinophils (%) (Auto) 0.4, Basophils (%) ( Auto) 0.6, Differential Total Cells Counted 100, Neutrophils % (Manual) 76H, Lymphocytes % (Manual) 17L, Monocytes % (Manual) 7, Eosinophils % (Manual) 0, Basophils % (Manual) 0, Band Neutrophils 0, Other Cell Type Pathologist comment , Platelet Estimate Adequate, Platelet Morphology Normal, Hypochromasia 1+, Anisocytosis 1+, Reticulocyte Count 0.4, Sickle Cell Screen [Pending], Fibrinogen 451H, Iron Level 38L, Total Iron Binding Capacity 293, Percent Iron Saturation 13L, Unsaturated Iron Binding 255, Ferritin 78, Methylmalonic Acid [ Pending], Folate 18.7, Hepatitis A IgM Antibody [Pending], Hepatitis B Surface Antigen [Pending], Hepatitis B Core IgM Antibody [Pending], Hepatitis C Antibody [Pending], HIV (1&2) Antibody Rapid Negative 06/01/18 06:05: White Blood Count 4.9, Red Blood Count 5.02, Hemoglobin 12.5, Hematocrit 41.2, Mean Corpuscular Volume 82, Mean Corpuscular Hemoglobin 24.9L, Mean Corpuscular Hemoglobin Concent 30.4L, Red Cell Distribution Width 17.6H, Platelet Count 339 , Mean Platelet Volume 5.0L, Neutrophils (%) (Auto) 72.5, Lymphocytes (%) (Auto ) 16.6L, Monocytes (%) (Auto) 9.8, Eosinophils (%) (Auto) 0.7, Basophils (%) ( Auto) 0.4, Sodium Level 138, Potassium Level 3.1L, Chloride Level 100, Carbon Dioxide Level 32, Anion Gap 6, Blood Urea Nitrogen 15, Creatinine 0.7, Estimat Glomerular Filtration Rate , Glucose Level 73L, Calcium Level 9.0 06/01/18 09:24: Arterial Blood pH 7.392, Arterial Blood Partial Pressure CO2 51.5H, Arterial Blood Partial Pressure O2 127.0H, Arterial Blood HCO3 30.6H, Arterial Blood Oxygen Saturation 98.2, Arterial Blood Base Excess 4.6H, Orville Test Positive Height (Feet): 4 Height (Inches): 9.00 Weight (Pounds): 110 General Appearance: no apparent distress, lethargic, confused Jackie Boyd MD Jun 01, 2018 10:54
[2018-06-01 12:00] VITALS: BP 125/66
--- NOTE | 2018-06-01 12:00 | NUR ---
NURSE NOTES: Verbal order received from Dr Aguayo to transfer pt to [facility] for abnormal ABG results, charge nurse notified. However, Dr Middleton saw pt, reviewed the ABG results and canceled the transfer, stating "pt is ok to stay at [facility], ABG results are improving". Dr Aguayo notified. Pt is currently resting in bed in low mathur's position, at 3L of oxygen via nasal cannula in no respiratory distress, with sP02 at 97%. Will continue to monitor pt and follow plan of care.
--- NOTE | 2018-06-01 12:17 | Nephrology Progress Note ---
Assessment/Plan Problem List: (1) Hyponatremia Assessment: resolved (2) Acute CHF Assessment: improved (3) HTN (hypertension) Assessment: BP Ok (4) Hypokalemia Assessment: worse (5) Hypomagnesemia (6) Metabolic alkalosis with respiratory acidosis Assessment: met alkalosis is better Plan Replete K BMP in AM Decrease Diamox NG tube Discussed with dr Middleton Subjective Subjective On BIPAP Objective Objective Last 24 Hour Vital Signs Date Time Temp Pulse Resp B/P (MAP) Pulse Ox O2 Delivery O2 Flow Rate FiO2 06/01/18 09:12 95 118/76 06/01/18 09:12 118/76 06/01/18 09:00 Nasal Cannula 2.0 06/01/18 08:00 96.6 95 18 118/76 (90) 96 06/01/18 05:02 68 24 98 Facial 35 06/01/18 04:00 98.0 51 20 101/62 (75) 99 06/01/18 04:00 35 06/01/18 04:00 51 06/01/18 02:56 70 23 96 Facial 35 06/01/18 01:08 67 23 99 Facial 35 06/01/18 00:00 35 06/01/18 00:00 97.0 96 20 121/71 (88) 96 06/01/18 00:00 96 05/31/18 21:39 85 134/77 05/31/18 21:00 Nasal Cannula 2.0 05/31/18 20:47 95 Nasal Cannula 2.0 28 05/31/18 20:47 Nasal Cannula 2.0 28 05/31/18 20:47 78 20 Nasal Cannula 2.0 28 05/31/18 20:47 91 23 99 Facial 35 05/31/18 20:00 97.4 108 20 103/68 (80) 96 05/31/18 20:00 108 05/31/18 16:00 97.3 91 20 125/77 (93) 100 05/31/18 16:00 82 Intake and Output 05/31/18 06/01/18 18:59 06:59 Intake Total 50 ml 120 ml Balance 50 ml 120 ml Intake Oral 50 ml 120 ml # Voids 2 4 # Bowel Movements 2 Laboratory Tests 05/31/18 16:50: White Blood Count 5.0, Red Blood Count 4.63, Hemoglobin 11.5L, Hematocrit 38.2, Mean Corpuscular Volume 83, Mean Corpuscular Hemoglobin 24.9L, Mean Corpuscular Hemoglobin Concent 30.2L, Red Cell Distribution Width 17.1H, Platelet Count 303 , Mean Platelet Volume 4.6L, Neutrophils (%) (Auto) 76.0H, Lymphocytes (%) (Auto ) 13.8L, Monocytes (%) (Auto) 9.2, Eosinophils (%) (Auto) 0.4, Basophils (%) ( Auto) 0.6, Differential Total Cells Counted 100, Neutrophils % (Manual) 76H, Lymphocytes % (Manual) 17L, Monocytes % (Manual) 7, Eosinophils % (Manual) 0, Basophils % (Manual) 0, Band Neutrophils 0, Other Cell Type Pathologist comment , Platelet Estimate Adequate, Platelet Morphology Normal, Hypochromasia 1+, Anisocytosis 1+, Reticulocyte Count 0.4, Sickle Cell Screen [Pending], Fibrinogen 451H, Iron Level 38L, Total Iron Binding Capacity 293, Percent Iron Saturation 13L, Unsaturated Iron Binding 255, Ferritin 78, Methylmalonic Acid [ Pending], Folate 18.7, Hepatitis A IgM Antibody [Pending], Hepatitis B Surface Antigen [Pending], Hepatitis B Core IgM Antibody [Pending], Hepatitis C Antibody [Pending], HIV (1&2) Antibody Rapid Negative 06/01/18 06:05: White Blood Count 4.9, Red Blood Count 5.02, Hemoglobin 12.5, Hematocrit 41.2, Mean Corpuscular Volume 82, Mean Corpuscular Hemoglobin 24.9L, Mean Corpuscular Hemoglobin Concent 30.4L, Red Cell Distribution Width 17.6H, Platelet Count 339 , Mean Platelet Volume 5.0L, Neutrophils (%) (Auto) 72.5, Lymphocytes (%) (Auto ) 16.6L, Monocytes (%) (Auto) 9.8, Eosinophils (%) (Auto) 0.7, Basophils (%) ( Auto) 0.4, Sodium Level 138, Potassium Level 3.1L, Chloride Level 100, Carbon Dioxide Level 32, Anion Gap 6, Blood Urea Nitrogen 15, Creatinine 0.7, Estimat Glomerular Filtration Rate , Glucose Level 73L, Calcium Level 9.0 06/01/18 09:24: Arterial Blood pH 7.392, Arterial Blood Partial Pressure CO2 51.5H, Arterial Blood Partial Pressure O2 127.0H, Arterial Blood HCO3 30.6H, Arterial Blood Oxygen Saturation 98.2, Arterial Blood Base Excess 4.6H, Orville Test Positive Height (Feet): 4 Height (Inches): 9.00 Weight (Pounds): 110 Cardiovascular: normal rate Respiratory/Chest: rhonchi - bilaterally Yang Gibosn MD Jun 01, 2018 12:17
--- NOTE | 2018-06-01 12:20 | Pulmonology Progress Note ---
Assessment/Plan Problems: (1) Acute CHF (2) Respiratory distress (3) Dyspnea (4) Sick-euthyroid syndrome (5) Altered mental state (6) Dementia with behavioral disturbance Assessment/Plan ASSESSMENT: 83 F h/o dementia, AR, prior diverticular bleed a/w respiratory failure 2/2 ADHF and hypoNa PROBLEM LIST: Respiratory failure CHF with ADHF HypoNa H/O diverticular bleed H/O dementia AR AMS PLAN: Optimize pulmonary hygiene/mobilize as tolerated D/C RTC BiPAP change to qHS and PRN only Titrate down FiO2 to keep SaO2 > 90% PRN HHN's Monitor volumes and renal function --> Diamox per renal Cardiology recs F/U renal recs, monitor NA Aspiration precautions, SPANISH LECTURER recs Consider placing NGT as barely eating Monitor MS, F/U psych recs DVT Px: Hep SQ FC D/W RN D/W Dr. Aguayo and Dr. Gibson Subjective Allergies: Coded Allergies: PENICILLINS (Verified Allergy, Severe, HIVES AROUND NECK/THROAT/ DIFFICULTY BREATHING, 11/01/17) Subjective Started on Diamox, gas exchange better AFVSS placed back BiPAP no cough no wheezing no SOB Objective Last 24 Hour Vital Signs Date Time Temp Pulse Resp B/P (MAP) Pulse Ox O2 Delivery O2 Flow Rate FiO2 06/01/18 09:12 95 118/76 06/01/18 09:12 118/76 06/01/18 09:00 Nasal Cannula 2.0 06/01/18 08:00 96.6 95 18 118/76 (90) 96 06/01/18 05:02 68 24 98 Facial 35 06/01/18 04:00 98.0 51 20 101/62 (75) 99 06/01/18 04:00 35 06/01/18 04:00 51 06/01/18 02:56 70 23 96 Facial 35 06/01/18 01:08 67 23 99 Facial 35 06/01/18 00:00 35 06/01/18 00:00 97.0 96 20 121/71 (88) 96 06/01/18 00:00 96 05/31/18 21:39 85 134/77 05/31/18 21:00 Nasal Cannula 2.0 05/31/18 20:47 95 Nasal Cannula 2.0 28 3/3/19 20:47 Nasal Cannula 2.0 28 05/31/18 20:47 78 20 Nasal Cannula 2.0 28 05/31/18 20:47 91 23 99 Facial 35 05/31/18 20:00 97.4 108 20 103/68 (80) 96 05/31/18 20:00 108 05/31/18 16:00 97.3 91 20 125/77 (93) 100 05/31/18 16:00 82 Intake and Output 05/31/18 06/01/18 18:59 06:59 Intake Total 50 ml 120 ml Balance 50 ml 120 ml Intake Oral 50 ml 120 ml # Voids 2 4 # Bowel Movements 2 General Appearance: no acute distress, cachetic - on BiPAP HEENT: normocephalic, atraumatic, anicteric, mucous membranes moist Respiratory/Chest: chest wall non-tender, lungs clear, normal breath sounds, no respiratory distress Cardiovascular: normal peripheral pulses, normal rate, regular rhythm Abdomen: normal bowel sounds, soft, non tender, no organomegaly, non distended , no mass Extremities: no cyanosis, no clubbing, no edema Laboratory Tests 05/31/18 16:50: White Blood Count 5.0, Red Blood Count 4.63, Hemoglobin 11.5L, Hematocrit 38.2, Mean Corpuscular Volume 83, Mean Corpuscular Hemoglobin 24.9L, Mean Corpuscular Hemoglobin Concent 30.2L, Red Cell Distribution Width 17.1H, Platelet Count 303 , Mean Platelet Volume 4.6L, Neutrophils (%) (Auto) 76.0H, Lymphocytes (%) (Auto ) 13.8L, Monocytes (%) (Auto) 9.2, Eosinophils (%) (Auto) 0.4, Basophils (%) ( Auto) 0.6, Differential Total Cells Counted 100, Neutrophils % (Manual) 76H, Lymphocytes % (Manual) 17L, Monocytes % (Manual) 7, Eosinophils % (Manual) 0, Basophils % (Manual) 0, Band Neutrophils 0, Other Cell Type Pathologist comment , Platelet Estimate Adequate, Platelet Morphology Normal, Hypochromasia 1+, Anisocytosis 1+, Reticulocyte Count 0.4, Sickle Cell Screen [Pending], Fibrinogen 451H, Iron Level 38L, Total Iron Binding Capacity 293, Percent Iron Saturation 13L, Unsaturated Iron Binding 255, Ferritin 78, Methylmalonic Acid [ Pending], Folate 18.7, Hepatitis A IgM Antibody [Pending], Hepatitis B Surface Antigen [Pending], Hepatitis B Core IgM Antibody [Pending], Hepatitis C Antibody [Pending], HIV (1&2) Antibody Rapid Negative 06/01/18 06:05: White Blood Count 4.9, Red Blood Count 5.02, Hemoglobin 12.5, Hematocrit 41.2, Mean Corpuscular Volume 82, Mean Corpuscular Hemoglobin 24.9L, Mean Corpuscular Hemoglobin Concent 30.4L, Red Cell Distribution Width 17.6H, Platelet Count 339 , Mean Platelet Volume 5.0L, Neutrophils (%) (Auto) 72.5, Lymphocytes (%) (Auto ) 16.6L, Monocytes (%) (Auto) 9.8, Eosinophils (%) (Auto) 0.7, Basophils (%) ( Auto) 0.4, Sodium Level 138, Potassium Level 3.1L, Chloride Level 100, Carbon Dioxide Level 32, Anion Gap 6, Blood Urea Nitrogen 15, Creatinine 0.7, Estimat Glomerular Filtration Rate , Glucose Level 73L, Calcium Level 9.0 06/01/18 09:24: Arterial Blood pH 7.392, Arterial Blood Partial Pressure CO2 51.5H, Arterial Blood Partial Pressure O2 127.0H, Arterial Blood HCO3 30.6H, Arterial Blood Oxygen Saturation 98.2, Arterial Blood Base Excess 4.6H, Orville Test Positive Current Medications Medications (Trade) Dose Ordered Sig/Violet Route PRN Reason Start Time Stop Time Status Last Admin Dose Admin Acetazolamide (Diamox 500mg Inj) 250 mg DAILY IVP 06/02/18 09:00 06/30/18 13:29 Allopurinol (Zyloprim) 100 mg DAILY ORAL 05/27/18 09:00 06/25/18 08:59 06/01/18 09:12 Aspirin (ASA) 81 mg DAILY ORAL 05/27/18 09:00 06/25/18 08:59 06/01/18 09:12 Calcium Carbonate (OsCal D) 1 tab DAILY ORAL 05/27/18 09:00 06/25/18 08:59 06/01/18 09:12 Carvedilol (Coreg) 3.125 mg EVERY 12 HOURS ORAL 05/27/18 21:00 06/26/18 20:59 06/01/18 09:12 Dextrose (Dextrose 50%) 25 ml Q30M PRN IV Hypoglycemia 05/26/18 15:00 06/24/18 11:29 Dextrose (Dextrose 50%) 50 ml Q30M PRN IV Hypoglycemia 05/26/18 15:00 06/24/18 11:29 Docusate Sodium (Colace) 100 mg EVERY 12 HOURS ORAL 05/26/18 21:00 06/24/18 20:59 05/31/18 21:39 Fluticasone Propionate (Flonase) 1 spray DAILY NASAL 05/27/18 09:00 06/25/18 08:59 06/01/18 09:15 Haloperidol Lactate (Haldol) 5 mg Q6H PRN IM Agitation 05/26/18 19:45 06/25/18 19:44 06/01/18 02:45 Heparin Sodium (Porcine) (Heparin 5000 units/ml) 5,000 units Q12HR SUBQ 05/26/18 21:00 06/24/18 20:59 06/01/18 09:11 Lisinopril (Zestril) 2.5 mg DAILY ORAL 05/27/18 09:00 06/26/18 08:59 06/01/18 09:12 Magnesium Hydroxide (Mom) 30 ml HSPRN PRN ORAL Constipation 05/26/18 21:00 06/24/18 20:59 Ondansetron HCl (Zofran) 4 mg Q6H PRN IVP Nausea & Vomiting 05/26/18 14:53 06/24/18 14:52 Tramadol HCl (Ultram) 50 mg BIDPRN PRN ORAL PAIN 4-10 05/26/18 14:54 06/02/18 14:53 Dionicio Middleton MD Jun 01, 2018 12:20
--- NOTE | 2018-06-01 14:52 | Diagnostic Imaging Report ---
Indication: Abdominal pain, palpable mass Technique: Pat-scale and duplex images of the upper abdomen were obtained. Doppler interrogation of the hepatic and pancreatic vessels Comparison: No comparison sonograms. Reference made to prior abdomen pelvis CT scan 10/30/2017 Findings: Gallbladder is surgically absent. Common bile duct measures 14 mm in diameter. No intrahepatic biliary ductal dilatation. Liver demonstrates normal echogenicity, no focal abnormality. Portal vein and hepatic veins are patent. Pancreas is unremarkable. Spleen is unremarkable. Left kidney measures 9.7 cm in length. Right kidney measures 10.7 cm length. Both kidneys demonstrate normal echogenicity. There is no hydronephrosis. Right kidney demonstrates a large lower pole cyst, also demonstrated on prior CT scan. Left kidney demonstrates a hypoechoic mass with an echogenic center in the lower pole measuring 18 mm diameter. This is not evident on prior CT . Non-aneurysmal abdominal aorta . Impression: Surgically absent gallbladder. Extrahepatic biliary ductal dilatation noted, similar in degree to or perhaps minimally increased from prior CT scan. Most likely related to age and postcholecystectomy state, but downstream obstruction not completely excludable, and correlation with liver function tests is advised. MRCP may be useful as clinically indicated for better characterization 18 mm hypoechoic left lower pole renal mass, not evident on recent CT scan. Recommended further evaluation with contrast CT Incidental finding right lower pole renal cyst
[2018-06-01 16:00] VITALS: BP 120/68
--- NOTE | 2018-06-01 17:13 | NUR ---
INSURANCE NCM: TAMIKA P- [phone] F- [phone].....REVIEW/CLINICAL PER B/AR INFO: #6 06/01/18 1220 DAMARIS WEIR PART-B/ DANN-COURTNEY / NEGRA LAST REVIEW SENT ON [facility] TO [facility] [place] [facility] [place]. Addendum: 06/01/18 at 1717 by Urmila Whitaker [facility] FAXED FROM 05/28-06/01/2018 TO NUMBER LISTED ABOVE
--- NOTE | 2018-06-01 17:30 | NUR ---
NURSE NOTES: Observed pt removing her gown and attempting to pull the oxygen cannula off her face. Provided reorientation, perineal care/bed linen change with the REJOINER, pt is calm now resting in bed.
--- NOTE | 2018-06-01 19:25 | General Progress Note ---
Assessment/Plan Assessment/Plan #Acute on chronic systolic CHF - TTE shows EF 25-30% #Severe aortic stenosis #Acute hypoxic respiratory failure due to acute CHF #High risk for aspiration per FACILITIES DIRECTOR #Essential HTN #Metabolic alkalosis - improved -hold Lasix due to contraction alkalosis -continue Coreg and lisinopril -monitor I&O -Daily weights -Restrict sodium intake -TTE results reviewed -dysphagia diet -aspiration precautions -CT chest results reviewed -Cardiology following -Pulmonology following -diamox decreased #Hypokalemia #Hypomagnesemia -replace intravenously -CTM #Hyponatremia -secondary to hypervolemic state -resolved -continue to treated acute CHF -REnal consult appreciated #Dementia #Acute metabolic encephalopathy, present on admission #Severe agitation -supportive care -aspiration and fall precautions -continue Zyprexa -psychiatry following VTE PPx Heparin SC Full Code I spent 45 minutes on this patient's case, and 26 minutes was dedicated to counseling and/or care coordination. Subjective Date patient seen: Jun 01, 2018 Allergies: Coded Allergies: PENICILLINS (Verified Allergy, Severe, HIVES AROUND NECK/THROAT/ DIFFICULTY BREATHING, 11/01/17) Subjective no acute overnight events, poor PO intake Objective Last 24 Hour Vital Signs Date Time Temp Pulse Resp B/P (MAP) Pulse Ox O2 Delivery O2 Flow Rate FiO2 06/01/18 16:00 94 06/01/18 16:00 97.3 88 16 120/68 (85) 95 06/01/18 12:00 97.1 69 16 125/66 (85) 100 06/01/18 12:00 67 06/01/18 09:33 98 Nasal Cannula 2.0 28 06/01/18 09:33 81 20 Nasal Cannula 2.0 28 06/01/18 09:33 Nasal Cannula 2.0 28 06/01/18 09:12 95 118/76 06/01/18 09:12 118/76 06/01/18 09:00 Nasal Cannula 2.0 06/01/18 08:00 96.6 95 18 118/76 (90) 96 06/01/18 08:00 93 06/01/18 05:02 68 24 98 Facial 35 06/01/18 04:00 98.0 51 20 101/62 (75) 99 06/01/18 04:00 35 06/01/18 04:00 51 06/01/18 02:56 70 23 96 Facial 35 06/01/18 01:08 67 23 99 Facial 35 06/01/18 00:00 35 06/01/18 00:00 97.0 96 20 121/71 (88) 96 06/01/18 00:00 96 05/31/18 21:39 85 134/77 05/31/18 21:00 Nasal Cannula 2.0 05/31/18 20:47 95 Nasal Cannula 2.0 28 05/31/18 20:47 Nasal Cannula 2.0 28 05/31/18 20:47 78 20 Nasal Cannula 2.0 28 05/31/18 20:47 91 23 99 Facial 35 05/31/18 20:00 97.4 108 20 103/68 (80) 96 05/31/18 20:00 108 Intake and Output 05/31/18 06/01/18 19:00 07:00 Intake Total 50 ml 120 ml Balance 50 ml 120 ml Intake Oral 50 ml 120 ml # Voids 2 4 # Bowel Movements 2 Laboratory Tests 06/01/18 06:05: White Blood Count 4.9, Red Blood Count 5.02, Hemoglobin 12.5, Hematocrit 41.2, Mean Corpuscular Volume 82, Mean Corpuscular Hemoglobin 24.9L, Mean Corpuscular Hemoglobin Concent 30.4L, Red Cell Distribution Width 17.6H, Platelet Count 339 , Mean Platelet Volume 5.0L, Neutrophils (%) (Auto) 72.5, Lymphocytes (%) (Auto ) 16.6L, Monocytes (%) (Auto) 9.8, Eosinophils (%) (Auto) 0.7, Basophils (%) ( Auto) 0.4, Sodium Level 138, Potassium Level 3.1L, Chloride Level 100, Carbon Dioxide Level 32, Anion Gap 6, Blood Urea Nitrogen 15, Creatinine 0.7, Estimat Glomerular Filtration Rate , Glucose Level 73L, Calcium Level 9.0 06/01/18 09:24: Arterial Blood pH 7.392, Arterial Blood Partial Pressure CO2 51.5H, Arterial Blood Partial Pressure O2 127.0H, Arterial Blood HCO3 30.6H, Arterial Blood Oxygen Saturation 98.2, Arterial Blood Base Excess 4.6H, Orville Test Positive Height (Feet): 4 Height (Inches): 9.00 Weight (Pounds): 110 Objective General: sleepy but arousable, no distress, appears stated age Head: normocephalic, without obvious abnormality, atraumatic Eyes: conjunctivae/corneas clear. PERRL, EOM's intact Throat: lips, mucosa, and tongue normal. MMM Neck: supple, symmetrical, trachea midline, and no JVD Lungs: clear to auscultation bilaterally Heart: regular rate and rhythm, S1, S2 normal, no murmur, click, rub or gallop Abdomen: soft, non-tender, non-distended, bowel sounds normal; no masses or organomegaly Extremities: extremities normal, atraumatic, no cyanosis or edema Pulses: 2+ and symmetric Skin: skin color, texture, turgor normal; no rashes or lesions Neurologic: grossly normal, no focal deficits Olivia Aguayo MD Jun 01, 2018 19:25
--- NOTE | 2018-06-01 19:44 | NUR ---
HAND-OFF: Report given to Joyce GARCIA. Pt is resting in bed in stable condition. Endorsed plan of care.
--- NOTE | 2018-06-01 19:45 | NUR ---
NURSE NOTES: Report received from RADHA Salvador. Pt A/Ox1-2. welt rander shows SR w/BBB. Pt on 3L NC, O2 saturation @ 97%. shows no signs of cardiac or respiratory distress. Pt on a nectar thick diet, low sodium. See WCP for skin alterations. Pt has a RH22g saline-locked. Bed in lowest position, bed alarms placed. Call light within reach. Will continue to monitor and with patients plan of care.
[2018-06-01 20:00] VITALS: BP 134/74
--- NOTE | 2018-06-01 20:25 | Cardiology Progress Note ---
Assessment/Plan Assessment/Plan 1. Cardiomyopathy, likely chronic. 2. Left bundle-branch conduction defect. 3. Severe aortic stenosis. 4. Pulmonary hypertension. 5. Dementia. 6. History of GI bleed back in October of 2016. 7. History of diverticular bleed more communicative and awake will see how she changes mentally and assess how funciton she will be before considering option for eval and treatment which will nto be possible at this hospital looks better cxr noted may be lagging diamox resuem diruetic soon Subjective Cardiovascular: Denies: chest pain, lightheadedness Respiratory: Denies: shortness of breath Gastrointestinal/Abdominal: Denies: abdominal pain Objective Last 24 Hour Vital Signs Date Time Temp Pulse Resp B/P (MAP) Pulse Ox O2 Delivery O2 Flow Rate FiO2 06/01/18 16:00 94 06/01/18 16:00 97.3 88 16 120/68 (85) 95 06/01/18 12:00 97.1 69 16 125/66 (85) 100 06/01/18 12:00 67 06/01/18 09:33 98 Nasal Cannula 2.0 28 06/01/18 09:33 81 20 Nasal Cannula 2.0 28 06/01/18 09:33 Nasal Cannula 2.0 28 06/01/18 09:12 95 118/76 06/01/18 09:12 118/76 06/01/18 09:00 Nasal Cannula 2.0 06/01/18 08:00 96.6 95 18 118/76 (90) 96 06/01/18 08:00 93 06/01/18 05:02 68 24 98 Facial 35 06/01/18 04:00 98.0 51 20 101/62 (75) 99 06/01/18 04:00 35 06/01/18 04:00 51 06/01/18 02:56 70 23 96 Facial 35 06/01/18 01:08 67 23 99 Facial 35 06/01/18 00:00 35 06/01/18 00:00 97.0 96 20 121/71 (88) 96 06/01/18 00:00 96 05/31/18 21:39 85 134/77 05/31/18 21:00 Nasal Cannula 2.0 05/31/18 20:47 95 Nasal Cannula 2.0 28 05/31/18 20:47 Nasal Cannula 2.0 28 05/31/18 20:47 78 20 Nasal Cannula 2.0 28 05/31/18 20:47 91 23 99 Facial 35 General Appearance: no apparent distress, alert Neck: no JVD Cardiovascular: normal rate Respiratory/Chest: lungs clear Abdomen: normal bowel sounds, non tender, soft Extremities: no swelling Intake and Output 05/31/18 06/01/18 19:00 07:00 Intake Total 50 ml 120 ml Balance 50 ml 120 ml Intake Oral 50 ml 120 ml # Voids 2 4 # Bowel Movements 2 Laboratory Tests Test 06/01/18 06:05 06/01/18 09:24 White Blood Count 4.9 K/UL (4.8-10.8) Red Blood Count 5.02 M/UL (4.20-5.40) Hemoglobin 12.5 G/DL (12.0-16.0) Hematocrit 41.2 % (37.0-47.0) Mean Corpuscular Volume 82 FL (80-99) Mean Corpuscular Hemoglobin 24.9 PG (27.0-31.0) L Mean Corpuscular Hemoglobin Concent 30.4 G/DL (32.0-36.0) L Red Cell Distribution Width 17.6 % (11.6-14.8) H Platelet Count 339 K/UL (150-450) Mean Platelet Volume 5.0 FL (6.5-10.1) L Neutrophils (%) (Auto) 72.5 % (45.0-75.0) Lymphocytes (%) (Auto) 16.6 % (20.0-45.0) L Monocytes (%) (Auto) 9.8 % (1.0-10.0) Eosinophils (%) (Auto) 0.7 % (0.0-3.0) Basophils (%) (Auto) 0.4 % (0.0-2.0) Sodium Level 138 MMOL/L (136-145) Potassium Level 3.1 MMOL/L (3.5-5.1) L Chloride Level 100 MMOL/L (98-107) Carbon Dioxide Level 32 MMOL/L (21-32) Anion Gap 6 mmol/L (5-15) Blood Urea Nitrogen 15 mg/dL (7-18) Creatinine 0.7 MG/DL (0.55-1.30) Estimat Glomerular Filtration Rate mL/min (>60) Glucose Level 73 MG/DL (74-106) L Calcium Level 9.0 MG/DL (8.5-10.1) Arterial Blood pH 7.392 (7.350-7.450) Arterial Blood Partial Pressure CO2 51.5 mmHg (35.0-45.0) H Arterial Blood Partial Pressure O2 127.0 mmHg (75.0-100.0) H Arterial Blood HCO3 30.6 mmol/L (22.0-26.0) H Arterial Blood Oxygen Saturation 98.2 % (95-100) Arterial Blood Base Excess 4.6 (-2-2) H Orville Test Positive Bret Nichols MD Jun 01, 2018 20:25
--- NOTE | 2018-06-01 23:56 | General Progress Note ---
Assessment/Plan Assessment/Plan Assessment/Plan: # Anemia of chronic disease due to underlying chronic medical issues, multifactorial --> Anemia workup has been reviewed, ferritin 78 --> No evidence of hemolysis is noted, peripheral smear has been reviewed. --> Hgb goal >7. Transfuse prn. --> Epogen or iron at this time is not particularly indicated --> Medications have been reviewed # Leukopenia - multifactorial, could be medication related r/o underlying infection --> if the total ANC is less than 2000, consider neupogen --> continue antibiotics with ID service, appreciate recs --> medications have been reviewed --> hepatitis and hiv have been ordered # Acute on chronic CHF, unknown if systolic or diastolic at this time --> EF of 25%, seen by cards, appreciate recs # Acute hypoxic respiratory failure due to acute CHF # Essential HTN --> IV Lasix diuresis prn --> monitor I&O --> Daily weights # Hyponatremia # Dementia The timing of this note does not necessarily reflect the time of the patient was seen. Greatly appreciate consultation! Subjective ROS Limited/Unobtainable: Yes Allergies: Coded Allergies: PENICILLINS (Verified Allergy, Severe, HIVES AROUND NECK/THROAT/ DIFFICULTY BREATHING, 11/01/17) Subjective /4: seen by bedside, awake, comfortable, no events Objective Last 24 Hour Vital Signs Date Time Temp Pulse Resp B/P (MAP) Pulse Ox O2 Delivery O2 Flow Rate FiO2 06/01/18 23:27 78 18 98 06/01/18 21:00 92 134/74 06/01/18 21:00 Nasal Cannula 2.0 06/01/18 20:23 Nasal Cannula 2.0 28 06/01/18 20:23 90 20 Nasal Cannula 2.0 28 06/01/18 20:23 97 Nasal Cannula 2.0 28 06/01/18 20:00 97.2 92 19 134/74 (94) 98 06/01/18 20:00 73 06/01/18 16:00 94 06/01/18 16:00 97.3 88 16 120/68 (85) 95 06/01/18 12:00 97.1 69 16 125/66 (85) 100 06/01/18 12:00 67 06/01/18 09:33 98 Nasal Cannula 2.0 28 3/4/19 09:33 81 20 Nasal Cannula 2.0 28 06/01/18 09:33 Nasal Cannula 2.0 28 06/01/18 09:12 95 118/76 06/01/18 09:12 118/76 06/01/18 09:00 Nasal Cannula 2.0 06/01/18 08:00 96.6 95 18 118/76 (90) 96 06/01/18 08:00 93 06/01/18 05:02 68 24 98 Facial 35 06/01/18 04:00 98.0 51 20 101/62 (75) 99 06/01/18 04:00 35 06/01/18 04:00 51 06/01/18 02:56 70 23 96 Facial 35 06/01/18 01:08 67 23 99 Facial 35 06/01/18 00:00 35 06/01/18 00:00 97.0 96 20 121/71 (88) 96 06/01/18 00:00 96 Intake and Output 05/31/18 06/01/18 19:00 07:00 Intake Total 50 ml 120 ml Balance 50 ml 120 ml Intake Oral 50 ml 120 ml # Voids 2 4 # Bowel Movements 2 Laboratory Tests 06/01/18 06:05: White Blood Count 4.9, Red Blood Count 5.02, Hemoglobin 12.5, Hematocrit 41.2, Mean Corpuscular Volume 82, Mean Corpuscular Hemoglobin 24.9L, Mean Corpuscular Hemoglobin Concent 30.4L, Red Cell Distribution Width 17.6H, Platelet Count 339 , Mean Platelet Volume 5.0L, Neutrophils (%) (Auto) 72.5, Lymphocytes (%) (Auto ) 16.6L, Monocytes (%) (Auto) 9.8, Eosinophils (%) (Auto) 0.7, Basophils (%) ( Auto) 0.4, Sodium Level 138, Potassium Level 3.1L, Chloride Level 100, Carbon Dioxide Level 32, Anion Gap 6, Blood Urea Nitrogen 15, Creatinine 0.7, Estimat Glomerular Filtration Rate , Glucose Level 73L, Calcium Level 9.0 06/01/18 09:24: Arterial Blood pH 7.392, Arterial Blood Partial Pressure CO2 51.5H, Arterial Blood Partial Pressure O2 127.0H, Arterial Blood HCO3 30.6H, Arterial Blood Oxygen Saturation 98.2, Arterial Blood Base Excess 4.6H, Orville Test Positive Height (Feet): 4 Height (Inches): 9.00 Weight (Pounds): 110 Objective Physical Exam General Appearance: no apparent distress, alert HEENT: normocephalic, atraumatic Neck: non-tender, normal alignment Respiratory/Chest: chest wall non-tender, lungs clear Cardiovascular/Chest: normal peripheral pulses, normal rate, regular rhythm Abdomen: normal bowel sounds, non tender, soft Extremities: severe edema Skin Exam: normal pigmentation, warm/dry Musculoskeletal: normal muscle bulk Pepe Wilcox MD Jun 01, 2018 23:56
[2018-06-02] VITALS: BP 126/74
[2018-06-02 04:00] VITALS: BP 134/74
--- NOTE | 2018-06-02 07:56 | NUR ---
NURSE NOTES: received patient report from lanny meneses. patient is on b ed asleep. not in acute distress. SR with BBB on the monitr. no other arrythmias reported during the nihgt. on BIPAP PRN. on O2NC @ 3li. bed is low and locked.will contiue plan of care.
[2018-06-02 08:00] VITALS: BP 139/63
[2018-06-02] MEDS: Docusate 100mg/10ml Liq ORAL SCH ×2 (08:46→21:00)
[2018-06-02] MEDS: Lisinopril 2.5mg tab ORAL SCH (08:47)
[2018-06-02] MEDS: Calcium Carbonate 500mg w/Vit D 200iu tab ORAL SCH (08:48)
[2018-06-02] MEDS: Aspirin Baby 81mg ORAL SCH (08:48)
[2018-06-02] MEDS: Allopurinol 100mg Tab ORAL SCH (08:48)
[2018-06-02] MEDS: Heparin 5000 units/ml inj SUBQ SCH ×2 (08:51→21:02)
[2018-06-02] MEDS: Flonase Nasal Inhaler 16gm NASAL SCH (08:52)
[2018-06-02] MEDS: acetaZOLAMIDE 500mg Inj IVP SCH (09:02)
--- NOTE | 2018-06-02 10:16 | NUR ---
DISCHARGE PLANNING BABY ATTENDANT LEFT MESSAGE FOR DR PEOPLES AND DR CONTEH REGARDING DISCHARGE PLANNING FOR THIS PATIENT AWAITING RESPONSE Addendum: 06/02/18 at 1039 by PAULINA ABRAHAM LVN LVN BABY ATTENDANT SPOKE WITH DR KING AND RECEIVED ORDER FROM DR CONTEH PATIENT HAS BEEN REFERRED TO [facility] T: [phone] F: [phone]
--- NOTE | 2018-06-02 10:35 | General Progress Note ---
Assessment/Plan Problem List: (1) Acute metabolic encephalopathy ICD Codes: G93.41 - Metabolic encephalopathy SNOMED: 93769326, 660159295 (2) Dementia with behavioral disturbance ICD Codes: F03.91 - Unspecified dementia with behavioral disturbance SNOMED: 1059873499535 Assessment/Plan Haldol prn not cause sedation only decrease agitation soft restraints as needed Subjective Allergies: Coded Allergies: PENICILLINS (Verified Allergy, Severe, HIVES AROUND NECK/THROAT/ DIFFICULTY BREATHING, 11/01/17) Subjective the pt has not been getting psychotropic the pt is less lethargic and more responsive the pt ABG abnormal Objective Last 24 Hour Vital Signs Date Time Temp Pulse Resp B/P (MAP) Pulse Ox O2 Delivery O2 Flow Rate FiO2 06/02/18 09:00 Nasal Cannula 2.0 06/02/18 08:48 61 139/63 06/02/18 08:47 139/63 06/02/18 08:00 97.2 61 20 139/63 (88) 100 06/02/18 07:38 64 06/02/18 04:00 66 06/02/18 04:00 97.3 79 18 134/74 (94) 97 06/02/18 00:00 68 06/02/18 00:00 97.5 75 19 126/74 (91) 99 06/01/18 23:27 78 18 98 06/01/18 21:00 92 134/74 06/01/18 21:00 Nasal Cannula 2.0 06/01/18 20:23 Nasal Cannula 2.0 28 06/01/18 20:23 90 20 Nasal Cannula 2.0 28 06/01/18 20:23 97 Nasal Cannula 2.0 28 06/01/18 20:00 97.2 92 19 134/74 (94) 98 06/01/18 20:00 73 06/01/18 16:00 94 06/01/18 16:00 97.3 88 16 120/68 (85) 95 06/01/18 12:00 97.1 69 16 125/66 (85) 100 06/01/18 12:00 67 Intake and Output 06/01/18 06/02/18 19:00 07:00 Intake Total 100 ml 60 ml Output Total 300 ml Balance -200 ml 60 ml Intake Oral 100 ml 60 ml Output Urine Total 300 ml # Voids 2 4 # Bowel Movements 2 Height (Feet): 4 Height (Inches): 9.00 Weight (Pounds): 117 General Appearance: no apparent distress, lethargic, agitated Jackie Boyd MD Jun 02, 2018 10:35
--- NOTE | 2018-06-02 10:52 | NUR ---
RD ASSESSMENT & RECOMMENDATIONS SEE CARE ACTIVITY FOR COMPLETE ASSESSMENT DAILY ESTIMATED NEEDS: Needs based on Cardiac, wound 47.7 kg abw 25-35 kcals/kg 3566-8152 total kcals 1.25-1.5 g protein/kg 60-72 g total protein 25-30 mL/kg 2153-3292 total fluid mLs NUTRITION DIAGNOSIS: * Swallowing difficulty R/T dysphagia as evidenced by DEVELOPMENT OFFICER recommends liquify pureed, NTL. * Altered nutrition related lab values R/T diabetes as evidenced by A1C of 6.8, episodes of hyperglycemia and hypoglycemia (58) * Increased protein needs r/t wound care as evidenced by pt w/ non-blanchable erythema without induration R and L gluteal clefts. CURRENT DIET: LOW NA, liquify pureed NTL PO DIET RECOMMENDATIONS: LIBERALIZED/ REGULAR DIET W/ CURRENT VARIABLE PO INTAKE (Texture per DEVELOPMENT OFFICER) ADDITIONAL RECOMMENDATIONS: * Calibrated bedscale wt for accurate CBW -> daily wts as per policy: CHF dx * Accucheck w/ SSI : A1C=6.8 * Monitor for hypoglycemia, add HS snack * Glucerna 1 tetra cecy TID * Monitor lytes daily w/ lasix, replete as needed * WOUND CARE: MVI x1, INES BID, Vit C 250mg daily
--- NOTE | 2018-06-02 11:41 | NUR ---
ST NOTE: ST WEEKLY ST WEEKLY: PT PARTIALLY DID NOT MEET PO INTAKE GOALS(25-50%). NURSING STAFF MET ASPIRATION PRECAUTIONS. CONTINUE SKILLED ST SERVICE. ATTEMPTED TO SEE PT THIS AM. PT ASLEEP. WILL RE-ATTEMPT.
[2018-06-02 12:00] VITALS: BP 134/78
[2018-06-02 16:00] VITALS: BP 128/78
--- NOTE | 2018-06-02 16:31 | General Progress Note ---
Assessment/Plan Assessment/Plan Assessment/Plan: # Anemia of chronic disease due to underlying chronic medical issues, multifactorial --> Anemia workup has been reviewed, ferritin 78 --> No evidence of hemolysis is noted, peripheral smear has been reviewed. --> Hgb goal >7. Transfuse prn. 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 --> consider outpatient CT scan with IV contrast # Leukopenia - multifactorial, could be medication related r/o underlying infection --> if the total ANC is less than 2000, consider neupogen --> continue antibiotics with ID service, appreciate recs --> medications have been reviewed --> hepatitis and hiv but results negative --> us of the abd is negative for hsm/cirrhosis # Acute on chronic CHF, unknown if systolic or diastolic at this time --> EF of 25%, seen by cards, appreciate recs # Acute hypoxic respiratory failure due to acute CHF --> per cards # Essential HTN --> IV Lasix diuresis prn --> monitor I&O --> Daily weights # Hyponatremia # Dementia The timing of this note does not necessarily reflect the time of the patient was seen. Greatly appreciate consultation! Subjective Allergies: Coded Allergies: PENICILLINS (Verified Allergy, Severe, HIVES AROUND NECK/THROAT/ DIFFICULTY BREATHING, 11/01/17) Subjective /4: seen by bedside, awake, comfortable, no events 06/02: no fevers, chills, h/h stable Objective Last 24 Hour Vital Signs Date Time Temp Pulse Resp B/P (MAP) Pulse Ox O2 Delivery O2 Flow Rate FiO2 06/02/18 12:00 97.4 54 18 134/78 (96) 99 06/02/18 12:00 86 06/02/18 09:00 Nasal Cannula 2.0 06/02/18 08:48 61 139/63 06/02/18 08:47 139/63 06/02/18 08:36 98 Nasal Cannula 2.0 28 06/02/18 08:36 Nasal Cannula 2.0 28 06/02/18 08:36 93 16 Nasal Cannula 2.0 28 06/02/18 08:00 97.2 61 20 139/63 (88) 100 06/02/18 07:38 64 06/02/18 04:00 66 06/02/18 04:00 97.3 79 18 134/74 (94) 97 06/02/18 00:00 68 06/02/18 00:00 97.5 75 19 126/74 (91) 99 06/01/18 23:27 78 18 98 06/01/18 21:00 92 134/74 06/01/18 21:00 Nasal Cannula 2.0 06/01/18 20:23 Nasal Cannula 2.0 28 06/01/18 20:23 90 20 Nasal Cannula 2.0 28 06/01/18 20:23 97 Nasal Cannula 2.0 28 06/01/18 20:00 97.2 92 19 134/74 (94) 98 06/01/18 20:00 73 Intake and Output 06/01/18 06/02/18 18:59 06:59 Intake Total 100 ml 60 ml Output Total 300 ml Balance -200 ml 60 ml Intake Oral 100 ml 60 ml Output Urine Total 300 ml # Voids 2 4 # Bowel Movements 2 Height (Feet): 4 Height (Inches): 9.00 Weight (Pounds): 117 Objective Physical Exam General Appearance: no apparent distress, alert HEENT: normocephalic, atraumatic Neck: non-tender, normal alignment Respiratory/Chest: chest wall non-tender, lungs clear Cardiovascular/Chest: normal peripheral pulses, normal rate, rrr Abdomen: normal bowel sounds, non tender, soft Extremities: severe edema Skin Exam: normal pigmentation, warm/dry Musculoskeletal: normal muscle bulk Pepe Wilcox MD Jun 02, 2018 16:31
--- NOTE | 2018-06-02 16:46 | General Progress Note ---
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 #Essential HTN #Metabolic alkalosis - improved -hold Lasix due to contraction alkalosis -continue Coreg and lisinopril -monitor I&O -Daily weights -Restrict sodium intake -TTE results reviewed -dysphagia diet -aspiration precautions -CT chest results reviewed -Cardiology following -Pulmonology following -diamox decreased #Hypokalemia #Hypomagnesemia -replace intravenously -CTM #Hyponatremia -secondary to hypervolemic state -resolved -continue to treated acute CHF -REnal consult appreciated #Dementia #Acute metabolic encephalopathy, present on admission #Severe agitation - resolved -supportive care -aspiration and fall precautions -continue Zyprexa -psychiatry following #Dispo -discussed with CM, will send request to SNF VTE PPx Heparin SC Full Code I spent 45 minutes on this patient's case, and 29 minutes was dedicated to counseling and/or care coordination. Subjective Allergies: Coded Allergies: PENICILLINS (Verified Allergy, Severe, HIVES AROUND NECK/THROAT/ DIFFICULTY BREATHING, 11/01/17) Subjective no acute overnight events, poor PO intake, Objective Last 24 Hour Vital Signs Date Time Temp Pulse Resp B/P (MAP) Pulse Ox O2 Delivery O2 Flow Rate FiO2 06/02/18 12:00 97.4 54 18 134/78 (96) 99 06/02/18 12:00 86 06/02/18 09:00 Nasal Cannula 2.0 06/02/18 08:48 61 139/63 06/02/18 08:47 139/63 06/02/18 08:36 98 Nasal Cannula 2.0 28 06/02/18 08:36 Nasal Cannula 2.0 28 06/02/18 08:36 93 16 Nasal Cannula 2.0 28 06/02/18 08:00 97.2 61 20 139/63 (88) 100 06/02/18 07:38 64 06/02/18 04:00 66 06/02/18 04:00 97.3 79 18 134/74 (94) 97 06/02/18 00:00 68 06/02/18 00:00 97.5 75 19 126/74 (91) 99 06/01/18 23:27 78 18 98 06/01/18 21:00 92 134/74 06/01/18 21:00 Nasal Cannula 2.0 06/01/18 20:23 Nasal Cannula 2.0 28 06/01/18 20:23 90 20 Nasal Cannula 2.0 28 06/01/18 20:23 97 Nasal Cannula 2.0 28 06/01/18 20:00 97.2 92 19 134/74 (94) 98 06/01/18 20:00 73 Intake and Output 06/01/18 06/02/18 18:59 06:59 Intake Total 100 ml 60 ml Output Total 300 ml Balance -200 ml 60 ml Intake Oral 100 ml 60 ml Output Urine Total 300 ml # Voids 2 4 # Bowel Movements 2 Height (Feet): 4 Height (Inches): 9.00 Weight (Pounds): 117 Objective General: sleepy but arousable, no distress, appears stated age Head: normocephalic, without obvious abnormality, atraumatic Eyes: conjunctivae/corneas clear. PERRL, EOM's intact Throat: lips, mucosa, and tongue normal. MMM Neck: supple, symmetrical, trachea midline, and no JVD Lungs: clear to auscultation bilaterally Heart: regular rate and rhythm, S1, S2 normal, no murmur, click, rub or gallop Abdomen: soft, non-tender, non-distended, bowel sounds normal; no masses or organomegaly Extremities: extremities normal, atraumatic, no cyanosis or edema Pulses: 2+ and symmetric Skin: skin color, texture, turgor normal; no rashes or lesions Neurologic: grossly normal, no focal deficits Olivia Aguayo MD Jun 02, 2018 16:46
--- NOTE | 2018-06-02 17:27 | Cardiology Progress Note ---
Assessment/Plan Assessment/Plan 1. Cardiomyopathy, likely chronic. 2. Left bundle-branch conduction defect. 3. Severe aortic stenosis. 4. Pulmonary hypertension. 5. Dementia. 6. History of GI bleed back in October of 2016. 7. History of diverticular bleed more communicative and awake will see how she changes mentally and assess how funciton she will be before considering option for eval and treatment which will nto be possible at this hospital looks better comfortable oriented to hosptial but not to city informed dtr the need for future cardiology fu thru her insurance , dtr indicated undderstanging is on diamox may consider stopping resume po diruetic soon lasix 40 - 60 mg daily Subjective Cardiovascular: Denies: chest pain, lightheadedness, palpitations Respiratory: Denies: shortness of breath Gastrointestinal/Abdominal: Denies: abdominal pain Subjective family translating Objective Last 24 Hour Vital Signs Date Time Temp Pulse Resp B/P (MAP) Pulse Ox O2 Delivery O2 Flow Rate FiO2 06/02/18 12:00 97.4 54 18 134/78 (96) 99 06/02/18 12:00 86 06/02/18 09:00 Nasal Cannula 2.0 06/02/18 08:48 61 139/63 06/02/18 08:47 139/63 06/02/18 08:36 98 Nasal Cannula 2.0 28 06/02/18 08:36 Nasal Cannula 2.0 28 06/02/18 08:36 93 16 Nasal Cannula 2.0 28 06/02/18 08:00 97.2 61 20 139/63 (88) 100 06/02/18 07:38 64 06/02/18 04:00 66 06/02/18 04:00 97.3 79 18 134/74 (94) 97 06/02/18 00:00 68 06/02/18 00:00 97.5 75 19 126/74 (91) 99 06/01/18 23:27 78 18 98 06/01/18 21:00 92 134/74 06/01/18 21:00 Nasal Cannula 2.0 06/01/18 20:23 Nasal Cannula 2.0 28 06/01/18 20:23 90 20 Nasal Cannula 2.0 28 06/01/18 20:23 97 Nasal Cannula 2.0 28 06/01/18 20:00 97.2 92 19 134/74 (94) 98 3/4/19 20:00 73 General Appearance: no apparent distress, alert Neck: supple Cardiovascular: normal rate Respiratory/Chest: lungs clear Abdomen: normal bowel sounds, non tender, soft Extremities: non-tender, no swelling Intake and Output 06/01/18 06/02/18 18:59 06:59 Intake Total 100 ml 60 ml Output Total 300 ml Balance -200 ml 60 ml Intake Oral 100 ml 60 ml Output Urine Total 300 ml # Voids 2 4 # Bowel Movements 2 Bret Nichols MD Jun 02, 2018 17:27
--- NOTE | 2018-06-02 19:07 | NUR ---
HAND-OFF: Report given to jackie meneses.
--- NOTE | 2018-06-02 19:11 | Nephrology Progress Note ---
Assessment/Plan Problem List: (1) Hyponatremia Assessment: resolved (2) Acute CHF Assessment: improved (3) HTN (hypertension) Assessment: BP Ok (4) Hypokalemia (5) Hypomagnesemia (6) Metabolic alkalosis with respiratory acidosis Assessment: met alkalosis is better Plan Replete K BMP in AM cont Diamox for now Subjective Subjective off BIPAP alert Objective Objective Last 24 Hour Vital Signs Date Time Temp Pulse Resp B/P (MAP) Pulse Ox O2 Delivery O2 Flow Rate FiO2 06/02/18 16:00 91 06/02/18 16:00 97.4 85 20 128/78 (95) 98 06/02/18 12:00 97.4 54 18 134/78 (96) 99 06/02/18 12:00 86 06/02/18 09:00 Nasal Cannula 2.0 06/02/18 08:48 61 139/63 06/02/18 08:47 139/63 06/02/18 08:36 98 Nasal Cannula 2.0 28 06/02/18 08:36 Nasal Cannula 2.0 28 06/02/18 08:36 93 16 Nasal Cannula 2.0 28 06/02/18 08:00 97.2 61 20 139/63 (88) 100 06/02/18 07:38 64 06/02/18 04:00 66 06/02/18 04:00 97.3 79 18 134/74 (94) 97 06/02/18 00:00 68 06/02/18 00:00 97.5 75 19 126/74 (91) 99 06/01/18 23:27 78 18 98 06/01/18 21:00 92 134/74 06/01/18 21:00 Nasal Cannula 2.0 06/01/18 20:23 Nasal Cannula 2.0 28 06/01/18 20:23 90 20 Nasal Cannula 2.0 28 06/01/18 20:23 97 Nasal Cannula 2.0 28 06/01/18 20:00 97.2 92 19 134/74 (94) 98 06/01/18 20:00 73 Intake and Output 06/01/18 06/02/18 19:00 07:00 Intake Total 100 ml 60 ml Output Total 300 ml Balance -200 ml 60 ml Intake Oral 100 ml 60 ml Output Urine Total 300 ml # Voids 2 4 # Bowel Movements 2 Height (Feet): 4 Height (Inches): 9.00 Weight (Pounds): 117 Cardiovascular: normal rate Respiratory/Chest: lungs clear Extremities: other - no edema Yang Gibson MD Jun 02, 2018 19:11
--- NOTE | 2018-06-02 19:27 | Pulmonology Progress Note ---
Assessment/Plan Problems: (1) Acute CHF (2) Respiratory distress (3) Dyspnea (4) Sick-euthyroid syndrome (5) Altered mental state (6) Dementia with behavioral disturbance Assessment/Plan ASSESSMENT: 83 F h/o dementia, [place], prior diverticular bleed a/w respiratory failure 2/2 ADHF and hypoNa PROBLEM LIST: Respiratory failure CHF with ADHF HypoNa H/O diverticular bleed H/O dementia AR AMS PLAN: Check LABS Optimize pulmonary hygiene/mobilize as tolerated BiPAP qHS and PRN only Titrate down FiO2 to keep SaO2 > 90% PRN HHN's Monitor volumes and renal function --> Diamox per renal, ? changing back to PO Lasix Cardiology recs Aspiration precautions, GENERAL OFFICE ASSISTANT recs Encourage PO Monitor MS, F/U psych recs DVT Px: Hep SQ FC Dispo planning to [facility] Subjective Allergies: Coded Allergies: PENICILLINS (Verified Allergy, Severe, HIVES AROUND NECK/THROAT/ DIFFICULTY BREATHING, 11/01/17) Subjective Continue on Diamox, no labs today, better overall AFVSS O2 needs stable no cough no wheezing no SOB Objective Last 24 Hour Vital Signs Date Time Temp Pulse Resp B/P (MAP) Pulse Ox O2 Delivery O2 Flow Rate FiO2 06/02/18 16:00 91 06/02/18 16:00 97.4 85 20 128/78 (95) 98 06/02/18 12:00 97.4 54 18 134/78 (96) 99 06/02/18 12:00 86 06/02/18 09:00 Nasal Cannula 2.0 06/02/18 08:48 61 139/63 06/02/18 08:47 139/63 06/02/18 08:36 98 Nasal Cannula 2.0 28 06/02/18 08:36 Nasal Cannula 2.0 28 06/02/18 08:36 93 16 Nasal Cannula 2.0 28 06/02/18 08:00 97.2 61 20 139/63 (88) 100 06/02/18 07:38 64 06/02/18 04:00 66 06/02/18 04:00 97.3 79 18 134/74 (94) 97 06/02/18 00:00 68 06/02/18 00:00 97.5 75 19 126/74 (91) 99 06/01/18 23:27 78 18 98 06/01/18 21:00 92 134/74 06/01/18 21:00 Nasal Cannula 2.0 06/01/18 20:23 Nasal Cannula 2.0 28 06/01/18 20:23 90 20 Nasal Cannula 2.0 28 06/01/18 20:23 97 Nasal Cannula 2.0 28 06/01/18 20:00 97.2 92 19 134/74 (94) 98 06/01/18 20:00 73 Intake and Output 06/01/18 06/02/18 19:00 07:00 Intake Total 100 ml 60 ml Output Total 300 ml Balance -200 ml 60 ml Intake Oral 100 ml 60 ml Output Urine Total 300 ml # Voids 2 4 # Bowel Movements 2 General Appearance: no acute distress HEENT: normocephalic, atraumatic, anicteric Respiratory/Chest: chest wall non-tender, lungs clear, normal breath sounds, no respiratory distress, no accessory muscle use Cardiovascular: normal peripheral pulses, normal rate, regular rhythm Abdomen: normal bowel sounds, soft, non tender, no organomegaly, non distended , no mass Extremities: no cyanosis, no clubbing, no edema Current Medications Medications (Trade) Dose Ordered Sig/Violet Route PRN Reason Start Time Stop Time Status Last Admin Dose Admin Acetazolamide (Diamox 500mg Inj) 250 mg DAILY IVP 06/02/18 09:00 06/30/18 13:29 06/02/18 09:02 Allopurinol (Zyloprim) 100 mg DAILY ORAL 05/27/18 09:00 06/25/18 08:59 06/02/18 08:48 Aspirin (ASA) 81 mg DAILY ORAL 05/27/18 09:00 06/25/18 08:59 06/02/18 08:48 Calcium Carbonate (OsCal D) 1 tab DAILY ORAL 05/27/18 09:00 06/25/18 08:59 06/02/18 08:48 Carvedilol (Coreg) 3.125 mg EVERY 12 HOURS ORAL 05/27/18 21:00 06/26/18 20:59 06/02/18 08:48 Dextrose (Dextrose 50%) 25 ml Q30M PRN IV Hypoglycemia 05/26/18 15:00 06/24/18 11:29 Dextrose (Dextrose 50%) 50 ml Q30M PRN IV Hypoglycemia 05/26/18 15:00 06/24/18 11:29 Docusate Sodium (Colace) 100 mg EVERY 12 HOURS ORAL 05/26/18 21:00 06/24/18 20:59 06/02/18 08:46 Fluticasone Propionate (Flonase) 1 spray DAILY NASAL 05/27/18 09:00 06/25/18 08:59 06/02/18 08:52 Haloperidol Lactate (Haldol) 5 mg Q6H PRN IM Agitation 05/26/18 19:45 06/25/18 19:44 06/01/18 02:45 Heparin Sodium (Porcine) (Heparin 5000 units/ml) 5,000 units Q12HR SUBQ 05/26/18 21:00 06/24/18 20:59 06/02/18 08:51 Lisinopril (Zestril) 2.5 mg DAILY ORAL 05/27/18 09:00 06/26/18 08:59 06/02/18 08:47 Magnesium Hydroxide (Mom) 30 ml HSPRN PRN ORAL Constipation 05/26/18 21:00 06/24/18 20:59 Ondansetron HCl (Zofran) 4 mg Q6H PRN IVP Nausea & Vomiting 05/26/18 14:53 06/24/18 14:52 Potassium Chloride (K-Dur) 40 meq ONCE ORAL 06/02/18 19:15 06/02/18 20:00 Dionicio Middleton MD Jun 02, 2018 19:27
[2018-06-02 20:00] VITALS: BP_SYST 123; BP_SYST 143; BP_DIAS 83; BP_DIAS 86
[2018-06-02] MEDS: Haloperidol 5mg/ml Inj IM PRN (21:00)
[2018-06-03] VITALS: BP 134/60
--- NOTE | 2018-06-03 02:37 | NUR ---
NURSE NOTES: recvd pt. PT is awake and very talkative. Pt is on NC @ 3L with no sign of resp distres or sob. Bed in lowest position, call light within reach, will continue with plan of care
--- NOTE | 2018-06-03 07:40 | NUR ---
HAND-OFF: Report given to Edilberto GARCIA .
--- NOTE | 2018-06-03 07:41 | NUR ---
NURSE NOTES: Received report from RADHA Simental. Patient in bed resting, no active s/s cardiac, respiratory distress noticed at this time. Patient on oxygen 3L via NC. AOx2, SR with BBB, HR 79. IV site on left wrist 22G, asymptomatic, patent, intact. Patient on P200 mattress, bed in lowest position, side rails upx3, call light within reach, bed alarm on. Will continue to monitor.
[2018-06-03 08:00] VITALS: BP 136/83
[2018-06-03 08:14] LABS: ANION GAP 10 mmol/L (5-15); BLOOD UREA NITROGEN 24 mg/dL (7-18); CALCIUM 9.2 MG/DL (8.5-10.1); CARBON DIOXIDE 27 MMOL/L (21-32); CHLORIDE 104 MMOL/L (98-107); CREATININE 0.6 MG/DL (0.55-1.30); POTASSIUM 3.6 MMOL/L (3.5-5.1); SODIUM 141 MMOL/L (136-145)
[2018-06-03] MEDS: Docusate 100mg/10ml Liq ORAL SCH ×2 (08:48→20:20)
[2018-06-03] MEDS: Flonase Nasal Inhaler 16gm NASAL SCH (08:48)
[2018-06-03] MEDS: Lisinopril 2.5mg tab ORAL SCH (08:49)
[2018-06-03] MEDS: Allopurinol 100mg Tab ORAL SCH (08:49)
[2018-06-03] MEDS: Aspirin Baby 81mg ORAL SCH (08:49)
[2018-06-03] MEDS: Calcium Carbonate 500mg w/Vit D 200iu tab ORAL SCH (08:49)
[2018-06-03] MEDS: Heparin 5000 units/ml inj SUBQ SCH ×2 (08:50→20:22)
[2018-06-03] MEDS: acetaZOLAMIDE 500mg Inj IVP SCH (09:23)
--- NOTE | 2018-06-03 09:43 | NUR ---
CASE MANAGEMENT:REVIEW 06/02/18 SI: ACUTE RESPIRATORY FAILURE AC/CHR CHF W/EF 25%. SEVERE AORTIC STENOSIS 97.4 85 20 128/78 98% ON 2L/NC IS: IV DIAMOX Q12 COREG PO Q12 ALLOPURINOL PO QD ASA PO QD LISINOPRIL PO QD HEPARIN SQ Q12 : TELEMETRY STATUS DCP: PATIENT CAME TO US FROM HOME....REFER TO SNF UPON DISCHARGE 06/03/18 SI: ACUTE RESPIRATORY FAILURE AC/CHR CHF W/EF 25%. SEVERE AORTIC STENOSIS 97.6 89 18 134/60 95% ON 2L/NC IS: IV DIAMOX Q12 COREG PO Q12 ALLOPURINOL PO QD ASA PO QD LISINOPRIL PO QD HEPARIN SQ Q12 : TELEMETRY STATUS DCP: PATIENT CAME TO US FROM HOME....REFER TO SNF UPON DISCHARGE PLAN: REFERRED TO [facility]
--- NOTE | 2018-06-03 10:53 | General Progress Note ---
Assessment/Plan Problem List: (1) Acute metabolic encephalopathy ICD Codes: G93.41 - Metabolic encephalopathy SNOMED: 43995261, [id number] (2) Dementia with behavioral disturbance ICD Codes: F03.91 - Unspecified dementia with behavioral disturbance SNOMED: 9649971934241 Status: unchanged Assessment/Plan Haldol prn not cause sedation only decrease agitation soft restraints as needed Subjective Allergies: Coded Allergies: PENICILLINS (Verified Allergy, Severe, HIVES AROUND NECK/THROAT/ DIFFICULTY BREATHING, 11/01/17) Subjective the pts ms is not improved. the pt cont to be lethargic with episodes of agitation Objective Last 24 Hour Vital Signs Date Time Temp Pulse Resp B/P (MAP) Pulse Ox O2 Delivery O2 Flow Rate FiO2 06/03/18 09:00 Nasal Cannula 2.0 06/03/18 08:49 136/83 06/03/18 08:48 90 136/83 06/03/18 08:00 97.5 90 21 136/83 (100) 96 06/03/18 04:00 79 06/03/18 00:00 97.6 89 18 134/60 (84) 95 06/03/18 00:00 80 06/02/18 22:00 72 18 95 21 06/02/18 21:00 91 128/78 06/02/18 21:00 Nasal Cannula 2.0 06/02/18 20:00 97.1 93 18 123/83 (96) 97 06/02/18 20:00 100 06/02/18 20:00 90 16 Room Air 21 06/02/18 19:30 94 Room Air 21 06/02/18 19:30 Room Air 21 06/02/18 16:00 91 06/02/18 16:00 97.4 85 20 128/78 (95) 98 06/02/18 12:00 97.4 54 18 134/78 (96) 99 06/02/18 12:00 86 Intake and Output 06/02/18 06/03/18 19:00 07:00 # Voids 2 2 # Bowel Movements 1 1 Laboratory Tests 06/03/18 05:14: Sodium Level 141, Potassium Level 3.6, Chloride Level 104, Carbon Dioxide Level 27, Anion Gap 10, Blood Urea Nitrogen 24H, Creatinine 0.6, Estimat Glomerular Filtration Rate , Glucose Level 60L, Calcium Level 9.2, Magnesium Level 1.7L Height (Feet): 4 Height (Inches): 9.00 Weight (Pounds): 131 General Appearance: lethargic, confused, agitated Jackie Boyd MD Jun 03, 2018 10:53
[2018-06-03 12:00] VITALS: BP 140/79
--- NOTE | 2018-06-03 13:43 | NUR ---
SWALLOW THERAPY NOTE: SWALLOW STATUS: PATIENT SEEN AT BEDSIDE, ALERT BUT NEEDED SOME STIM TO WAKE UP MORE. ON 2 LITERS O2 NC WHICH NEEDED TO BE REINSERTED. PER RN, POOR INTAKE WITH HER OF LIQUIFIED PUREED LIKE NECTAR THICK SOUP DIET TSP ONLY. NO OVERT S/S OF ASP REPORTED WITH RN. WITH ST PO TRIALS (NECTAR THICK LIQ TSP),HAD RIGHT LABIAL LEAKAGE 2/10 TIMES. SLOWER OROPHARYNGEAL (OP) TRANSIT TIMES 3-6 SECONDS WITH FAIR HYOLARYNGEAL EXCURSION AND SECOND SWALLOW X2/10 ONLY EVEN WITH MAX CUES TO CLEAR ANY PHARYNGEAL RESIDUE POSSIBLY PRESENT. NO ORAL RESIDUE NOTED. GOALS FOR INTAKE NOT MET 0 TO 50% MAY BE REFUSING. WILL ASK FAMILY TO ASSIST WITH MEALS IF POSSIBLE TO INCREASE INTAKE. GOALS MET FOR TOOLING MANAGER HAE EDUCATED/TRAINED IN POSTED ASP PREC. WILL HOLD ON MOD BARIUM SWALLOW STUDY TODAY DUE TO SCHEDULE CONFLICTS AND CAN BE DONE AN OUTPATIENT. PLAN: CONTINUE WITH GOALS NOTED IN SWALLOW EVAL REPORT. MOD BARIUM SWALLOW STUDY IP OR OP IF DISCHARGED.
--- NOTE | 2018-06-03 14:14 | NUR ---
INSURANCE NCM: TAMIKA P- [phone] F- [phone].....REVIEW/CLINICAL
--- NOTE | 2018-06-03 14:45 | Nephrology Progress Note ---
Assessment/Plan Problem List: (1) Hyponatremia Assessment: resolved (2) Acute CHF Assessment: improved (3) HTN (hypertension) Assessment: BP Ok (4) Hypokalemia (5) Hypomagnesemia (6) Metabolic alkalosis with respiratory acidosis Assessment: met alkalosis is better Plan Replete Mag BMP, Mag in AM DC Diamox Subjective Subjective off BIPAP alert Objective Objective Last 24 Hour Vital Signs Date Time Temp Pulse Resp B/P (MAP) Pulse Ox O2 Delivery O2 Flow Rate FiO2 06/03/18 09:00 Nasal Cannula 2.0 06/03/18 08:49 136/83 06/03/18 08:48 90 136/83 06/03/18 08:00 97.5 90 21 136/83 (100) 96 06/03/18 08:00 102 06/03/18 04:00 79 06/03/18 00:00 97.6 89 18 134/60 (84) 95 06/03/18 00:00 80 06/02/18 22:00 72 18 95 21 06/02/18 21:00 91 128/78 06/02/18 21:00 Nasal Cannula 2.0 06/02/18 20:00 97.1 93 18 123/83 (96) 97 06/02/18 20:00 100 06/02/18 20:00 90 16 Room Air 21 06/02/18 19:30 94 Room Air 21 06/02/18 19:30 Room Air 21 06/02/18 16:00 91 06/02/18 16:00 97.4 85 20 128/78 (95) 98 Intake and Output 06/02/18 06/03/18 19:00 07:00 # Voids 2 2 # Bowel Movements 1 1 Laboratory Tests 06/03/18 05:14: Sodium Level 141, Potassium Level 3.6, Chloride Level 104, Carbon Dioxide Level 27, Anion Gap 10, Blood Urea Nitrogen 24H, Creatinine 0.6, Estimat Glomerular Filtration Rate , Glucose Level 60L, Calcium Level 9.2, Magnesium Level 1.7L Height (Feet): 4 Height (Inches): 9.00 Weight (Pounds): 131 Cardiovascular: normal rate Respiratory/Chest: lungs clear Extremities: trace edema Yang Gibson MD Jun 03, 2018 14:45
--- NOTE | 2018-06-03 15:37 | NUR ---
DISCHARGE PLANNING PATIENT WAS REFERRED TO [facility] AND THEY WILL HAVE A BED TOMORROW FOR THIS PATIENT MESSAGE LEFT FOR DR QUEZADA AND DR CONTEH
--- NOTE | 2018-06-03 15:45 | General Progress Note ---
Assessment/Plan Assessment/Plan Assessment/Plan: # Anemia of chronic disease due to underlying chronic medical issues, multifactorial --> Anemia workup has been reviewed, ferritin 78 --> No evidence of hemolysis is noted, peripheral smear has been reviewed. --> Hgb goal >7. Transfuse prn. 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 --> consider outpatient CT scan with IV contrast # Leukopenia - multifactorial, could be medication related r/o underlying infection --> if the total ANC is less than 2000, consider neupogen --> continue antibiotics with ID service, appreciate recs --> medications have been reviewed --> hepatitis and hiv but results negative --> us of the abd is negative for hsm/cirrhosis # Acute on chronic CHF, unknown if systolic or diastolic at this time --> EF of 25%, seen by cards, appreciate recs --> as per cards eval # Acute hypoxic respiratory failure due to acute CHF --> per cards # Essential HTN --> IV Lasix diuresis prn --> monitor I&O --> Daily weights # Hyponatremia # Dementia The timing of this note does not necessarily reflect the time of the patient was seen. Greatly appreciate consultation! Subjective Allergies: Coded Allergies: PENICILLINS (Verified Allergy, Severe, HIVES AROUND NECK/THROAT/ DIFFICULTY BREATHING, 11/01/17) Subjective 3/4: seen by bedside, awake, comfortable, no events 3/5: no fevers, chills, h/h stable 3/6: continues to have off and on confusion, labs reviewed, potential dc tomorrow Objective Last 24 Hour Vital Signs Date Time Temp Pulse Resp B/P (MAP) Pulse Ox O2 Delivery O2 Flow Rate FiO2 06/03/18 12:00 97.3 94 21 140/79 (99) 93 06/03/18 09:00 Nasal Cannula 2.0 06/03/18 08:49 136/83 06/03/18 08:48 90 136/83 06/03/18 08:00 97.5 90 21 136/83 (100) 96 06/03/18 08:00 102 06/03/18 04:00 79 06/03/18 00:00 97.6 89 18 134/60 (84) 95 06/03/18 00:00 80 3/5/19 22:00 72 18 95 21 06/02/18 21:00 91 128/78 06/02/18 21:00 Nasal Cannula 2.0 06/02/18 20:00 97.1 93 18 123/83 (96) 97 06/02/18 20:00 100 06/02/18 20:00 90 16 Room Air 21 06/02/18 19:30 94 Room Air 21 06/02/18 19:30 Room Air 21 06/02/18 16:00 91 06/02/18 16:00 97.4 85 20 128/78 (95) 98 Intake and Output 06/02/18 06/03/18 18:59 06:59 # Voids 2 2 # Bowel Movements 1 1 Laboratory Tests 06/03/18 05:14: Sodium Level 141, Potassium Level 3.6, Chloride Level 104, Carbon Dioxide Level 27, Anion Gap 10, Blood Urea Nitrogen 24H, Creatinine 0.6, Estimat Glomerular Filtration Rate , Glucose Level 60L, Calcium Level 9.2, Magnesium Level 1.7L Height (Feet): 4 Height (Inches): 9.00 Weight (Pounds): 131 Objective Physical Exam General Appearance: no apparent distress, alert HEENT: normocephalic, atraumatic Neck: non-tender, normal alignment Respiratory/Chest: chest wall non-tender, lungs clear Cardiovascular/Chest: normal peripheral pulses, rrr Abdomen: normal bowel sounds, non tender, soft Extremities: severe edema Skin Exam: normal pigmentation, warm/dry Musculoskeletal: normal muscle bulk Neuro: lethargic Pepe Wilcox MD Jun 03, 2018 15:45
[2018-06-03 16:00] VITALS: BP 133/87
--- NOTE | 2018-06-03 17:32 | Pulmonology Progress Note ---
Assessment/Plan Problems: (1) Acute CHF (2) Respiratory distress (3) Dyspnea (4) Sick-euthyroid syndrome (5) Altered mental state (6) Dementia with behavioral disturbance Assessment/Plan ASSESSMENT: 83 F h/o dementia, [place], prior diverticular bleed a/w respiratory failure 2/2 ADHF and hypoNa PROBLEM LIST: Respiratory failure CHF with ADHF HypoNa H/O diverticular bleed H/O dementia AR AMS PLAN: Optimize pulmonary hygiene/mobilize as tolerated BiPAP qHS and PRN only Titrate down FiO2 to keep SaO2 > 90% PRN HHN's Monitor volumes and renal function, off Diamox Cardiology recs Aspiration precautions, 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 Encourage PO Monitor MS, F/U psych recs DVT Px: Hep SQ FC Dispo planning to [facility] Subjective Allergies: Coded Allergies: PENICILLINS (Verified Allergy, Severe, HIVES AROUND NECK/THROAT/ DIFFICULTY BREATHING, 11/01/17) Subjective RHETT AFVSS O2 needs stable no cough no wheezing no SOB Objective Last 24 Hour Vital Signs Date Time Temp Pulse Resp B/P (MAP) Pulse Ox O2 Delivery O2 Flow Rate FiO2 06/03/18 16:13 97 16 Nasal Cannula 2.0 28 06/03/18 16:13 Nasal Cannula 2.0 28 06/03/18 16:13 100 Nasal Cannula 2.0 28 06/03/18 12:00 97.3 94 21 140/79 (99) 93 06/03/18 09:00 Nasal Cannula 2.0 06/03/18 08:49 136/83 06/03/18 08:48 90 136/83 06/03/18 08:00 97.5 90 21 136/83 (100) 96 06/03/18 08:00 102 06/03/18 04:00 79 06/03/18 00:00 97.6 89 18 134/60 (84) 95 06/03/18 00:00 80 06/02/18 22:00 72 18 95 21 06/02/18 21:00 91 128/78 06/02/18 21:00 Nasal Cannula 2.0 06/02/18 20:00 97.1 93 18 123/83 (96) 97 06/02/18 20:00 100 06/02/18 20:00 90 16 Room Air 21 06/02/18 19:30 94 Room Air 21 06/02/18 19:30 Room Air 21 Intake and Output 06/02/18 06/03/18 18:59 06:59 # Voids 2 2 # Bowel Movements 1 1 General Appearance: no acute distress, cachetic HEENT: normocephalic, atraumatic, anicteric, mucous membranes moist Respiratory/Chest: chest wall non-tender, lungs clear, normal breath sounds, no respiratory distress, no accessory muscle use Cardiovascular: normal peripheral pulses, normal rate, regular rhythm Abdomen: normal bowel sounds, soft, non tender, no organomegaly, non distended , no mass Extremities: no cyanosis, no clubbing, no edema Laboratory Tests 06/03/18 05:14: Sodium Level 141, Potassium Level 3.6, Chloride Level 104, Carbon Dioxide Level 27, Anion Gap 10, Blood Urea Nitrogen 24H, Creatinine 0.6, Estimat Glomerular Filtration Rate , Glucose Level 60L, Calcium Level 9.2, Magnesium Level 1.7L 06/03/18 16:45: Prothrombin Time [Pending], Prothromb Time International Ratio [Pending] Current Medications Medications (Trade) Dose Ordered Sig/Violet Route PRN Reason Start Time Stop Time Status Last Admin Dose Admin Allopurinol (Zyloprim) 100 mg DAILY ORAL 05/27/18 09:00 06/25/18 08:59 06/03/18 08:49 Aspirin (ASA) 81 mg DAILY ORAL 05/27/18 09:00 06/25/18 08:59 06/03/18 08:49 Calcium Carbonate (OsCal D) 1 tab DAILY ORAL 05/27/18 09:00 06/25/18 08:59 06/03/18 08:49 Carvedilol (Coreg) 3.125 mg EVERY 12 HOURS ORAL 05/27/18 21:00 06/26/18 20:59 06/03/18 08:48 Dextrose (Dextrose 50%) 25 ml Q30M PRN IV Hypoglycemia 05/26/18 15:00 06/24/18 11:29 Dextrose (Dextrose 50%) 50 ml Q30M PRN IV Hypoglycemia 05/26/18 15:00 06/24/18 11:29 Docusate Sodium (Colace) 100 mg EVERY 12 HOURS ORAL 05/26/18 21:00 06/24/18 20:59 06/03/18 08:48 Fluticasone Propionate (Flonase) 1 spray DAILY NASAL 05/27/18 09:00 06/25/18 08:59 06/03/18 08:48 Haloperidol Lactate (Haldol) 5 mg Q6H PRN IM Agitation 05/26/18 19:45 06/25/18 19:44 06/02/18 21:00 Heparin Sodium (Porcine) (Heparin 5000 units/ml) 5,000 units Q12HR SUBQ 05/26/18 21:00 06/24/18 20:59 06/03/18 08:50 Lisinopril (Zestril) 2.5 mg DAILY ORAL 05/27/18 09:00 06/26/18 08:59 06/03/18 08:49 Magnesium Hydroxide (Mom) 30 ml HSPRN PRN ORAL Constipation 05/26/18 21:00 06/24/18 20:59 Magnesium Sulfate 100 ml @ 100 mls/hr Q1H IVPB 06/03/18 14:30 06/03/18 18:29 06/03/18 16:27 Ondansetron HCl (Zofran) 4 mg Q6H PRN IVP Nausea & Vomiting 05/26/18 14:53 06/24/18 14:52 Dionicio Middleton MD Jun 03, 2018 17:32
[2018-06-03 17:38] LABS: INR 1.1 (0.9-1.1)
[2018-06-03] MEDS ORDERED: Albuterol/Ipratropium 3ml neb HHN PRN (17:45)
--- NOTE | 2018-06-03 18:16 | NUR ---
NURSE NOTES: Dr. Nichols made aware patient having bigeminal PAC with HR 88. Dr. Nichols stated no problem, no order given at this time, will continue to monitor.
--- NOTE | 2018-06-03 19:15 | NUR ---
NURSE NOTES: Received report from Keanu Keyes, pt. in bed awake, opens eyes to name, no signs or symptoms of acute cardiac or respiratory distress noted, pt. appears to be resting in bed comfortably, cardiac monitoring on, bed in lowest position and call light within easy reach, bed alarm on, side rails up x's3 and safety brakes engaged, pt. appears to be sating well on 3L NC at 97$- no respiratory distress noted, Pure wick intact and draining to gravity, dressing dry and intact, left wrist 22G IV intact and patent, safety measures continued, will continue with plan of care. Addendum: 06/03/18 at 2003 by NANCI CARLOS RN RN pt. is able to make needs known- [place] speaking.
--- NOTE | 2018-06-03 19:50 | NUR ---
HAND-OFF: Report given to RADHA Bravo.
[2018-06-03 20:00] VITALS: BP 127/55
--- NOTE | 2018-06-03 20:03 | Cardiology Progress Note ---
Assessment/Plan Assessment/Plan 1. Cardiomyopathy, likely chronic. 2. Left bundle-branch conduction defect. 3. Severe aortic stenosis. 4. Pulmonary hypertension. 5. Dementia. 6. History of GI bleed back in October of 2016. 7. History of diverticular bleed more communicative and awake will see how she changes mentally and assess how funciton she will be before considering option for eval and treatment which will nto be possible at this hospital looks better comfortable oriented to hosptial but not to city resume po diruetic soon lasix 40 - 60 mg daily telel noted no sig pauses no vt no svt Subjective Cardiovascular: Denies: chest pain, lightheadedness Respiratory: Denies: shortness of breath Gastrointestinal/Abdominal: Denies: abdomen distended Genitourinary: Denies: burning Objective Last 24 Hour Vital Signs Date Time Temp Pulse Resp B/P (MAP) Pulse Ox O2 Delivery O2 Flow Rate FiO2 06/03/18 16:13 97 16 Nasal Cannula 2.0 28 06/03/18 16:13 Nasal Cannula 2.0 28 06/03/18 16:13 100 Nasal Cannula 2.0 28 06/03/18 16:00 97.3 100 23 133/87 (102) 92 06/03/18 16:00 55 06/03/18 12:00 77 06/03/18 12:00 97.3 94 21 140/79 (99) 93 06/03/18 09:00 Nasal Cannula 2.0 06/03/18 08:49 136/83 06/03/18 08:48 90 136/83 06/03/18 08:00 97.5 90 21 136/83 (100) 96 06/03/18 08:00 102 06/03/18 04:00 79 06/03/18 00:00 97.6 89 18 134/60 (84) 95 06/03/18 00:00 80 06/02/18 22:00 72 18 95 21 06/02/18 21:00 91 128/78 06/02/18 21:00 Nasal Cannula 2.0 General Appearance: no apparent distress, alert Neck: supple Cardiovascular: normal rate, regular rhythm Respiratory/Chest: lungs clear Abdomen: normal bowel sounds, non tender, soft Extremities: no swelling Intake and Output 06/02/18 06/03/18 18:59 06:59 # Voids 2 2 # Bowel Movements 1 1 Laboratory Tests Test 06/03/18 05:14 06/03/18 16:45 Sodium Level 141 MMOL/L (136-145) Potassium Level 3.6 MMOL/L (3.5-5.1) Chloride Level 104 MMOL/L (98-107) Carbon Dioxide Level 27 MMOL/L (21-32) Anion Gap 10 mmol/L (5-15) Blood Urea Nitrogen 24 mg/dL (7-18) H Creatinine 0.6 MG/DL (0.55-1.30) Estimat Glomerular Filtration Rate mL/min (>60) Glucose Level 60 MG/DL (74-106) L Calcium Level 9.2 MG/DL (8.5-10.1) Magnesium Level 1.7 MG/DL (1.8-2.4) L Prothrombin Time 11.6 SEC (9.30-11.50) H Prothromb Time International Ratio 1.1 (0.9-1.1) Bret Nichols MD Jun 03, 2018 20:03
--- NOTE | 2018-06-03 20:05 | General Progress Note ---
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 #Essential HTN #Metabolic alkalosis - improved -hold Lasix due to contraction alkalosis -continue Coreg and lisinopril -monitor I&O -Daily weights -Restrict sodium intake -TTE results reviewed -dysphagia diet -aspiration precautions -CT chest results reviewed -Cardiology following -Pulmonology following -diamox discontinued -will discuss with cardio regarding restarting Lasix prior to dc #Hypokalemia #Hypomagnesemia -replace intravenously -CTM #Hyponatremia -secondary to hypervolemic state -resolved -continue to treated acute CHF -REnal consult appreciated #Dementia #Acute metabolic encephalopathy, present on admission #Severe agitation - resolved -supportive care -aspiration and fall precautions -continue Zyprexa -psychiatry following #Dispo -plan for DC to subacute rehab in AM VTE PPx Heparin SC Full Code I spent 45 minutes on this patient's case, and 29 minutes was dedicated to counseling and/or care coordination. Subjective Allergies: Coded Allergies: PENICILLINS (Verified Allergy, Severe, HIVES AROUND NECK/THROAT/ DIFFICULTY BREATHING, 11/01/17) Subjective no acute overnight events, more awake and alert today, Objective Last 24 Hour Vital Signs Date Time Temp Pulse Resp B/P (MAP) Pulse Ox O2 Delivery O2 Flow Rate FiO2 06/03/18 16:13 97 16 Nasal Cannula 2.0 28 06/03/18 16:13 Nasal Cannula 2.0 28 06/03/18 16:13 100 Nasal Cannula 2.0 28 06/03/18 16:00 97.3 100 23 133/87 (102) 92 06/03/18 16:00 55 06/03/18 12:00 77 06/03/18 12:00 97.3 94 21 140/79 (99) 93 06/03/18 09:00 Nasal Cannula 2.0 06/03/18 08:49 136/83 06/03/18 08:48 90 136/83 06/03/18 08:00 97.5 90 21 136/83 (100) 96 06/03/18 08:00 102 06/03/18 04:00 79 06/03/18 00:00 97.6 89 18 134/60 (84) 95 06/03/18 00:00 80 3/5/19 22:00 72 18 95 21 06/02/18 21:00 91 128/78 06/02/18 21:00 Nasal Cannula 2.0 Intake and Output 06/02/18 06/03/18 18:59 06:59 # Voids 2 2 # Bowel Movements 1 1 Laboratory Tests 06/03/18 05:14: Sodium Level 141, Potassium Level 3.6, Chloride Level 104, Carbon Dioxide Level 27, Anion Gap 10, Blood Urea Nitrogen 24H, Creatinine 0.6, Estimat Glomerular Filtration Rate , Glucose Level 60L, Calcium Level 9.2, Magnesium Level 1.7L 06/03/18 16:45: Prothrombin Time 11.6H, Prothromb Time International Ratio 1.1 Height (Feet): 4 Height (Inches): 9.00 Weight (Pounds): 131 Objective General: sleepy but arousable, no distress, appears stated age Head: normocephalic, without obvious abnormality, atraumatic Eyes: conjunctivae/corneas clear. PERRL, EOM's intact Throat: lips, mucosa, and tongue normal. MMM Neck: supple, symmetrical, trachea midline, and no JVD Lungs: clear to auscultation bilaterally Heart: regular rate and rhythm, S1, S2 normal, no murmur, click, rub or gallop Abdomen: soft, non-tender, non-distended, bowel sounds normal; no masses or organomegaly Extremities: extremities normal, atraumatic, no cyanosis or edema Pulses: 2+ and symmetric Skin: skin color, texture, turgor normal; no rashes or lesions Neurologic: grossly normal, no focal deficits Olivia Aguayo MD Jun 03, 2018 20:05
[2018-06-04] VITALS: BP 141/78
[2018-06-04 04:00] VITALS: BP 116/70
--- NOTE | 2018-06-04 07:00 | NUR ---
NURSE NOTES: received patient report from boom meneses. patient is on bed awake. not in acute distress. sr to sr with bbb. on 3 li nc. bed is low and locked for safety. will continue to monitor.
--- NOTE | 2018-06-04 07:13 | NUR ---
HAND-OFF: Report given to Cruzito RN, pt. remains stable and no signs of distress noted.
[2018-06-04 07:27] LABS: ANION GAP 6 mmol/L (5-15); BLOOD UREA NITROGEN 18 mg/dL (7-18); CALCIUM 8.5 MG/DL (8.5-10.1); CARBON DIOXIDE 29 MMOL/L (21-32); CHLORIDE 104 MMOL/L (98-107); CREATININE 0.6 MG/DL (0.55-1.30); POTASSIUM 3.4 MMOL/L (3.5-5.1); SODIUM 139 MMOL/L (136-145)
--- NOTE | 2018-06-04 07:29 | NUR ---
CASE MANAGEMENT:REVIEW 06/04/18 SI: ACUTE RESPIRATORY FAILURE AC/CHR CHF W/EF 25%. SEVERE AORTIC STENOSIS 97.4 85 20 128/78 98% ON 2L/NC IS: COREG PO Q12 ALLOPURINOL PO QD ASA PO QD FLONASE QD LISINOPRIL PO QD HEPARIN SQ Q12 : TELEMETRY STATUS DCP: PATIENT CAME TO US FROM HOME....REFER TO SNF UPON DISCHARGE PLAN: REFERRED TO [facility] TO DISCHARGE TODAY TO SNF
--- NOTE | 2018-06-04 07:40 | NUR ---
INSURANCE FAXED TO [facility] T:[phone] F:[phone]
[2018-06-04 08:00] VITALS: BP 118/82
[2018-06-04] MEDS: Flonase Nasal Inhaler 16gm NASAL SCH (08:05)
[2018-06-04] MEDS: Docusate 100mg/10ml Liq ORAL SCH ×2 (08:06→21:48)
[2018-06-04] MEDS: Aspirin Baby 81mg ORAL SCH (08:07)
[2018-06-04] MEDS: Calcium Carbonate 500mg w/Vit D 200iu tab ORAL SCH (08:07)
[2018-06-04] MEDS: Allopurinol 100mg Tab ORAL SCH (08:07)
[2018-06-04] MEDS: Heparin 5000 units/ml inj SUBQ SCH ×2 (08:08→21:48)
[2018-06-04] MEDS: Lisinopril 2.5mg tab ORAL SCH (08:09)
--- NOTE | 2018-06-04 10:36 | General Progress Note ---
Assessment/Plan Problem List: (1) Acute metabolic encephalopathy ICD Codes: G93.41 - Metabolic encephalopathy SNOMED: 26457275, 048593393 (2) Dementia with behavioral disturbance ICD Codes: F03.91 - Unspecified dementia with behavioral disturbance SNOMED: 4955392723071 Status: stable, progressing Assessment/Plan Haldol prn not cause sedation only decrease agitation dc soft restraints dw with rn Subjective Allergies: Coded Allergies: PENICILLINS (Verified Allergy, Severe, HIVES AROUND NECK/THROAT/ DIFFICULTY BREATHING, 11/01/17) Subjective the pts ms is improved the pt is more alert the pt less agitated Objective Last 24 Hour Vital Signs Date Time Temp Pulse Resp B/P (MAP) Pulse Ox O2 Delivery O2 Flow Rate FiO2 06/04/18 09:00 Nasal Cannula 2.0 06/04/18 08:09 118/82 06/04/18 08:06 84 118/82 06/04/18 08:00 97.9 84 16 118/82 (94) 94 06/04/18 08:00 82 06/04/18 07:45 Nasal Cannula 2.0 28 06/04/18 07:45 98 Nasal Cannula 2.0 28 06/04/18 07:45 87 16 Nasal Cannula 2.0 28 06/04/18 04:00 97.2 79 20 116/70 (85) 95 06/04/18 04:00 75 06/04/18 00:00 99 06/04/18 00:00 97.7 96 20 141/78 (99) 94 06/03/18 20:26 Nasal Cannula 2.0 28 06/03/18 20:26 93 18 Nasal Cannula 2.0 28 06/03/18 20:26 99 Nasal Cannula 2.0 28 06/03/18 20:20 77 127/55 06/03/18 20:00 97.5 70 24 127/55 (79) 94 06/03/18 20:00 89 06/03/18 20:00 Nasal Cannula 2.0 06/03/18 16:13 97 16 Nasal Cannula 2.0 28 06/03/18 16:13 Nasal Cannula 2.0 28 06/03/18 16:13 100 Nasal Cannula 2.0 28 06/03/18 16:00 97.3 100 23 133/87 (102) 92 06/03/18 16:00 55 06/03/18 12:00 77 06/03/18 12:00 97.3 94 21 140/79 (99) 93 Intake and Output 06/03/18 06/04/18 19:00 07:00 Output Total 600 ml Balance -600 ml Output Urine Total 600 ml Laboratory Tests 06/03/18 16:45: Prothrombin Time 11.6H, Prothromb Time International Ratio 1.1 06/04/18 05:10: Sodium Level 139, Potassium Level 3.4L, Chloride Level 104, Carbon Dioxide Level 29, Anion Gap 6, Blood Urea Nitrogen 18, Creatinine 0.6, Estimat Glomerular Filtration Rate , Glucose Level 72L, Calcium Level 8.5, Magnesium Level 2.5H Height (Feet): 4 Height (Inches): 9.00 Weight (Pounds): 131 General Appearance: WD/WN, no apparent distress, alert - cont to wax and wane, confused Jackie Boyd MD Jun 04, 2018 10:36
[2018-06-04 12:00] VITALS: BP 125/83
--- NOTE | 2018-06-04 12:12 | Nephrology Progress Note ---
Assessment/Plan Problem List: (1) Hyponatremia Assessment: resolved (2) Acute CHF Assessment: improved (3) HTN (hypertension) Assessment: BP Ok (4) Hypokalemia (5) Hypomagnesemia (6) Metabolic alkalosis with respiratory acidosis Assessment: met alkalosis is better Plan Replete K BMP, Mag in AM Discussed with Dr Middleton Subjective Subjective sleeping Objective Objective Last 24 Hour Vital Signs Date Time Temp Pulse Resp B/P (MAP) Pulse Ox O2 Delivery O2 Flow Rate FiO2 06/04/18 09:00 Nasal Cannula 2.0 06/04/18 08:09 118/82 06/04/18 08:06 84 118/82 06/04/18 08:00 97.9 84 16 118/82 (94) 94 06/04/18 08:00 82 06/04/18 07:45 Nasal Cannula 2.0 28 06/04/18 07:45 98 Nasal Cannula 2.0 28 06/04/18 07:45 87 16 Nasal Cannula 2.0 28 06/04/18 04:00 97.2 79 20 116/70 (85) 95 06/04/18 04:00 75 06/04/18 00:00 99 06/04/18 00:00 97.7 96 20 141/78 (99) 94 06/03/18 20:26 Nasal Cannula 2.0 28 06/03/18 20:26 93 18 Nasal Cannula 2.0 28 06/03/18 20:26 99 Nasal Cannula 2.0 28 06/03/18 20:20 77 127/55 06/03/18 20:00 97.5 70 24 127/55 (79) 94 06/03/18 20:00 89 06/03/18 20:00 Nasal Cannula 2.0 06/03/18 16:13 97 16 Nasal Cannula 2.0 28 06/03/18 16:13 Nasal Cannula 2.0 28 06/03/18 16:13 100 Nasal Cannula 2.0 28 06/03/18 16:00 97.3 100 23 133/87 (102) 92 06/03/18 16:00 55 Intake and Output 06/03/18 06/04/18 19:00 07:00 Output Total 600 ml Balance -600 ml Output Urine Total 600 ml Laboratory Tests 06/03/18 16:45: Prothrombin Time 11.6H, Prothromb Time International Ratio 1.1 06/04/18 05:10: Sodium Level 139, Potassium Level 3.4L, Chloride Level 104, Carbon Dioxide Level 29, Anion Gap 6, Blood Urea Nitrogen 18, Creatinine 0.6, Estimat Glomerular Filtration Rate , Glucose Level 72L, Calcium Level 8.5, Magnesium Level 2.5H Height (Feet): 4 Height (Inches): 9.00 Weight (Pounds): 131 Cardiovascular: normal rate Respiratory/Chest: lungs clear Extremities: trace edema Yang Gibson MD Jun 04, 2018 12:12
--- NOTE | 2018-06-04 15:16 | NUR ---
DISCHARGE PLANNING PATIENT HAS BEEN REFERRED TO [facility] T: [phone] F: [phone] AWAITING ASSIGNED BED
[2018-06-04] MEDS ORDERED: POTASSIUM CHLO20 ME1 ORAL (15:31)
[2018-06-04] MEDS ORDERED: LISINOPRIL5 MG ORAL (15:31)
[2018-06-04] MEDS ORDERED: FUROSEMIDE40 MG ORAL (15:31)
[2018-06-04] MEDS ORDERED: COREG3.125 MG ORAL (15:31)
[2018-06-04 16:00] VITALS: BP 139/78
--- NOTE | 2018-06-04 17:03 | General Progress Note ---
Assessment/Plan Assessment/Plan Assessment/Plan: # Anemia of chronic disease due to underlying chronic medical issues, multifactorial --> Anemia workup has been reviewed, ferritin 78 --> No evidence of hemolysis is noted, peripheral smear has been reviewed. --> Hgb goal >7. Transfuse prn. 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 --> consider outpatient CT scan with IV contrast # Leukopenia - multifactorial, could be medication related r/o underlying infection --> if the total ANC is less than 2000, consider neupogen --> continue antibiotics with ID service, appreciate recs --> medications have been reviewed --> hepatitis and hiv but results negative --> us of the abd is negative for hsm/cirrhosis # Acute on chronic CHF, unknown if systolic or diastolic at this time --> EF of 25%, seen by cards, appreciate recs --> as per cards eval # Acute hypoxic respiratory failure due to acute CHF --> per cards # Essential HTN --> IV Lasix diuresis prn --> monitor I&O --> Daily weights # Hyponatremia # Dementia The timing of this note does not necessarily reflect the time of the patient was seen. Greatly appreciate consultation! Subjective Allergies: Coded Allergies: PENICILLINS (Verified Allergy, Severe, HIVES AROUND NECK/THROAT/ DIFFICULTY BREATHING, 11/01/17) Subjective 3/4: seen by bedside, awake, comfortable, no events 3/5: no fevers, chills, h/h stable 3/6: continues to have off and on confusion, labs reviewed, potential dc tomorrow 3: seen by bedside, awake, comfortable, no acute distress reported Objective Last 24 Hour Vital Signs Date Time Temp Pulse Resp B/P (MAP) Pulse Ox O2 Delivery O2 Flow Rate FiO2 06/04/18 12:00 97.9 82 16 125/83 (97) 94 06/04/18 12:00 71 06/04/18 09:00 Nasal Cannula 2.0 06/04/18 08:09 118/82 06/04/18 08:06 84 118/82 06/04/18 08:00 97.9 84 16 118/82 (94) 94 06/04/18 08:00 82 06/04/18 07:45 Nasal Cannula 2.0 28 06/04/18 07:45 98 Nasal Cannula 2.0 28 06/04/18 07:45 87 16 Nasal Cannula 2.0 28 06/04/18 04:00 97.2 79 20 116/70 (85) 95 06/04/18 04:00 75 06/04/18 00:00 99 06/04/18 00:00 97.7 96 20 141/78 (99) 94 06/03/18 20:26 Nasal Cannula 2.0 28 06/03/18 20:26 93 18 Nasal Cannula 2.0 28 06/03/18 20:26 99 Nasal Cannula 2.0 28 06/03/18 20:20 77 127/55 06/03/18 20:00 97.5 70 24 127/55 (79) 94 06/03/18 20:00 89 06/03/18 20:00 Nasal Cannula 2.0 Intake and Output 06/03/18 06/04/18 19:00 07:00 Output Total 600 ml Balance -600 ml Output Urine Total 600 ml Laboratory Tests 06/04/18 05:10: Sodium Level 139, Potassium Level 3.4L, Chloride Level 104, Carbon Dioxide Level 29, Anion Gap 6, Blood Urea Nitrogen 18, Creatinine 0.6, Estimat Glomerular Filtration Rate , Glucose Level 72L, Calcium Level 8.5, Magnesium Level 2.5H Height (Feet): 4 Height (Inches): 9.00 Weight (Pounds): 131 Objective Physical Exam General Appearance: no apparent distress, alert HEENT: normocephalic, atraumatic Neck: non-tender, normal alignment Respiratory/Chest: chest wall non-tender, lungs clear Cardiovascular/Chest: normal peripheral pulses, rrr Abdomen: normal bowel sounds, non tender, soft Extremities: severe edema Skin Exam: normal pigmentation, warm/dry Musculoskeletal: normal muscle bulk Neuro: lethargic Pepe Wilcox MD Jun 04, 2018 17:03
--- NOTE | 2018-06-04 17:50 | Pulmonology Progress Note ---
Assessment/Plan Problems: (1) Acute CHF (2) Respiratory distress (3) Dyspnea (4) Sick-euthyroid syndrome (5) Altered mental state (6) Dementia with behavioral disturbance Assessment/Plan ASSESSMENT: 83 F h/o dementia, AR, prior diverticular bleed a/w respiratory failure 2/2 ADHF and hypoNa PROBLEM LIST: Respiratory failure CHF with ADHF HypoNa H/O diverticular bleed H/O dementia AR AMS PLAN: Optimize pulmonary hygiene/mobilize as tolerated BiPAP qHS and PRN only Titrate down FiO2 to keep SaO2 > 90% PRN HHN's Monitor volumes and renal function, off Diamox Cardiology recs Aspiration precautions, BUNCH [employer] HAND recs Encourage PO Monitor MS, F/U psych recs DVT Px: Hep SQ FC Dispo planning to [facility] Subjective Allergies: Coded Allergies: PENICILLINS (Verified Allergy, Severe, HIVES AROUND NECK/THROAT/ DIFFICULTY BREATHING, 11/01/17) Subjective RHETT AFVSS O2 needs stable no cough no wheezing no SOB Objective Last 24 Hour Vital Signs Date Time Temp Pulse Resp B/P (MAP) Pulse Ox O2 Delivery O2 Flow Rate FiO2 06/04/18 12:00 97.9 82 16 125/83 (97) 94 06/04/18 12:00 71 06/04/18 09:00 Nasal Cannula 2.0 06/04/18 08:09 118/82 06/04/18 08:06 84 118/82 06/04/18 08:00 97.9 84 16 118/82 (94) 94 06/04/18 08:00 82 06/04/18 07:45 Nasal Cannula 2.0 28 06/04/18 07:45 98 Nasal Cannula 2.0 28 06/04/18 07:45 87 16 Nasal Cannula 2.0 28 06/04/18 04:00 97.2 79 20 116/70 (85) 95 06/04/18 04:00 75 06/04/18 00:00 99 06/04/18 00:00 97.7 96 20 141/78 (99) 94 06/03/18 20:26 Nasal Cannula 2.0 28 06/03/18 20:26 93 18 Nasal Cannula 2.0 28 06/03/18 20:26 99 Nasal Cannula 2.0 28 06/03/18 20:20 77 127/55 06/03/18 20:00 97.5 70 24 127/55 (79) 94 06/03/18 20:00 89 06/03/18 20:00 Nasal Cannula 2.0 Intake and Output 06/03/18 06/04/18 18:59 06:59 Output Total 600 ml Balance -600 ml Output Urine Total 600 ml General Appearance: no acute distress, cachetic HEENT: normocephalic, atraumatic, anicteric, mucous membranes moist Respiratory/Chest: chest wall non-tender, lungs clear, normal breath sounds, no respiratory distress, no accessory muscle use Cardiovascular: normal peripheral pulses, normal rate, regular rhythm Abdomen: normal bowel sounds, soft, non tender, no organomegaly, non distended , no mass Extremities: no cyanosis, no clubbing, no edema Laboratory Tests 06/04/18 05:10: Sodium Level 139, Potassium Level 3.4L, Chloride Level 104, Carbon Dioxide Level 29, Anion Gap 6, Blood Urea Nitrogen 18, Creatinine 0.6, Estimat Glomerular Filtration Rate , Glucose Level 72L, Calcium Level 8.5, Magnesium Level 2.5H Current Medications Medications (Trade) Dose Ordered Sig/Violet Route PRN Reason Start Time Stop Time Status Last Admin Dose Admin Albuterol/ Ipratropium (Albuterol/ Ipratropium) 3 ml Q4H PRN HHN Shortness of Breath 06/03/18 17:45 06/08/18 17:44 Allopurinol (Zyloprim) 100 mg DAILY ORAL 05/27/18 09:00 06/25/18 08:59 06/04/18 08:07 Aspirin (ASA) 81 mg DAILY ORAL 05/27/18 09:00 06/25/18 08:59 06/04/18 08:07 Calcium Carbonate (OsCal D) 1 tab DAILY ORAL 05/27/18 09:00 06/25/18 08:59 06/04/18 08:07 Carvedilol (Coreg) 3.125 mg EVERY 12 HOURS ORAL 05/27/18 21:00 06/26/18 20:59 06/04/18 08:06 Dextrose (Dextrose 50%) 25 ml Q30M PRN IV Hypoglycemia 05/26/18 15:00 06/24/18 11:29 Dextrose (Dextrose 50%) 50 ml Q30M PRN IV Hypoglycemia 05/26/18 15:00 06/24/18 11:29 Docusate Sodium (Colace) 100 mg EVERY 12 HOURS ORAL 05/26/18 21:00 06/24/18 20:59 06/04/18 08:06 Fluticasone Propionate (Flonase) 1 spray DAILY NASAL 05/27/18 09:00 06/25/18 08:59 06/04/18 08:05 Furosemide (Lasix) 40 mg DAILY ORAL 06/05/18 09:00 07/05/18 08:59 Haloperidol Lactate (Haldol) 5 mg Q6H PRN IM Agitation 05/26/18 19:45 06/25/18 19:44 06/02/18 21:00 Heparin Sodium (Porcine) (Heparin 5000 units/ml) 5,000 units Q12HR SUBQ 05/26/18 21:00 06/24/18 20:59 06/04/18 08:08 Lisinopril (Zestril) 2.5 mg DAILY ORAL 05/27/18 09:00 06/26/18 08:59 06/04/18 08:09 Magnesium Hydroxide (Mom) 30 ml HSPRN PRN ORAL Constipation 05/26/18 21:00 06/24/18 20:59 Ondansetron HCl (Zofran) 4 mg Q6H PRN IVP Nausea & Vomiting 05/26/18 14:53 06/24/18 14:52 Potassium Chloride (K-Dur) 20 meq DAILY ORAL 06/04/18 15:30 07/04/18 15:29 06/04/18 15:44 Dionicio Middleton MD Jun 04, 2018 17:50
--- NOTE | 2018-06-04 19:19 | NUR ---
HAND-OFF: Report given to kole meneses.
--- NOTE | 2018-06-04 19:26 | NUR ---
HAND-OFF: Report given to tony meneses.
--- NOTE | 2018-06-04 19:27 | NUR ---
NURSE NOTES: Received pt from RADHA James. Patient awake and resting in bed. In no acute distress. Bed in lowest position, call light within reach. Will continue plan of care.
[2018-06-04 20:00] VITALS: BP 145/68
[2018-06-05] VITALS: BP_SYST 137; BP_SYST 144; BP_DIAS 79; BP_DIAS 85
[2018-06-05 04:00] VITALS: BP 137/85
[2018-06-05 07:29] LABS: ANION GAP 8 mmol/L (5-15); BLOOD UREA NITROGEN 18 mg/dL (7-18); CALCIUM 8.7 MG/DL (8.5-10.1); CARBON DIOXIDE 28 MMOL/L (21-32); CHLORIDE 104 MMOL/L (98-107); CREATININE 0.5 MG/DL (0.55-1.30); POTASSIUM 3.5 MMOL/L (3.5-5.1); SODIUM 140 MMOL/L (136-145)
[2018-06-05 08:00] VITALS: BP 128/86
[2018-06-05] MEDS: Docusate 100mg/10ml Liq ORAL SCH (08:12)
[2018-06-05] MEDS: Lisinopril 2.5mg tab ORAL SCH (08:12)
[2018-06-05] MEDS: Allopurinol 100mg Tab ORAL SCH (08:13)
[2018-06-05] MEDS: Calcium Carbonate 500mg w/Vit D 200iu tab ORAL SCH (08:13)
[2018-06-05] MEDS: Aspirin Baby 81mg ORAL SCH (08:13)
[2018-06-05] MEDS: Heparin 5000 units/ml inj SUBQ SCH (08:14)
[2018-06-05] MEDS: Flonase Nasal Inhaler 16gm NASAL SCH (08:21)
[2018-06-05] MEDS ORDERED: Furosemide 40mg tab ORAL SCH (09:00)
--- NOTE | 2018-06-05 10:54 | NUR ---
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
--- NOTE | 2018-06-05 11:02 | NUR ---
NURSE NOTES: Received report from Stephy jimenez. Pt is sleeping in bed with no distress noted. Bed is inlowest position, side rails up X2, and call light is within reach. Will continue to monitor.
--- NOTE | 2018-06-05 11:20 | NUR ---
HAND-OFF: Report given to RADHA Rendon.
--- NOTE | 2018-06-05 11:52 | NUR ---
NURSE NOTES: Pt is to DC to [facility]. Called facility and report given to
[2018-06-05 13:00] VITALS: BP 126/79
[2018-06-05] MEDS ORDERED: NS 275ml ONE (14:13)
--- NOTE | 2018-06-05 14:15 | Nephrology Progress Note ---
Assessment/Plan Problem List: (1) Hyponatremia Assessment: resolved (2) Acute CHF Assessment: improved (3) HTN (hypertension) Assessment: BP Ok (4) Hypokalemia (5) Hypomagnesemia (6) Metabolic alkalosis with respiratory acidosis Assessment: met alkalosis is better Plan cont as is DC today Subjective Subjective awake Objective Objective Last 24 Hour Vital Signs Date Time Temp Pulse Resp B/P (MAP) Pulse Ox O2 Delivery O2 Flow Rate FiO2 06/05/18 13:00 98.7 86 18 126/79 (95) 99 06/05/18 09:00 Nasal Cannula 2.0 06/05/18 08:12 80 128/86 06/05/18 08:12 128/86 06/05/18 08:04 76 18 Nasal Cannula 4.0 36 06/05/18 08:04 96 Nasal Cannula 4.0 36 06/05/18 08:04 Nasal Cannula 4.0 36 06/05/18 08:00 98.1 87 18 128/86 (100) 96 06/05/18 08:00 87 06/05/18 04:00 89 06/05/18 04:00 97.3 89 20 137/85 (102) 96 06/05/18 00:00 97 06/04/18 21:57 96 143/94 06/04/18 21:00 Nasal Cannula 2.0 06/04/18 20:26 Nasal Cannula 2.0 28 06/04/18 20:26 103 18 Nasal Cannula 2.0 28 06/04/18 20:26 96 Nasal Cannula 2.0 28 06/04/18 20:00 67 06/04/18 20:00 97.9 67 18 145/68 (93) 92 06/04/18 16:00 97.4 79 16 139/78 (98) 93 06/04/18 16:00 79 Intake and Output 06/04/18 06/05/18 19:00 07:00 Intake Total 360 ml Balance 360 ml Intake Oral 360 ml # Voids 2 3 Laboratory Tests 06/05/18 04:50: Sodium Level 140, Potassium Level 3.5, Chloride Level 104, Carbon Dioxide Level 28, Anion Gap 8, Blood Urea Nitrogen 18, Creatinine 0.5L, Estimat Glomerular Filtration Rate , Glucose Level 63L, Calcium Level 8.7, Magnesium Level 1.9 Height (Feet): 4 Height (Inches): 9.00 Weight (Pounds): 127 Cardiovascular: normal rate Respiratory/Chest: lungs clear Extremities: moderate edema Yang Gibson MD Jun 05, 2018 14:15
--- NOTE | 2018-06-05 14:22 | NUR ---
NURSE NOTES: Pt was discharged per doctor orders. Heart monitor was removed and removed to monitoring manager. Addendum: 06/05/18 at 1427 by Julieta Carranza RN Pt was discharger per doctor orders. Heart monitor was removed and returned to monitoring manager. pt belongings at her side and belongings list in chart. IV was removed. No swelling or redness noted. Pt stable at time of discharged
--- NOTE | 2018-06-05 15:07 | General Progress Note ---
Assessment/Plan Problem List: (1) Acute metabolic encephalopathy ICD Codes: G93.41 - Metabolic encephalopathy SNOMED: 12185714, 072955640 (2) Dementia with behavioral disturbance ICD Codes: F03.91 - Unspecified dementia with behavioral disturbance SNOMED: 3383393505549 Assessment/Plan Haldol prn not cause sedation only decrease agitation dc soft restraints dw with rn Subjective Neurologic/Psychiatric: Reports: anxiety, depressed, emotional problems Allergies: Coded Allergies: PENICILLINS (Verified Allergy, Severe, HIVES AROUND NECK/THROAT/ DIFFICULTY BREATHING, 11/01/17) Subjective the pts ms is improved the pt is more alert the pt less agitated Objective Last 24 Hour Vital Signs Date Time Temp Pulse Resp B/P (MAP) Pulse Ox O2 Delivery O2 Flow Rate FiO2 06/05/18 13:00 98.7 86 18 126/79 (95) 99 06/05/18 09:00 Nasal Cannula 2.0 06/05/18 08:12 80 128/86 06/05/18 08:12 128/86 06/05/18 08:04 76 18 Nasal Cannula 4.0 36 06/05/18 08:04 96 Nasal Cannula 4.0 36 06/05/18 08:04 Nasal Cannula 4.0 36 06/05/18 08:00 98.1 87 18 128/86 (100) 96 06/05/18 08:00 87 06/05/18 04:00 89 06/05/18 04:00 97.3 89 20 137/85 (102) 96 06/05/18 00:00 97 06/04/18 21:57 96 143/94 06/04/18 21:00 Nasal Cannula 2.0 06/04/18 20:26 Nasal Cannula 2.0 28 06/04/18 20:26 103 18 Nasal Cannula 2.0 28 06/04/18 20:26 96 Nasal Cannula 2.0 28 06/04/18 20:00 67 06/04/18 20:00 97.9 67 18 145/68 (93) 92 06/04/18 16:00 97.4 79 16 139/78 (98) 93 06/04/18 16:00 79 Intake and Output 06/04/18 06/05/18 19:00 07:00 Intake Total 360 ml Balance 360 ml Intake Oral 360 ml # Voids 2 3 Laboratory Tests 06/05/18 04:50: Sodium Level 140, Potassium Level 3.5, Chloride Level 104, Carbon Dioxide Level 28, Anion Gap 8, Blood Urea Nitrogen 18, Creatinine 0.5L, Estimat Glomerular Filtration Rate , Glucose Level 63L, Calcium Level 8.7, Magnesium Level 1.9 Height (Feet): 4 Height (Inches): 9.00 Weight (Pounds): 127 General Appearance: no apparent distress, alert, confused Jackie Boyd MD Jun 05, 2018 15:07
--- NOTE | 2018-06-05 20:21 | General Progress Note ---
Assessment/Plan Assessment/Plan Assessment/Plan: # Anemia of chronic disease due to underlying chronic medical issues, multifactorial --> Anemia workup has been reviewed, ferritin 78 --> No evidence of hemolysis is noted, peripheral smear has been reviewed. --> Hgb goal >7. Transfuse prn. 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 --> consider outpatient CT scan with IV contrast # Leukopenia - multifactorial, could be medication related r/o underlying infection --> if the total ANC is less than 2000, consider neupogen --> continue antibiotics with ID service, appreciate recs --> medications have been reviewed --> hepatitis and hiv but results negative --> us of the abd is negative for hsm/cirrhosis # Acute on chronic CHF, unknown if systolic or diastolic at this time --> EF of 25%, seen by cards, appreciate recs --> as per cards eval # Acute hypoxic respiratory failure due to acute CHF --> per cards # Essential HTN --> IV Lasix diuresis prn --> monitor I&O --> Daily weights # Hyponatremia # Dementia The timing of this note does not necessarily reflect the time of the patient was seen. Greatly appreciate consultation! Subjective Constitutional: Denies: no symptoms, chills, diaphoresis, fever, malaise, weakness, other HEENT: Denies: no symptoms, eye pain, blurred vision, tearing, double vision, ear pain, ear discharge, nose pain, nose congestion, throat pain, throat swelling, mouth pain, mouth swelling, other Cardiovascular: Denies: no symptoms, chest pain, edema, irregular heart rate, lightheadedness, palpitations, syncope, other Respiratory: Denies: no symptoms, cough, orthopnea, shortness of breath, SOB with excertion, SOB at rest, sputum, stridor, wheezing, other Gastrointestinal/Abdominal: Denies: no symptoms, abdomen distended, abdominal pain, black stools, tarry stools, blood in stool, constipated, diarrhea, difficulty swallowing, nausea, poor appetite, poor fluid intake, rectal bleeding , vomiting, other Genitourinary: Denies: no symptoms, burning, discharge, frequency, flank pain, hematuria, incontinence, pain, urgency, other Neurologic/Psychiatric: Denies: no symptoms, anxiety, depressed, emotional problems, headache, numbness, paresthesia, pre-existing deficit, seizure, tingling, tremors, weakness, other Endocrine: Denies: no symptoms, excessive sweating, flushing, intolerance to cold, intolerance to heat, increased hunger, increased thirst, increased urine, unexplained weight gain, unexplained weight loss, other Hematologic/Lymphatic: Denies: no symptoms, anemia, easy bleeding, easy bruising, other Allergies: Coded Allergies: PENICILLINS (Verified Allergy, Severe, HIVES AROUND NECK/THROAT/ DIFFICULTY BREATHING, 11/01/17) Subjective 06/01: seen by bedside, awake, comfortable, no events 06/02: no fevers, chills, h/h stable 06/03: continues to have off and on confusion, labs reviewed, potential dc tomorrow 06/04: seen by bedside, awake, comfortable, no acute distress reported 06/05: Pt is awake, comfortable, no acute distress reported Objective Last 24 Hour Vital Signs Date Time Temp Pulse Resp B/P (MAP) Pulse Ox O2 Delivery O2 Flow Rate FiO2 06/05/18 13:00 98.7 86 18 126/79 (95) 99 06/05/18 09:00 Nasal Cannula 2.0 06/05/18 08:12 80 128/86 06/05/18 08:12 128/86 06/05/18 08:04 76 18 Nasal Cannula 4.0 36 06/05/18 08:04 96 Nasal Cannula 4.0 36 06/05/18 08:04 Nasal Cannula 4.0 36 06/05/18 08:00 98.1 87 18 128/86 (100) 96 06/05/18 08:00 87 06/05/18 04:00 89 06/05/18 04:00 97.3 89 20 137/85 (102) 96 06/05/18 00:00 97 06/04/18 21:57 96 143/94 06/04/18 21:00 Nasal Cannula 2.0 06/04/18 20:26 Nasal Cannula 2.0 28 06/04/18 20:26 103 18 Nasal Cannula 2.0 28 06/04/18 20:26 96 Nasal Cannula 2.0 28 Intake and Output 06/04/18 06/05/18 19:00 07:00 Intake Total 360 ml Balance 360 ml Intake Oral 360 ml # Voids 2 3 Laboratory Tests 06/05/18 04:50: Sodium Level 140, Potassium Level 3.5, Chloride Level 104, Carbon Dioxide Level 28, Anion Gap 8, Blood Urea Nitrogen 18, Creatinine 0.5L, Estimat Glomerular Filtration Rate , Glucose Level 63L, Calcium Level 8.7, Magnesium Level 1.9 Height (Feet): 4 Height (Inches): 9.00 Weight (Pounds): 127 Objective Physical Exam General Appearance: no apparent distress, alert HEENT: normocephalic, atraumatic Neck: non-tender, normal alignment Respiratory/Chest: chest wall non-tender, lungs clear Cardiovascular/Chest: normal peripheral pulses, rrr Abdomen: normal bowel sounds, non tender, soft Extremities: severe edema Skin Exam: normal pigmentation, warm/dry Musculoskeletal: normal muscle bulk Neuro: lethargic Pepe Wilcox MD Jun 05, 2018 20:21
--- NOTE | 2018-06-06 23:18 | Discharge Summary ---
Discharge Summary Hospital Course Date of Admission May 25, 2018 at 10:51 Date of Discharge Jun 05, 2018 at 14:14 Admitting Diagnosis dyspnea HPI Padmini Diane Cea is a 83 year old female who was admitted on May 25, 2018 at 10:51 for Dyspnea 83 year old woman with HTN, history of GI bleed, history of moderate dementia who presents from home by daughter due to severe edema on BLE, progressing over 2-3 weeks. Also with fatigue, dyspnea and abdominal distension. No chest pain, fever or chills reported. In ED she was noted to have oxygenation saturation of 78% on room room air and was put on non-breather mask - she was ultimately placed on NIPPV due to respiratory distress. Initial workup suggested fluid overload, acute CHF - she was given Lasix 60mg IV, 250 ml diureses thus far. Patient is not on diuretics chronically. Consultations Nephrology, Pulmonary, Psychiatry, Cardiology Hospital Course During hospitalization, acute on chronic systolic CHF was initially treated with Lasix however due to contraction alkalosis, Lasix was held, Diamox was started. Pt placed on BIPAP with improvement in respiratory status. Pt noted to have dysphagia, diet changed to dysphagia with strict aspiration precautions. Daily weights, input and output was monitored. Pt noted to have electrolyte abnormalities, resolved with intravenous repletion. Prior to discharge pts mental status improved, tolerating po intake and hemodynamically stable. Primary diagnosis: #Acute on chronic systolic CHF - TTE shows EF 25-30% #Severe aortic stenosis #Acute hypoxic respiratory failure due to acute CHF #High risk for aspiration per [employer] #Essential HTN #Metabolic alkalosis - improved -Lasix held due to contraction alkalosis, restarted prior to discharge -continue Coreg and lisinopril -Cont Daily weights, Restrict sodium intake, dysphagia diet,aspiration precautions -diamox discontinued Secondary diagnosis #Hypokalemia #Hypomagnesemia -replaced intravenously #Hyponatremia -secondary to hypervolemic state -resolved with CHF treatment #Dementia #Acute metabolic encephalopathy, present on admission - resolved #Severe agitation - resolved -continue Zyprexa I spent 32 minutes on discharge planning and coordination Discharge Medications New Medications: Carvedilol (Coreg) 3.125 Mg Tablet 3.125 MG ORAL EVERY 12 HOURS for 30 Days, #30 TAB Furosemide* (Lasix*) 40 Mg Tablet 40 MG ORAL DAILY for 30 Days, #30 TAB Lisinopril (Lisinopril*) 5 Mg Tablet 2.5 MG ORAL DAILY for 30 Days, #30 TAB Potassium Chloride* (K-Dur*) 20 Meq Tab.er.prt 20 MEQ ORAL DAILY for 14 Days, TAB Continued Medications: Allopurinol* (Allopurinol*) 100 Mg Tablet 100 MG ORAL DAILY, TAB (This prescription has been renewed) Aspirin (Aspirin) 81 Mg Tab.chew 81 MG PO DAILY, TAB (This prescription has been renewed) Calcium Carbonate/Vitamin D3 (Oyster Shell 500 Mg + Vit D Tb) 1 Each Tablet 1 EACH PO DAILY, TAB (This prescription has been renewed) Fluticasone Propionate* (Fluticasone Propionate*) 16 Gm [place].susp 1 SPRAY NASAL DAILY, EA (This prescription has been renewed) Lorazepam* (Lorazepam*) 1 Mg Tablet 1 MG ORAL THREE TIMES A DAY, TAB (This prescription has been renewed) Tramadol Hcl* (Ultram*) 50 Mg Tablet 50 MG ORAL TWICE A DAY PRN for For Pain, #30 TAB 0 Refills (This prescription has been renewed) Trimethoprim/Sulfamethoxazole (Bactrim Ds Tablet) 1 Each Tablet 1 TAB ORAL Q12H for 3 Days, #6 TAB Discontinued Medications: Atenolol (Tenormin) 25 Mg Tablet 25 MG ORAL DAILY, TAB Olopatadine HCl (Pazeo) 2.5 Ml Drops 2.5 ML OP DAILY, ML Olopatadine Hcl (Pataday) 2.5 Ml Drops 2.5 ML OP DAILY, ML Discharge Condition Upon Discharge: stable Discharge Disposition Patient was discharged to SNF/Subacute Facility(03) Discharge Diagnoses: (1) Hyponatremia (2) HTN (hypertension) (3) Dyspnea (4) Diverticul disease small and large intestine, no perforati or abscess (5) Acute anemia (6) Acute metabolic encephalopathy (7) Dementia with behavioral disturbance (8) Hypokalemia (9) Hypomagnesemia (10) Altered mental state (11) Sinus bradycardia (12) SVT (supraventricular tachycardia) (13) Metabolic alkalosis with respiratory acidosis Olivia Aguayo MD Jun 06, 2018 23:18
== END 2018-06-05 14:14 | DRG 194 ==
LOC: EDBEDREQ 10:25 → EMR 10:35 → EDBEDREQSVC 10:42 → EDBEDREQ 10:42 → 2W 10:51 → EDBEDREQ 12:07 → 2E 05-26 15:05
PROC: 5A09357 Assistance with Respiratory Ventilation, Less than 24 Consecutive Hours, Continuous Positive Airway Pressure (ICD-10-PCS; principal; 2018-05-25)
DX: I11.0 Hypertensive heart disease with heart failure (principal); J96.01 Acute respiratory failure with hypoxia; G93.41 Metabolic encephalopathy; E87.3 Alkalosis; R13.10 Dysphagia, unspecified; E83.42 Hypomagnesemia; I27.20 Pulmonary hypertension, unspecified; F03.91 Unspecified dementia, unspecified severity, with behavioral disturbance; I50.23 Acute on chronic systolic (congestive) heart failure; I35.0 Nonrheumatic aortic (valve) stenosis; E87.6 Hypokalemia; R45.1 Restlessness and agitation; Z88.0 Allergy status to penicillin; I42.9 Cardiomyopathy, unspecified; Z79.82 Long term (current) use of aspirin; D63.8 Anemia in other chronic diseases classified elsewhere; I44.7 Left bundle-branch block, unspecified; K57.30 Diverticulosis of large intestine without perforation or abscess without bleeding; K57.10 Diverticulosis of small intestine without perforation or abscess without bleeding; R00.1 Bradycardia, unspecified; I47.1 Supraventricular tachycardia
CPT/HCPCS: 36415; 36600; 70450; 71045; 71250; 76700; 80048; 80053; 80061; 81001; 82140; 82248; 82550; 82553; 82607; 82728; 82746; 82803; 82962; 83036; 83540; 83550; 83690; 83735; 83880; 83921; 83935; 84100; 84300; 84439; 84443; 84484; 85007; 85025; 85044; 85060; 85384; 85610; 85660; 86592; 86703; 86705; 86709; 86803; 87340; 93005; 93306; 94660; 94664; 94760; 96374; 99291; J8499